=== PATIENT | female | born 1945 | race Hispanic/Latino ===

== ENCOUNTER 2017-12-12 13:04 | Inpatient (IN) | payer MEDICARE ==
--- NOTE | 2017-12-12 11:09 | R.PREADM ---
SCREENING DATE AND TIME 12/12/2017 08:56 (CDT) ANTICIPATED REHAB ADMISSION DATE 12/14/2017 REFERRING FACILITY [facility] REFERRAL DATE AND TIME 12/12/2017 08:57 (CDT) ACUTE ADMIT DATE 12/06/2017 Previous Rehabilitation(s): No. 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 Miki Delgado M.D. MR# [id number] NAME IVETTE HODGES ADDRESS [address] [facility] [facility] PHONE [facility] [id number] DATE OF 1945 AGE 72 N# [id number] GENDER female MARITAL STATUS RACE unknown race ADMIT FROM 02 - [facility] PRE-HOSPITAL LIVING SETTING 01 - Home (private home/apt. board/care, assisted living, alf, transitional living) HOME TYPE AND DETAILS Type of home: single family house # of steps to enter the residence: 0 # of steps within the residence: 0 # of levels in the residence: 1 PRE-HOSPITAL LIVING WITH Family/Relatives FAMILY SUPPORT Yes PRIMARY FAMILY CONTACT NAME Ansley Jackson PRIMARY FAMILY CONTACT PHONE PHONE PRIMARY FAMILY CONTACT ON ADM.? no IS PRIMARY FAMILY CONTACT AUTH. REP.? no 1ST EMERGENCY CONTACT Anlsey Jackson 1ST CONTACT PHONE PHONE 1ST CONTACT ON ADM. no IS 1ST CONTACT AUTH. REP.? no PHONE 2ND CONTACT ON ADM.? no PATIENT EMPLOYMENT STATUS Retired (for age) PATIENT EMPLOYER No Employer PAYOR INFORMATION: 1ST PAYOR NAME [employer] 1ST PAYOR PHONE 1ST PAYOR INJURY/ILLNESS DUE TO ACCIDENT? No ANOTHER [employer] RESPONSIBLE? No PRIMARY REHAB/ACUTE DIAGNOSIS: Cerebral infarction due to unspecified occlusion or stenosis of right middle cerebral artery (I63.511 ) ONSET DATE 12/06/2017 REHAB IMPAIRMENT CATEGORY (CRIS): 01 Stroke (STR) MEETS 60% rule AFFECTED EXTREMITIES: LLE, and LUE PRIMARY DIAGNOSIS-RELATED SURGERIES: No surgeries related to the primary diagnosis were performed. COMORBID REHAB/ACUTE DIAGNOSES: - N/A hypertension hyperlipemia hyperthyroidism pacemaker diabetes INTERVENTIONS: - Hypertension Fluid management Medications VS - Diabetes BS's Education Glycohemoglobin Medications Podiatry RISK FOR COMPLICATIONS: - Hypertension CVA Hypotension RI TIA - Diabetes DM ulcers Infection Ketoacidosis PVD neuropathy SUMMARY OF ACUTE HOSPITALIZATION: Pt. is a 72 yo Right-handed female of unknown race. On 12/06/2017 Pt. presented to [facility] with sudden onset of left-side weakness. On 12/06/2017 she was admitted to [facility] with diagnosis Cerebral infarction due to unspecif ied occlusion or stenosis of right middle cerebral artery (I63.511). Her impairment category is Stroke 01 - Left Body (Right Brain) (01.1). Pre-morbidly, Pt. was independent/mod-I in Sphincter Control, Transfers Control, Communication, Socia l Cognition, Self-Care, and Locomotion; and she had good Sphincter Control. Currently, she has deficits of Endurance, Safety Awareness, Transfers Control, Communication, Social Cognition, Balance, Self-Care, and Locomotion. Pt. is now referred to [facility] for acute in-patient rehabilitation in order to maximize patient's functional independence in activities of daily living, strength, ROM, and mobi lity. Patient has realistic goal of being discharged at assistance level 6-Jonah to reside at Home with Fam remington/Relatives. PAST MEDICAL HISTORY diabetes hyperlipemia hypertension hyperthyroidism pacemaker MEDICATION ALLERGIES: No Known Drug Allergies (NKDA) ENVIRONMENTAL ALLERGIES: - Substance Allergies None Known - Other Allergies None Known CODE STATUS: Full code WEIGHT/HEIGHT/BMI: WEIGHT 150 lbs HEIGHT 5' 6" BMI 24.2 DIET: - Diet Type Regular - Diet - Solid Texture Regular - Diet - Liquid Texture Regular - Tube Feed N/A REVIEW OF SYSTEMS: - Gen Alert and awake Lying in bed No apparent distress Oriented to: person, time, and place - Vital Signs Vital signs stable, afebrile - CVS RRR VITAL SIGNS Temperature: 98.4 F SBP/DBP: 123/63 Pulse: 83 Resp: 22 Vital signs stable, afebrile CURRENT SPHINCTER CONTROL: Pre-hospital bladder status: continent # of bladder accidents in the last 7 days prior to screenin Pre-hospital bowel status: continent # of bowel accidents in the last 7 days prior to screenin Last Bowel Movement Date: 12/12/2017 DETAILED CURRENT FUNCTIONAL STATUS: - Bladder accident frequency: Ind - No accidents in the past 7 days - Bowel accident frequency: Ind - No accidents in the past 7 days - Walking score based on distance walked: 1(<=50ft) FUNCTIONAL STATUS: - Self-Care A. Eating Ind Tom B. Grooming Ind modA C. Bathing Ind modA D. Dressing - Upper Ind modA E. Dressing - Lower Ind modA F. Toileting Ind modA - Sphincter Control G: Bladder control Ind Ind H: Bowel control Ind Ind - Transfers Control I. Bed/Chair/Wheelchair Ind modA J. Toilet Ind modA K. Tub/Shower Ind modA - Locomotion L. Walk/Wheelchair (B) Ind Dep M. Stairs Ind ADNO - Communication N. Comprehension (B) Ind Tom O. Expression (B) Ind Tom - Social Cognition P. Social Interaction Ind Tom Q. Problem Solving Ind Tom R. Memory Ind Tom - Endurance Poor - Balance Poor - Safety Awareness Poor CURRENT FUNC. DEFICITS: Endurance, Safety Awareness, Transfers Control, Communication, Social Cognition, Balance, Self-Care, and Locomotion THERAPY NOTES FROM ACUTE CARE: Attached. SPECIAL NEEDS: - Safety Concerns Skin breakdown precautions needed due to skin breakdown risk PRECAUTIONS: - Weight Bearing Precaution WBAT left LE PATIENT NEEDS ACTIVE AND ONGOING THERAPEUTIC INTERVENTION OF MULTIPLE THERAPY DISCIPLINES, INCLUDING: - Occupational Therapy Evaluate and Treat. Cognitive Retraining. Visual Perceptual Training. - Speech Therapy Memory Strategies. Expressive Language Skills. Speech Intelligibility Training. Cognitive Training. R eceptive Language Skills. - Physical Therapy Evaluate and Treat. PATIENT NEEDS CLOSE MEDICAL SUPERVISION BY A REHABILITATION PHYSICIAN FOR: Bowel and Bladder Management Coordination of Treatment Team Diabetes Management Medical and Co-Morbidity Management PATIENT REQUIRES 24X7 REHAB NURSING FOR MEDICAL AND FUNCTIONAL MGT. OF THE FOLLOWING DEFICITS: ADL's Ambulation Bowel and Bladder Management Cognition Communication Disease Management Medication Management Patient/Family Education Providing Safe Environment Transfers PATIENT REQUIRES INTENSIVE, COORDINATED INTERDISCIPLINARY APPROACH TO REHAB: Arranging Home Equipment/Services Discharge Planning Family Intervention/Training Filter Pulp Washer/Case Management PATIENT REHAB POTENTIAL: Expected level of measurable improvement will be of a practical value to patient's functional capacit y or adaptations to impairments Has a viable Discharge Plan Medically appropriate; condition is sufficiently stable to participate in intensive rehab program Patient is able and expected to receive 3 hours of individualized therapy daily on at least 5 of ever y 7 days Patient's prognosis for significant practical improvement within a reasonable period of time appears Good DISCHARGE PLAN: - Estimated Length of Stay (days) 17. - Consensus on plan Discharge plan has been discussed with primary caregiver. Patient/Family is in agreement with the kailee n. Primary caregiver is in agreement with the plan. - Patient/Family Goals Return home with assistance. - Planned Living Setting Upon Discharge Home, to live with Family/Relatives. RECOMMENDED CARE LEVEL: IRF RECOMMENDATION DETAILS: Recommended Admission to Comprehensive Rehabilitation Program to Increase Functional [place] SCREENER'S COMPLETENESS CONFIRMATION: - Screening Confirmation The patient data collection on this preadmission screening form is finished PHYSICIANS REVIEW AND ADMISSION DETERMINATION Admit - Based on my review of the Pre-Admission Screening results, in my medical judgment and experie nce, I concur with the findings and recommend admission to [facility], as this patient requires an IRF level of care. SIGNATURE PANEL: Clinical Liaison - [electronically] signed by Astrid Eid on 12/12/2017 at 09:44 (CDT) Clinical Liaison - [electronically] signed by Diamond Hurd on 12/12/2017 at 09:58 (CDT) Physician Reviewer - [electronically] signed by Dr. Miki Delgado M.D. on 12/12/2017 at 10:08 (CDT )
--- OUTSIDE RECORDS SUMMARY | 2017-12-12 13:06 | XMS REPORT | Clinical Summary ---
:1945 Author Organization [facility] Address [address] [place] [address] Phone Care Team Providers Name Role Phone Unavailable Primary Care Provider Unavailable Allergies Active Allergy Reactions Severity Noted Date Comments Vancomycin Analogues Itching 07/16/2016 Current Medications Prescription Sig. Disp. Refills Start Date End Date Status glipiZIDE (GLUCOTROL) Take 10 mg by Active 5 MG tablet mouth daily . metFORMIN (GLUCOPHAGE) Take 500 mg by Active 500 MG tablet mouth daily with breakfast . omeprazole (PRILOSEC) Take 40 mg by Active 10 MG capsule mouth daily . aspirin 81 MG EC Take 81 mg by Active tablet mouth daily. carvedilol (COREG) Take 12.5 mg by Active 12.5 MG tablet mouth daily. sertraline (ZOLOFT) 50 Take 50 mg by Active MG tablet mouth daily. pravastatin Take 20 mg by Active (PRAVACHOL) 20 MG mouth daily. tablet ramipril (ALTACE) 5 MG Take 5 mg by mouth Active capsule daily. potassium chloride SA Take 20 mEq by Active (K-DUR,KLOR-CON) 20 mouth 2 (two) MEQ tablet times daily. furosemide (LASIX) 40 Take 40 mg by Active MG tablet mouth daily. zolpidem (AMBIEN) 10 Take 10 mg by Active mg tablet mouth every night as needed for Insomnia. traMADol (ULTRAM) 50 Take 1 tablet (50 10 tablet 0 07/17/2016 Active mg tablet mg total) by mouth every 8 (eight) hours as needed for up to 10 doses. Max Daily Amount: 150 mg Active Problems Problem Noted Date Chronic systolic CHF (congestive heart failure) (HCC) 07/16/2016 Social History Tobacco Use Types Packs/Day Years Used Date Never Smoker Smokeless Tobacco: Never Used Alcohol Use Drinks/Week oz/Week Comments No Sex Assigned at Date Recorded Not on file Last Filed Vital Signs Not on file Plan of Treatment Not on file Implants Implanted Type Area Hi Lo Driver Device Expiration Model / Identifier Date Serial / Lot Lead Icd Sprnt [employer]ur [id number] - [id number] Defibrillators N/A: [employer]:CARD 04/24/2017 [id number] / Implanted: Qty: 1 on 07/16/2016 by Yara Benson MD Heart RHY:DISEASE MGT [id number] / N/A Results Not on fileafter 12/11/2016
--- OUTSIDE RECORDS SUMMARY | 2017-12-12 13:06 | XMS REPORT | Continuity of Care Document ---
:1945 Author Organization Interface Problems Problem Status Onset Date Classification Date Comments Source Reported Medications Medication Details Route Status Patient Ordering Order Source Instructions Provider Date Allergies, Adverse Reactions, Alerts Substance Category Reaction Severity Reaction Status Date Comments Source type Reported Immunizations Immunization Date Given Site Status Last Updated Comments Source Results Order Results Value Reference Date Interpretation Comments Source Name Range Vital Signs Vital Sign Value Date Comments Source Encounters Location Location Encounter Encounter Reason Attending ADM DC Status Source Details Type Number For Provider Date Date Visit Outpatient [id number] DASHA 08/24 Active [facility] Outpatient [id number] DASHA 11/02 Active [facility] Outpatient [id number] DASHA 11/04 Active [facility] Outpatient [id number] DASHA 12/16 [facility] Procedures Procedure Code Date Perfomer Comments Source
[2017-12-12] MEDS ORDERED: GLUCAGON 1 MG/VIAL IM PRN (15:42)
[2017-12-12] MEDS ORDERED: D50W 25 GM/50 ML SYRINGE IV PRN (15:42)
[2017-12-12] MEDS: INSULIN -REGULAR HUMAN 50 UNIT/0.5 ML ML SQ SCH ×2 (16:30→21:00)
[2017-12-12] MEDS ORDERED: glipiZIDE 5 MG TAB PO SCH (16:30)
[2017-12-12] MEDS ORDERED: METFORMIN HCL 500 MG TAB PO SCH (17:00)
[2017-12-12] MEDS ORDERED: ENOXAPARIN 40 MG/0.4 ML SQ SCH (17:00)
[2017-12-12] MEDS ORDERED: PNEUMOCOCCAL VACCINE 0.5 ML IMVAC ONE (18:00)
--- NOTE | 2017-12-12 18:26 | R.HP ---
FACILITY: [facility] ENCOUNTER DATE AND TIME: 12/12/2017 17:20 (CDT) MR#: [id number] NAME IVETTE HODGES ADDRESS: [address] [place] [address]: [place]IP [id number] PHONE: DATE OF : 1945 AGE: 72 SSN# [id number] GENDER: Female DEXTERITY Right-handed MARITAL STATUS RACE Unknown race PRE-HOSPITAL LIVING SETTING 01 - Home (private home/apt. board/care, assisted living, correction, transitional living) PRE-HOSPITAL LIVING WITH Family/Relatives ENCOUNTER PHYSICIAN: Dr. Miki Delgado M.D. REFERRING DOCTOR: Jennifer Palencia DATE OF ADMISSION: 12/12/2017 13:04 (CDT) REFERRING FACILITY [facility] HOME TYPE AND DETAILS: Type of home: single family house # of steps to enter the residence: 0 # of steps within the residence: 0 # of levels in the residence: 1 ADMISSION DIAGNOSIS: Cerebral infarction due to unspecified occlusion or stenosis of right middle cerebral artery (I63.511 ) ONSET DATE: 12/06/2017 PRIMARY DIAGNOSIS-RELATED SURGERIES: No surgeries related to the primary diagnosis were performed. SECONDARY/COMORBID DIAGNOSES (TIERED): - N/A hypertension hyperlipemia hyperthyroidism pacemaker diabetes HISTORY OF PRESENT ILLNESS (HPI): Pt. is a 72 yo Right-handed female of unknown race. On 12/06/2017 Pt. presented to [facility] with sudden onset of left-side weakness. On 12/06/2017 she was admitted to [facility] with diagnosis Cerebral infarction due to unspecif ied occlusion or stenosis of right middle cerebral artery (I63.511). Her impairment category is Stroke 01 - Left Body (Right Brain) (01.1). Pre-morbidly, Pt. was independent/mod-I in Sphincter Control, Transfers Control, Communication, Socia l Cognition, Self-Care, and Locomotion; and she had good Sphincter Control. Currently, she has deficits of Endurance, Safety Awareness, Transfers Control, Communication, Social Cognition, Balance, Self-Care, and Locomotion. Pt. is now referred to [facility] for acute in-patient rehabilitation in order to maximize patient's functional independence in activities of daily living, strength, ROM, and mobi lity. Patient has realistic goal of being discharged at assistance level 6-Jonah to reside at Home with Fam remington/Relatives. MEDICATION ALLERGIES: No Known Drug Allergies (NKDA) ENVIRONMENTAL ALLERGIES: - Substance Allergies None Known - Other Allergies None Known PAST MEDICAL HISTORY: diabetes hyperlipemia hypertension hyperthyroidism pacemaker FAMILY HISTORY: Family history is not contributory. SOCIAL HISTORY: - Home Living Family/Relatives REVIEW OF SYSTEMS: - Gen No Chills No Fatigue No Fever - Eyes No Double Vision No itchiness - ENMT No Difficulty Swallowing - CVS No Chest Discomfort No Chest Pain No Fatigue No Weight Gain - Resp No Cough No Shortness of Breath - GI Continent No Abdominal Pain No Constipation No Diarrhea - Continent No Kidney Pain No Painful Urination No Urinary Urgency - MSK No Joint Pain No Muscle Cramps No Stiffness Loss of Strength - Skin No Itching No Rash No Suspicious Lesions - Neuro Coordination Difficulty Difficulty with Concentration No Memory Loss No Seizures Weakness Poor Coordination Left arm 1/5 distally and proximally and left leg 4/5 proximally and distally. - Psych No Anxiety No Depression No HIV Exposure No Persistent Infections No Seasonal Allergies - Endo No Cold/Heat Intolerance No Excessive Hunger No Excessive Thirst No Excessive Urination PHYSICAL EXAM - Gen Alert and awake Lying in bed No apparent distress Oriented to: person, time, and place - Vital Signs Vital signs stable, afebrile - Skin No skin breakdown. Normacephalic - Eyes No abnormalities - ENMT No abnormalities - Neck No abnormalities - CVS RRR - Chest Clear - Abd Soft - GI Non distended Deferred - No abnormalities - Ext No significant edema - MSK 0-1/5 weakness in left upper extremity. 2/5 left face, 4/5 left leg. Numbness left face and arm. - Neuro 0-1/5 weakness in left upper extremity. 2/5 left face, 4/5 left leg. Numbness left face and arm. - Psych No abnormalities VITAL SIGNS Temperature: 98.4 F SBP/DBP: 123/63 Pulse: 83 Resp: 22 Vital signs stable, afebrile NURSING: - Shower allowing shower - Lab Results blood Sugar Check ACHS - Bladder care per protocol - Skin care per protocol PRECAUTIONS: - Weight Bearing Precaution WBAT left LE ACTIVITIES OOB only with supervision FUNCTIONAL STATUS: - Self-Care A. Eating Ind Tom B. Grooming Ind modA C. Bathing Ind modA D. Dressing - Upper Ind modA E. Dressing - Lower Ind modA F. Toileting Ind modA - Sphincter Control G: Bladder control Ind Ind H: Bowel control Ind Ind - Transfers Control I. Bed/Chair/Wheelchair Ind modA J. Toilet Ind modA K. Tub/Shower Ind modA - Locomotion L. Walk/Wheelchair (B) Ind Dep M. Stairs Ind ADNO - Communication N. Comprehension (B) Ind Tom O. Expression (B) Ind Tom - Social Cognition P. Social Interaction Ind Tom Q. Problem Solving Ind Tom R. Memory Ind Tom - Endurance Poor - Balance Poor - Safety Awareness Poor CURRENT FUNC. DEFICITS: Endurance, Safety Awareness, Transfers Control, Communication, Social Cognition, Balance, Self-Care, and Locomotion ASSESSMENT: Pt. is a 72 yo Right-handed female of unknown race.On 12/06/2017 Pt. presented to [facility] sudden onset of left-side weakness.On 12/06/2017 she was admitted to [facility] with diagnos is Cerebral infarction due to unspecified occlusion or stenosis of right middle cerebral artery (I63. 511).Her impairment category is Stroke 01 - Left Body (Right Brain) (01.1).Pre-morbidly, Pt. was ind ependent/mod-I in Sphincter Control, Transfers Control, Communication, Social Cognition, Self-Care, a nd Locomotion; and she had good Sphincter Control.Currently, she has deficits of Endurance, Safety Aw areness, Transfers Control, Communication, Social Cognition, Balance, Self-Care, and Locomotion.Pt. i s now referred to [facility] for acute in-patient rehabilitation in order to m aximize patient's functional independence in activities of daily living, strength, ROM, and mobility. - Rehab Goal Patient has realistic goal of being discharged at assistance level 6-Jonah to reside at Home with Fam remington/Relatives. REHAB PLAN: for Dementia, TBI, Stroke, or others - Physical Therapy Gait dysfunction - to improve, our physical therapists will perform initial evaluation of pt's status upon admission and devise an individualized program for Gait Training, and Wheel Chair mobility Inability to transfer - to improve, our physical therapists will perform initial evaluation of pt's s tatus upon admission and devise an individualized program for Bed mobility Need for home safety evaluation - to improve, our physical therapists will perform initial evaluation of pt's status upon admission and devise an individualized program for Home Evaluation Need in caregiver upon discharge - to improve, our physical therapists will perform initial evaluatio n of pt's status upon admission and devise an individualized program for Caregiver Training New precaution - to improve, our physical therapists will perform initial evaluation of pt's status u neto admission and devise an individualized program for Patient precaution education Edema - to improve, our physical therapists will perform initial evaluation of pt's status upon admi ssion and devise an individualized program for Elevation Training, and Lymphedema Therapy Poor balance - to improve, our physical therapists will perform initial evaluation of pt's status upo n admission and devise an individualized program for Balance Training Poor endurance - to improve, our physical therapists will perform initial evaluation of pt's status u neto admission and devise an individualized program for Endurance Training Weakness - to improve, our physical therapists will perform initial evaluation of pt's status upon ad mission and devise an individualized program for Aquatic Therapy, Neuromuscular Reeducation, and Stre ngthening Achieving independence - to improve, our physical therapists will perform initial evaluation of pt's status upon admission and devise an individualized program for Community Reintegration Activities - Occupational Therapy ADL deficits - to improve, our occupation therapists will perform initial evaluation of pt's status u neto admission and devise an individualized program for Bathing, Bed mobility, Community Reintegration , Cooking, Dressing, Eating, Fine Motor Skills, Grooming, Homemaking, Kitchen Mobility, Laundry, Chiara ent Education, Safety Awareness, Splinting - Positioning, Transfers(Toilet, Tub, Shower), and Wheel C hair Management Cognitive deficits - to improve, our occupation therapists will perform initial evaluation of pt's st atus upon admission and devise an individualized program for Cognition - orientation Need for landcare facilitator - to improve, our occupation therapists will perform initial evaluation of pt's s tatus upon admission and devise an individualized program for Caregiver Training Weakness - to improve, our occupation therapists will perform initial evaluation of pt's status upon admission and devise an individualized program for Aquatic Therapy, Balance, Endurance, UE ROM, and U E strengthening MEDICAL PLAN: - Diet Type Start Regular - Diet - Liquid Texture Start Regular - Tube Feed Start N/A - Lab Results blood Sugar Check ACHS - Bladder care per protocol - Weight Bearing Precaution WBAT left LE - Skin care per protocol - Diet - Solid Texture Regular - Shower shower DISCHARGE PLAN: - Estimated Length of Stay (days) 17. - Consensus on plan Discharge plan has been discussed with primary caregiver. Patient/Family is in agreement with the kailee n. Primary caregiver is in agreement with the plan. - Patient/Family Goals Return home with assistance. - Planned Living Setting Upon Discharge Home, to live with Family/Relatives. SIGNATURE PANEL: (CDT)
--- NOTE | 2017-12-12 18:27 | PAPE ---
PATIENT: [facility] MR# [id number] REFERRING DOCTOR Jennifer Palencia EVALUATION DATE AND TIME 12/12/2017 17:26 (CDT) NAME IVETTE HODGES DATE OF 1945 AGE 72 PHONE N# [id number] GENDER female EVALUATING PHYSICIAN Dr. Miki Delgado M.D. ADMISSION DIAGNOSIS: Cerebral infarction due to unspecified occlusion or stenosis of right middle cerebral artery (I63.511 ) ONSET DATE 12/06/2017 SECONDARY/COMORBID DIAGNOSES TIERED: - N/A hypertension hyperlipemia hyperthyroidism pacemaker diabetes POST-ADMISSION FUNCTIONAL/MEDICAL STATUS: - Bladder Same accident frequency: Ind - No accidents in the past 7 days - Bowel Same accident frequency: Ind - No accidents in the past 7 days - Walking Same score based on distance walked: 1(<=50ft) STATUS CHANGE EVALUATION: No change in Functional or Medical Status is identified compared with Pre-Admission screening. PATIENT NEEDS CLOSE MEDICAL SUPERVISION BY A REHABILITATION PHYSICIAN FOR: Bowel and Bladder Management Coordination of Treatment Team Diabetes Management Medical and Co-Morbidity Management PATIENT REQUIRES 24X7 REHAB NURSING FOR MEDICAL AND FUNCTIONAL MGT. OF THE FOLLOWING DEFICITS: ADL's Ambulation Bowel and Bladder Management Cognition Communication Disease Management Medication Management Patient/Family Education Providing Safe Environment Transfers PATIENT REQUIRES INTENSIVE, COORDINATED INTERDISCIPLINARY APPROACH TO REHAB: Arranging Home Equipment/Services Discharge Planning Family Intervention/Training Repatcher/Case Management LIST OF IDENTIFIED AND POTENTIAL PROBLEMS: Alteration in leisure activities Bladder, Incontinence Blood Pressure, Hypertension/hypotension Issues Bowel, Incontinence Diabetes, Hyperglycemia/hypoglycemia Issues Infection, Actual or Potential Mobility Impaired Pain, Alteration in Comfort Self Care Deficit Skin Integrity, Actual or Potential Urinary Tract Infection (UTI), Actual or Potential RISK FOR COMPLICATIONS - Hypertension CVA. Hypotension. OH. TIA. - Diabetes DM ulcers. Infection. Ketoacidosis. PVD neuropathy. INTERVENTIONS - Hypertension - Diabetes BS's. Education. Glycohemoglobin. Medications. Podiatry. PATIENT COULD BE AT RISK FOR COMPLICATIONS FROM ADVERSE MEDICAL CONDITIONS DUE TO HIS/HER COMORBIDITI ES AND THE RIGORS OF THE INTENSIVE REHABILLITATION PROGRAM. METHODS OR INTERVENTIONS TO AVOID COMPLIC ATIONS INCLUDE: - Bleeding Stroke patients assessed for lethargy or change in status. - Infection Clinical staff to assess and manage the signs and symptoms of infection including fever, redness, war mth, etc. - Urinary Tract Infection - Aspiration Clinical staff will assess and manage coughing, drooling, congestion. - Falls Patient will be evaluated for Fall Precautions and will be placed on Fall Precautions as indicated pe r protocol. - Skin Breakdown Nursing will assess skin daily using assessment tool and will place on Skin Breakdown Precautions as indicated per protocol. - Pain Clinical staff may employ non-medication methods such as massage, distraction, decrease stimulus, etc . as needed. Clinical staff will assess patient's pain level every shift per protocol to assess and e nsure pain management effectiveness. Medications will be given and the pain level re-assessed. PRELIMINARY PLAN OF CARE: - Physical Therapy Patient needs Physical Therapy for a daily minimum of 1.5 hours at least 5 out of 7 days, to improve: Mobility, Strengthening, Transfers, Stretching, ROM, Endurance, Ability to manage stairs, Gait, and Balance. - Speech Therapy Patient needs Speech Therapy for a daily minimum of 0.5 hours at least 5 out of 7 days, to improve: S wallowing, Cognition, Language Skills, and Compensatory Strategies. - Rehabilitation Nursing Patient requires 24x7 Rehabilitation Nursing for: Pain Issues, Identifying and preventing risk factor s, Monitoring and reporting current medical conditions, Assisting with ambulation and transfer, Hue ting with all ADL-s, Teaching patients about disease process and medications, Family teaching, Provid ing safe environment, Bowel and Bladder Issues, Skin Integrity, and Medication Management. Patient needs Repatcher and/or Case Management for: Discharge Planning, Arranging Home Equipmen t or Services, and Family Interventions. - Dietary and Nutrition Services Patient needs Dietary and Nutrition Services for: Adequate Nutrition, Nutritional Supplements, and Nu tritional Education. - Occupational Therapy Patient needs Occupational Therapy for a daily minimum of 1.5 hours at least 5 out of 7 days, to impr ove Activities of Daily Living, including: Eating, Grooming, Bathing, Dressing, Toileting, Toilet Tra nsfers, Community Reintegration, Higher functional activities, Adaptive Equipment, Splinting, Househo ld Tasks, and Other activities as determined. POTENTIAL FUNCTIONAL GOALS FOR PATIENT TO ACHIEVE BY DISCHARGE: - Safety Precaution Patient will remain free from falls or injury at time of discharge. - Bed Mobility Patient will perform bed mobility at 4-Tom level of assistance. - Transfers Patient will complete transfers from bed to chair at 4-Tom level of assistance. - Mobility Patient will ambulate 150 ft with 4-Tom level of assistance with RW. PATIENT REHAB POTENTIAL Expected level of measurable improvement will be of a practical value to patient's functional capacit y or adaptations to impairments Has a viable Discharge Plan Medically appropriate; condition is sufficiently stable to participate in intensive rehab program Patient is able and expected to receive 3 hours of individualized therapy daily on at least 5 of ever y 7 days Patient's prognosis for significant practical improvement within a reasonable period of time appears Good DISCHARGE PLAN: - Estimated Length of Stay (days) 17. - Consensus on plan Discharge plan has been discussed with primary caregiver. Patient/Family is in agreement with the kailee n. Primary caregiver is in agreement with the plan. - Patient/Family Goals Return home with assistance. - Planned Living Setting Upon Discharge Home, to live with Family/Relatives. CONCLUSION ON REHABILITATION NECESSITY: I have evaluated patient's pre-admission functional status and, comparing it to the patient's post-ad mission functional status now, I conclude that the pre-admission assessment was accurate. Patient's c ondition on admission supports the medical necessity of admission to IRF. It is safe to proceed with patient's therapy program. SIGNATURE PANEL: (CDT)
[2017-12-12] MEDS ORDERED: CARVEDILOL 6.25 MG TAB PO SCH (20:00)
[2017-12-12] MEDS ORDERED: ATORVASTATIN 80 MG TAB PO SCH (21:00)
[2017-12-13] MEDS ORDERED: ACETAMINOPHEN 325 MG TABLET PO PRN ×2 (00:25→02:34)
[2017-12-13] MEDS ORDERED: ACETAMINOPHEN 325 MG TABLET ONE (00:50)
[2017-12-13 02:03] VITALS: BP 116/61; TEMP 96.8
--- NOTE | 2017-12-13 05:44 | FAST ---
SHIFT START DATE/TIME: 12/12/2017 19:00 (CDT) SHIFT END DATE/TIME: 12/13/2017 07:00 (CDT) NAME IVETTE HODGES DATE OF : 1945 DATE OF ADMISSION: 12/12/2017 13:04 (CDT) PHONE: AGE: 72 N# [id number] GENDER: Female ENCOUNTER PHYSICIAN: Dr. Miki Delgado M.D. 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 EATING: Activity did not occur on this shift EATING - SCORE: 0-UNK GROOMING: Activity did not occur on this shift GROOMING - SCORE: 0-UNK BATHING: Activity did not occur on this shift BATHING - SCORE: 0-UNK DRESSING - UPPER BODY: Activity did not occur on this shift ARTICLES SCORE Total number of steps: 0 DRESSING - UPPER BODY - SCORE: 0-UNK DRESSING - LOWER BODY: Activity did not occur on this shift ARTICLES SCORE Total number of steps: 0 DRESSING - LOWER BODY - SCORE: 0-UNK TOILETING: TOILETING - STEP 1: Does the patient require assistance with toileting? Yes. TOILETING - STEP 2: Does the patient require the assistance of a helper? Yes. TOILETING - STEP 3: How much assistance does the patient require from the helper? Hands-on assistance from the helper TOILETING - STEP 4: Of the 3 tasks: 1) Adjusting clothing prior to use, 2) Cleansing of perineal area, 3) Adjusting clot willie after use; How many tasks does the patient perform WITHOUT assistance of the helper? Two tasks TOILETING - SCORE: 3-MOD BLADDER MANAGEMENT: Activity did not occur on this shift BLADDER MANAGEMENT - SCORE: 7-IND BOWEL MANAGEMENT: Activity did not occur on this shift BOWEL MANAGEMENT - SCORE: 7-IND TRANSFERS: BED, CHAIR, WHEELCHAIR: Activity did not occur on this shift TRANSFERS: BED, CHAIR, WHEELCHAIR - SCORE: 0-UNK TRANSFERS: TOILET: TRANSFERS: TOILET - STEP 1: Does the patient require assistance with toilet transfers? Yes. TRANSFERS: TOILET - STEP 2: Does the patient require the assistance of a helper? Yes. TRANSFERS: TOILET - STEP 3: How much assistance does the patient require from the helper? Patient performs half or more of the tr ansferring tasks TRANSFERS: TOILET - STEP 4: Does the patient need only incidental help such as contact guard or steadying during toilet transfer? Yes. TRANSFERS: TOILET - SCORE: 4-MIN TRANSFERS: SHOWER: Activity did not occur on this shift TRANSFERS: SHOWER - SCORE: 0-UNK TRANSFERS: TUB: Activity did not occur on this shift TRANSFERS: TUB - SCORE: 0-UNK LOCOMOTION: WALK: Activity did not occur on this shift LOCOMOTION: WALK - SCORE: 0-UNK LOCOMOTION: WHEELCHAIR: Activity did not occur on this shift LOCOMOTION: WHEELCHAIR - SCORE: 0-UNK COMPREHENSION: COMPREHENSION - SCORE: 0-UNK EXPRESSION EXPRESSION - SCORE: 0-UNK SOCIAL INTERACTION: SOCIAL INTERACTION - SCORE: 0-UNK PROBLEM SOLVING: PROBLEM SOLVING - SCORE: 0-UNK MEMORY: MEMORY - SCORE: 0-UNK SIGNATURE PANEL: The following modified sections: Dressing - Upper Body - Score, Eating - Score, Grooming - Score, Bat willie - Score, Dressing - Lower Body - Score, Toileting - Score, Bladder Management - Score, Bowel Man agement - Score, Transfers: Bed, Chair, Wheelchair - Score, Transfers: Toilet - Score, Transfers: Nette wer - Score, Transfers: Tub - Score, Locomotion: Walk - Score, Locomotion: Wheelchair - Score, Compre hension - Score, Expression - Score, Social Interaction - Score, Problem Solving - Score, Memory - Sc ore were [electronically] signed by Gauri Loredo on TueDec 13 2017 04:44:28 GMT-0500 (Central Day light Time)
[2017-12-13] MEDS ORDERED: PANTOPRAZOLE 40MG TABLET PO SCH (06:30)
[2017-12-13] MEDS ORDERED: ASPIRIN EC 81 MG TAB PO SCH (08:00)
[2017-12-13] MEDS ORDERED: CLOPIDOGREL 75 MG TABLET PO SCH (08:00)
[2017-12-13] MEDS ORDERED: FUROSEMIDE 20 MG TABLET PO SCH (08:00)
[2017-12-13] MEDS ORDERED: RAMIPRIL 2.5 MG CAP PO SCH (08:00)
--- NOTE | 2017-12-13 08:46 | RAD REPORT ---
EXAM DESCRIPTION: CT - Ct Stroke Brain Wo Cont - 12/13/2017 6:42 am CLINICAL HISTORY: increased trouble swallowing CVA COMPARISON: Head Brain Wo Cont dated 07/06/2017 TECHNIQUE: All CT scans are performed using dose optimization technique as appropriate and may inclu de automated exposure control or mA/KV adjustment according to patient size. FINDINGS: A large area of diminished density and loss montoya-white matter differentiation is seen invo lving the right cerebral hemisphere suggesting a right sided acute MCA territory CVA.No hemorrhage is seen. No hydrocephalus or extra-axial fluid collection.No significant measurable midline shift is pr esent. Moderate polypoid mucosal thickening of the maxillary antra, greater on the right is noted. The paran og sinuses and mastoids are otherwise clear. The calvarium is intact. IMPRESSION: Large acute nonhemorrhagic CVA suspected right MCA territory. A preliminary written report was provided at the time of the study, and the report was reviewed prio r to final dictation.
--- NOTE | 2018-01-06 13:27 | R.DS ---
FACILITY [facility] MR# [id number] [place]CT# [id number] NAME IVETTE HODGES ADDRESS [address] [facility] [address] [address] PHONE DATE OF 1945 AGE 72 N# [id number] GENDER Female DEXTERITY Right-handed MARITAL STATUS RACE Unknown race ENCOUNTER PHYSICIAN Dr. Miki Delgado M.D. REFERRING DOCTOR Jennifer Palencia REFERRING FACILITY [facility] DISCHARGE DIAGNOSIS: - Stroke 01 - Left Body (Right Brain) (01.1) Cerebral infarction due to unspecified occlusion or stenosis of right middle cerebral artery (I63.511 ). DISCHARGE COMORBIDITIES: - N/A hypertension hyperlipemia hyperthyroidism pacemaker diabetes DATE OF ADMISSION 12/12/2017 13:04 (CDT) MEDICATION ALLERGIES: No Known Drug Allergies (NKDA) ENVIRONMENTAL ALLERGIES: - Substance Allergies None Known - Other Allergies None Known NURSING: - Shower allowing shower - Lab Results blood Sugar Check ACHS - Bladder care per protocol - Skin care per protocol PRECAUTIONS: - Weight Bearing Precaution WBAT left LE ACTIVITIES OOB only with supervision THERAPIES: - Occupational Therapy Evaluate and Treat Cognitive Retraining Visual Perceptual Training - Speech Therapy Memory Strategies Expressive Language Skills Speech Intelligibility Training Cognitive Training Receptive Language Skills - Physical Therapy Evaluate and Treat HISTORY OF PRESENT ILLNESS: Pt. is a 72 yo Right-handed female of unknown race.On 12/06/2017 Pt. presented to [facility] sudden onset of left-side weakness.On 12/06/2017 she was admitted to [facility] with diagnos is Cerebral infarction due to unspecified occlusion or stenosis of right middle cerebral artery (I63. 511).Her impairment category is Stroke 01 - Left Body (Right Brain) (01.1).Pre-morbidly, Pt. was ind ependent/mod-I in Sphincter Control, Transfers Control, Communication, Social Cognition, Self-Care, a nd Locomotion; and she had good Sphincter Control.Currently, she has deficits of Endurance, Safety Aw areness, Transfers Control, Communication, Social Cognition, Balance, Self-Care, and Locomotion.Pt. i s now referred to [facility] for acute in-patient rehabilitation in order to m aximize patient's functional independence in activities of daily living, strength, ROM, and mobility. - Rehab Goal Patient has realistic goal of being discharged at assistance level 6-Jonah to reside at Home with Fam remington/Relatives. HOSPITAL COURSE: On 12/12/2017 Pt was upgraded to Regular Diet Type. DIET TYPE: DIET - LIQUID TEXTURE: On 12/12/2017 Pt was upgraded to Regular Diet - Liquid Texture. DIET - SOLID TEXTURE: On 12/12/2017 Pt was upgraded to Regular Diet - Solid Texture. TUBE FEED: On 12/12/2017 Pt was changed to N/A Tube Feed. WEIGHT BEARING PRECAUTION: On 12/12/2017 the following precautions were added for the patient: Weight Bearing Precaution - WBAT left LE. On 12/12/2017 the following precautions were added for the patient: Weight Bearing Precaution - WBAT left LE. DISCHARGE PHYSICAL EXAM - Gen Alert and awake Lying in bed No apparent distress Oriented to: person, time, and place - Vital Signs Vital signs stable, afebrile - Skin No skin breakdown. Normacephalic - Eyes No abnormalities - ENMT No abnormalities - Neck No abnormalities - CVS RRR - Chest Clear - Abd Soft - GI Non distended Deferred - No abnormalities - Ext No significant edema - MSK 0-1/5 weakness in left upper extremity. 2/5 left face, 4/5 left leg. Numbness left face and arm. - Neuro 0-1/5 weakness in left upper extremity. 2/5 left face, 4/5 left leg. Numbness left face and arm. - Psych No abnormalities FUNCTIONAL STATUS: - Self-Care A. Eating 4-Tom 4-Tom B. Grooming 3-modA 3-modA C. Bathing 3-modA 3-modA D. Dressing - Upper 3-modA 3-modA E. Dressing - Lower 3-modA 3-modA F. Toileting 3-modA 3-modA - Sphincter Control G: Bladder control 7-Ind 7-Ind H: Bowel control 7-Ind 7-Ind - Transfers Control I. Bed/Chair/Wheelchair 3-modA 3-modA J. Toilet 3-modA 3-modA K. Tub/Shower 3-modA 3-modA - Locomotion L. Walk/Wheelchair (B) 1-Dep 1-Dep M. Stairs 0-ADNO 0-ADNO - Communication N. Comprehension (B) 4-Tom 4-Tom O. Expression (B) 4-Tom 4-Tom - Social Cognition P. Social Interaction 4-Tom 4-Tom Q. Problem Solving 4-Tom 4-Tom R. Memory 4-Tom 4-Tom - Endurance Poor - Balance Poor - Safety Awareness Poor DISCHARGE INSTRUCTIONS: - N/A Aspirin 81 mg daily. Plavix 75 mg daily, Lovenox 40 mg daily. DISCHARGE PLAN, FOLLOW UP CARE PROVISIONS: - Estimated Length of Stay (days) 17. - Consensus on plan Discharge plan has been discussed with primary caregiver. Patient/Family is in agreement with the kailee n. Primary caregiver is in agreement with the plan. - Patient/Family Goals Return home with assistance. - Planned Living Setting Upon Discharge Home, to live with Family/Relatives. SIGNATURE PANEL: (CDT)
== END 2017-12-13 03:50 | disposition short-term general hospital (02) | DRG 57 ==
LOC: 5TH 13:04
PROVIDERS: ADMIT Psychiatry & Neurology Neurology with Special Qualifications in Child Neurology; ATTEND Psychiatry & Neurology Neurology with Special Qualifications in Child Neurology
DX: I69.354 Hemiplegia and hemiparesis following cerebral infarction affecting left non-dominant side (principal); E11.9 Type 2 diabetes mellitus without complications; E78.5 Hyperlipidemia, unspecified; I10 Essential (primary) hypertension; E05.90 Thyrotoxicosis, unspecified without thyrotoxic crisis or storm; Z95.0 Presence of cardiac pacemaker
CPT/HCPCS: 36415; 70450; 74230; 80048; 81001; 82040; 82565; 82962; 83735; 84134; 84520; 85025; 87086; 87088; 93005; 97542; J1644; J1650; J7030

== ENCOUNTER 2017-12-14 09:54 | Inpatient (IN) | payer MEDICARE ==
--- OUTSIDE RECORDS SUMMARY | 2017-12-14 15:23 | XMS REPORT | Clinical Summary ---
:1945 Author Organization [facility] Address [address] [place] [address] Phone Care Team Providers Name Role Phone [...] Not on file Implants Implanted Type Area Civil Clerk Device Expiration Model / Identifier Date Serial / Lot Lead Icd Sprnt [employer] Secur [id number] - [id number] Defibrillators N/A: [employer]:CARD 04/24/2017 [id number] / Implanted: Qty: 1 on 07/16/2016 by Yara Benson MD Heart RHY:DISEASE MGT [id number] / N/A Results Not on fileafter 12/13/2016
--- OUTSIDE RECORDS SUMMARY | 2017-12-14 15:23 | XMS REPORT | Continuity of Care Document ---
[...] Number For Provider Date Date Visit Outpatient [id number] DASHA 08/24 Active [facility] [place] Outpatient [id number] DASHA 11/02 Active [facility] Outpatient [id number] DASHA 11/04 Active [facility] [place] Outpatient [id number] DASHA 12/16 [facility] [place] Procedures Procedure Code Date Perfomer Comments Source
[2017-12-14 15:42] VITALS: BMI 28.0
[2017-12-14] MEDS ORDERED: GLUCAGON 1 MG/VIAL IM PRN (16:44)
[2017-12-14] MEDS ORDERED: D50W 25 GM/50 ML SYRINGE IV PRN (16:44)
[2017-12-14] MEDS: glipiZIDE 5 MG TAB PO SCH (16:48)
[2017-12-14] MEDS: METFORMIN HCL 500 MG TAB PO SCH (16:48)
[2017-12-14] MEDS: HEPARIN 5000 UNIT/ML 1 ML VIAL SQ SCH (18:03)
[2017-12-14 19:44] LABS: Urine Appearance CLEAR; Urine Bilirubin NEGATIVE (NEG); Urine Blood NEGATIVE (NEG); Urine Color YELLOW; Urine Glucose NEGATIVE (NEG); Urine Protein NEGATIVE (NEG); Urine Specific Gravity 1.015 (1.005-1.030); Urine Urobilinogen 0.2 mg/dL (0.2-1.0)
[2017-12-14 19:54] LABS: Urine Culture Reflex Order NOT NEEDED
[2017-12-14 19:55] LABS: Urine Bacteria <20 /HPF (<20); Urine RBC <5 /HPF (NONE SEEN)
[2017-12-14] MEDS: CARVEDILOL 6.25 MG TAB PO SCH (20:00)
[2017-12-14] MEDS: levETIRAcetam 500 MG TAB PO SCH (20:06)
[2017-12-14] MEDS: ATORVASTATIN 80 MG TAB PO SCH (20:06)
[2017-12-14] MEDS: INSULIN -REGULAR HUMAN 50 UNIT/0.5 ML ML SQ SCH (20:33)
[2017-12-15 07:13] LABS: Albumin 3.6 g/dL (3.4-5.0); Magnesium 1.8 mg/dL (1.8-2.4); Prealbumin 16.8 mg/dL (20-40)
[2017-12-15] MEDS: INSULIN -REGULAR HUMAN 50 UNIT/0.5 ML ML SQ SCH ×4 (07:30→21:00)
[2017-12-15] MEDS: glipiZIDE 5 MG TAB PO SCH ×2 (07:30→16:54)
[2017-12-15 07:34] LABS: Absolute Monocytes 1.3 K/uL (0.1-1.3); Absolute Neutrophil 5.8 K/uL (1.8-8.0); Basophils % 0.5 % (0-1.3); Eosinophils % 2.4 % (0-4.4); Hematocrit 36.4 % (36.0-45.0); Lymphocytes % 21.4 % (15.3-44.8); MCH 30.6 pg (27.0-35.0); MPV 9.5 fL (7.6-11.3); RBC Red Blood Cell Count 4.05 M/uL (3.86-4.86)
[2017-12-15] MEDS: METFORMIN HCL 500 MG TAB PO SCH ×2 (08:00→16:54)
[2017-12-15] MEDS: levETIRAcetam 500 MG TAB PO SCH ×2 (08:25→19:59)
[2017-12-15] MEDS: CARVEDILOL 6.25 MG TAB PO SCH ×2 (08:26→19:58)
[2017-12-15] MEDS: CLOPIDOGREL 75 MG TABLET PO SCH (08:26)
[2017-12-15] MEDS: PANTOPRAZOLE 40MG TABLET PO SCH (08:26)
[2017-12-15] MEDS: ASPIRIN EC 81 MG TAB PO SCH (08:26)
[2017-12-15] MEDS: FUROSEMIDE 20 MG TABLET PO SCH (08:26)
[2017-12-15] MEDS: HEPARIN 5000 UNIT/ML 1 ML VIAL SQ SCH ×2 (10:03→18:07)
--- NOTE | 2017-12-15 13:46 | RAD REPORT ---
EXAM DESCRIPTION: RAD - Ankle Left 2 View - 12/15/2017 1:20 pm CLINICAL HISTORY: Swelling Bruising COMPARISON: No comparisons FINDINGS: Large posterior and plantar calcaneal spurs are noted. Soft tissue swelling is seen along the lateral malleolus. Oblique lucency is seen in the region of the lateral malleolus, which could in dicate a nondisplaced fracture if the patient has point tenderness in this region.
--- NOTE | 2017-12-15 14:20 | RAD REPORT ---
EXAM DESCRIPTION: RAD - Barium Swallow Modified - 12/15/2017 1:54 pm CLINICAL HISTORY: dysphagia COMPARISON: ABDOMEN SINGLE VIEW dated 03/16/2010 TECHNIQUE: The patient was given liquid, semi-solid and solid forms of barium. Lateral view fluorosc opic imaging was performed in conjunction with speech pathology service. FINDINGS: LARYNGEAL PENETRATION: CLEARED WITH THIN ASPIRATION: COUGH WITH THIN MILD PHARYNGEAL RESIDUE: VALLECULAR PYRIFORM WITH ALL POOR LINGUAL MOTILITY DELAYED SWALLOW REFLEX REDUCED HYOLARNGEAL EXCURSION Total fluoroscopy time: 4 minutes and 45 seconds.
[2017-12-15] MEDS ORDERED: HYDROCODONE/APAP 5/325 MG TAB PO PRN (18:55)
[2017-12-15] MEDS: ATORVASTATIN 80 MG TAB PO SCH (20:00)
[2017-12-16] MEDS: INSULIN -REGULAR HUMAN 50 UNIT/0.5 ML ML SQ SCH ×4 (06:50→20:46)
[2017-12-16] MEDS: TRAMADOL HCL 50 MG TAB PO PRN (07:14)
[2017-12-16] MEDS: PANTOPRAZOLE 40MG TABLET PO SCH (08:14)
[2017-12-16] MEDS: FUROSEMIDE 20 MG TABLET PO SCH (08:14)
[2017-12-16] MEDS: ASPIRIN EC 81 MG TAB PO SCH (08:14)
[2017-12-16] MEDS: CLOPIDOGREL 75 MG TABLET PO SCH (08:14)
[2017-12-16] MEDS: METFORMIN HCL 500 MG TAB PO SCH ×2 (08:14→16:39)
[2017-12-16] MEDS: levETIRAcetam 500 MG TAB PO SCH ×2 (08:14→20:34)
[2017-12-16] MEDS: glipiZIDE 5 MG TAB PO SCH ×2 (08:14→16:39)
[2017-12-16] MEDS: CARVEDILOL 6.25 MG TAB PO SCH ×2 (08:15→20:00)
[2017-12-16] MEDS: HEPARIN 5000 UNIT/ML 1 ML VIAL SQ SCH ×2 (08:46→18:10)
--- NOTE | 2017-12-16 09:32 | P.RH.PN ---
Estimated Length of Stay: 21 Expected Discharge Date: 01/04/18 Discharge Disposition Plan: Home Family Support: Yes Custodial Goal: Mobility, Transfers, Self Care Vital Signs: Last Vital Signs Temp 97.6 F 12/16/17 07:30 Pulse 71 12/16/17 08:15 Resp 18 12/16/17 07:30 BP 129/58 L 12/16/17 08:15 Pulse Ox 99 12/16/17 07:30 Laboratory: Laboratory Last Values WBC 9.5 K/uL (4.3-10.9) 12/15/17 06:42 RBC 4.05 M/uL (3.86-4.86) 12/15/17 06:42 Hgb 12.4 g/dL (12.0-15.0) 12/15/17 06:42 Hct 36.4 % (36.0-45.0) 12/15/17 06:42 MCV 90.0 fL (80-100) 12/15/17 06:42 MCH 30.6 pg (27.0-35.0) 12/15/17 06:42 MCHC 34.0 g/dL (32.0-36.0) 12/15/17 06:42 RDW 15.2 % (12.1-15.2) 12/15/17 06:42 Plt Count 289 K/uL (152-406) 12/15/17 06:42 MPV 9.5 fL (7.6-11.3) 12/15/17 06:42 Neutrophils % 61.7 % (41.7-73.7) 12/15/17 06:42 Lymphocytes % 21.4 % (15.3-44.8) 12/15/17 06:42 Monocytes % 14.0 % (3.3-12.3) H 12/15/17 06:42 Eosinophils % 2.4 % (0-4.4) 12/15/17 06:42 Basophils % 0.5 % (0-1.3) 12/15/17 06:42 Absolute Neutrophils 5.8 K/uL (1.8-8.0) 12/15/17 06:42 Absolute Lymphocytes 2.0 K/uL (0.7-4.9) 12/15/17 06:42 Absolute Monocytes 1.3 K/uL (0.1-1.3) 12/15/17 06:42 Absolute Eosinophils 0.2 K/uL (0-0.5) 12/15/17 06:42 Absolute Basophils 0.0 K/uL (0-0.5) 12/15/17 06:42 Sodium 137 mmol/L (136-145) 12/15/17 06:42 Potassium 4.0 mmol/L (3.5-5.1) 12/15/17 06:42 Chloride 103 mmol/L (98-107) 12/15/17 06:42 Carbon Dioxide 24 mmol/L (21-32) 12/15/17 06:42 BUN 45 mg/dL (7-18) H 12/16/17 05:31 Creatinine 1.40 mg/dL (0.55-1.3) H 12/16/17 05:31 Estimated GFR 37 mL/min (=/>90) L 12/16/17 05:31 Glucose 78 mg/dL (74-106) 12/15/17 06:42 POC Glucose 116 mg/dl (65-120) 12/16/17 06:30 Calcium 8.9 mg/dL (8.5-10.1) 12/15/17 06:42 Magnesium 1.8 mg/dL (1.8-2.4) 12/15/17 06:42 Albumin 3.6 g/dL (3.4-5.0) 12/15/17 06:42 Prealbumin 16.8 mg/dL (20-40) L 12/15/17 06:42 Urine Color Yellow 12/14/17 19:15 Urine Appearance Clear 12/14/17 19:15 Urine pH 5.0 (5.0-7.0) 12/14/17 19:15 Ur Specific Wilkinson 1.015 (1.005-1.030) 12/14/17 19:15 Urine Ketones Negative (NEG) 12/14/17 19:15 Urine Blood Negative (NEG) 12/14/17 19:15 Urine Nitrite Negative (NEG) 12/14/17 19:15 Urine Bilirubin Negative (NEG) 12/14/17 19:15 Urine Urobilinogen 0.2 mg/dL (0.2-1.0) 12/14/17 19:15 Ur Leukocyte Esterase 3+ (NEG) H 12/14/17 19:15 Urine RBC <5 /HPF (NONE SEEN) 12/14/17 19:15 Urine WBC 10-20 /HPF (<5) H 12/14/17 19:15 Ur Squamous Epith Cells <5 /HPF (NONE SEEN) 12/14/17 19:15 Ur Urothelial Cells <5 /HPF (NONE SEEN) 12/14/17 19:15 Urine Bacteria <20 /HPF (<20) 12/14/17 19:15 Urine Culture Reflexed Not needed 12/14/17 19:15 Urine Glucose Negative (NEG) 12/14/17 19:15 Urine Total Protein Negative (NEG) 12/14/17 19:15 Weight: 129 lb 8 oz Wound Present: No Closed Surgical Incision Present: No Negative Pressure Wound Therapy Present: No Physician Update: She has a possible left ankle fracture at the time of her stroke. Her x-ray suggests a fractured. Dr. Dixon will be consulted. Her BUN and Breast Worker are mildly elevated due to dehydration. Will give a liter of NS at 75 cc/hour. She now has left biceps 2-/5. Her left triceps 1/5. She is on a soft mechanical puree diet. She will most likely do well with 2-3 week of aggressive therapy. She is transfering with moderate assistance. Medical Issues: Dm- with mild sliding scale Pain Issues: No pain noted Nutritional Needs: Modified Barium Swallow ordered Functional Improvement Occupational Therapy: PATIENT HAS SIGNIFICANTLY INVOLVED LEFT SIDE INCLUDING NEGLECT, HOWEVER, MOTIVATED TO PARTICIPATE AND IMPROVE CURRENT LEVEL OF FUNCTION. Speech Therapy Update: MBSS complete. Patient with severe oral and moderate pharyngeal dysphagia. Patient placed on nectar thick liquids and pureed solids along with the following aspiration precautions: NO STRAWS, pills crushed in puree, small bites/sips, upright 90 degrees with all PO intake, remain elevated for 30 mins post PO intake. Patient also with Moderate to Severe Cognitive/ linguistic impairment with significant left sided neglect. Mild to Moderate dysarthria present. Summary: Patient's care plan and termite treater goals have been reviewed and revised as necessary. Please see the Rehabilitation Signature page for all necessary signatures.
[2017-12-16] MEDS: NA CHLORIDE 0.9% 1,000 ML IV SCH (13:30)
[2017-12-16] MEDS: ATORVASTATIN 80 MG TAB PO SCH (20:35)
[2017-12-16] MEDS: GLUCERNA SHAKE 237 ML CAN PO SCH (20:46)
--- NOTE | 2017-12-16 22:52 | CON ---
Date of Consultation: 12/16/2017 History Of Present Illness: This is my first time seeing this patient to my knowledge. This is a 72 -year-old female, who unfortunately had a stroke approximately 10 days ago. She was admitted to the rehab center and there was some bruising along the lateral aspect of her ankle. Therefore, x-rays we re taken, which demonstrated a small crack of the lateral malleolus. While speaking with the patient 's family, they said she had been up walking on it since she was injured, which they say was the same day as the CVA, so she has been basically walking on it for 10 days without any sign of displacement . I think it would probably be detrimental to her rehabilitation to place her in a cast and make her nonweightbearing, and I think that a fracture boot should do well. I think also that she can remove the fracture boot for skin checks as well as in the bed; however, when she is up with therapy especi ally with twisting activities that fracture would be helpful. On physical examination, she does have some bruising along the lateral malleolus. The medial malleolus does not have any bruising. She de nies any other specific injury. She can obviously follow up with me in my clinic whenever she is dis charged from rehab where that can be reconsulted for any change or problem. /TRELL Voice ID: [id number] Report ID: [id number]
[2017-12-17] MEDS: NA CHLORIDE 0.9% 1,000 ML IV SCH ×2 (01:00→17:07)
[2017-12-17] MEDS: INSULIN -REGULAR HUMAN 50 UNIT/0.5 ML ML SQ SCH ×4 (07:07→20:28)
[2017-12-17] MEDS: HEPARIN 5000 UNIT/ML 1 ML VIAL SQ SCH ×2 (08:00→20:53)
[2017-12-17] MEDS: CARVEDILOL 6.25 MG TAB PO SCH ×2 (08:00→20:00)
[2017-12-17] MEDS: FUROSEMIDE 20 MG TABLET PO SCH (08:00)
[2017-12-17] MEDS: glipiZIDE 5 MG TAB PO SCH ×2 (08:25→16:22)
[2017-12-17] MEDS: CLOPIDOGREL 75 MG TABLET PO SCH (08:25)
[2017-12-17] MEDS: METFORMIN HCL 500 MG TAB PO SCH ×2 (08:25→16:22)
[2017-12-17] MEDS: PANTOPRAZOLE 40MG TABLET PO SCH (08:25)
[2017-12-17] MEDS: ASPIRIN EC 81 MG TAB PO SCH (08:26)
[2017-12-17] MEDS: levETIRAcetam 500 MG TAB PO SCH ×2 (08:26→20:53)
[2017-12-17] MEDS: GLUCERNA SHAKE 237 ML CAN PO SCH ×2 (08:27→20:53)
[2017-12-17] MEDS: ATORVASTATIN 80 MG TAB PO SCH (20:53)
[2017-12-18] MEDS: NA CHLORIDE 0.9% 1,000 ML IV SCH ×2 (05:32→19:20)
[2017-12-18] MEDS: PANTOPRAZOLE 40MG TABLET PO SCH (07:26)
[2017-12-18] MEDS: CLOPIDOGREL 75 MG TABLET PO SCH (07:26)
[2017-12-18] MEDS: METFORMIN HCL 500 MG TAB PO SCH ×3 (07:26→16:40)
[2017-12-18] MEDS: glipiZIDE 5 MG TAB PO SCH ×3 (07:26→16:30)
[2017-12-18] MEDS: TRAMADOL HCL 50 MG TAB PO PRN (07:26)
[2017-12-18] MEDS: ASPIRIN EC 81 MG TAB PO SCH (07:27)
[2017-12-18] MEDS: levETIRAcetam 500 MG TAB PO SCH ×2 (07:27→20:50)
[2017-12-18] MEDS: GLUCERNA SHAKE 237 ML CAN PO SCH ×2 (07:28→20:51)
[2017-12-18] MEDS: INSULIN -REGULAR HUMAN 50 UNIT/0.5 ML ML SQ SCH ×4 (07:28→20:24)
[2017-12-18] MEDS: FUROSEMIDE 20 MG TABLET PO SCH (07:28)
[2017-12-18] MEDS: CARVEDILOL 6.25 MG TAB PO SCH ×2 (07:28→20:00)
[2017-12-18] MEDS: HEPARIN 5000 UNIT/ML 1 ML VIAL SQ SCH ×2 (08:00→20:50)
[2017-12-18] MEDS: ATORVASTATIN 80 MG TAB PO SCH (20:50)
[2017-12-19] MEDS: INSULIN -REGULAR HUMAN 50 UNIT/0.5 ML ML SQ SCH ×4 (07:30→20:25)
[2017-12-19] MEDS: glipiZIDE 5 MG TAB PO SCH ×2 (08:26→17:21)
[2017-12-19] MEDS: METFORMIN HCL 500 MG TAB PO SCH ×2 (08:26→17:21)
[2017-12-19] MEDS: levETIRAcetam 500 MG TAB PO SCH ×2 (08:26→20:24)
[2017-12-19] MEDS: PANTOPRAZOLE 40MG TABLET PO SCH (08:26)
[2017-12-19] MEDS: CLOPIDOGREL 75 MG TABLET PO SCH (08:26)
[2017-12-19] MEDS: ASPIRIN EC 81 MG TAB PO SCH (08:26)
[2017-12-19] MEDS: FUROSEMIDE 20 MG TABLET PO SCH (08:27)
[2017-12-19] MEDS: CARVEDILOL 6.25 MG TAB PO SCH ×2 (08:32→20:00)
[2017-12-19] MEDS: GLUCERNA SHAKE 237 ML CAN PO SCH ×2 (08:33→20:24)
[2017-12-19] MEDS: NA CHLORIDE 0.9% 1,000 ML IV SCH ×3 (08:40→22:00)
[2017-12-19] MEDS: HEPARIN 5000 UNIT/ML 1 ML VIAL SQ SCH ×2 (09:15→18:40)
--- NOTE | 2017-12-19 10:59 | RAD REPORT ---
EXAM DESCRIPTION: CT - Head Brain Wo Cont - 12/19/2017 8:06 am CLINICAL HISTORY: Left arm numbness. CVA COMPARISON: December 13, 2017 TECHNIQUE: Computed axial tomography of the head was obtained. IV contrast was not requested. All CT scans are performed using dose optimization technique as appropriate and may include automated exposure control or mA/KV adjustment according to patient size. FINDINGS: The low-density areas within the right cerebrum have mostly resolved. The compression of t he sulci has resolved. An intracranial bleed is not seen . The ventricles are normal in caliber. No extra-axial fluid collection is noted. Fluid within the sinuses/ mastoids is not seen. IMPRESSION: The mass effect from the large right cerebral infarct has mostly resolved. Additionally the low-density areas are markedly improved. The examination was discussed with Dr. Delgado
--- NOTE | 2017-12-19 14:35 | FAST ---
SHIFT START DATE/TIME: 12/19/2017 07:00 (CDT) SHIFT END DATE/TIME: 12/19/2017 19:00 (CDT) NAME IVETTE HODGES DATE OF : 1945 DATE OF ADMISSION: 12/14/2017 15:21 (CDT) PHONE: AGE: 72 N# [id number] GENDER: Female ENCOUNTER PHYSICIAN: Dr. Miki Delgado M.D. 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 EATING: EATING - STEP 1: Does the patient require assistance when eating? Yes. EATING - STEP 2: Does the patient require the assistance of a helper? Yes. EATING - STEP 3: Does the patient perform half or more of the eating tasks? Yes. EATING - STEP 4: Does the patient need only supervision, cuing, coaxing OR help to apply an orthosis OR help to cut fo od, open containers, pour liquids, or butter bread? Yes. EATING - SCORE: 5-SUP GROOMING: Activity did not occur on this shift GROOMING - SCORE: 0-UNK BATHING: Activity did not occur on this shift BATHING - SCORE: 0-UNK DRESSING - UPPER BODY: Activity did not occur on this shift ARTICLES SCORE Total number of steps: 0 DRESSING - UPPER BODY - SCORE: 0-UNK DRESSING - LOWER BODY: Activity did not occur on this shift ARTICLES SCORE Total number of steps: 0 DRESSING - LOWER BODY - SCORE: 0-UNK TOILETING: TOILETING - STEP 1: Does the patient require assistance with toileting? Yes. TOILETING - STEP 2: Does the patient require the assistance of a helper? Yes. TOILETING - STEP 3: How much assistance does the patient require from the helper? Hands-on assistance from the helper TOILETING - STEP 4: Of the 3 tasks: 1) Adjusting clothing prior to use, 2) Cleansing of perineal area, 3) Adjusting clot willie after use; How many tasks does the patient perform WITHOUT assistance of the helper? Three tasks with steadying assistance from the helper TOILETING - SCORE: 4-MIN BLADDER MANAGEMENT: BLADDER MANAGEMENT - STEP 1: Does the patient control the bladder completely and intentionally without equipment or devices or med ications, and is always continent? No. BLADDER MANAGEMENT - STEP 2: Does the patient require the assistance of a helper? Yes. BLADDER MANAGEMENT - STEP 3: How much assistance does the patient require from the helper? Only supervision, stand-by, cuing, or c oaxing BLADDER MANAGEMENT - SCORE: 5-SUP BLADDER MANAGEMENT - FREQUENCY OF ACCIDENTS: BLADDER MANAGEMENT(FA) - STEP 1: How many accidents has the patient had during the current shift? 0 BOWEL MANAGEMENT: Activity did not occur on this shift BOWEL MANAGEMENT - SCORE: 7-IND BOWEL MANAGEMENT - FREQUENCY OF ACCIDENTS: BOWEL MANAGEMENT(FA) - STEP 1: How many accidents has the patient had during the current shift? 0 TRANSFERS: BED, CHAIR, WHEELCHAIR: TRANSFERS: BED, CHAIR, WHEELCHAIR - STEP 1: Does the patient require assistance with bed, chair, or wheelchair transfers? Yes. TRANSFERS: BED, CHAIR, WHEELCHAIR - STEP 2: Does the patient require the assistance of a helper? Yes. TRANSFERS: BED, CHAIR, WHEELCHAIR - STEP 3: How much assistance does the patient require from the helper? Steadying/guiding assistance TRANSFERS: BED, CHAIR, WHEELCHAIR - SCORE: 4-MIN TRANSFERS: TOILET: TRANSFERS: TOILET - STEP 1: Does the patient require assistance with toilet transfers? Yes. TRANSFERS: TOILET - STEP 2: Does the patient require the assistance of a helper? Yes. TRANSFERS: TOILET - STEP 3: How much assistance does the patient require from the helper? Patient performs half or more of the tr ansferring tasks TRANSFERS: TOILET - STEP 4: Does the patient need only incidental help such as contact guard or steadying during toilet transfer? Yes. TRANSFERS: TOILET - SCORE: 4-MIN TRANSFERS: SHOWER: Activity did not occur on this shift TRANSFERS: SHOWER - SCORE: 0-UNK TRANSFERS: TUB: Activity did not occur on this shift TRANSFERS: TUB - SCORE: 0-UNK LOCOMOTION: WALK: Activity did not occur on this shift LOCOMOTION: WALK - SCORE: 0-UNK LOCOMOTION: WHEELCHAIR: LOCOMOTION: WHEELCHAIR - STEP 1: Does the patient need help to go 150 feet in a wheelchair? Yes. LOCOMOTION: WHEELCHAIR - STEP 2: How much assistance does the patient need from the helper? Patient goes less than 150 feet - but more than 50 feet - with the assistance of only one helper LOCOMOTION: WHEELCHAIR - SCORE: 2-MAX COMPREHENSION: COMPREHENSION: TYPE: Both COMPREHENSION - STEP 1: Does the patient require help to understand complex and abstract ideas (such as current events, finan clement, discharge planning, medical issues, relationships, etc)? Yes. COMPREHENSION - STEP 2: Does the patient require help to understand questions or statements about basic needs or ideas (such as hunger, thirst, sleep, safety, daily schedule, room location, or discomfort) half or more of the t tammy? Yes. COMPREHENSION - STEP 3: Is the patient basically able to understand and respond appropriately and consistently? Yes. COMPREHENSION - SCORE: 2-MAX COMPREHENSION - COMMENTS: Swiss speaking - understands and speaks some Czech EXPRESSION EXPRESSION: TYPE: Both EXPRESSION - STEP 1: Does the patient require help expressing complex and abstract ideas (such as current events, finances , discharge planning, medical issues, relationships, etc)? Yes. EXPRESSION - STEP 2: Does the patient require help to express basic necessities or ideas (such as hunger, thirst, sleep, s afety, daily schedule, room location, or discomfort) half or more of the time? Yes. EXPRESSION - STEP 3: Is the patient basically unable to express or does s/he express inappropriately or inconsistently emmanuelle pite prompting? No. EXPRESSION - SCORE: 2-MAX EXPRESSION - COMMENTS: Swiss speaking - interacts with assistance of daughter SOCIAL INTERACTION: SOCIAL INTERACTION - STEP 1: Does the patient require a helper to interact with others in social and therapeutic situations? Yes. SOCIAL INTERACTION - STEP 2: Does the patient interact appropriately half or more of the time? Yes. SOCIAL INTERACTION - STEP 3: How often does the patient need help to interact appropriately? 10-24% of the time SOCIAL INTERACTION - SCORE: 4-MIN COMMENTS: Pt speaks more with daughter and family- speaking her Swiss language PROBLEM SOLVING: PROBLEM SOLVING - STEP 1: Does the patient need help to solve complex problems such as managing a checking account or confronti ng interpersonal problems? Yes. PROBLEM SOLVING - STEP 2: Does the patient solve basic routine problems half or more of the time? Yes. PROBLEM SOLVING - STEP 3: How often does the patient need help to solve basic routine problems? 10%-24% of the time PROBLEM SOLVING - SCORE: 4-MIN PROBLEM SOLVING - COMMENTS: Pt needs information provided in simple Swiss language MEMORY: MEMORY - STEP 1: Does the patient need help to remember frequently encountered people, daily routines, and executing r equests? Yes. MEMORY - STEP 2: How often does the patient need help to remember frequently encountered people, daily routines, and e xecuting requests? 10% - 24% of the time MEMORY - SCORE: 4-MIN MEMORY - COMMENTS: Pt can recognize staff faces - SIGNATURE PANEL: The following modified sections: Eating - Score, Grooming - Score, Bathing - Score, Dressing - Upper Body - Score, Dressing - Lower Body - Score, Toileting - Score, Bladder Management - Score, Bowel Man agement - Score, Transfers: Bed, Chair, Wheelchair - Score, Transfers: Toilet - Score, Transfers: Nette wer - Score, Transfers: Tub - Score, Locomotion: Walk - Score, Locomotion: Wheelchair - Score, Compre hension - Score, Comprehension - Comments:, Expression - Score, Expression - Comments:, Social Intera ction - Score, Problem Solving - Score, Problem Solving - Comments:, Memory - Score, Memory - Comment s: were [electronically] signed by Mireya Desai C.N.A. on TueDec 19 2017 13:35:48 T-0500 (Central Daylight Time)
--- NOTE | 2017-12-19 15:24 | FAST ---
ENCOUNTER DATE AND TIME: 12/19/2017 08:00 (CDT) NAME IVETTE HODGES DATE OF : 1945 DATE OF ADMISSION: 12/14/2017 15:21 (CDT) PHONE: AGE: 72 N# [id number] GENDER: Female ENCOUNTER PHYSICIAN: Dr. Miki Delgado M.D. 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 EATING: Activity did not occur on this shift EATING - SCORE: 0-UNK GROOMING: Comb/brush hair Wash, rinse, and dry face Wash, rinse, and dry hands GROOMING - STEP 1: Does the patient require assistance when grooming? No. GROOMING - SCORE: 7-IND BATHING: Abdomen Buttocks Chest Left arm Left lower leg and foot Left upper leg Perineal area Right arm Right lower leg and foot Right upper leg BATHING - STEP 1: Does the patient require assistance when bathing? Yes. BATHING - STEP 2: Does the patient require the assistance of a helper? Yes. BATHING - STEP 3: How much assistance does the patient require from the helper? Only incidental help such as placement of a wash cloth in his/her hand a few times as s/he bathes OR help to bathe just one or two areas of the body BATHING - SCORE: 4-MIN DRESSING - UPPER BODY: Bra (three steps) T-shirt/pullover shirt (four steps) ARTICLES SCORE Total number of steps: 7 DRESSING - UPPER BODY - STEP 1: Does the patient require help when dressing above the waist? Yes. DRESSING - UPPER BODY - STEP 2: Does the patient require the assistance of a helper? Yes. DRESSING - UPPER BODY - STEP 3: Does the helper touch the patient while dressing? Yes. DRESSING - UPPER BODY - STEP 4: How many of the total steps does the patient complete on his/her own? 5 DRESSING - UPPER BODY - SCORE: 3-MOD DRESSING - LOWER BODY: Elastic waist pants (three steps) Slip-on shoe - Right foot (one step) Sock - Left foot (one step) Underwear (three steps) ARTICLES SCORE Total number of steps: 8 DRESSING - LOWER BODY - STEP 1: Does the patient require help when dressing below the waist? Yes. DRESSING - LOWER BODY - STEP 2: Does the patient require the assistance of a helper? Yes. DRESSING - LOWER BODY - STEP 3: Does the helper touch the patient while dressing? Yes. DRESSING - LOWER BODY - STEP 4: How many of the total steps does the patient complete on his/her own? 8 DRESSING - LOWER BODY - SCORE: 4-MIN TOILETING: Activity did not occur on this shift TOILETING - SCORE: 0-UNK BLADDER MANAGEMENT: Activity did not occur on this shift BLADDER MANAGEMENT - SCORE: 7-IND BOWEL MANAGEMENT: Activity did not occur on this shift BOWEL MANAGEMENT - SCORE: 7-IND TRANSFERS: BED, CHAIR, WHEELCHAIR: Activity did not occur on this shift TRANSFERS: BED, CHAIR, WHEELCHAIR - SCORE: 0-UNK TRANSFERS: TOILET: Activity did not occur on this shift TRANSFERS: TOILET - SCORE: 0-UNK TRANSFERS: SHOWER: TRANSFERS: SHOWER - STEP 1: Does the patient require assistance with shower transfers? Yes. TRANSFERS: SHOWER - STEP 2: Does the patient require the assistance of a helper? Yes. TRANSFERS: SHOWER - STEP 3: How much assistance does the patient require from the helper? Only incidental help such as contact gu arding or steadying during shower transfers, or help to lift one leg into the shower TRANSFERS: SHOWER - SCORE: 4-MIN TRANSFERS: TUB: Activity did not occur on this shift TRANSFERS: TUB - SCORE: 0-UNK LOCOMOTION: WALK: Activity did not occur on this shift LOCOMOTION: WALK - SCORE: 0-UNK LOCOMOTION: WHEELCHAIR: Activity did not occur on this shift LOCOMOTION: WHEELCHAIR - SCORE: 0-UNK LOCOMOTION: STAIRS: Activity did not occur on this shift LOCOMOTION: STAIRS - SCORE: 0-UNK COMPREHENSION: COMPREHENSION: TYPE: Both COMPREHENSION - STEP 1: Does the patient require help to understand complex and abstract ideas (such as current events, finan clement, discharge planning, medical issues, relationships, etc)? No. COMPREHENSION - STEP 2: Does the patient need extra time, require an assistive device (such as glasses, hearing aids, or an a ugmentative communication system), OR does s/he have mild difficulty expressing complex and abstract ideas (including mild dysarthria or mild word-finding problems)? Yes. COMPREHENSION - SCORE: 6-SAYRA EXPRESSION EXPRESSION: TYPE: Both EXPRESSION - STEP 1: Does the patient require help expressing complex and abstract ideas (such as current events, finances , discharge planning, medical issues, relationships, etc)? No. EXPRESSION - STEP 2: Does the patient need extra time, require an assistive device (such as augmentive communication syste m or a communication board), OR does s/he have mild difficulty expressing complex and abstract ideas (including mild dysarthria or mild word-find problems)? Yes. EXPRESSION - SCORE: 6-SAYRA SOCIAL INTERACTION: SOCIAL INTERACTION - STEP 1: Does the patient require a helper to interact with others in social and therapeutic situations? No. SOCIAL INTERACTION - STEP 2: Does the patient need extra time in social situations, OR does s/he interact with staff, other patien ts, and family members ONLY in structured environments, OR does s/he require medication for social in teraction? Yes, patient needs extra time SOCIAL INTERACTION - SCORE: 6-SAYRA PROBLEM SOLVING: PROBLEM SOLVING - STEP 1: Does the patient need help to solve complex problems such as managing a checking account or confronti ng interpersonal problems? Yes. PROBLEM SOLVING - STEP 2: Does the patient solve basic routine problems half or more of the time? Yes. PROBLEM SOLVING - STEP 3: How often does the patient need help to solve basic routine problems? 10%-24% of the time PROBLEM SOLVING - SCORE: 4-MIN MEMORY: MEMORY - STEP 1: Does the patient need help to remember frequently encountered people, daily routines, and executing r equests? Yes. MEMORY - STEP 2: How often does the patient need help to remember frequently encountered people, daily routines, and e xecuting requests? 10% - 24% of the time MEMORY - SCORE: 4-MIN SIGNATURE PANEL: The following modified sections: Eating - Score, Grooming - Score, Bathing - Score, Dressing - Upper Body - Score, Dressing - Lower Body - Score, Toileting - Score, Transfers: Bed, Chair, Wheelchair - S core, Transfers: Toilet - Score, Transfers: Tub - Score, Transfers: Shower - Score, Comprehension - S core, Expression - Score, Social Interaction - Score, Problem Solving - Score, Memory - Score were [e lectronically] signed by Meaghan Salomon OT on TueDec 19 2017 14:24:23 [facility]-0500 (Central Daylight tammy)
[2017-12-19] MEDS: TRAMADOL HCL 50 MG TAB PO PRN (15:32)
--- NOTE | 2017-12-19 16:17 | EKG ---
Test Date: 2017-12-19 Test Time: 15:32:39 [employer] Operator: JOANN MEASUREMENT RESULTS: Intervals: Rate: 67 GA: 160 QRSD: 118 QT: 396 QTc: 418 [place]: P: 12 GA: 160 QRS: -10 T: 244 INTERPRETIVE STATEMENTS: Normal sinus rhythm Incomplete left bundle branch block Nonspecific T wave abnormality Abnormal ECG Compared to ECG 07/06/2017 14:16:10 Left bundle-branch block now present T-wave abnormality still present Electronically Signed On 12-19-17 16:17:12 CDT by Micheal Plascencia
[2017-12-19] MEDS: ATORVASTATIN 80 MG TAB PO SCH (20:24)
--- NOTE | 2017-12-19 21:15 | R.PN ---
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 SUBJECTIVE: Pt denied any Shortness of Breath. Pt denied any depression. Total assistance required for wheelchair mobility. Maximum assistance required for many activities o f daily living. VITAL SIGNS Temperature: 98 F SBP/DBP: 122/67 Pulse: 65 Resp: 18 Ambulated 420' with contact guard assistance using a right quad cane. Worked well with speech therapi st for swallowing and cognitive therapy. MEDICATION ALLERGIES: No Known Drug Allergies (NKDA) ENVIRONMENTAL ALLERGIES: - Substance Allergies None Known - Other Allergies None Known NURSING: - Shower allowing shower - Lab Results blood Sugar Check ACHS - Bladder care per protocol - Skin care per protocol PRECAUTIONS: - Weight Bearing Precaution WBAT left LE ACTIVITIES OOB only with supervision THERAPIES: - Occupational Therapy Evaluate and Treat. Cognitive Retraining. Visual Perceptual Training. - Speech Therapy Memory Strategies. Expressive Language Skills. Speech Intelligibility Training. Cognitive Training. R eceptive Language Skills. - Physical Therapy Evaluate and Treat. PHYSICAL EXAM - Gen Alert and awake Lying in bed No apparent distress Oriented to: person, time, and place - Skin No skin breakdown. Normacephalic - Eyes No abnormalities - ENMT No abnormalities - Neck No abnormalities - CVS RRR - Chest No abnormalities - Abd Soft - GI nondistended Deferred - No abnormalities - Ext No significant edema - MSK 1/5 weakness in left upper and 4/5 weakness in left lower extremity. - Neuro 2/5 weakness in left face, 1/5 left arm and 4/5 left leg. - Psych No abnormalities ASSESSMENT: Pt. is a 72 yo Right-handed female of unknown race.On 12/06/2017 Pt. presented to [facility] sudden onset of left-side weakness.On 12/06/2017 she was admitted to [facility] with diagnos is Cerebral infarction due to unspecified occlusion or stenosis of right middle cerebral artery (I63. 511).Her impairment category is Stroke 01 - Left Body (Right Brain) (01.1).Pre-morbidly, Pt. was ind ependent/mod-I in Sphincter Control, Transfers Control, Communication, Social Cognition, Self-Care, a nd Locomotion; and she had good Sphincter Control.Currently, she has deficits of Endurance, Safety Aw areness, Transfers Control, Communication, Social Cognition, Balance, Self-Care, and Locomotion.Pt. andrea s now referred to [facility] for acute in-patient rehabilitation in order to m aximize patient's functional independence in activities of daily living, strength, ROM, and mobility. - Rehab Goal Patient has realistic goal of being discharged at assistance level 6-Jonah to reside at Home with Fam remington/Relatives. MDM/PLAN: - Diet Type Continue Regular for Dementia, TBI, Stroke, or others - Diet - Liquid Texture Continue Regular - Physical Therapy Gait dysfunction - to improve, our physical therapists will perform initial evaluation of pt's statu s upon admission and devise an individualized program for Gait Training, and Wheel Chair mobility Inability to transfer - to improve, our physical therapists will perform initial evaluation of pt's status upon admission and devise an individualized program for Bed mobility Need for home safety evaluation - to improve, our physical therapists will perform initial evaluatio n of pt's status upon admission and devise an individualized program for Home Evaluation Need in caregiver upon discharge - to improve, our physical therapists will perform initial evaluati on of pt's status upon admission and devise an individualized program for Caregiver Training New precaution - to improve, our physical therapists will perform initial evaluation of pt's status upon admission and devise an individualized program for Patient precaution education Edema - to improve, our physical therapists will perform initial evaluation of pt's status upon admi ssion and devise an individualized program for Elevation Training, and Lymphedema Therapy Poor balance - to improve, our physical therapists will perform initial evaluation of pt's status up on admission and devise an individualized program for Balance Training Poor endurance - to improve, our physical therapists will perform initial evaluation of pt's status upon admission and devise an individualized program for Endurance Training Weakness - to improve, our physical therapists will perform initial evaluation of pt's status upon a dmission and devise an individualized program for Aquatic Therapy, Neuromuscular Reeducation, and Str engthening Achieving independence - to improve, our physical therapists will perform initial evaluation of pt's status upon admission and devise an individualized program for Community Reintegration Activities - Tube Feed Continue N/A - Lab Results blood Sugar Check ACHS - Bladder care per protocol - Weight Bearing Precaution WBAT left LE - Skin care per protocol - Diet - Solid Texture Continue Regular - Shower allowing shower - Occupational Therapy ADL deficits - to improve, our occupation therapists will perform initial evaluation of pt's status upon admission and devise an individualized program for Bathing, Bed mobility, Community Reintegratio n, Cooking, Dressing, Eating, Fine Motor Skills, Grooming, Homemaking, Kitchen Mobility, Laundry, Pat ient Education, Safety Awareness, Splinting - Positioning, Transfers(Toilet, Tub, Shower), and Wheel Chair Management Cognitive deficits - to improve, our occupation therapists will perform initial evaluation of pt's s tatus upon admission and devise an individualized program for Cognition - orientation Need for direct support professional caregiver - to improve, our occupation therapists will perform initial evaluation of pt's status upon admission and devise an individualized program for Caregiver Training Weakness - to improve, our occupation therapists will perform initial evaluation of pt's status upon admission and devise an individualized program for Aquatic Therapy, Balance, Endurance, UE ROM, and UE strengthening FUNCTIONAL STATUS: UPDATED AT WEEKLY TEAM CONFERENCE - Bladder Same accident frequency: 7-Ind - No accidents in the past 7 days - Bowel Same accident frequency: 7-Ind - No accidents in the past 7 days - Walking Same score based on distance walked: 1(<=50ft) FUNCTIONAL STATUS: - Self-Care A. Eating Tom B. Grooming modA C. Bathing modA D. Dressing - Upper modA E. Dressing - Lower modA F. Toileting modA - Sphincter Control G: Bladder control Ind H: Bowel control Ind - Transfers Control I. Bed/Chair/Wheelchair modA J. Toilet modA K. Tub/Shower modA - Locomotion L. Walk/Wheelchair (B) Dep M. Stairs ADNO - Communication N. Comprehension (B) Tom O. Expression (B) Tom - Social Cognition P. Social Interaction Tom Q. Problem Solving Tom R. Memory Tom - Endurance Poor - Balance Poor - Safety Awareness Poor CURRENT FUNC. DEFICITS: Endurance, Safety Awareness, Transfers Control, Communication, Social Cognition, Balance, Self-Care, and Locomotion SIGNATURE PANEL: (CDT)
[2017-12-20] MEDS: NA CHLORIDE 0.9% 1,000 ML IV SCH ×4 (02:03→23:49)
--- NOTE | 2017-12-20 02:18 | FAST ---
SHIFT START DATE/TIME: 12/19/2017 19:00 (CDT) SHIFT END DATE/TIME: 12/20/2017 07:00 (CDT) NAME IVETTE HODGES DATE OF : 1945 DATE OF ADMISSION: 12/14/2017 15:21 (CDT) PHONE: AGE: 72 N# [id number] GENDER: Female ENCOUNTER PHYSICIAN: Dr. Miki Delgado M.D. 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 EATING: Activity did not occur on this shift EATING - SCORE: 0-UNK GROOMING: Wash, rinse, and dry face Wash, rinse, and dry hands GROOMING - STEP 1: Does the patient require assistance when grooming? Yes. GROOMING - STEP 2: Does the patient require the assistance of a helper? Yes. GROOMING - STEP 3: How much assistance does the patient require from the helper? Incidental touching assistance from the helper while grooming GROOMING - SCORE: 4-MIN BATHING: Activity did not occur on this shift BATHING - SCORE: 0-UNK DRESSING - UPPER BODY: Patient is not dressing in public clothing ARTICLES SCORE Total number of steps: 0 DRESSING - UPPER BODY - SCORE: 0-UNK DRESSING - LOWER BODY: Patient is not dressing in public clothing ARTICLES SCORE Total number of steps: 0 DRESSING - LOWER BODY - SCORE: 0-UNK TOILETING: TOILETING - STEP 1: Does the patient require assistance with toileting? Yes. TOILETING - STEP 2: Does the patient require the assistance of a helper? Yes. TOILETING - STEP 3: How much assistance does the patient require from the helper? Hands-on assistance from the helper TOILETING - STEP 4: Of the 3 tasks: 1) Adjusting clothing prior to use, 2) Cleansing of perineal area, 3) Adjusting clot willie after use; How many tasks does the patient perform WITHOUT assistance of the helper? Three tasks with steadying assistance from the helper TOILETING - SCORE: 4-MIN BLADDER MANAGEMENT: BLADDER MANAGEMENT - STEP 1: Does the patient control the bladder completely and intentionally without equipment or devices or med ications, and is always continent? No. BLADDER MANAGEMENT - STEP 2: Does the patient require the assistance of a helper? Yes. BLADDER MANAGEMENT - STEP 3: How much assistance does the patient require from the helper? Only set-up of equipment - such as plac ing it within reach of the patient or emptying a device - to maintain either satisfactory voiding pat tern or managing an external device, such as an absorbent pad, ileal device, or catheter BLADDER MANAGEMENT - SCORE: 5-SUP BOWEL MANAGEMENT: Activity did not occur on this shift BOWEL MANAGEMENT - SCORE: 7-IND TRANSFERS: BED, CHAIR, WHEELCHAIR: TRANSFERS: BED, CHAIR, WHEELCHAIR - STEP 1: Does the patient require assistance with bed, chair, or wheelchair transfers? Yes. TRANSFERS: BED, CHAIR, WHEELCHAIR - STEP 2: Does the patient require the assistance of a helper? Yes. TRANSFERS: BED, CHAIR, WHEELCHAIR - STEP 3: How much assistance does the patient require from the helper? Lifting of the legs TRANSFERS: BED, CHAIR, WHEELCHAIR - STEP 4: How many legs does the patient require the helper to lift? both legs TRANSFERS: BED, CHAIR, WHEELCHAIR - SCORE: 3-MOD TRANSFERS: TOILET: TRANSFERS: TOILET - STEP 1: Does the patient require assistance with toilet transfers? Yes. TRANSFERS: TOILET - STEP 2: Does the patient require the assistance of a helper? Yes. TRANSFERS: TOILET - STEP 3: How much assistance does the patient require from the helper? Patient performs half or more of the tr ansferring tasks TRANSFERS: TOILET - STEP 4: Does the patient need only incidental help such as contact guard or steadying during toilet transfer? No. Patient needs more than incidental help TRANSFERS: TOILET - SCORE: 3-MOD TRANSFERS: SHOWER: Activity did not occur on this shift TRANSFERS: SHOWER - SCORE: 0-UNK TRANSFERS: TUB: Activity did not occur on this shift TRANSFERS: TUB - SCORE: 0-UNK LOCOMOTION: WALK: Activity did not occur on this shift LOCOMOTION: WALK - SCORE: 0-UNK LOCOMOTION: WHEELCHAIR: Activity did not occur on this shift LOCOMOTION: WHEELCHAIR - SCORE: 0-UNK COMPREHENSION: COMPREHENSION - STEP 1: Does the patient require help to understand complex and abstract ideas (such as current events, finan clement, discharge planning, medical issues, relationships, etc)? Yes. COMPREHENSION - STEP 2: Does the patient require help to understand questions or statements about basic needs or ideas (such as hunger, thirst, sleep, safety, daily schedule, room location, or discomfort) half or more of the t tammy? No. COMPREHENSION - STEP 3: How often does the patient need help to understand directions and conversation about basic needs? 25% - 49% of the time COMPREHENSION - SCORE: 3-MOD EXPRESSION EXPRESSION - STEP 1: Does the patient require help expressing complex and abstract ideas (such as current events, finances , discharge planning, medical issues, relationships, etc)? Yes. EXPRESSION - STEP 2: Does the patient require help to express basic necessities or ideas (such as hunger, thirst, sleep, s afety, daily schedule, room location, or discomfort) half or more of the time? No. EXPRESSION - STEP 3: How often does the patient need help to express directions and conversation about basic needs? 25-49% of the time EXPRESSION - SCORE: 3-MOD SOCIAL INTERACTION: SOCIAL INTERACTION - STEP 1: Does the patient require a helper to interact with others in social and therapeutic situations? No. SOCIAL INTERACTION - STEP 2: Does the patient need extra time in social situations, OR does s/he interact with staff, other patien ts, and family members ONLY in structured environments, OR does s/he require medication for social in teraction? Yes, patient needs extra time SOCIAL INTERACTION - SCORE: 6-SAYRA PROBLEM SOLVING: PROBLEM SOLVING - STEP 1: Does the patient need help to solve complex problems such as managing a checking account or confronti ng interpersonal problems? Yes. PROBLEM SOLVING - STEP 2: Does the patient solve basic routine problems half or more of the time? Yes. PROBLEM SOLVING - STEP 3: How often does the patient need help to solve basic routine problems? 25%-49% of the time PROBLEM SOLVING - SCORE: 3-MOD MEMORY: MEMORY - STEP 1: Does the patient need help to remember frequently encountered people, daily routines, and executing r equests? No. MEMORY - STEP 2: Does the patient have slight difficulty recognizing frequently encountered people, daily routines, or executing requests without the need for repetition or using self-initiated or environmental cues to remember? Yes. MEMORY - SCORE: 6-SAYRA SIGNATURE PANEL: The following modified sections: Eating - Score, Grooming - Score, Dressing - Upper Body - Score, Cheikh ssing - Lower Body - Score, Toileting - Score, Bladder Management - Score, Bowel Management - Score, Transfers: Bed, Chair, Wheelchair - Score, Transfers: Toilet - Score, Transfers: Shower - Score, Mercado sfers: Tub - Score, Locomotion: Walk - Score, Locomotion: Wheelchair - Score, Comprehension - Score, Expression - Score, Social Interaction - Score, Problem Solving - Score, Memory - Score were [electro nically] signed by Tonia Cruz CNA on TueDec 20 2017 01:18:50 GMT-0500 (Central Daylight Time)
[2017-12-20] MEDS: HEPARIN 5000 UNIT/ML 1 ML VIAL SQ SCH ×2 (07:00→18:58)
[2017-12-20] MEDS: INSULIN -REGULAR HUMAN 50 UNIT/0.5 ML ML SQ SCH ×4 (07:30→20:26)
[2017-12-20] MEDS: CLOPIDOGREL 75 MG TABLET PO SCH (08:30)
[2017-12-20] MEDS: levETIRAcetam 500 MG TAB PO SCH ×2 (08:30→20:25)
[2017-12-20] MEDS: FUROSEMIDE 20 MG TABLET PO SCH (08:30)
[2017-12-20] MEDS: CARVEDILOL 6.25 MG TAB PO SCH ×2 (08:30→20:00)
[2017-12-20] MEDS: ASPIRIN EC 81 MG TAB PO SCH (08:30)
[2017-12-20] MEDS: PANTOPRAZOLE 40MG TABLET PO SCH (08:30)
[2017-12-20] MEDS: METFORMIN HCL 500 MG TAB PO SCH ×2 (08:30→16:31)
[2017-12-20] MEDS: glipiZIDE 5 MG TAB PO SCH ×2 (08:30→16:30)
[2017-12-20] MEDS: GLUCERNA SHAKE 237 ML CAN PO SCH ×2 (08:32→20:25)
--- NOTE | 2017-12-20 13:49 | FAST ---
SHIFT START DATE/TIME: 12/20/2017 07:00 (CDT) SHIFT END DATE/TIME: 12/20/2017 19:00 (CDT) NAME IVETTE HODGES DATE OF : 1945 DATE OF ADMISSION: 12/14/2017 15:21 (CDT) PHONE: AGE: 72 N# [id number] GENDER: Female ENCOUNTER PHYSICIAN: Dr. Miki Delgado M.D. 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 EATING: EATING - STEP 1: Does the patient require assistance when eating? Yes. EATING - STEP 2: Does the patient require the assistance of a helper? Yes. EATING - STEP 3: Does the patient perform half or more of the eating tasks? Yes. EATING - STEP 4: Does the patient need only supervision, cuing, coaxing OR help to apply an orthosis OR help to cut fo od, open containers, pour liquids, or butter bread? Yes. EATING - SCORE: 5-SUP GROOMING: Activity did not occur on this shift GROOMING - SCORE: 0-UNK BATHING: Activity did not occur on this shift BATHING - SCORE: 0-UNK DRESSING - UPPER BODY: Activity did not occur on this shift ARTICLES SCORE Total number of steps: 0 DRESSING - UPPER BODY - SCORE: 0-UNK DRESSING - LOWER BODY: Activity did not occur on this shift ARTICLES SCORE Total number of steps: 0 DRESSING - LOWER BODY - SCORE: 0-UNK TOILETING: TOILETING - STEP 1: Does the patient require assistance with toileting? Yes. TOILETING - STEP 2: Does the patient require the assistance of a helper? Yes. TOILETING - STEP 3: How much assistance does the patient require from the helper? Hands-on assistance from the helper TOILETING - STEP 4: Of the 3 tasks: 1) Adjusting clothing prior to use, 2) Cleansing of perineal area, 3) Adjusting clot willie after use; How many tasks does the patient perform WITHOUT assistance of the helper? Three tasks with steadying assistance from the helper TOILETING - SCORE: 4-MIN BLADDER MANAGEMENT: BLADDER MANAGEMENT - STEP 1: Does the patient control the bladder completely and intentionally without equipment or devices or med ications, and is always continent? No. BLADDER MANAGEMENT - STEP 2: Does the patient require the assistance of a helper? No, patient requires and independently uses an a ssistive device, such as a urinal, bedpan, bedside commode, catheter, absorbent pad, or collecting de vice BLADDER MANAGEMENT - SCORE: 6-SAYRA BLADDER MANAGEMENT - FREQUENCY OF ACCIDENTS: BLADDER MANAGEMENT(FA) - STEP 1: How many accidents has the patient had during the current shift? 0 BOWEL MANAGEMENT: BOWEL MANAGEMENT - STEP 1: Does the patient control bowels completely and intentionally without equipment devices or medications AND is always continent? No. BOWEL MANAGEMENT - STEP 2: Does the patient require the assistance of a helper? No, patient requires medication for control such as stool softeners, suppositories, laxatives, enemas, or OTC medications BOWEL MANAGEMENT - SCORE: 6-SAYRA BOWEL MANAGEMENT - FREQUENCY OF ACCIDENTS: BOWEL MANAGEMENT(FA) - STEP 1: How many accidents has the patient had during the current shift? 0 TRANSFERS: BED, CHAIR, WHEELCHAIR: TRANSFERS: BED, CHAIR, WHEELCHAIR - STEP 1: Does the patient require assistance with bed, chair, or wheelchair transfers? Yes. TRANSFERS: BED, CHAIR, WHEELCHAIR - STEP 2: Does the patient require the assistance of a helper? Yes. TRANSFERS: BED, CHAIR, WHEELCHAIR - STEP 3: How much assistance does the patient require from the helper? Steadying/guiding assistance TRANSFERS: BED, CHAIR, WHEELCHAIR - SCORE: 4-MIN TRANSFERS: TOILET: TRANSFERS: TOILET - STEP 1: Does the patient require assistance with toilet transfers? Yes. TRANSFERS: TOILET - STEP 2: Does the patient require the assistance of a helper? Yes. TRANSFERS: TOILET - STEP 3: How much assistance does the patient require from the helper? Patient performs half or more of the tr ansferring tasks TRANSFERS: TOILET - STEP 4: Does the patient need only incidental help such as contact guard or steadying during toilet transfer? Yes. TRANSFERS: TOILET - SCORE: 4-MIN TRANSFERS: SHOWER: Activity did not occur on this shift TRANSFERS: SHOWER - SCORE: 0-UNK TRANSFERS: TUB: Activity did not occur on this shift TRANSFERS: TUB - SCORE: 0-UNK LOCOMOTION: WALK: Activity did not occur on this shift LOCOMOTION: WALK - SCORE: 0-UNK LOCOMOTION: WHEELCHAIR: LOCOMOTION: WHEELCHAIR - STEP 1: Does the patient need help to go 150 feet in a wheelchair? Yes. LOCOMOTION: WHEELCHAIR - STEP 2: How much assistance does the patient need from the helper? More than incidental help LOCOMOTION: WHEELCHAIR - SCORE: 3-MOD COMPREHENSION: COMPREHENSION: TYPE: Both COMPREHENSION - STEP 1: Does the patient require help to understand complex and abstract ideas (such as current events, finan clement, discharge planning, medical issues, relationships, etc)? Yes. COMPREHENSION - STEP 2: Does the patient require help to understand questions or statements about basic needs or ideas (such as hunger, thirst, sleep, safety, daily schedule, room location, or discomfort) half or more of the t tammy? No. COMPREHENSION - STEP 3: How often does the patient need help to understand directions and conversation about basic needs? Les s than 10% of the time COMPREHENSION - SCORE: 5-SUP EXPRESSION EXPRESSION: TYPE: Both EXPRESSION - STEP 1: Does the patient require help expressing complex and abstract ideas (such as current events, finances , discharge planning, medical issues, relationships, etc)? Yes. EXPRESSION - STEP 2: Does the patient require help to express basic necessities or ideas (such as hunger, thirst, sleep, s afety, daily schedule, room location, or discomfort) half or more of the time? No. EXPRESSION - STEP 3: How often does the patient need help to express directions and conversation about basic needs? Less t richard 10% of the time EXPRESSION - SCORE: 5-SUP SOCIAL INTERACTION: SOCIAL INTERACTION - STEP 1: Does the patient require a helper to interact with others in social and therapeutic situations? Yes. SOCIAL INTERACTION - STEP 2: Does the patient interact appropriately half or more of the time? Yes. SOCIAL INTERACTION - STEP 3: How often does the patient need help to interact appropriately? Less than 10% of the time SOCIAL INTERACTION - SCORE: 5-SUP PROBLEM SOLVING: PROBLEM SOLVING - STEP 1: Does the patient need help to solve complex problems such as managing a checking account or confronti ng interpersonal problems? Yes. PROBLEM SOLVING - STEP 2: Does the patient solve basic routine problems half or more of the time? Yes. PROBLEM SOLVING - STEP 3: How often does the patient need help to solve basic routine problems? Less than 10% of the time PROBLEM SOLVING - SCORE: 5-SUP MEMORY: MEMORY - STEP 1: Does the patient need help to remember frequently encountered people, daily routines, and executing r equests? Yes. MEMORY - STEP 2: How often does the patient need help to remember frequently encountered people, daily routines, and e xecuting requests? Less than 10% of the time MEMORY - SCORE: 5-SUP SIGNATURE PANEL: The following modified sections: Eating - Score, Grooming - Score, Bathing - Score, Dressing - Upper Body - Score, Dressing - Lower Body - Score, Toileting - Score, Bladder Management - Score, Bowel Man agement - Score, Transfers: Bed, Chair, Wheelchair - Score, Transfers: Toilet - Score, Transfers: Nette wer - Score, Transfers: Tub - Score, Locomotion: Walk - Score, Locomotion: Wheelchair - Score, Compre hension - Score, Expression - Score, Social Interaction - Score, Problem Solving - Score, Memory - Sc ore were [electronically] signed by Alejandra Morales RN on TueDec 20 2017 12:49:58 T-0500 [facility]
--- NOTE | 2017-12-20 18:40 | R.PN ---
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 SUBJECTIVE: Pt denied any Shortness of Breath. Pt denied any depression. Total assistance required for wheelchair mobility. Maximum assistance required for many activities o f daily living. VITAL SIGNS Temperature: 98 F SBP/DBP: 125/58 Pulse: 64 Resp: 16 Ambulated 500' with contact guard assistance using a right quad cane. Worked well with speech therapi st for swallowing and cognitive therapy. MEDICATION ALLERGIES: No Known Drug Allergies (NKDA) ENVIRONMENTAL ALLERGIES: - Substance Allergies None Known - Other Allergies None Known NURSING: - Shower allowing shower - Lab Results blood Sugar Check ACHS - Bladder care per protocol - Skin care per protocol PRECAUTIONS: - Weight Bearing Precaution WBAT left LE ACTIVITIES OOB only with supervision THERAPIES: - Occupational Therapy Evaluate and Treat. Cognitive Retraining. Visual Perceptual Training. - Speech Therapy Memory Strategies. Expressive Language Skills. Speech Intelligibility Training. Cognitive Training. R eceptive Language Skills. - Physical Therapy Evaluate and Treat. PHYSICAL EXAM - Gen Alert and awake Lying in bed No apparent distress Oriented to: person, time, and place - Skin No skin breakdown. Normacephalic - Eyes No abnormalities - ENMT No abnormalities - Neck No abnormalities - CVS RRR - Chest No abnormalities - Abd Soft - GI nondistended Deferred - No abnormalities - Ext No significant edema - MSK 1/5 weakness in left upper and 4/5 weakness in left lower extremity. - Neuro 2/5 weakness in left face, 1/5 left arm and 4/5 left leg. - Psych No abnormalities ASSESSMENT: Pt. is a 72 yo Right-handed female of unknown race.On 12/06/2017 Pt. presented to [facility] sudden onset of left-side weakness.On 12/06/2017 she was admitted to [facility] [place] [place] with diagnos is Cerebral infarction due to unspecified occlusion or stenosis of right middle cerebral artery (I63. 511).Her impairment category is Stroke 01 - Left Body (Right Brain) (01.1).Pre-morbidly, Pt. was ind ependent/mod-I in Sphincter Control, Transfers Control, Communication, Social Cognition, Self-Care, a nd Locomotion; and she had good Sphincter Control.Currently, she has deficits of Endurance, Safety Aw areness, Transfers Control, Communication, Social Cognition, Balance, Self-Care, and Locomotion.Pt. andrea s now referred to [facility] for acute in-patient rehabilitation in order to m aximize patient's functional independence in activities of daily living, strength, ROM, and mobility. - Rehab Goal Patient has realistic goal of being discharged at assistance level 6-Jonah to reside at Home with Fam remington/Relatives. MDM/PLAN: - Diet Type Continue Regular for Dementia, TBI, Stroke, or others - Diet - Liquid Texture Continue Regular - Physical Therapy Gait dysfunction - to improve, our physical therapists will perform initial evaluation of pt's statu s upon admission and devise an individualized program for Gait Training, and Wheel Chair mobility Inability to transfer - to improve, our physical therapists will perform initial evaluation of pt's status upon admission and devise an individualized program for Bed mobility Need for home safety evaluation - to improve, our physical therapists will perform initial evaluatio n of pt's status upon admission and devise an individualized program for Home Evaluation Need in caregiver upon discharge - to improve, our physical therapists will perform initial evaluati on of pt's status upon admission and devise an individualized program for Caregiver Training New precaution - to improve, our physical therapists will perform initial evaluation of pt's status upon admission and devise an individualized program for Patient precaution education Edema - to improve, our physical therapists will perform initial evaluation of pt's status upon admi ssion and devise an individualized program for Elevation Training, and Lymphedema Therapy Poor balance - to improve, our physical therapists will perform initial evaluation of pt's status up on admission and devise an individualized program for Balance Training Poor endurance - to improve, our physical therapists will perform initial evaluation of pt's status upon admission and devise an individualized program for Endurance Training Weakness - to improve, our physical therapists will perform initial evaluation of pt's status upon a dmission and devise an individualized program for Aquatic Therapy, Neuromuscular Reeducation, and Str engthening Achieving independence - to improve, our physical therapists will perform initial evaluation of pt's status upon admission and devise an individualized program for Community Reintegration Activities - Tube Feed Continue N/A - Lab Results blood Sugar Check ACHS - Bladder care per protocol - Weight Bearing Precaution WBAT left LE - Skin care per protocol - Diet - Solid Texture Continue Regular - Shower allowing shower - Occupational Therapy ADL deficits - to improve, our occupation therapists will perform initial evaluation of pt's status upon admission and devise an individualized program for Bathing, Bed mobility, Community Reintegratio n, Cooking, Dressing, Eating, Fine Motor Skills, Grooming, Homemaking, Kitchen Mobility, Laundry, Pat ient Education, Safety Awareness, Splinting - Positioning, Transfers(Toilet, Tub, Shower), and Wheel Chair Management Cognitive deficits - to improve, our occupation therapists will perform initial evaluation of pt's s tatus upon admission and devise an individualized program for Cognition - orientation Need for childcare worker - to improve, our occupation therapists will perform initial evaluation of pt's status upon admission and devise an individualized program for Caregiver Training Weakness - to improve, our occupation therapists will perform initial evaluation of pt's status upon admission and devise an individualized program for Aquatic Therapy, Balance, Endurance, UE ROM, and UE strengthening FUNCTIONAL STATUS: UPDATED AT WEEKLY TEAM CONFERENCE - Bladder Same accident frequency: 7-Ind - No accidents in the past 7 days - Bowel Same accident frequency: 7-Ind - No accidents in the past 7 days - Walking Same score based on distance walked: 1(<=50ft) FUNCTIONAL STATUS: - Self-Care A. Eating Tom B. Grooming modA C. Bathing modA D. Dressing - Upper modA E. Dressing - Lower modA F. Toileting modA - Sphincter Control G: Bladder control Ind H: Bowel control Ind - Transfers Control I. Bed/Chair/Wheelchair modA J. Toilet modA K. Tub/Shower modA - Locomotion L. Walk/Wheelchair (B) Dep M. Stairs ADNO - Communication N. Comprehension (B) Tom O. Expression (B) Tom - Social Cognition P. Social Interaction Tom Q. Problem Solving Tom R. Memory Tom - Endurance Poor - Balance Poor - Safety Awareness Poor CURRENT FUNC. DEFICITS: Endurance, Safety Awareness, Transfers Control, Communication, Social Cognition, Balance, Self-Care, and Locomotion SIGNATURE PANEL: (CDT)
--- NOTE | 2017-12-20 19:19 | FAST ---
ENCOUNTER DATE AND TIME: 12/20/2017 08:00 (CDT) NAME IVETTE HODGES DATE OF : 1945 DATE OF ADMISSION: 12/14/2017 15:21 (CDT) PHONE: AGE: 72 N# [id number] GENDER: Female ENCOUNTER PHYSICIAN: Dr. Miki Delgado M.D. 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 EATING: Activity did not occur on this shift EATING - SCORE: 0-UNK GROOMING: Activity did not occur on this shift GROOMING - SCORE: 0-UNK BATHING: Activity did not occur on this shift BATHING - SCORE: 0-UNK DRESSING - UPPER BODY: Activity did not occur on this shift Patient is not dressing in public clothing ARTICLES SCORE Total number of steps: 0 DRESSING - UPPER BODY - SCORE: 0-UNK DRESSING - LOWER BODY: Activity did not occur on this shift Patient is not dressing in public clothing ARTICLES SCORE Total number of steps: 0 DRESSING - LOWER BODY - SCORE: 0-UNK TOILETING: Activity did not occur on this shift TOILETING - SCORE: 0-UNK BLADDER MANAGEMENT: Activity did not occur on this shift BLADDER MANAGEMENT - SCORE: 7-IND BOWEL MANAGEMENT: Activity did not occur on this shift BOWEL MANAGEMENT - SCORE: 7-IND TRANSFERS: BED, CHAIR, WHEELCHAIR: Activity did not occur on this shift TRANSFERS: BED, CHAIR, WHEELCHAIR - SCORE: 0-UNK TRANSFERS: TOILET: Activity did not occur on this shift TRANSFERS: TOILET - SCORE: 0-UNK TRANSFERS: SHOWER: Activity did not occur on this shift TRANSFERS: SHOWER - SCORE: 0-UNK TRANSFERS: TUB: Activity did not occur on this shift TRANSFERS: TUB - SCORE: 0-UNK LOCOMOTION: WALK: Activity did not occur on this shift LOCOMOTION: WALK - SCORE: 0-UNK LOCOMOTION: WHEELCHAIR: Activity did not occur on this shift LOCOMOTION: WHEELCHAIR - SCORE: 0-UNK LOCOMOTION: STAIRS: Activity did not occur on this shift LOCOMOTION: STAIRS - SCORE: 0-UNK COMPREHENSION: COMPREHENSION - STEP 1: Does the patient require help to understand complex and abstract ideas (such as current events, finan clement, discharge planning, medical issues, relationships, etc)? Yes. COMPREHENSION - STEP 2: Does the patient require help to understand questions or statements about basic needs or ideas (such as hunger, thirst, sleep, safety, daily schedule, room location, or discomfort) half or more of the t tammy? No. COMPREHENSION - STEP 3: How often does the patient need help to understand directions and conversation about basic needs? 10% - 24% of the time COMPREHENSION - SCORE: 4-MIN EXPRESSION EXPRESSION - STEP 1: Does the patient require help expressing complex and abstract ideas (such as current events, finances , discharge planning, medical issues, relationships, etc)? Yes. EXPRESSION - STEP 2: Does the patient require help to express basic necessities or ideas (such as hunger, thirst, sleep, s afety, daily schedule, room location, or discomfort) half or more of the time? No. EXPRESSION - STEP 3: How often does the patient need help to express directions and conversation about basic needs? 10-24% of the time EXPRESSION - SCORE: 4-MIN SOCIAL INTERACTION: SOCIAL INTERACTION - STEP 1: Does the patient require a helper to interact with others in social and therapeutic situations? Yes. SOCIAL INTERACTION - STEP 2: Does the patient interact appropriately half or more of the time? Yes. SOCIAL INTERACTION - STEP 3: How often does the patient need help to interact appropriately? 10-24% of the time SOCIAL INTERACTION - SCORE: 4-MIN PROBLEM SOLVING: PROBLEM SOLVING - STEP 1: Does the patient need help to solve complex problems such as managing a checking account or confronti ng interpersonal problems? Yes. PROBLEM SOLVING - STEP 2: Does the patient solve basic routine problems half or more of the time? No. PROBLEM SOLVING - STEP 3: Does the patient need help to solve problems all the time or is s/he unable to solve problems? No. Young joshi can sometimes solve problems PROBLEM SOLVING - SCORE: 2-MAX MEMORY: MEMORY - STEP 1: Does the patient need help to remember frequently encountered people, daily routines, and executing r equests? Yes. MEMORY - STEP 2: How often does the patient need help to remember frequently encountered people, daily routines, and e xecuting requests? 10% - 24% of the time MEMORY - SCORE: 4-MIN SIGNATURE PANEL: The following modified sections: Comprehension - Score, Expression - Score, Social Interaction - Scor e, Problem Solving - Score, Memory - Score were [electronically] signed by ST Hector on Queenie correa 2017 18:19:29 GMT-0500 (Central Daylight Time)
[2017-12-20] MEDS: ATORVASTATIN 80 MG TAB PO SCH (20:25)
--- NOTE | 2017-12-21 02:40 | FAST ---
SHIFT START DATE/TIME: 12/20/2017 19:00 (CDT) SHIFT END DATE/TIME: 12/21/2017 07:00 (CDT) NAME IVETTE HODGES DATE OF : 1945 DATE OF ADMISSION: 12/14/2017 15:21 (CDT) PHONE: AGE: 72 N# [id number] GENDER: Female ENCOUNTER PHYSICIAN: Dr. Miki Delgado M.D. 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 EATING: Activity did not occur on this shift EATING - SCORE: 0-UNK GROOMING: Wash, rinse, and dry hands GROOMING - STEP 1: Does the patient require assistance when grooming? Yes. GROOMING - STEP 2: Does the patient require the assistance of a helper? Yes. GROOMING - STEP 3: How much assistance does the patient require from the helper? Incidental touching assistance from the helper while grooming GROOMING - SCORE: 4-MIN BATHING: Activity did not occur on this shift BATHING - SCORE: 0-UNK DRESSING - UPPER BODY: Patient is not dressing in public clothing ARTICLES SCORE Total number of steps: 0 DRESSING - UPPER BODY - SCORE: 0-UNK DRESSING - LOWER BODY: Patient is not dressing in public clothing ARTICLES SCORE Total number of steps: 0 DRESSING - LOWER BODY - SCORE: 0-UNK TOILETING: TOILETING - STEP 1: Does the patient require assistance with toileting? Yes. TOILETING - STEP 2: Does the patient require the assistance of a helper? Yes. TOILETING - STEP 3: How much assistance does the patient require from the helper? Hands-on assistance from the helper TOILETING - STEP 4: Of the 3 tasks: 1) Adjusting clothing prior to use, 2) Cleansing of perineal area, 3) Adjusting clot willie after use; How many tasks does the patient perform WITHOUT assistance of the helper? Two tasks TOILETING - SCORE: 3-MOD BLADDER MANAGEMENT: BLADDER MANAGEMENT - STEP 1: Does the patient control the bladder completely and intentionally without equipment or devices or med ications, and is always continent? No. BLADDER MANAGEMENT - STEP 2: Does the patient require the assistance of a helper? Yes. BLADDER MANAGEMENT - STEP 3: How much assistance does the patient require from the helper? Only set-up of equipment - such as plac ing it within reach of the patient or emptying a device - to maintain either satisfactory voiding pat tern or managing an external device, such as an absorbent pad, ileal device, or catheter BLADDER MANAGEMENT - SCORE: 5-SUP BOWEL MANAGEMENT: Activity did not occur on this shift BOWEL MANAGEMENT - SCORE: 7-IND TRANSFERS: BED, CHAIR, WHEELCHAIR: TRANSFERS: BED, CHAIR, WHEELCHAIR - STEP 1: Does the patient require assistance with bed, chair, or wheelchair transfers? Yes. TRANSFERS: BED, CHAIR, WHEELCHAIR - STEP 2: Does the patient require the assistance of a helper? Yes. TRANSFERS: BED, CHAIR, WHEELCHAIR - STEP 3: How much assistance does the patient require from the helper? Lifting of the legs TRANSFERS: BED, CHAIR, WHEELCHAIR - STEP 4: How many legs does the patient require the helper to lift? both legs TRANSFERS: BED, CHAIR, WHEELCHAIR - SCORE: 3-MOD TRANSFERS: TOILET: TRANSFERS: TOILET - STEP 1: Does the patient require assistance with toilet transfers? Yes. TRANSFERS: TOILET - STEP 2: Does the patient require the assistance of a helper? Yes. TRANSFERS: TOILET - STEP 3: How much assistance does the patient require from the helper? Patient performs half or more of the tr ansferring tasks TRANSFERS: TOILET - STEP 4: Does the patient need only incidental help such as contact guard or steadying during toilet transfer? Yes. TRANSFERS: TOILET - SCORE: 4-MIN TRANSFERS: SHOWER: Activity did not occur on this shift TRANSFERS: SHOWER - SCORE: 0-UNK TRANSFERS: TUB: Activity did not occur on this shift TRANSFERS: TUB - SCORE: 0-UNK LOCOMOTION: WALK: Activity did not occur on this shift LOCOMOTION: WALK - SCORE: 0-UNK LOCOMOTION: WHEELCHAIR: Activity did not occur on this shift LOCOMOTION: WHEELCHAIR - SCORE: 0-UNK COMPREHENSION: COMPREHENSION - STEP 1: Does the patient require help to understand complex and abstract ideas (such as current events, finan clement, discharge planning, medical issues, relationships, etc)? Yes. COMPREHENSION - STEP 2: Does the patient require help to understand questions or statements about basic needs or ideas (such as hunger, thirst, sleep, safety, daily schedule, room location, or discomfort) half or more of the t tammy? No. COMPREHENSION - STEP 3: How often does the patient need help to understand directions and conversation about basic needs? 10% - 24% of the time COMPREHENSION - SCORE: 4-MIN EXPRESSION EXPRESSION - STEP 1: Does the patient require help expressing complex and abstract ideas (such as current events, finances , discharge planning, medical issues, relationships, etc)? Yes. EXPRESSION - STEP 2: Does the patient require help to express basic necessities or ideas (such as hunger, thirst, sleep, s afety, daily schedule, room location, or discomfort) half or more of the time? No. EXPRESSION - STEP 3: How often does the patient need help to express directions and conversation about basic needs? 10-24% of the time EXPRESSION - SCORE: 4-MIN SOCIAL INTERACTION: SOCIAL INTERACTION - STEP 1: Does the patient require a helper to interact with others in social and therapeutic situations? No. SOCIAL INTERACTION - STEP 2: Does the patient need extra time in social situations, OR does s/he interact with staff, other patien ts, and family members ONLY in structured environments, OR does s/he require medication for social in teraction? Yes, patient needs extra time SOCIAL INTERACTION - SCORE: 6-SAYRA PROBLEM SOLVING: PROBLEM SOLVING - STEP 1: Does the patient need help to solve complex problems such as managing a checking account or confronti ng interpersonal problems? Yes. PROBLEM SOLVING - STEP 2: Does the patient solve basic routine problems half or more of the time? Yes. PROBLEM SOLVING - STEP 3: How often does the patient need help to solve basic routine problems? 10%-24% of the time PROBLEM SOLVING - SCORE: 4-MIN MEMORY: MEMORY - STEP 1: Does the patient need help to remember frequently encountered people, daily routines, and executing r equests? No. MEMORY - STEP 2: Does the patient have slight difficulty recognizing frequently encountered people, daily routines, or executing requests without the need for repetition or using self-initiated or environmental cues to remember? Yes. MEMORY - SCORE: 6-SAYRA SIGNATURE PANEL: The following modified sections: Eating - Score, Grooming - Score, Dressing - Upper Body - Score, Cheikh ssing - Lower Body - Score, Toileting - Score, Bladder Management - Score, Bowel Management - Score, Transfers: Bed, Chair, Wheelchair - Score, Transfers: Toilet - Score, Transfers: Shower - Score, Mercado sfers: Tub - Score, Locomotion: Walk - Score, Locomotion: Wheelchair - Score, Comprehension - Score, Expression - Score, Social Interaction - Score, Problem Solving - Score, Memory - Score were [electro nically] signed by Tonia Cruz CNA on TueDec 21 2017 01:40:27 GMT-0500 (Central Daylight Time)
[2017-12-21 06:39] LABS: Absolute Lymphocytes (CBC) 1.9 K/uL (0.7-4.9); Absolute Monocytes 0.9 K/uL (0.1-1.3); Absolute Neutrophil 5.5 K/uL (1.8-8.0); Eosinophils % 2.9 % (0-4.4); Hematocrit 31.2 % (36.0-45.0); MCH 30.8 pg (27.0-35.0); MCV 90.5 fL (80-100); MPV 10.1 fL (7.6-11.3); Monocytes % 10.7 % (3.3-12.3); RBC Red Blood Cell Count 3.45 M/uL (3.86-4.86)
[2017-12-21 07:06] LABS: Albumin 2.9 g/dL (3.4-5.0); Potassium 3.4 mmol/L (3.5-5.1); Prealbumin 10.7 mg/dL (20-40)
[2017-12-21] MEDS: INSULIN -REGULAR HUMAN 50 UNIT/0.5 ML ML SQ SCH ×4 (07:30→20:23)
[2017-12-21] MEDS: GLUCERNA SHAKE 237 ML CAN PO SCH ×2 (08:00→20:34)
[2017-12-21] MEDS: NA CHLORIDE 0.9% 1,000 ML IV SCH (08:03)
[2017-12-21] MEDS: FUROSEMIDE 20 MG TABLET PO SCH (08:04)
[2017-12-21] MEDS: levETIRAcetam 500 MG TAB PO SCH ×2 (08:04→20:34)
[2017-12-21] MEDS: HEPARIN 5000 UNIT/ML 1 ML VIAL SQ SCH ×2 (08:04→20:23)
[2017-12-21] MEDS: CARVEDILOL 6.25 MG TAB PO SCH ×2 (08:06→20:00)
[2017-12-21] MEDS: glipiZIDE 5 MG TAB PO SCH ×2 (08:06→17:27)
[2017-12-21] MEDS: TRAMADOL HCL 50 MG TAB PO PRN (08:07)
[2017-12-21] MEDS: ASPIRIN EC 81 MG TAB PO SCH (08:07)
[2017-12-21] MEDS: CLOPIDOGREL 75 MG TABLET PO SCH (08:08)
[2017-12-21] MEDS: METFORMIN HCL 500 MG TAB PO SCH ×2 (08:08→17:27)
[2017-12-21] MEDS: PANTOPRAZOLE 40MG TABLET PO SCH (08:08)
--- NOTE | 2017-12-21 09:28 | P.RH.PN ---
Estimated Length of Stay: 20 Expected Discharge Date: 01/02/18 Discharge Disposition Plan: Home Family Support: Yes Half-Way Goal: Mobility, Transfers, Self Care Vital Signs: Last Vital Signs Temp 98 F 12/20/17 20:49 Pulse 75 12/21/17 08:06 Resp 16 12/20/17 20:49 BP 130/59 L 12/21/17 08:06 Pulse Ox 97 12/20/17 20:49 Laboratory: Laboratory Last Values WBC 8.7 K/uL (4.3-10.9) 12/21/17 05:40 RBC 3.45 M/uL (3.86-4.86) L 12/21/17 05:40 Hgb 10.6 g/dL (12.0-15.0) L 12/21/17 05:40 Hct 31.2 % (36.0-45.0) L 12/21/17 05:40 MCV 90.5 fL (80-100) 12/21/17 05:40 MCH 30.8 pg (27.0-35.0) 12/21/17 05:40 MCHC 34.0 g/dL (32.0-36.0) 12/21/17 05:40 RDW 14.6 % (12.1-15.2) 12/21/17 05:40 Plt Count 314 K/uL (152-406) 12/21/17 05:40 MPV 10.1 fL (7.6-11.3) 12/21/17 05:40 Neutrophils % 63.4 % (41.7-73.7) 12/21/17 05:40 Lymphocytes % 22.0 % (15.3-44.8) 12/21/17 05:40 Monocytes % 10.7 % (3.3-12.3) 12/21/17 05:40 Eosinophils % 2.9 % (0-4.4) 12/21/17 05:40 Basophils % 1.0 % (0-1.3) 12/21/17 05:40 Absolute Neutrophils 5.5 K/uL (1.8-8.0) 12/21/17 05:40 Absolute Lymphocytes 1.9 K/uL (0.7-4.9) 12/21/17 05:40 Absolute Monocytes 0.9 K/uL (0.1-1.3) 12/21/17 05:40 Absolute Eosinophils 0.3 K/uL (0-0.5) 12/21/17 05:40 Absolute Basophils 0.1 K/uL (0-0.5) 12/21/17 05:40 Sodium 142 mmol/L (136-145) 12/21/17 05:40 Potassium 3.4 mmol/L (3.5-5.1) L 12/21/17 05:40 Chloride 109 mmol/L (98-107) H 12/21/17 05:40 Carbon Dioxide 24 mmol/L (21-32) 12/21/17 05:40 BUN 9 mg/dL (7-18) D 12/21/17 05:40 Creatinine 0.90 mg/dL (0.55-1.3) 12/21/17 05:40 Estimated GFR 61 mL/min (=/>90) L 12/21/17 05:40 Glucose 111 mg/dL (74-106) H 12/21/17 05:40 POC Glucose 117 mg/dl (65-120) 12/21/17 07:52 Calcium 8.8 mg/dL (8.5-10.1) 12/21/17 05:40 Magnesium 1.8 mg/dL (1.8-2.4) 12/15/17 06:42 Albumin 2.9 g/dL (3.4-5.0) L 12/21/17 05:40 Prealbumin 10.7 mg/dL (20-40) L 12/21/17 05:40 Urine Color Yellow 12/14/17 19:15 Urine Appearance Clear 12/14/17 19:15 Urine pH 5.0 (5.0-7.0) 12/14/17 19:15 Ur Specific [place] 1.015 (1.005-1.030) 12/14/17 19:15 Urine Ketones Negative (NEG) 12/14/17 19:15 Urine Blood Negative (NEG) 12/14/17 19:15 Urine Nitrite Negative (NEG) 12/14/17 19:15 Urine Bilirubin Negative (NEG) 12/14/17 19:15 Urine Urobilinogen 0.2 mg/dL (0.2-1.0) 12/14/17 19:15 Ur Leukocyte Esterase 3+ (NEG) H 12/14/17 19:15 Urine RBC <5 /HPF (NONE SEEN) 12/14/17 19:15 Urine WBC 10-20 /HPF (<5) H 12/14/17 19:15 Ur Squamous Epith Cells <5 /HPF (NONE SEEN) 12/14/17 19:15 Ur Urothelial Cells <5 /HPF (NONE SEEN) 12/14/17 19:15 Urine Bacteria <20 /HPF (<20) 12/14/17 19:15 Urine Culture Reflexed Not needed 12/14/17 19:15 Urine Glucose Negative (NEG) 12/14/17 19:15 Urine Total Protein Negative (NEG) 12/14/17 19:15 Weight: 130 lb 8 oz Wound Present: No Closed Surgical Incision Present: No Negative Pressure Wound Therapy Present: No Physician Update: Mildlly low Hgb at 10.6. Hemocyte plus daily. Low prealbumin 10.7. Will add promod. Normal WBC and platelets. Medical Issues: Dm- with mild sliding scale Pain Issues: Ultram 50mg Q4H PRN Nutritional Needs: Modified Barium Swallow ordered Functional Improvement Occupational Therapy: PATIENT DEMONSTRATING GREAT MOTIVATION AND PARTICIPATION WITH THERAPY. HAS DEMONSTRATED SLOW STEADY PROGRESS AND CONTINUES TO BENEFIT FROM FURTHER OT AT THIS TIME, BEFORE A SAFE D/ C HOME WITH FAMILY. Speech Therapy Update: Patient making good gains. Oral motor function improved including improved labial seal and improved oral transit; intake increased slightly. Tolerating pureed foods and nectar thick liquids without s/s of asipration. Will begin trials of ground meats with [employer] this week. Memory improved to LIZABETH. Volume and articulatory precision also improved; speech is judged to be 70% intelligble in conversation Summary: Patient's care plan and group home goals have been reviewed and revised as necessary. Please see the Rehabilitation Signature page for all necessary signatures.
--- NOTE | 2017-12-21 18:48 | FAST ---
SHIFT START DATE/TIME: 12/21/2017 07:00 (CDT) SHIFT END DATE/TIME: 12/21/2017 19:00 (CDT) NAME IVETTE HODGES DATE OF : 1945 DATE OF ADMISSION: 12/14/2017 15:21 (CDT) PHONE: AGE: 72 N# [id number] GENDER: Female ENCOUNTER PHYSICIAN: Dr. Miki Delgado M.D. 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 EATING: EATING - STEP 1: Does the patient require assistance when eating? Yes. EATING - STEP 2: Does the patient require the assistance of a helper? No, patient only requires an assistive device, O R s/he takes more than reasonable time to eat, OR there is a safety concern, OR s/he requires modifie d food consistency EATING - SCORE: 6-SAYRA GROOMING: GROOMING - STEP 1: Does the patient require assistance when grooming? No. GROOMING - SCORE: 7-IND BATHING: Activity did not occur on this shift BATHING - SCORE: 0-UNK DRESSING - UPPER BODY: Activity did not occur on this shift ARTICLES SCORE Total number of steps: 0 DRESSING - UPPER BODY - SCORE: 0-UNK DRESSING - LOWER BODY: Activity did not occur on this shift ARTICLES SCORE Total number of steps: 0 DRESSING - LOWER BODY - SCORE: 0-UNK TOILETING: TOILETING - STEP 1: Does the patient require assistance with toileting? Yes. TOILETING - STEP 2: Does the patient require the assistance of a helper? Yes. TOILETING - STEP 3: How much assistance does the patient require from the helper? Only supervision TOILETING - SCORE: 5-SUP BLADDER MANAGEMENT: Activity did not occur on this shift BLADDER MANAGEMENT - SCORE: 7-IND BLADDER MANAGEMENT - FREQUENCY OF ACCIDENTS: BLADDER MANAGEMENT(FA) - STEP 1: How many accidents has the patient had during the current shift? 0 BOWEL MANAGEMENT: BOWEL MANAGEMENT - STEP 1: Does the patient control bowels completely and intentionally without equipment devices or medications AND is always continent? Yes. BOWEL MANAGEMENT - SCORE: 7-IND BOWEL MANAGEMENT - FREQUENCY OF ACCIDENTS: BOWEL MANAGEMENT(FA) - STEP 1: How many accidents has the patient had during the current shift? 0 TRANSFERS: BED, CHAIR, WHEELCHAIR: TRANSFERS: BED, CHAIR, WHEELCHAIR - STEP 1: Does the patient require assistance with bed, chair, or wheelchair transfers? Yes. TRANSFERS: BED, CHAIR, WHEELCHAIR - STEP 2: Does the patient require the assistance of a helper? Yes. TRANSFERS: BED, CHAIR, WHEELCHAIR - STEP 3: How much assistance does the patient require from the helper? Steadying/guiding assistance TRANSFERS: BED, CHAIR, WHEELCHAIR - SCORE: 4-MIN TRANSFERS: TOILET: TRANSFERS: TOILET - STEP 1: Does the patient require assistance with toilet transfers? Yes. TRANSFERS: TOILET - STEP 2: Does the patient require the assistance of a helper? Yes. TRANSFERS: TOILET - STEP 3: How much assistance does the patient require from the helper? Patient performs half or more of the tr ansferring tasks TRANSFERS: TOILET - STEP 4: Does the patient need only incidental help such as contact guard or steadying during toilet transfer? Yes. TRANSFERS: TOILET - SCORE: 4-MIN TRANSFERS: SHOWER: Activity did not occur on this shift TRANSFERS: SHOWER - SCORE: 0-UNK TRANSFERS: TUB: Activity did not occur on this shift TRANSFERS: TUB - SCORE: 0-UNK LOCOMOTION: WALK: Activity did not occur on this shift LOCOMOTION: WALK - SCORE: 0-UNK LOCOMOTION: WHEELCHAIR: Activity did not occur on this shift LOCOMOTION: WHEELCHAIR - SCORE: 0-UNK COMPREHENSION: COMPREHENSION - SCORE: 0-UNK EXPRESSION EXPRESSION - SCORE: 0-UNK SOCIAL INTERACTION: SOCIAL INTERACTION - SCORE: 0-UNK PROBLEM SOLVING: PROBLEM SOLVING - SCORE: 0-UNK MEMORY: MEMORY - SCORE: 0-UNK SIGNATURE PANEL: The following modified sections: Eating - Score, Grooming - Score, Bathing - Score, Dressing - Upper Body - Score, Dressing - Lower Body - Score, Toileting - Score, Bladder Management - Score, Bowel Man agement - Score, Transfers: Bed, Chair, Wheelchair - Score, Transfers: Toilet - Score, Transfers: Nette wer - Score, Transfers: Tub - Score, Locomotion: Walk - Score, Locomotion: Wheelchair - Score, Compre hension - Score, Expression - Score, Social Interaction - Score, Problem Solving - Score, Memory - Sc ore were [electronically] signed by Na Kirk CNA on TueDec 21 2017 17:48:47 T-0500 (Centra l Daylight Time)
--- NOTE | 2017-12-21 19:49 | FAST ---
ENCOUNTER DATE AND TIME: 12/21/2017 08:00 (CDT) NAME IVETTE HODGES DATE OF : 1945 DATE OF ADMISSION: 12/14/2017 15:21 (CDT) PHONE: AGE: 72 N# [id number] GENDER: Female ENCOUNTER PHYSICIAN: Dr. Miki Delgado M.D. 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 EATING: Activity did not occur on this shift EATING - SCORE: 0-UNK GROOMING: Activity did not occur on this shift GROOMING - SCORE: 0-UNK BATHING: Activity did not occur on this shift BATHING - SCORE: 0-UNK DRESSING - UPPER BODY: Activity did not occur on this shift Patient is not dressing in public clothing ARTICLES SCORE Total number of steps: 0 DRESSING - UPPER BODY - SCORE: 0-UNK DRESSING - LOWER BODY: Activity did not occur on this shift Patient is not dressing in public clothing ARTICLES SCORE Total number of steps: 0 DRESSING - LOWER BODY - SCORE: 0-UNK TOILETING: Activity did not occur on this shift TOILETING - SCORE: 0-UNK BLADDER MANAGEMENT: Activity did not occur on this shift BLADDER MANAGEMENT - SCORE: 7-IND BOWEL MANAGEMENT: Activity did not occur on this shift BOWEL MANAGEMENT - SCORE: 7-IND TRANSFERS: BED, CHAIR, WHEELCHAIR: Activity did not occur on this shift TRANSFERS: BED, CHAIR, WHEELCHAIR - SCORE: 0-UNK TRANSFERS: TOILET: Activity did not occur on this shift TRANSFERS: TOILET - SCORE: 0-UNK TRANSFERS: SHOWER: Activity did not occur on this shift TRANSFERS: SHOWER - SCORE: 0-UNK TRANSFERS: TUB: Activity did not occur on this shift TRANSFERS: TUB - SCORE: 0-UNK LOCOMOTION: WALK: Activity did not occur on this shift LOCOMOTION: WALK - SCORE: 0-UNK LOCOMOTION: WHEELCHAIR: Activity did not occur on this shift LOCOMOTION: WHEELCHAIR - SCORE: 0-UNK LOCOMOTION: STAIRS: Activity did not occur on this shift LOCOMOTION: STAIRS - SCORE: 0-UNK COMPREHENSION: COMPREHENSION - STEP 1: Does the patient require help to understand complex and abstract ideas (such as current events, finan clement, discharge planning, medical issues, relationships, etc)? Yes. COMPREHENSION - STEP 2: Does the patient require help to understand questions or statements about basic needs or ideas (such as hunger, thirst, sleep, safety, daily schedule, room location, or discomfort) half or more of the t tammy? No. COMPREHENSION - STEP 3: How often does the patient need help to understand directions and conversation about basic needs? 10% - 24% of the time COMPREHENSION - SCORE: 4-MIN EXPRESSION EXPRESSION - STEP 1: Does the patient require help expressing complex and abstract ideas (such as current events, finances , discharge planning, medical issues, relationships, etc)? Yes. EXPRESSION - STEP 2: Does the patient require help to express basic necessities or ideas (such as hunger, thirst, sleep, s afety, daily schedule, room location, or discomfort) half or more of the time? No. EXPRESSION - STEP 3: How often does the patient need help to express directions and conversation about basic needs? 10-24% of the time EXPRESSION - SCORE: 4-MIN SOCIAL INTERACTION: SOCIAL INTERACTION - STEP 1: Does the patient require a helper to interact with others in social and therapeutic situations? Yes. SOCIAL INTERACTION - STEP 2: Does the patient interact appropriately half or more of the time? Yes. SOCIAL INTERACTION - STEP 3: How often does the patient need help to interact appropriately? 10-24% of the time SOCIAL INTERACTION - SCORE: 4-MIN PROBLEM SOLVING: PROBLEM SOLVING - STEP 1: Does the patient need help to solve complex problems such as managing a checking account or confronti ng interpersonal problems? Yes. PROBLEM SOLVING - STEP 2: Does the patient solve basic routine problems half or more of the time? Yes. PROBLEM SOLVING - STEP 3: How often does the patient need help to solve basic routine problems? 25%-49% of the time PROBLEM SOLVING - SCORE: 3-MOD MEMORY: MEMORY - STEP 1: Does the patient need help to remember frequently encountered people, daily routines, and executing r equests? Yes. MEMORY - STEP 2: How often does the patient need help to remember frequently encountered people, daily routines, and e xecuting requests? Less than 10% of the time MEMORY - SCORE: 5-SUP SIGNATURE PANEL: The following modified sections: Comprehension - Score, Expression - Score, Social Interaction - Scor e, Problem Solving - Score, Memory - Score were [electronically] signed by ST Hector on Tue 18:49:48 GMT-0500 (Central Daylight Time)
[2017-12-21] MEDS: ATORVASTATIN 80 MG TAB PO SCH (20:33)
[2017-12-21] MEDS: PROMOD 30 ML DOSE PO SCH (20:34)
--- NOTE | 2017-12-22 03:31 | FAST ---
SHIFT START DATE/TIME: 12/21/2017 19:00 (CDT) SHIFT END DATE/TIME: 12/22/2017 07:00 (CDT) NAME IVETTE HODGES DATE OF : 1945 DATE OF ADMISSION: 12/14/2017 15:21 (CDT) PHONE: AGE: 72 N# [id number] GENDER: Female ENCOUNTER PHYSICIAN: Dr. Miki Delgado M.D. 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 EATING: Activity did not occur on this shift EATING - SCORE: 0-UNK GROOMING: Oral care Wash, rinse, and dry face Wash, rinse, and dry hands GROOMING - STEP 1: Does the patient require assistance when grooming? Yes. GROOMING - STEP 2: Does the patient require the assistance of a helper? Yes. GROOMING - STEP 3: How much assistance does the patient require from the helper? Incidental touching assistance from the helper while grooming GROOMING - SCORE: 4-MIN BATHING: Activity did not occur on this shift BATHING - SCORE: 0-UNK DRESSING - UPPER BODY: Patient is not dressing in public clothing ARTICLES SCORE Total number of steps: 0 DRESSING - UPPER BODY - SCORE: 0-UNK DRESSING - LOWER BODY: Patient is not dressing in public clothing ARTICLES SCORE Total number of steps: 0 DRESSING - LOWER BODY - SCORE: 0-UNK TOILETING: TOILETING - STEP 1: Does the patient require assistance with toileting? Yes. TOILETING - STEP 2: Does the patient require the assistance of a helper? Yes. TOILETING - STEP 3: How much assistance does the patient require from the helper? Hands-on assistance from the helper TOILETING - STEP 4: Of the 3 tasks: 1) Adjusting clothing prior to use, 2) Cleansing of perineal area, 3) Adjusting clot willie after use; How many tasks does the patient perform WITHOUT assistance of the helper? One task TOILETING - SCORE: 2-MAX BLADDER MANAGEMENT: BLADDER MANAGEMENT - STEP 1: Does the patient control the bladder completely and intentionally without equipment or devices or med ications, and is always continent? No. BLADDER MANAGEMENT - STEP 2: Does the patient require the assistance of a helper? Yes. BLADDER MANAGEMENT - STEP 3: How much assistance does the patient require from the helper? Only set-up of equipment - such as plac ing it within reach of the patient or emptying a device - to maintain either satisfactory voiding pat tern or managing an external device, such as an absorbent pad, ileal device, or catheter BLADDER MANAGEMENT - SCORE: 5-SUP BOWEL MANAGEMENT: Activity did not occur on this shift BOWEL MANAGEMENT - SCORE: 7-IND TRANSFERS: BED, CHAIR, WHEELCHAIR: TRANSFERS: BED, CHAIR, WHEELCHAIR - STEP 1: Does the patient require assistance with bed, chair, or wheelchair transfers? Yes. TRANSFERS: BED, CHAIR, WHEELCHAIR - STEP 2: Does the patient require the assistance of a helper? Yes. TRANSFERS: BED, CHAIR, WHEELCHAIR - STEP 3: How much assistance does the patient require from the helper? Lifting of the legs TRANSFERS: BED, CHAIR, WHEELCHAIR - STEP 4: How many legs does the patient require the helper to lift? one leg TRANSFERS: BED, CHAIR, WHEELCHAIR - SCORE: 4-MIN TRANSFERS: TOILET: TRANSFERS: TOILET - STEP 1: Does the patient require assistance with toilet transfers? Yes. TRANSFERS: TOILET - STEP 2: Does the patient require the assistance of a helper? Yes. TRANSFERS: TOILET - STEP 3: How much assistance does the patient require from the helper? Patient performs half or more of the tr ansferring tasks TRANSFERS: TOILET - STEP 4: Does the patient need only incidental help such as contact guard or steadying during toilet transfer? Yes. TRANSFERS: TOILET - SCORE: 4-MIN TRANSFERS: SHOWER: Activity did not occur on this shift TRANSFERS: SHOWER - SCORE: 0-UNK TRANSFERS: TUB: Activity did not occur on this shift TRANSFERS: TUB - SCORE: 0-UNK LOCOMOTION: WALK: Activity did not occur on this shift LOCOMOTION: WALK - SCORE: 0-UNK LOCOMOTION: WHEELCHAIR: Activity did not occur on this shift LOCOMOTION: WHEELCHAIR - SCORE: 0-UNK COMPREHENSION: COMPREHENSION - STEP 1: Does the patient require help to understand complex and abstract ideas (such as current events, finan clement, discharge planning, medical issues, relationships, etc)? Yes. COMPREHENSION - STEP 2: Does the patient require help to understand questions or statements about basic needs or ideas (such as hunger, thirst, sleep, safety, daily schedule, room location, or discomfort) half or more of the t tammy? No. COMPREHENSION - STEP 3: How often does the patient need help to understand directions and conversation about basic needs? 10% - 24% of the time COMPREHENSION - SCORE: 4-MIN EXPRESSION EXPRESSION - STEP 1: Does the patient require help expressing complex and abstract ideas (such as current events, finances , discharge planning, medical issues, relationships, etc)? Yes. EXPRESSION - STEP 2: Does the patient require help to express basic necessities or ideas (such as hunger, thirst, sleep, s afety, daily schedule, room location, or discomfort) half or more of the time? No. EXPRESSION - STEP 3: How often does the patient need help to express directions and conversation about basic needs? 10-24% of the time EXPRESSION - SCORE: 4-MIN SOCIAL INTERACTION: SOCIAL INTERACTION - STEP 1: Does the patient require a helper to interact with others in social and therapeutic situations? No. SOCIAL INTERACTION - STEP 2: Does the patient need extra time in social situations, OR does s/he interact with staff, other patien ts, and family members ONLY in structured environments, OR does s/he require medication for social in teraction? Yes, patient needs extra time SOCIAL INTERACTION - SCORE: 6-SAYRA PROBLEM SOLVING: PROBLEM SOLVING - STEP 1: Does the patient need help to solve complex problems such as managing a checking account or confronti ng interpersonal problems? Yes. PROBLEM SOLVING - STEP 2: Does the patient solve basic routine problems half or more of the time? Yes. PROBLEM SOLVING - STEP 3: How often does the patient need help to solve basic routine problems? 10%-24% of the time PROBLEM SOLVING - SCORE: 4-MIN MEMORY: MEMORY - STEP 1: Does the patient need help to remember frequently encountered people, daily routines, and executing r equests? No. MEMORY - STEP 2: Does the patient have slight difficulty recognizing frequently encountered people, daily routines, or executing requests without the need for repetition or using self-initiated or environmental cues to remember? Yes. MEMORY - SCORE: 6-SAYRA SIGNATURE PANEL: The following modified sections: Eating - Score, Grooming - Score, Dressing - Upper Body - Score, Cheikh ssing - Lower Body - Score, Toileting - Score, Bladder Management - Score, Bowel Management - Score, Transfers: Bed, Chair, Wheelchair - Score, Transfers: Toilet - Score, Transfers: Shower - Score, Mercado sfers: Tub - Score, Locomotion: Walk - Score, Locomotion: Wheelchair - Score, Comprehension - Score, Expression - Score, Social Interaction - Score, Problem Solving - Score, Memory - Score were [electro nically] signed by Tonia Cruz CNA on TueDec 22 2017 02:31:47 GMT-0500 (Central Daylight Time)
[2017-12-22] MEDS: NA CHLORIDE 0.9% 1,000 ML IV SCH (06:00)
[2017-12-22] MEDS: INSULIN -REGULAR HUMAN 50 UNIT/0.5 ML ML SQ SCH ×4 (07:01→20:13)
[2017-12-22] MEDS: glipiZIDE 5 MG TAB PO SCH ×2 (07:25→16:56)
[2017-12-22] MEDS: FERROUS SULFATE 325 MG TAB PO SCH (07:25)
[2017-12-22] MEDS: FE SULF/FA/VIT B COMP & C TAB PO SCH (07:25)
[2017-12-22] MEDS: CLOPIDOGREL 75 MG TABLET PO SCH (07:25)
[2017-12-22] MEDS: ASPIRIN EC 81 MG TAB PO SCH (07:25)
[2017-12-22] MEDS: METFORMIN HCL 500 MG TAB PO SCH ×2 (07:25→16:56)
[2017-12-22] MEDS: levETIRAcetam 500 MG TAB PO SCH ×2 (07:25→20:21)
[2017-12-22] MEDS: PANTOPRAZOLE 40MG TABLET PO SCH (07:25)
[2017-12-22] MEDS: CARVEDILOL 6.25 MG TAB PO SCH ×2 (07:26→20:21)
[2017-12-22] MEDS: GLUCERNA SHAKE 237 ML CAN PO SCH ×2 (07:26→20:21)
[2017-12-22] MEDS: FUROSEMIDE 20 MG TABLET PO SCH (07:27)
[2017-12-22] MEDS: PROMOD 30 ML DOSE PO SCH ×2 (07:27→20:21)
[2017-12-22] MEDS: HEPARIN 5000 UNIT/ML 1 ML VIAL SQ SCH ×2 (07:55→18:59)
--- NOTE | 2017-12-22 12:47 | FAST ---
SHIFT START DATE/TIME: 12/22/2017 07:00 (CDT) SHIFT END DATE/TIME: 12/22/2017 19:00 (CDT) NAME IVETTE HODGES DATE OF : 1945 DATE OF ADMISSION: 12/14/2017 15:21 (CDT) PHONE: AGE: 72 N# [id number] GENDER: Female ENCOUNTER PHYSICIAN: Dr. Miki Delgado M.D. 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 EATING: EATING - STEP 1: Does the patient require assistance when eating? Yes. EATING - STEP 2: Does the patient require the assistance of a helper? Yes. EATING - STEP 3: Does the patient perform half or more of the eating tasks? Yes. EATING - STEP 4: Does the patient need only supervision, cuing, coaxing OR help to apply an orthosis OR help to cut fo od, open containers, pour liquids, or butter bread? Yes. EATING - SCORE: 5-SUP GROOMING: Activity did not occur on this shift GROOMING - SCORE: 0-UNK BATHING: Activity did not occur on this shift BATHING - SCORE: 0-UNK DRESSING - UPPER BODY: Activity did not occur on this shift ARTICLES SCORE Total number of steps: 0 DRESSING - UPPER BODY - SCORE: 0-UNK DRESSING - LOWER BODY: Activity did not occur on this shift ARTICLES SCORE Total number of steps: 0 DRESSING - LOWER BODY - SCORE: 0-UNK TOILETING: TOILETING - STEP 1: Does the patient require assistance with toileting? Yes. TOILETING - STEP 2: Does the patient require the assistance of a helper? No. TOILETING - SCORE: 6-SAYRA BLADDER MANAGEMENT: BLADDER MANAGEMENT - STEP 1: Does the patient control the bladder completely and intentionally without equipment or devices or med ications, and is always continent? Yes. BLADDER MANAGEMENT - SCORE: 7-IND BLADDER MANAGEMENT - FREQUENCY OF ACCIDENTS: BLADDER MANAGEMENT(FA) - STEP 1: How many accidents has the patient had during the current shift? 0 BOWEL MANAGEMENT: BOWEL MANAGEMENT - STEP 1: Does the patient control bowels completely and intentionally without equipment devices or medications AND is always continent? Yes. BOWEL MANAGEMENT - SCORE: 7-IND BOWEL MANAGEMENT - FREQUENCY OF ACCIDENTS: BOWEL MANAGEMENT(FA) - STEP 1: How many accidents has the patient had during the current shift? 0 TRANSFERS: BED, CHAIR, WHEELCHAIR: TRANSFERS: BED, CHAIR, WHEELCHAIR - STEP 1: Does the patient require assistance with bed, chair, or wheelchair transfers? Yes. TRANSFERS: BED, CHAIR, WHEELCHAIR - STEP 2: Does the patient require the assistance of a helper? Yes. TRANSFERS: BED, CHAIR, WHEELCHAIR - STEP 3: How much assistance does the patient require from the helper? Steadying/guiding assistance TRANSFERS: BED, CHAIR, WHEELCHAIR - SCORE: 4-MIN TRANSFERS: TOILET: TRANSFERS: TOILET - STEP 1: Does the patient require assistance with toilet transfers? Yes. TRANSFERS: TOILET - STEP 2: Does the patient require the assistance of a helper? Yes. TRANSFERS: TOILET - STEP 3: How much assistance does the patient require from the helper? Patient performs half or more of the tr ansferring tasks TRANSFERS: TOILET - STEP 4: Does the patient need only incidental help such as contact guard or steadying during toilet transfer? Yes. TRANSFERS: TOILET - SCORE: 4-MIN TRANSFERS: SHOWER: Activity did not occur on this shift TRANSFERS: SHOWER - SCORE: 0-UNK TRANSFERS: TUB: Activity did not occur on this shift TRANSFERS: TUB - SCORE: 0-UNK LOCOMOTION: WALK: Activity did not occur on this shift LOCOMOTION: WALK - SCORE: 0-UNK LOCOMOTION: WHEELCHAIR: Activity did not occur on this shift LOCOMOTION: WHEELCHAIR - SCORE: 0-UNK COMPREHENSION: COMPREHENSION - SCORE: 0-UNK EXPRESSION EXPRESSION - SCORE: 0-UNK SOCIAL INTERACTION: SOCIAL INTERACTION - SCORE: 0-UNK PROBLEM SOLVING: PROBLEM SOLVING - SCORE: 0-UNK MEMORY: MEMORY - SCORE: 0-UNK SIGNATURE PANEL: The following modified sections: Eating - Score, Grooming - Score, Bathing - Score, Dressing - Upper Body - Score, Dressing - Lower Body - Score, Toileting - Score, Bladder Management - Score, Bowel Man agement - Score, Transfers: Bed, Chair, Wheelchair - Score, Transfers: Toilet - Score, Transfers: Nette wer - Score, Transfers: Tub - Score, Locomotion: Walk - Score, Locomotion: Wheelchair - Score, Compre hension - Score, Expression - Score, Social Interaction - Score, Problem Solving - Score, Memory - Sc ore were [electronically] signed by Na Kirk CNA on TueDec 22 2017 11:47:27 T-0500 (Centra l Daylight Time)
--- NOTE | 2017-12-22 15:50 | FAST ---
ENCOUNTER DATE AND TIME: 12/22/2017 08:00 (CDT) NAME IVETTE HODGES DATE OF : 1945 DATE OF ADMISSION: 12/14/2017 15:21 (CDT) PHONE: AGE: 72 N# [id number] GENDER: Female ENCOUNTER PHYSICIAN: Dr. Miki Delgado M.D. 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 EATING: Activity did not occur on this shift EATING - SCORE: 0-UNK GROOMING: Activity did not occur on this shift GROOMING - SCORE: 0-UNK BATHING: Activity did not occur on this shift BATHING - SCORE: 0-UNK DRESSING - UPPER BODY: Activity did not occur on this shift Patient is not dressing in public clothing ARTICLES SCORE Total number of steps: 0 DRESSING - UPPER BODY - SCORE: 0-UNK DRESSING - LOWER BODY: Activity did not occur on this shift Patient is not dressing in public clothing ARTICLES SCORE Total number of steps: 0 DRESSING - LOWER BODY - SCORE: 0-UNK TOILETING: Activity did not occur on this shift TOILETING - SCORE: 0-UNK BLADDER MANAGEMENT: Activity did not occur on this shift BLADDER MANAGEMENT - SCORE: 7-IND BOWEL MANAGEMENT: Activity did not occur on this shift BOWEL MANAGEMENT - SCORE: 7-IND TRANSFERS: BED, CHAIR, WHEELCHAIR: TRANSFERS: BED, CHAIR, WHEELCHAIR - STEP 1: Does the patient require assistance with bed, chair, or wheelchair transfers? Yes. TRANSFERS: BED, CHAIR, WHEELCHAIR - STEP 2: Does the patient require the assistance of a helper? Yes. TRANSFERS: BED, CHAIR, WHEELCHAIR - STEP 3: How much assistance does the patient require from the helper? Only supervision TRANSFERS: BED, CHAIR, WHEELCHAIR - SCORE: 5-SUP TRANSFERS: TOILET: Activity did not occur on this shift TRANSFERS: TOILET - SCORE: 0-UNK TRANSFERS: SHOWER: Activity did not occur on this shift TRANSFERS: SHOWER - SCORE: 0-UNK TRANSFERS: TUB: Activity did not occur on this shift TRANSFERS: TUB - SCORE: 0-UNK LOCOMOTION: WALK: LOCOMOTION: WALK - STEP 1: Does the patient need help to walk 150 feet? Yes. LOCOMOTION: WALK - STEP 2: How much assistance does the patient require to walk a minimum of 150 feet? Only incidental help such as contact guarding or steadying LOCOMOTION: WALK - SCORE: 4-MIN LOCOMOTION: WHEELCHAIR: Activity did not occur on this shift LOCOMOTION: WHEELCHAIR - SCORE: 0-UNK LOCOMOTION: STAIRS: LOCOMOTION: STAIRS - STEP 1: Does the patient need help to go up and down 12 to 14 stairs? Yes. LOCOMOTION: STAIRS - STEP 2: How much assistance does the patient need from the helper to go a minimum of 12 to 14 stairs? Only in cidental help such as contact guarding or steadying LOCOMOTION: STAIRS - SCORE: 4-MIN COMPREHENSION: COMPREHENSION - SCORE: 0-UNK EXPRESSION EXPRESSION - SCORE: 0-UNK SOCIAL INTERACTION: SOCIAL INTERACTION - SCORE: 0-UNK PROBLEM SOLVING: PROBLEM SOLVING - SCORE: 0-UNK MEMORY: MEMORY - SCORE: 0-UNK SIGNATURE PANEL: The following modified sections: Transfers: Bed, Chair, Wheelchair - Score, Transfers: Toilet - Score , Locomotion: Walk - Score, Locomotion: Wheelchair - Score, Locomotion: Stairs - Score were [electron debbie] signed by Art Odom PTA on TueDec 22 2017 15:50:02 GMT-0500 (Central Daylight Time)
--- NOTE | 2017-12-22 16:38 | FAST ---
ENCOUNTER DATE AND TIME: 12/19/2017 08:00 (CDT) NAME IVETTE HODGES DATE OF : 1945 DATE OF ADMISSION: 12/14/2017 15:21 (CDT) PHONE: AGE: 72 N# [id number] GENDER: Female ENCOUNTER PHYSICIAN: Dr. Miki Delgado M.D. 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 EATING: Activity did not occur on this shift EATING - SCORE: 0-UNK GROOMING: Activity did not occur on this shift GROOMING - SCORE: 0-UNK BATHING: Activity did not occur on this shift BATHING - SCORE: 0-UNK DRESSING - UPPER BODY: Activity did not occur on this shift Patient is not dressing in public clothing ARTICLES SCORE Total number of steps: 0 DRESSING - UPPER BODY - SCORE: 0-UNK DRESSING - LOWER BODY: Activity did not occur on this shift Patient is not dressing in public clothing ARTICLES SCORE Total number of steps: 0 DRESSING - LOWER BODY - SCORE: 0-UNK TOILETING: Activity did not occur on this shift TOILETING - SCORE: 0-UNK BLADDER MANAGEMENT: Activity did not occur on this shift BLADDER MANAGEMENT - SCORE: 7-IND BOWEL MANAGEMENT: Activity did not occur on this shift BOWEL MANAGEMENT - SCORE: 7-IND TRANSFERS: BED, CHAIR, WHEELCHAIR: TRANSFERS: BED, CHAIR, WHEELCHAIR - STEP 1: Does the patient require assistance with bed, chair, or wheelchair transfers? Yes. TRANSFERS: BED, CHAIR, WHEELCHAIR - STEP 2: Does the patient require the assistance of a helper? Yes. TRANSFERS: BED, CHAIR, WHEELCHAIR - STEP 3: How much assistance does the patient require from the helper? Steadying/guiding assistance TRANSFERS: BED, CHAIR, WHEELCHAIR - SCORE: 4-MIN TRANSFERS: TOILET: Activity did not occur on this shift TRANSFERS: TOILET - SCORE: 0-UNK TRANSFERS: SHOWER: Activity did not occur on this shift TRANSFERS: SHOWER - SCORE: 0-UNK TRANSFERS: TUB: Activity did not occur on this shift TRANSFERS: TUB - SCORE: 0-UNK LOCOMOTION: WALK: LOCOMOTION: WALK - STEP 1: Does the patient need help to walk 150 feet? Yes. LOCOMOTION: WALK - STEP 2: How much assistance does the patient require to walk a minimum of 150 feet? Only incidental help such as contact guarding or steadying LOCOMOTION: WALK - SCORE: 4-MIN LOCOMOTION: WHEELCHAIR: Activity did not occur on this shift LOCOMOTION: WHEELCHAIR - SCORE: 0-UNK LOCOMOTION: STAIRS: Activity did not occur on this shift LOCOMOTION: STAIRS - SCORE: 0-UNK COMPREHENSION: COMPREHENSION - SCORE: 0-UNK EXPRESSION EXPRESSION - SCORE: 0-UNK SOCIAL INTERACTION: SOCIAL INTERACTION - SCORE: 0-UNK PROBLEM SOLVING: PROBLEM SOLVING - SCORE: 0-UNK MEMORY: MEMORY - SCORE: 0-UNK SIGNATURE PANEL: The following modified sections: Transfers: Bed, Chair, Wheelchair - Score, Transfers: Toilet - Score , Locomotion: Walk - Score, Locomotion: Wheelchair - Score, Locomotion: Stairs - Score were [electron debbie] signed by Art Odom PTA on TueDec 22 2017 16:38:22 T-0500 (Central Daylight Time)
--- NOTE | 2017-12-22 16:41 | FAST ---
ENCOUNTER DATE AND TIME: 12/21/2017 08:00 (CDT) NAME IVETTE HODGES DATE OF : 1945 DATE OF ADMISSION: 12/14/2017 15:21 (CDT) PHONE: AGE: 72 N# [id number] GENDER: Female ENCOUNTER PHYSICIAN: Dr. Miki Delgado M.D. 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 EATING: Activity did not occur on this shift EATING - SCORE: 0-UNK GROOMING: Activity did not occur on this shift GROOMING - SCORE: 0-UNK BATHING: Activity did not occur on this shift BATHING - SCORE: 0-UNK DRESSING - UPPER BODY: Activity did not occur on this shift Patient is not dressing in public clothing ARTICLES SCORE Total number of steps: 0 DRESSING - UPPER BODY - SCORE: 0-UNK DRESSING - LOWER BODY: Activity did not occur on this shift Patient is not dressing in public clothing ARTICLES SCORE Total number of steps: 0 DRESSING - LOWER BODY - SCORE: 0-UNK TOILETING: Activity did not occur on this shift TOILETING - SCORE: 0-UNK BLADDER MANAGEMENT: Activity did not occur on this shift BLADDER MANAGEMENT - SCORE: 7-IND BOWEL MANAGEMENT: Activity did not occur on this shift BOWEL MANAGEMENT - SCORE: 7-IND TRANSFERS: BED, CHAIR, WHEELCHAIR: TRANSFERS: BED, CHAIR, WHEELCHAIR - STEP 1: Does the patient require assistance with bed, chair, or wheelchair transfers? Yes. TRANSFERS: BED, CHAIR, WHEELCHAIR - STEP 2: Does the patient require the assistance of a helper? Yes. TRANSFERS: BED, CHAIR, WHEELCHAIR - STEP 3: How much assistance does the patient require from the helper? Only supervision TRANSFERS: BED, CHAIR, WHEELCHAIR - SCORE: 5-SUP TRANSFERS: TOILET: Activity did not occur on this shift TRANSFERS: TOILET - SCORE: 0-UNK TRANSFERS: SHOWER: Activity did not occur on this shift TRANSFERS: SHOWER - SCORE: 0-UNK TRANSFERS: TUB: Activity did not occur on this shift TRANSFERS: TUB - SCORE: 0-UNK LOCOMOTION: WALK: LOCOMOTION: WALK - STEP 1: Does the patient need help to walk 150 feet? Yes. LOCOMOTION: WALK - STEP 2: How much assistance does the patient require to walk a minimum of 150 feet? Only incidental help such as contact guarding or steadying LOCOMOTION: WALK - SCORE: 4-MIN LOCOMOTION: WHEELCHAIR: Activity did not occur on this shift LOCOMOTION: WHEELCHAIR - SCORE: 0-UNK LOCOMOTION: STAIRS: LOCOMOTION: STAIRS - STEP 1: Does the patient need help to go up and down 12 to 14 stairs? Yes. LOCOMOTION: STAIRS - STEP 2: How much assistance does the patient need from the helper to go a minimum of 12 to 14 stairs? The pat ient goes less than 12 to 14 stairs - but more than 4 to 6 stairs LOCOMOTION: STAIRS - SCORE: 2-MAX COMPREHENSION: COMPREHENSION - SCORE: 0-UNK EXPRESSION EXPRESSION - SCORE: 0-UNK SOCIAL INTERACTION: SOCIAL INTERACTION - SCORE: 0-UNK PROBLEM SOLVING: PROBLEM SOLVING - SCORE: 0-UNK MEMORY: MEMORY - SCORE: 0-UNK SIGNATURE PANEL: The following modified sections: Transfers: Bed, Chair, Wheelchair - Score, Transfers: Toilet - Score , Locomotion: Walk - Score, Locomotion: Wheelchair - Score, Locomotion: Stairs - Score were [electron ically] signed by Art Odom PTA on TueDec 22 2017 16:41:31 GMT-0500 (Central Daylight Time)
--- NOTE | 2017-12-22 16:42 | FAST ---
ENCOUNTER DATE AND TIME: 12/20/2017 08:00 (CDT) NAME IVETTE HODGES DATE OF : 1945 DATE OF ADMISSION: 12/14/2017 15:21 (CDT) PHONE: AGE: 72 N# [id number] GENDER: Female ENCOUNTER PHYSICIAN: Dr. Miki Delgado M.D. 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 EATING: Activity did not occur on this shift EATING - SCORE: 0-UNK GROOMING: Activity did not occur on this shift GROOMING - SCORE: 0-UNK BATHING: Activity did not occur on this shift BATHING - SCORE: 0-UNK DRESSING - UPPER BODY: Activity did not occur on this shift Patient is not dressing in public clothing ARTICLES SCORE Total number of steps: 0 DRESSING - UPPER BODY - SCORE: 0-UNK DRESSING - LOWER BODY: Activity did not occur on this shift Patient is not dressing in public clothing ARTICLES SCORE Total number of steps: 0 DRESSING - LOWER BODY - SCORE: 0-UNK TOILETING: Activity did not occur on this shift TOILETING - SCORE: 0-UNK BLADDER MANAGEMENT: Activity did not occur on this shift BLADDER MANAGEMENT - SCORE: 7-IND BOWEL MANAGEMENT: Activity did not occur on this shift BOWEL MANAGEMENT - SCORE: 7-IND TRANSFERS: BED, CHAIR, WHEELCHAIR: TRANSFERS: BED, CHAIR, WHEELCHAIR - STEP 1: Does the patient require assistance with bed, chair, or wheelchair transfers? Yes. TRANSFERS: BED, CHAIR, WHEELCHAIR - STEP 2: Does the patient require the assistance of a helper? Yes. TRANSFERS: BED, CHAIR, WHEELCHAIR - STEP 3: How much assistance does the patient require from the helper? Only supervision TRANSFERS: BED, CHAIR, WHEELCHAIR - SCORE: 5-SUP TRANSFERS: TOILET: Activity did not occur on this shift TRANSFERS: TOILET - SCORE: 0-UNK TRANSFERS: SHOWER: Activity did not occur on this shift TRANSFERS: SHOWER - SCORE: 0-UNK TRANSFERS: TUB: Activity did not occur on this shift TRANSFERS: TUB - SCORE: 0-UNK LOCOMOTION: WALK: LOCOMOTION: WALK - STEP 1: Does the patient need help to walk 150 feet? Yes. LOCOMOTION: WALK - STEP 2: How much assistance does the patient require to walk a minimum of 150 feet? Only incidental help such as contact guarding or steadying LOCOMOTION: WALK - SCORE: 4-MIN LOCOMOTION: WHEELCHAIR: Activity did not occur on this shift LOCOMOTION: WHEELCHAIR - SCORE: 0-UNK LOCOMOTION: STAIRS: Activity did not occur on this shift LOCOMOTION: STAIRS - SCORE: 0-UNK COMPREHENSION: COMPREHENSION - SCORE: 0-UNK EXPRESSION EXPRESSION - SCORE: 0-UNK SOCIAL INTERACTION: SOCIAL INTERACTION - SCORE: 0-UNK PROBLEM SOLVING: PROBLEM SOLVING - SCORE: 0-UNK MEMORY: MEMORY - SCORE: 0-UNK SIGNATURE PANEL: The following modified sections: Transfers: Bed, Chair, Wheelchair - Score, Transfers: Toilet - Score , Locomotion: Walk - Score, Locomotion: Wheelchair - Score, Locomotion: Stairs - Score were [electron icashari] signed by Art Odom PTA on TueDec 22 2017 16:42:36 T-0500 (Central Daylight Time)
[2017-12-22] MEDS: ATORVASTATIN 80 MG TAB PO SCH (20:21)
--- NOTE | 2017-12-23 03:10 | FAST ---
SHIFT START DATE/TIME: 12/22/2017 19:00 (CDT) SHIFT END DATE/TIME: 12/23/2017 07:00 (CDT) NAME IVETTE HODGES DATE OF : 1945 DATE OF ADMISSION: 12/14/2017 15:21 (CDT) PHONE: AGE: 72 N# [id number] GENDER: Female ENCOUNTER PHYSICIAN: Dr. Miki Delgado M.D. 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 EATING: Activity did not occur on this shift EATING - SCORE: 0-UNK GROOMING: Activity did not occur on this shift GROOMING - SCORE: 0-UNK BATHING: Activity did not occur on this shift BATHING - SCORE: 0-UNK DRESSING - UPPER BODY: Activity did not occur on this shift ARTICLES SCORE Total number of steps: 0 DRESSING - UPPER BODY - SCORE: 0-UNK DRESSING - LOWER BODY: Activity did not occur on this shift ARTICLES SCORE Total number of steps: 0 DRESSING - LOWER BODY - SCORE: 0-UNK TOILETING: TOILETING - STEP 1: Does the patient require assistance with toileting? Yes. TOILETING - STEP 2: Does the patient require the assistance of a helper? Yes. TOILETING - STEP 3: How much assistance does the patient require from the helper? Hands-on assistance from the helper TOILETING - STEP 4: Of the 3 tasks: 1) Adjusting clothing prior to use, 2) Cleansing of perineal area, 3) Adjusting clot willie after use; How many tasks does the patient perform WITHOUT assistance of the helper? Three tasks with steadying assistance from the helper TOILETING - SCORE: 4-MIN BLADDER MANAGEMENT: BLADDER MANAGEMENT - STEP 1: Does the patient control the bladder completely and intentionally without equipment or devices or med ications, and is always continent? Yes. BLADDER MANAGEMENT - SCORE: 7-IND BLADDER MANAGEMENT - FREQUENCY OF ACCIDENTS: BLADDER MANAGEMENT(FA) - STEP 1: How many accidents has the patient had during the current shift? 0 BOWEL MANAGEMENT: BOWEL MANAGEMENT - STEP 1: Does the patient control bowels completely and intentionally without equipment devices or medications AND is always continent? Yes. BOWEL MANAGEMENT - SCORE: 7-IND BOWEL MANAGEMENT - FREQUENCY OF ACCIDENTS: BOWEL MANAGEMENT(FA) - STEP 1: How many accidents has the patient had during the current shift? 0 TRANSFERS: BED, CHAIR, WHEELCHAIR: TRANSFERS: BED, CHAIR, WHEELCHAIR - STEP 1: Does the patient require assistance with bed, chair, or wheelchair transfers? Yes. TRANSFERS: BED, CHAIR, WHEELCHAIR - STEP 2: Does the patient require the assistance of a helper? Yes. TRANSFERS: BED, CHAIR, WHEELCHAIR - STEP 3: How much assistance does the patient require from the helper? Lifting of the legs TRANSFERS: BED, CHAIR, WHEELCHAIR - STEP 4: How many legs does the patient require the helper to lift? both legs TRANSFERS: BED, CHAIR, WHEELCHAIR - SCORE: 3-MOD TRANSFERS: TOILET: TRANSFERS: TOILET - STEP 1: Does the patient require assistance with toilet transfers? Yes. TRANSFERS: TOILET - STEP 2: Does the patient require the assistance of a helper? Yes. TRANSFERS: TOILET - STEP 3: How much assistance does the patient require from the helper? Patient performs half or more of the tr ansferring tasks TRANSFERS: TOILET - STEP 4: Does the patient need only incidental help such as contact guard or steadying during toilet transfer? Yes. TRANSFERS: TOILET - SCORE: 4-MIN TRANSFERS: SHOWER: Activity did not occur on this shift TRANSFERS: SHOWER - SCORE: 0-UNK TRANSFERS: TUB: Activity did not occur on this shift TRANSFERS: TUB - SCORE: 0-UNK LOCOMOTION: WALK: Activity did not occur on this shift LOCOMOTION: WALK - SCORE: 0-UNK LOCOMOTION: WHEELCHAIR: Activity did not occur on this shift LOCOMOTION: WHEELCHAIR - SCORE: 0-UNK COMPREHENSION: COMPREHENSION: TYPE: Both COMPREHENSION - STEP 1: Does the patient require help to understand complex and abstract ideas (such as current events, finan clement, discharge planning, medical issues, relationships, etc)? Yes. COMPREHENSION - STEP 2: Does the patient require help to understand questions or statements about basic needs or ideas (such as hunger, thirst, sleep, safety, daily schedule, room location, or discomfort) half or more of the t tammy? Yes. COMPREHENSION - STEP 3: Is the patient basically able to understand and respond appropriately and consistently? Yes. COMPREHENSION - SCORE: 2-MAX EXPRESSION EXPRESSION: TYPE: Both EXPRESSION - STEP 1: Does the patient require help expressing complex and abstract ideas (such as current events, finances , discharge planning, medical issues, relationships, etc)? Yes. EXPRESSION - STEP 2: Does the patient require help to express basic necessities or ideas (such as hunger, thirst, sleep, s afety, daily schedule, room location, or discomfort) half or more of the time? Yes. EXPRESSION - STEP 3: Is the patient basically unable to express or does s/he express inappropriately or inconsistently emmanuelle pite prompting? No. EXPRESSION - SCORE: 2-MAX SOCIAL INTERACTION: SOCIAL INTERACTION - STEP 1: Does the patient require a helper to interact with others in social and therapeutic situations? Yes. SOCIAL INTERACTION - STEP 2: Does the patient interact appropriately half or more of the time? Yes. SOCIAL INTERACTION - STEP 3: How often does the patient need help to interact appropriately? Less than 10% of the time SOCIAL INTERACTION - SCORE: 5-SUP PROBLEM SOLVING: PROBLEM SOLVING - STEP 1: Does the patient need help to solve complex problems such as managing a checking account or confronti ng interpersonal problems? Yes. PROBLEM SOLVING - STEP 2: Does the patient solve basic routine problems half or more of the time? Yes. PROBLEM SOLVING - STEP 3: How often does the patient need help to solve basic routine problems? Less than 10% of the time PROBLEM SOLVING - SCORE: 5-SUP MEMORY: MEMORY - STEP 1: Does the patient need help to remember frequently encountered people, daily routines, and executing r equests? Yes. MEMORY - STEP 2: How often does the patient need help to remember frequently encountered people, daily routines, and e xecuting requests? Less than 10% of the time MEMORY - SCORE: 5-SUP SIGNATURE PANEL: The following modified sections: Eating - Score, Bathing - Score, Dressing - Upper Body - Score, Dres sing - Lower Body - Score, Toileting - Score, Bladder Management - Score, Bowel Management - Score, T ransfers: Bed, Chair, Wheelchair - Score, Transfers: Toilet - Score, Transfers: Shower - Score, Trans fers: Tub - Score, Locomotion: Walk - Score, Comprehension - Score, Expression - Score, Social Intera ction - Score, Problem Solving - Score, Memory - Score, Grooming - Score, Locomotion: Wheelchair - Sc ore were [electronically] signed by Gauri Loredo on TueDec 23 2017 03:09:59 T-0500 (Central Day light Time)
[2017-12-23] MEDS: HEPARIN 5000 UNIT/ML 1 ML VIAL SQ SCH ×2 (07:30→20:00)
[2017-12-23] MEDS: INSULIN -REGULAR HUMAN 50 UNIT/0.5 ML ML SQ SCH ×4 (07:30→20:39)
[2017-12-23] MEDS: PROMOD 30 ML DOSE PO SCH ×2 (08:00→20:00)
[2017-12-23] MEDS: GLUCERNA SHAKE 237 ML CAN PO SCH ×2 (08:00→20:38)
[2017-12-23] MEDS: FERROUS SULFATE 325 MG TAB PO SCH (08:41)
[2017-12-23] MEDS: FE SULF/FA/VIT B COMP & C TAB PO SCH (08:41)
[2017-12-23] MEDS: FUROSEMIDE 20 MG TABLET PO SCH (08:42)
[2017-12-23] MEDS: levETIRAcetam 500 MG TAB PO SCH ×2 (08:42→20:38)
[2017-12-23] MEDS: CLOPIDOGREL 75 MG TABLET PO SCH (08:43)
[2017-12-23] MEDS: CARVEDILOL 6.25 MG TAB PO SCH ×2 (08:43→20:00)
[2017-12-23] MEDS: glipiZIDE 5 MG TAB PO SCH ×2 (08:43→17:25)
[2017-12-23] MEDS: METFORMIN HCL 500 MG TAB PO SCH ×2 (08:43→17:25)
[2017-12-23] MEDS: ASPIRIN EC 81 MG TAB PO SCH (08:44)
[2017-12-23] MEDS: PANTOPRAZOLE 40MG TABLET PO SCH (08:44)
--- NOTE | 2017-12-23 10:40 | FAST ---
ENCOUNTER DATE AND TIME: 12/23/2017 08:00 (CDT) NAME IVETTE HODGES DATE OF : 1945 DATE OF ADMISSION: 12/14/2017 15:21 (CDT) PHONE: AGE: 72 N# [id number] GENDER: Female ENCOUNTER PHYSICIAN: Dr. Miki Delgado M.D. 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 EATING: Activity did not occur on this shift EATING - SCORE: 0-UNK GROOMING: Activity did not occur on this shift GROOMING - SCORE: 0-UNK BATHING: Activity did not occur on this shift BATHING - SCORE: 0-UNK DRESSING - UPPER BODY: Activity did not occur on this shift Patient is not dressing in public clothing ARTICLES SCORE Total number of steps: 0 DRESSING - UPPER BODY - SCORE: 0-UNK DRESSING - LOWER BODY: Activity did not occur on this shift Patient is not dressing in public clothing ARTICLES SCORE Total number of steps: 0 DRESSING - LOWER BODY - SCORE: 0-UNK TOILETING: Activity did not occur on this shift TOILETING - SCORE: 0-UNK BLADDER MANAGEMENT: Activity did not occur on this shift BLADDER MANAGEMENT - SCORE: 7-IND BOWEL MANAGEMENT: Activity did not occur on this shift BOWEL MANAGEMENT - SCORE: 7-IND TRANSFERS: BED, CHAIR, WHEELCHAIR: Activity did not occur on this shift TRANSFERS: BED, CHAIR, WHEELCHAIR - SCORE: 0-UNK TRANSFERS: TOILET: Activity did not occur on this shift TRANSFERS: TOILET - SCORE: 0-UNK TRANSFERS: SHOWER: Activity did not occur on this shift TRANSFERS: SHOWER - SCORE: 0-UNK TRANSFERS: TUB: Activity did not occur on this shift TRANSFERS: TUB - SCORE: 0-UNK LOCOMOTION: WALK: Activity did not occur on this shift LOCOMOTION: WALK - SCORE: 0-UNK LOCOMOTION: WHEELCHAIR: Activity did not occur on this shift LOCOMOTION: WHEELCHAIR - SCORE: 0-UNK LOCOMOTION: STAIRS: Activity did not occur on this shift LOCOMOTION: STAIRS - SCORE: 0-UNK COMPREHENSION: COMPREHENSION - STEP 1: Does the patient require help to understand complex and abstract ideas (such as current events, finan clement, discharge planning, medical issues, relationships, etc)? Yes. COMPREHENSION - STEP 2: Does the patient require help to understand questions or statements about basic needs or ideas (such as hunger, thirst, sleep, safety, daily schedule, room location, or discomfort) half or more of the t tammy? No. COMPREHENSION - STEP 3: How often does the patient need help to understand directions and conversation about basic needs? 10% - 24% of the time COMPREHENSION - SCORE: 4-MIN EXPRESSION EXPRESSION - STEP 1: Does the patient require help expressing complex and abstract ideas (such as current events, finances , discharge planning, medical issues, relationships, etc)? Yes. EXPRESSION - STEP 2: Does the patient require help to express basic necessities or ideas (such as hunger, thirst, sleep, s afety, daily schedule, room location, or discomfort) half or more of the time? No. EXPRESSION - STEP 3: How often does the patient need help to express directions and conversation about basic needs? 10-24% of the time EXPRESSION - SCORE: 4-MIN SOCIAL INTERACTION: SOCIAL INTERACTION - STEP 1: Does the patient require a helper to interact with others in social and therapeutic situations? Yes. SOCIAL INTERACTION - STEP 2: Does the patient interact appropriately half or more of the time? Yes. SOCIAL INTERACTION - STEP 3: How often does the patient need help to interact appropriately? Less than 10% of the time SOCIAL INTERACTION - SCORE: 5-SUP PROBLEM SOLVING: PROBLEM SOLVING - STEP 1: Does the patient need help to solve complex problems such as managing a checking account or confronti ng interpersonal problems? Yes. PROBLEM SOLVING - STEP 2: Does the patient solve basic routine problems half or more of the time? Yes. PROBLEM SOLVING - STEP 3: How often does the patient need help to solve basic routine problems? 25%-49% of the time PROBLEM SOLVING - SCORE: 3-MOD MEMORY: MEMORY - STEP 1: Does the patient need help to remember frequently encountered people, daily routines, and executing r equests? Yes. MEMORY - STEP 2: How often does the patient need help to remember frequently encountered people, daily routines, and e xecuting requests? Less than 10% of the time MEMORY - SCORE: 5-SUP SIGNATURE PANEL: The following modified sections: Comprehension - Score, Expression - Score, Social Interaction - Scor e, Problem Solving - Score, Memory - Score were [electronically] signed by ST Hector on Tue 10:39:26 GMT-0500 (Central Daylight Time)
--- NOTE | 2017-12-23 14:29 | FAST ---
ENCOUNTER DATE AND TIME: 12/23/2017 08:00 (CDT) NAME IVETTE HODGES DATE OF : 1945 DATE OF ADMISSION: 12/14/2017 15:21 (CDT) PHONE: AGE: 72 N# [id number] GENDER: Female ENCOUNTER PHYSICIAN: Dr. Miki Delgado M.D. 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 EATING: Activity did not occur on this shift EATING - SCORE: 0-UNK GROOMING: Activity did not occur on this shift GROOMING - SCORE: 0-UNK BATHING: Activity did not occur on this shift BATHING - SCORE: 0-UNK DRESSING - UPPER BODY: Activity did not occur on this shift Patient is not dressing in public clothing ARTICLES SCORE Total number of steps: 0 DRESSING - UPPER BODY - SCORE: 0-UNK DRESSING - LOWER BODY: Activity did not occur on this shift Patient is not dressing in public clothing ARTICLES SCORE Total number of steps: 0 DRESSING - LOWER BODY - SCORE: 0-UNK TOILETING: Activity did not occur on this shift TOILETING - SCORE: 0-UNK BLADDER MANAGEMENT: Activity did not occur on this shift BLADDER MANAGEMENT - SCORE: 7-IND BOWEL MANAGEMENT: Activity did not occur on this shift BOWEL MANAGEMENT - SCORE: 7-IND TRANSFERS: BED, CHAIR, WHEELCHAIR: TRANSFERS: BED, CHAIR, WHEELCHAIR - STEP 1: Does the patient require assistance with bed, chair, or wheelchair transfers? Yes. TRANSFERS: BED, CHAIR, WHEELCHAIR - STEP 2: Does the patient require the assistance of a helper? Yes. TRANSFERS: BED, CHAIR, WHEELCHAIR - STEP 3: How much assistance does the patient require from the helper? Only supervision TRANSFERS: BED, CHAIR, WHEELCHAIR - SCORE: 5-SUP TRANSFERS: TOILET: Activity did not occur on this shift TRANSFERS: TOILET - SCORE: 0-UNK TRANSFERS: SHOWER: Activity did not occur on this shift TRANSFERS: SHOWER - SCORE: 0-UNK TRANSFERS: TUB: Activity did not occur on this shift TRANSFERS: TUB - SCORE: 0-UNK LOCOMOTION: WALK: LOCOMOTION: WALK - STEP 1: Does the patient need help to walk 150 feet? Yes. LOCOMOTION: WALK - STEP 2: How much assistance does the patient require to walk a minimum of 150 feet? Only supervision, cuing, or coaxing LOCOMOTION: WALK - SCORE: 5-SUP LOCOMOTION: WHEELCHAIR: Activity did not occur on this shift LOCOMOTION: WHEELCHAIR - SCORE: 0-UNK LOCOMOTION: STAIRS: Activity did not occur on this shift LOCOMOTION: STAIRS - SCORE: 0-UNK COMPREHENSION: COMPREHENSION - SCORE: 0-UNK EXPRESSION EXPRESSION - SCORE: 0-UNK SOCIAL INTERACTION: SOCIAL INTERACTION - SCORE: 0-UNK PROBLEM SOLVING: PROBLEM SOLVING - SCORE: 0-UNK MEMORY: MEMORY - SCORE: 0-UNK SIGNATURE PANEL: The following modified sections: Transfers: Bed, Chair, Wheelchair - Score, Transfers: Toilet - Score , Locomotion: Walk - Score, Locomotion: Wheelchair - Score, Locomotion: Stairs - Score were [electron debbie] signed by Art Odom PTA on TueDec 23 2017 14:29:22 GMT-0500 (Central Daylight Time)
--- NOTE | 2017-12-23 16:21 | FAST ---
SHIFT START DATE/TIME: 12/23/2017 07:00 (CDT) SHIFT END DATE/TIME: 12/23/2017 19:00 (CDT) NAME IVETTE HODGES DATE OF : 1945 DATE OF ADMISSION: 12/14/2017 15:21 (CDT) PHONE: AGE: 72 N# [id number] GENDER: Female ENCOUNTER PHYSICIAN: Dr. Miki Delgado M.D. 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 EATING: EATING - STEP 1: Does the patient require assistance when eating? Yes. EATING - STEP 2: Does the patient require the assistance of a helper? No, patient only requires an assistive device, O R s/he takes more than reasonable time to eat, OR there is a safety concern, OR s/he requires modifie d food consistency EATING - SCORE: 6-SAYRA GROOMING: Wash, rinse, and dry face Wash, rinse, and dry hands GROOMING - STEP 1: Does the patient require assistance when grooming? Yes. GROOMING - STEP 2: Does the patient require the assistance of a helper? Yes. GROOMING - STEP 3: How much assistance does the patient require from the helper? Only prior equipment preparation/set up from the helper GROOMING - SCORE: 5-SUP BATHING: Activity did not occur on this shift BATHING - SCORE: 0-UNK DRESSING - UPPER BODY: T-shirt/pullover shirt (four steps) ARTICLES SCORE Total number of steps: 4 DRESSING - UPPER BODY - STEP 1: Does the patient require help when dressing above the waist? Yes. DRESSING - UPPER BODY - STEP 2: Does the patient require the assistance of a helper? Yes. DRESSING - UPPER BODY - STEP 3: Does the helper touch the patient while dressing? Yes. DRESSING - UPPER BODY - STEP 4: How many of the total steps does the patient complete on his/her own? 2 DRESSING - UPPER BODY - SCORE: 3-MOD DRESSING - LOWER BODY: Elastic waist pants (three steps) ARTICLES SCORE Total number of steps: 3 DRESSING - LOWER BODY - STEP 1: Does the patient require help when dressing below the waist? Yes. DRESSING - LOWER BODY - STEP 2: Does the patient require the assistance of a helper? Yes. DRESSING - LOWER BODY - STEP 3: Does the helper touch the patient while dressing? Yes. DRESSING - LOWER BODY - STEP 4: How many of the total steps does the patient complete on his/her own? 1 DRESSING - LOWER BODY - STEP 5: Does patient require total assistance for dressing below the waist such as the helper holding clothin g and performing basically all the activities? No. DRESSING - LOWER BODY - SCORE: 2-MAX TOILETING: TOILETING - STEP 1: Does the patient require assistance with toileting? Yes. TOILETING - STEP 2: Does the patient require the assistance of a helper? Yes. TOILETING - STEP 3: How much assistance does the patient require from the helper? Only supervision TOILETING - SCORE: 5-SUP BLADDER MANAGEMENT: BLADDER MANAGEMENT - STEP 1: Does the patient control the bladder completely and intentionally without equipment or devices or med ications, and is always continent? Yes. BLADDER MANAGEMENT - SCORE: 7-IND BLADDER MANAGEMENT - FREQUENCY OF ACCIDENTS: BLADDER MANAGEMENT(FA) - STEP 1: How many accidents has the patient had during the current shift? 0 BOWEL MANAGEMENT: BOWEL MANAGEMENT - STEP 1: Does the patient control bowels completely and intentionally without equipment devices or medications AND is always continent? Yes. BOWEL MANAGEMENT - SCORE: 7-IND BOWEL MANAGEMENT - FREQUENCY OF ACCIDENTS: BOWEL MANAGEMENT(FA) - STEP 1: How many accidents has the patient had during the current shift? 0 TRANSFERS: BED, CHAIR, WHEELCHAIR: TRANSFERS: BED, CHAIR, WHEELCHAIR - STEP 1: Does the patient require assistance with bed, chair, or wheelchair transfers? Yes. TRANSFERS: BED, CHAIR, WHEELCHAIR - STEP 2: Does the patient require the assistance of a helper? Yes. TRANSFERS: BED, CHAIR, WHEELCHAIR - STEP 3: How much assistance does the patient require from the helper? Steadying/guiding assistance TRANSFERS: BED, CHAIR, WHEELCHAIR - SCORE: 4-MIN TRANSFERS: TOILET: TRANSFERS: TOILET - STEP 1: Does the patient require assistance with toilet transfers? Yes. TRANSFERS: TOILET - STEP 2: Does the patient require the assistance of a helper? Yes. TRANSFERS: TOILET - STEP 3: How much assistance does the patient require from the helper? Patient performs half or more of the tr ansferring tasks TRANSFERS: TOILET - STEP 4: Does the patient need only incidental help such as contact guard or steadying during toilet transfer? Yes. TRANSFERS: TOILET - SCORE: 4-MIN TRANSFERS: SHOWER: Activity did not occur on this shift TRANSFERS: SHOWER - SCORE: 0-UNK TRANSFERS: TUB: Activity did not occur on this shift TRANSFERS: TUB - SCORE: 0-UNK LOCOMOTION: WALK: Activity did not occur on this shift LOCOMOTION: WALK - SCORE: 0-UNK LOCOMOTION: WHEELCHAIR: Activity did not occur on this shift LOCOMOTION: WHEELCHAIR - SCORE: 0-UNK COMPREHENSION: COMPREHENSION - SCORE: 0-UNK EXPRESSION EXPRESSION - SCORE: 0-UNK SOCIAL INTERACTION: SOCIAL INTERACTION - SCORE: 0-UNK PROBLEM SOLVING: PROBLEM SOLVING - SCORE: 0-UNK MEMORY: MEMORY - SCORE: 0-UNK SIGNATURE PANEL: The following modified sections: Eating - Score, Grooming - Score, Bathing - Score, Dressing - Upper Body - Score, Dressing - Lower Body - Score, Toileting - Score, Bladder Management - Score, Bowel Man agement - Score, Transfers: Bed, Chair, Wheelchair - Score, Transfers: Toilet - Score, Transfers: Nette wer - Score, Transfers: Tub - Score, Locomotion: Walk - Score, Locomotion: Wheelchair - Score, Compre hension - Score, Expression - Score, Social Interaction - Score, Problem Solving - Score, Memory - Sc ore were [electronically] signed by Na Kirk CNA on TueDec 23 2017 16:21:14 GMT-0500 ([facility] Day[facility])
--- NOTE | 2017-12-23 16:49 | FAST ---
ENCOUNTER DATE AND TIME: 12/23/2017 08:00 (CDT) NAME IVETTE HODGES DATE OF : 1945 DATE OF ADMISSION: 12/14/2017 15:21 (CDT) PHONE: AGE: 72 N# [id number] GENDER: Female ENCOUNTER PHYSICIAN: Dr. Miki Delgado M.D. 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 EATING: Activity did not occur on this shift EATING - SCORE: 0-UNK GROOMING: Comb/brush hair Wash, rinse, and dry face Wash, rinse, and dry hands GROOMING - STEP 1: Does the patient require assistance when grooming? Yes. GROOMING - STEP 2: Does the patient require the assistance of a helper? Yes. GROOMING - STEP 3: How much assistance does the patient require from the helper? Incidental touching assistance from the helper while grooming GROOMING - SCORE: 4-MIN BATHING: Abdomen Buttocks Chest Left arm Left lower leg and foot Left upper leg Perineal area Right arm Right lower leg and foot Right upper leg BATHING - STEP 1: Does the patient require assistance when bathing? Yes. BATHING - STEP 2: Does the patient require the assistance of a helper? Yes. BATHING - STEP 3: How much assistance does the patient require from the helper? Only supervision, cuing, coaxing, instr uctions, encouragement BATHING - SCORE: 5-SUP DRESSING - UPPER BODY: T-shirt/pullover shirt (four steps) ARTICLES SCORE Total number of steps: 4 DRESSING - UPPER BODY - STEP 1: Does the patient require help when dressing above the waist? Yes. DRESSING - UPPER BODY - STEP 2: Does the patient require the assistance of a helper? Yes. DRESSING - UPPER BODY - STEP 3: Does the helper touch the patient while dressing? Yes. DRESSING - UPPER BODY - STEP 4: How many of the total steps does the patient complete on his/her own? 3 DRESSING - UPPER BODY - SCORE: 4-MIN DRESSING - LOWER BODY: Elastic waist pants (three steps) Slip-on shoe - Right foot (one step) Underwear (three steps) ARTICLES SCORE Total number of steps: 7 DRESSING - LOWER BODY - STEP 1: Does the patient require help when dressing below the waist? Yes. DRESSING - LOWER BODY - STEP 2: Does the patient require the assistance of a helper? Yes. DRESSING - LOWER BODY - STEP 3: Does the helper touch the patient while dressing? Yes. DRESSING - LOWER BODY - STEP 4: How many of the total steps does the patient complete on his/her own? 6 DRESSING - LOWER BODY - SCORE: 4-MIN TOILETING: Activity did not occur on this shift TOILETING - SCORE: 0-UNK BLADDER MANAGEMENT: Activity did not occur on this shift BLADDER MANAGEMENT - SCORE: 7-IND BOWEL MANAGEMENT: Activity did not occur on this shift BOWEL MANAGEMENT - SCORE: 7-IND TRANSFERS: BED, CHAIR, WHEELCHAIR: Activity did not occur on this shift TRANSFERS: BED, CHAIR, WHEELCHAIR - SCORE: 0-UNK TRANSFERS: TOILET: Activity did not occur on this shift TRANSFERS: TOILET - SCORE: 0-UNK TRANSFERS: SHOWER: Activity did not occur on this shift TRANSFERS: SHOWER - SCORE: 0-UNK TRANSFERS: TUB: TRANSFERS: TUB - STEP 1: Does the patient require assistance with tub transfers? Yes. TRANSFERS: TUB - STEP 2: Does the patient require the assistance of a helper? Yes. TRANSFERS: TUB - STEP 3: How much assistance does the patient require from the helper? Only supervision, cuing, coaxing, or he lp to set out transfer equipment or to lock brakes and/or lift foot rests TRANSFERS: TUB - SCORE: 5-SUP LOCOMOTION: WALK: Activity did not occur on this shift LOCOMOTION: WALK - SCORE: 0-UNK LOCOMOTION: WHEELCHAIR: Activity did not occur on this shift LOCOMOTION: WHEELCHAIR - SCORE: 0-UNK LOCOMOTION: STAIRS: Activity did not occur on this shift LOCOMOTION: STAIRS - SCORE: 0-UNK COMPREHENSION: COMPREHENSION: TYPE: Both COMPREHENSION - STEP 1: Does the patient require help to understand complex and abstract ideas (such as current events, finan clement, discharge planning, medical issues, relationships, etc)? No. COMPREHENSION - STEP 2: Does the patient need extra time, require an assistive device (such as glasses, hearing aids, or an a ugmentative communication system), OR does s/he have mild difficulty expressing complex and abstract ideas (including mild dysarthria or mild word-finding problems)? Yes. COMPREHENSION - SCORE: 6-SAYRA EXPRESSION EXPRESSION: TYPE: Both EXPRESSION - STEP 1: Does the patient require help expressing complex and abstract ideas (such as current events, finances , discharge planning, medical issues, relationships, etc)? No. EXPRESSION - STEP 2: Does the patient need extra time, require an assistive device (such as augmentive communication syste m or a communication board), OR does s/he have mild difficulty expressing complex and abstract ideas (including mild dysarthria or mild word-find problems)? Yes. EXPRESSION - SCORE: 6-SAYRA SOCIAL INTERACTION: SOCIAL INTERACTION - STEP 1: Does the patient require a helper to interact with others in social and therapeutic situations? No. SOCIAL INTERACTION - STEP 2: Does the patient need extra time in social situations, OR does s/he interact with staff, other patien ts, and family members ONLY in structured environments, OR does s/he require medication for social in teraction? Yes, patient needs extra time SOCIAL INTERACTION - SCORE: 6-SAYRA PROBLEM SOLVING: PROBLEM SOLVING - STEP 1: Does the patient need help to solve complex problems such as managing a checking account or confronti ng interpersonal problems? Yes. PROBLEM SOLVING - STEP 2: Does the patient solve basic routine problems half or more of the time? Yes. PROBLEM SOLVING - STEP 3: How often does the patient need help to solve basic routine problems? 10%-24% of the time PROBLEM SOLVING - SCORE: 4-MIN MEMORY: MEMORY - STEP 1: Does the patient need help to remember frequently encountered people, daily routines, and executing r equests? Yes. MEMORY - STEP 2: How often does the patient need help to remember frequently encountered people, daily routines, and e xecuting requests? 10% - 24% of the time MEMORY - SCORE: 4-MIN SIGNATURE PANEL: The following modified sections: Eating - Score, Grooming - Score, Bathing - Score, Dressing - Upper Body - Score, Dressing - Lower Body - Score, Toileting - Score, Transfers: Bed, Chair, Wheelchair - S core, Transfers: Toilet - Score, Transfers: Shower - Score, Transfers: Tub - Score, Comprehension - S core, Expression - Score, Social Interaction - Score, Problem Solving - Score, Memory - Score were [e lectronically] signed by Meaghan Salomon OT on TueDec 23 2017 16:48:41 GMT-0500 ([facility] Daylight T tammy)
--- NOTE | 2017-12-23 17:09 | FAST ---
ENCOUNTER DATE AND TIME: 12/21/2017 08:00 (CDT) NAME IVETTE HODGES DATE OF : 1945 DATE OF ADMISSION: 12/14/2017 15:21 (CDT) PHONE: AGE: 72 N# [id number] GENDER: Female ENCOUNTER PHYSICIAN: Dr. Miki Delgado M.D. 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 EATING: Activity did not occur on this shift EATING - SCORE: 0-UNK GROOMING: Comb/brush hair Wash, rinse, and dry face Wash, rinse, and dry hands GROOMING - STEP 1: Does the patient require assistance when grooming? No. GROOMING - SCORE: 7-IND BATHING: Abdomen Buttocks Chest Left arm Left lower leg and foot Left upper leg Perineal area Right arm Right lower leg and foot Right upper leg BATHING - STEP 1: Does the patient require assistance when bathing? Yes. BATHING - STEP 2: Does the patient require the assistance of a helper? Yes. BATHING - STEP 3: How much assistance does the patient require from the helper? Only supervision, cuing, coaxing, instr uctions, encouragement BATHING - SCORE: 5-SUP DRESSING - UPPER BODY: T-shirt/pullover shirt (four steps) ARTICLES SCORE Total number of steps: 4 DRESSING - UPPER BODY - STEP 1: Does the patient require help when dressing above the waist? Yes. DRESSING - UPPER BODY - STEP 2: Does the patient require the assistance of a helper? Yes. DRESSING - UPPER BODY - STEP 3: Does the helper touch the patient while dressing? Yes. DRESSING - UPPER BODY - STEP 4: How many of the total steps does the patient complete on his/her own? 3 DRESSING - UPPER BODY - SCORE: 4-MIN DRESSING - LOWER BODY: Elastic waist pants (three steps) Slip-on shoe - Right foot (one step) Sock - Right foot (one step) Underwear (three steps) ARTICLES SCORE Total number of steps: 8 DRESSING - LOWER BODY - STEP 1: Does the patient require help when dressing below the waist? Yes. DRESSING - LOWER BODY - STEP 2: Does the patient require the assistance of a helper? Yes. DRESSING - LOWER BODY - STEP 3: Does the helper touch the patient while dressing? Yes. DRESSING - LOWER BODY - STEP 4: How many of the total steps does the patient complete on his/her own? 6 DRESSING - LOWER BODY - SCORE: 4-MIN TOILETING: Activity did not occur on this shift TOILETING - SCORE: 0-UNK BLADDER MANAGEMENT: Activity did not occur on this shift BLADDER MANAGEMENT - SCORE: 7-IND BOWEL MANAGEMENT: Activity did not occur on this shift BOWEL MANAGEMENT - SCORE: 7-IND TRANSFERS: BED, CHAIR, WHEELCHAIR: Activity did not occur on this shift TRANSFERS: BED, CHAIR, WHEELCHAIR - SCORE: 0-UNK TRANSFERS: TOILET: Activity did not occur on this shift TRANSFERS: TOILET - SCORE: 0-UNK TRANSFERS: SHOWER: Activity did not occur on this shift TRANSFERS: SHOWER - SCORE: 0-UNK TRANSFERS: TUB: TRANSFERS: TUB - STEP 1: Does the patient require assistance with tub transfers? Yes. TRANSFERS: TUB - STEP 2: Does the patient require the assistance of a helper? Yes. TRANSFERS: TUB - STEP 3: How much assistance does the patient require from the helper? Only supervision, cuing, coaxing, or he lp to set out transfer equipment or to lock brakes and/or lift foot rests TRANSFERS: TUB - SCORE: 5-SUP LOCOMOTION: WALK: Activity did not occur on this shift LOCOMOTION: WALK - SCORE: 0-UNK LOCOMOTION: WHEELCHAIR: Activity did not occur on this shift LOCOMOTION: WHEELCHAIR - SCORE: 0-UNK LOCOMOTION: STAIRS: Activity did not occur on this shift LOCOMOTION: STAIRS - SCORE: 0-UNK COMPREHENSION: COMPREHENSION: TYPE: Both COMPREHENSION - STEP 1: Does the patient require help to understand complex and abstract ideas (such as current events, finan clement, discharge planning, medical issues, relationships, etc)? Yes. COMPREHENSION - STEP 2: Does the patient require help to understand questions or statements about basic needs or ideas (such as hunger, thirst, sleep, safety, daily schedule, room location, or discomfort) half or more of the t tammy? No. COMPREHENSION - STEP 3: How often does the patient need help to understand directions and conversation about basic needs? Les s than 10% of the time COMPREHENSION - SCORE: 5-SUP EXPRESSION EXPRESSION: TYPE: Both EXPRESSION - STEP 1: Does the patient require help expressing complex and abstract ideas (such as current events, finances , discharge planning, medical issues, relationships, etc)? Yes. EXPRESSION - STEP 2: Does the patient require help to express basic necessities or ideas (such as hunger, thirst, sleep, s afety, daily schedule, room location, or discomfort) half or more of the time? No. EXPRESSION - STEP 3: How often does the patient need help to express directions and conversation about basic needs? 10-24% of the time EXPRESSION - SCORE: 4-MIN SOCIAL INTERACTION: SOCIAL INTERACTION - STEP 1: Does the patient require a helper to interact with others in social and therapeutic situations? No. SOCIAL INTERACTION - STEP 2: Does the patient need extra time in social situations, OR does s/he interact with staff, other patien ts, and family members ONLY in structured environments, OR does s/he require medication for social in teraction? Yes, patient needs extra time SOCIAL INTERACTION - SCORE: 6-SAYRA PROBLEM SOLVING: PROBLEM SOLVING - STEP 1: Does the patient need help to solve complex problems such as managing a checking account or confronti ng interpersonal problems? Yes. PROBLEM SOLVING - STEP 2: Does the patient solve basic routine problems half or more of the time? Yes. PROBLEM SOLVING - STEP 3: How often does the patient need help to solve basic routine problems? 10%-24% of the time PROBLEM SOLVING - SCORE: 4-MIN MEMORY: MEMORY - STEP 1: Does the patient need help to remember frequently encountered people, daily routines, and executing r equests? Yes. MEMORY - STEP 2: How often does the patient need help to remember frequently encountered people, daily routines, and e xecuting requests? 10% - 24% of the time MEMORY - SCORE: 4-MIN SIGNATURE PANEL: The following modified sections: Eating - Score, Grooming - Score, Bathing - Score, Dressing - Upper Body - Score, Dressing - Lower Body - Score, Toileting - Score, Transfers: Bed, Chair, Wheelchair - S core, Transfers: Toilet - Score, Transfers: Shower - Score, Transfers: Tub - Score, Comprehension - S core, Expression - Score, Social Interaction - Score, Problem Solving - Score, Memory - Score were [e lectronically] signed by Meaghan Salomon OT on TueDec 23 2017 17:08:03 T-0500 ([facility] Daylight T tammy)
[2017-12-23] MEDS: ATORVASTATIN 80 MG TAB PO SCH (20:37)
--- NOTE | 2017-12-24 02:29 | FAST ---
SHIFT START DATE/TIME: 12/23/2017 19:00 (CDT) SHIFT END DATE/TIME: 12/24/2017 07:00 (CDT) NAME IVETTE HODGES DATE OF : 1945 DATE OF ADMISSION: 12/14/2017 15:21 (CDT) PHONE: AGE: 72 N# [id number] GENDER: Female ENCOUNTER PHYSICIAN: Dr. Miki Delgado M.D. 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 EATING: Activity did not occur on this shift EATING - SCORE: 0-UNK GROOMING: Oral care Wash, rinse, and dry face Wash, rinse, and dry hands GROOMING - STEP 1: Does the patient require assistance when grooming? Yes. GROOMING - STEP 2: Does the patient require the assistance of a helper? Yes. GROOMING - STEP 3: How much assistance does the patient require from the helper? Steadying assistance from the helper GROOMING - SCORE: 4-MIN BATHING: Activity did not occur on this shift BATHING - SCORE: 0-UNK DRESSING - UPPER BODY: Patient is not dressing in public clothing ARTICLES SCORE Total number of steps: 0 DRESSING - UPPER BODY - SCORE: 0-UNK DRESSING - LOWER BODY: Patient is not dressing in public clothing ARTICLES SCORE Total number of steps: 0 DRESSING - LOWER BODY - SCORE: 0-UNK TOILETING: TOILETING - STEP 1: Does the patient require assistance with toileting? Yes. TOILETING - STEP 2: Does the patient require the assistance of a helper? Yes. TOILETING - STEP 3: How much assistance does the patient require from the helper? Hands-on assistance from the helper TOILETING - STEP 4: Of the 3 tasks: 1) Adjusting clothing prior to use, 2) Cleansing of perineal area, 3) Adjusting clot willie after use; How many tasks does the patient perform WITHOUT assistance of the helper? Two tasks TOILETING - SCORE: 3-MOD BLADDER MANAGEMENT: BLADDER MANAGEMENT - STEP 1: Does the patient control the bladder completely and intentionally without equipment or devices or med ications, and is always continent? No. BLADDER MANAGEMENT - STEP 2: Does the patient require the assistance of a helper? Yes. BLADDER MANAGEMENT - STEP 3: How much assistance does the patient require from the helper? Patient requires contact assistance fro m the helper BLADDER MANAGEMENT - STEP 4: How much contact assistance does the patient require from the helper? Patient requires minimal assist ance to maintain an external device - by positioning, and the patient performs 75% or more of bladder management tasks, while the helper provides less than 25% of the assistance to position patient on / off bedpan BLADDER MANAGEMENT - SCORE: 4-MIN BOWEL MANAGEMENT: Activity did not occur on this shift BOWEL MANAGEMENT - SCORE: 7-IND TRANSFERS: BED, CHAIR, WHEELCHAIR: TRANSFERS: BED, CHAIR, WHEELCHAIR - STEP 1: Does the patient require assistance with bed, chair, or wheelchair transfers? Yes. TRANSFERS: BED, CHAIR, WHEELCHAIR - STEP 2: Does the patient require the assistance of a helper? Yes. TRANSFERS: BED, CHAIR, WHEELCHAIR - STEP 3: How much assistance does the patient require from the helper? Lifting of the legs TRANSFERS: BED, CHAIR, WHEELCHAIR - STEP 4: How many legs does the patient require the helper to lift? one leg TRANSFERS: BED, CHAIR, WHEELCHAIR - SCORE: 4-MIN TRANSFERS: TOILET: TRANSFERS: TOILET - STEP 1: Does the patient require assistance with toilet transfers? Yes. TRANSFERS: TOILET - STEP 2: Does the patient require the assistance of a helper? Yes. TRANSFERS: TOILET - STEP 3: How much assistance does the patient require from the helper? Patient performs half or more of the tr ansferring tasks TRANSFERS: TOILET - STEP 4: Does the patient need only incidental help such as contact guard or steadying during toilet transfer? Yes. TRANSFERS: TOILET - SCORE: 4-MIN TRANSFERS: SHOWER: Activity did not occur on this shift TRANSFERS: SHOWER - SCORE: 0-UNK TRANSFERS: TUB: Activity did not occur on this shift TRANSFERS: TUB - SCORE: 0-UNK LOCOMOTION: WALK: Activity did not occur on this shift LOCOMOTION: WALK - SCORE: 0-UNK LOCOMOTION: WHEELCHAIR: Activity did not occur on this shift LOCOMOTION: WHEELCHAIR - SCORE: 0-UNK COMPREHENSION: COMPREHENSION: TYPE: Both COMPREHENSION - STEP 1: Does the patient require help to understand complex and abstract ideas (such as current events, finan clement, discharge planning, medical issues, relationships, etc)? Yes. COMPREHENSION - STEP 2: Does the patient require help to understand questions or statements about basic needs or ideas (such as hunger, thirst, sleep, safety, daily schedule, room location, or discomfort) half or more of the t tammy? No. COMPREHENSION - STEP 3: How often does the patient need help to understand directions and conversation about basic needs? Les s than 10% of the time COMPREHENSION - SCORE: 5-SUP EXPRESSION EXPRESSION: TYPE: Both EXPRESSION - STEP 1: Does the patient require help expressing complex and abstract ideas (such as current events, finances , discharge planning, medical issues, relationships, etc)? No. EXPRESSION - STEP 2: Does the patient need extra time, require an assistive device (such as augmentive communication syste m or a communication board), OR does s/he have mild difficulty expressing complex and abstract ideas (including mild dysarthria or mild word-find problems)? Yes. EXPRESSION - SCORE: 6-SAYRA SOCIAL INTERACTION: SOCIAL INTERACTION - STEP 1: Does the patient require a helper to interact with others in social and therapeutic situations? No. SOCIAL INTERACTION - STEP 2: Does the patient need extra time in social situations, OR does s/he interact with staff, other patien ts, and family members ONLY in structured environments, OR does s/he require medication for social in teraction? Yes, patient needs extra time SOCIAL INTERACTION - SCORE: 6-SAYRA PROBLEM SOLVING: PROBLEM SOLVING - STEP 1: Does the patient need help to solve complex problems such as managing a checking account or confronti ng interpersonal problems? Yes. PROBLEM SOLVING - STEP 2: Does the patient solve basic routine problems half or more of the time? Yes. PROBLEM SOLVING - STEP 3: How often does the patient need help to solve basic routine problems? Less than 10% of the time PROBLEM SOLVING - SCORE: 5-SUP MEMORY: MEMORY - STEP 1: Does the patient need help to remember frequently encountered people, daily routines, and executing r equests? No. MEMORY - STEP 2: Does the patient have slight difficulty recognizing frequently encountered people, daily routines, or executing requests without the need for repetition or using self-initiated or environmental cues to remember? Yes. MEMORY - SCORE: 6-SAYRA
[2017-12-24] MEDS: HEPARIN 5000 UNIT/ML 1 ML VIAL SQ SCH ×2 (06:03→18:14)
[2017-12-24] MEDS: INSULIN -REGULAR HUMAN 50 UNIT/0.5 ML ML SQ SCH ×4 (07:18→20:14)
[2017-12-24] MEDS: GLUCERNA SHAKE 237 ML CAN PO SCH ×2 (08:00→20:09)
[2017-12-24] MEDS: PROMOD 30 ML DOSE PO SCH ×2 (08:00→20:14)
[2017-12-24] MEDS: CLOPIDOGREL 75 MG TABLET PO SCH (08:34)
[2017-12-24] MEDS: METFORMIN HCL 500 MG TAB PO SCH ×2 (08:34→17:29)
[2017-12-24] MEDS: levETIRAcetam 500 MG TAB PO SCH ×2 (08:34→20:07)
[2017-12-24] MEDS: FERROUS SULFATE 325 MG TAB PO SCH (08:34)
[2017-12-24] MEDS: FE SULF/FA/VIT B COMP & C TAB PO SCH (08:34)
[2017-12-24] MEDS: ASPIRIN EC 81 MG TAB PO SCH (08:35)
[2017-12-24] MEDS: FUROSEMIDE 20 MG TABLET PO SCH (08:35)
[2017-12-24] MEDS: glipiZIDE 5 MG TAB PO SCH ×2 (08:36→17:29)
[2017-12-24] MEDS: PANTOPRAZOLE 40MG TABLET PO SCH (08:36)
[2017-12-24] MEDS: CARVEDILOL 6.25 MG TAB PO SCH ×2 (08:36→20:00)
--- NOTE | 2017-12-24 13:11 | FAST ---
SHIFT START DATE/TIME: 12/24/2017 07:00 (CDT) SHIFT END DATE/TIME: 12/24/2017 19:00 (CDT) NAME IVETTE HODGES DATE OF : 1945 DATE OF ADMISSION: 12/14/2017 15:21 (CDT) PHONE: AGE: 72 N# [id number] GENDER: Female ENCOUNTER PHYSICIAN: Dr. Miki Delgado M.D. 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 EATING: EATING - STEP 1: Does the patient require assistance when eating? Yes. EATING - STEP 2: Does the patient require the assistance of a helper? Yes. EATING - STEP 3: Does the patient perform half or more of the eating tasks? Yes. EATING - STEP 4: Does the patient need only supervision, cuing, coaxing OR help to apply an orthosis OR help to cut fo od, open containers, pour liquids, or butter bread? Yes. EATING - SCORE: 5-SUP GROOMING: Activity did not occur on this shift GROOMING - SCORE: 0-UNK BATHING: Activity did not occur on this shift BATHING - SCORE: 0-UNK DRESSING - UPPER BODY: Activity did not occur on this shift ARTICLES SCORE Total number of steps: 0 DRESSING - UPPER BODY - SCORE: 0-UNK DRESSING - LOWER BODY: Activity did not occur on this shift ARTICLES SCORE Total number of steps: 0 DRESSING - LOWER BODY - SCORE: 0-UNK TOILETING: TOILETING - STEP 1: Does the patient require assistance with toileting? Yes. TOILETING - STEP 2: Does the patient require the assistance of a helper? Yes. TOILETING - STEP 3: How much assistance does the patient require from the helper? Hands-on assistance from the helper TOILETING - STEP 4: Of the 3 tasks: 1) Adjusting clothing prior to use, 2) Cleansing of perineal area, 3) Adjusting clot willie after use; How many tasks does the patient perform WITHOUT assistance of the helper? Three tasks with steadying assistance from the helper TOILETING - SCORE: 4-MIN BLADDER MANAGEMENT: BLADDER MANAGEMENT - STEP 1: Does the patient control the bladder completely and intentionally without equipment or devices or med ications, and is always continent? Yes. BLADDER MANAGEMENT - SCORE: 7-IND BLADDER MANAGEMENT - FREQUENCY OF ACCIDENTS: BLADDER MANAGEMENT(FA) - STEP 1: How many accidents has the patient had during the current shift? 0 BOWEL MANAGEMENT: BOWEL MANAGEMENT - STEP 1: Does the patient control bowels completely and intentionally without equipment devices or medications AND is always continent? Yes. BOWEL MANAGEMENT - SCORE: 7-IND BOWEL MANAGEMENT - FREQUENCY OF ACCIDENTS: BOWEL MANAGEMENT(FA) - STEP 1: How many accidents has the patient had during the current shift? 0 TRANSFERS: BED, CHAIR, WHEELCHAIR: TRANSFERS: BED, CHAIR, WHEELCHAIR - STEP 1: Does the patient require assistance with bed, chair, or wheelchair transfers? Yes. TRANSFERS: BED, CHAIR, WHEELCHAIR - STEP 2: Does the patient require the assistance of a helper? Yes. TRANSFERS: BED, CHAIR, WHEELCHAIR - STEP 3: How much assistance does the patient require from the helper? Steadying/guiding assistance TRANSFERS: BED, CHAIR, WHEELCHAIR - SCORE: 4-MIN TRANSFERS: TOILET: TRANSFERS: TOILET - STEP 1: Does the patient require assistance with toilet transfers? Yes. TRANSFERS: TOILET - STEP 2: Does the patient require the assistance of a helper? Yes. TRANSFERS: TOILET - STEP 3: How much assistance does the patient require from the helper? Patient performs half or more of the tr ansferring tasks TRANSFERS: TOILET - STEP 4: Does the patient need only incidental help such as contact guard or steadying during toilet transfer? Yes. TRANSFERS: TOILET - SCORE: 4-MIN TRANSFERS: SHOWER: Activity did not occur on this shift TRANSFERS: SHOWER - SCORE: 0-UNK TRANSFERS: TUB: Activity did not occur on this shift TRANSFERS: TUB - SCORE: 0-UNK LOCOMOTION: WALK: Activity did not occur on this shift LOCOMOTION: WALK - SCORE: 0-UNK LOCOMOTION: WHEELCHAIR: Activity did not occur on this shift LOCOMOTION: WHEELCHAIR - SCORE: 0-UNK COMPREHENSION: COMPREHENSION: TYPE: Both COMPREHENSION - STEP 1: Does the patient require help to understand complex and abstract ideas (such as current events, finan clement, discharge planning, medical issues, relationships, etc)? No. COMPREHENSION - STEP 2: Does the patient need extra time, require an assistive device (such as glasses, hearing aids, or an a ugmentative communication system), OR does s/he have mild difficulty expressing complex and abstract ideas (including mild dysarthria or mild word-finding problems)? Yes. COMPREHENSION - SCORE: 6-SAYRA EXPRESSION EXPRESSION: TYPE: Both EXPRESSION - STEP 1: Does the patient require help expressing complex and abstract ideas (such as current events, finances , discharge planning, medical issues, relationships, etc)? No. EXPRESSION - STEP 2: Does the patient need extra time, require an assistive device (such as augmentive communication syste m or a communication board), OR does s/he have mild difficulty expressing complex and abstract ideas (including mild dysarthria or mild word-find problems)? Yes. EXPRESSION - SCORE: 6-SAYRA SOCIAL INTERACTION: SOCIAL INTERACTION - STEP 1: Does the patient require a helper to interact with others in social and therapeutic situations? No. SOCIAL INTERACTION - STEP 2: Does the patient need extra time in social situations, OR does s/he interact with staff, other patien ts, and family members ONLY in structured environments, OR does s/he require medication for social in teraction? Yes, patient needs extra time SOCIAL INTERACTION - SCORE: 6-SAYRA PROBLEM SOLVING: PROBLEM SOLVING - STEP 1: Does the patient need help to solve complex problems such as managing a checking account or confronti ng interpersonal problems? Yes. PROBLEM SOLVING - STEP 2: Does the patient solve basic routine problems half or more of the time? Yes. PROBLEM SOLVING - STEP 3: How often does the patient need help to solve basic routine problems? Less than 10% of the time PROBLEM SOLVING - SCORE: 5-SUP MEMORY: MEMORY - STEP 1: Does the patient need help to remember frequently encountered people, daily routines, and executing r equests? No. MEMORY - STEP 2: Does the patient have slight difficulty recognizing frequently encountered people, daily routines, or executing requests without the need for repetition or using self-initiated or environmental cues to remember? Yes. MEMORY - SCORE: 6-SAYRA SIGNATURE PANEL: The following modified sections: Eating - Score, Grooming - Score, Bathing - Score, Dressing - Upper Body - Score, Dressing - Lower Body - Score, Toileting - Score, Bladder Management - Score, Bowel Man agement - Score, Transfers: Bed, Chair, Wheelchair - Score, Transfers: Toilet - Score, Transfers: Nette wer - Score, Transfers: Tub - Score, Locomotion: Walk - Score, Locomotion: Wheelchair - Score, Compre hension - Score, Expression - Score, Social Interaction - Score, Problem Solving - Score, Memory - Sc ore were [electronically] signed by Alejandra Morales RN on Sat Dec 24 2017 13:10:52 T-0500 (Central Dayl ight Time)
--- NOTE | 2017-12-24 14:38 | FAST ---
ENCOUNTER DATE AND TIME: 12/24/2017 08:00 (CDT) NAME IVETTE HODGES DATE OF : 1945 DATE OF ADMISSION: 12/14/2017 15:21 (CDT) PHONE: AGE: 72 N# [id number] GENDER: Female ENCOUNTER PHYSICIAN: Dr. Miki Delgado M.D. 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 EATING: Activity did not occur on this shift EATING - SCORE: 0-UNK GROOMING: Activity did not occur on this shift GROOMING - SCORE: 0-UNK BATHING: Activity did not occur on this shift BATHING - SCORE: 0-UNK DRESSING - UPPER BODY: Activity did not occur on this shift Patient is not dressing in public clothing ARTICLES SCORE Total number of steps: 0 DRESSING - UPPER BODY - SCORE: 0-UNK DRESSING - LOWER BODY: Activity did not occur on this shift Patient is not dressing in public clothing ARTICLES SCORE Total number of steps: 0 DRESSING - LOWER BODY - SCORE: 0-UNK TOILETING: Activity did not occur on this shift TOILETING - SCORE: 0-UNK BLADDER MANAGEMENT: Activity did not occur on this shift BLADDER MANAGEMENT - SCORE: 7-IND BOWEL MANAGEMENT: Activity did not occur on this shift BOWEL MANAGEMENT - SCORE: 7-IND TRANSFERS: BED, CHAIR, WHEELCHAIR: TRANSFERS: BED, CHAIR, WHEELCHAIR - STEP 1: Does the patient require assistance with bed, chair, or wheelchair transfers? Yes. TRANSFERS: BED, CHAIR, WHEELCHAIR - STEP 2: Does the patient require the assistance of a helper? Yes. TRANSFERS: BED, CHAIR, WHEELCHAIR - STEP 3: How much assistance does the patient require from the helper? Steadying/guiding assistance TRANSFERS: BED, CHAIR, WHEELCHAIR - SCORE: 4-MIN TRANSFERS: TOILET: Activity did not occur on this shift TRANSFERS: TOILET - SCORE: 0-UNK TRANSFERS: SHOWER: Activity did not occur on this shift TRANSFERS: SHOWER - SCORE: 0-UNK TRANSFERS: TUB: Activity did not occur on this shift TRANSFERS: TUB - SCORE: 0-UNK LOCOMOTION: WALK: LOCOMOTION: WALK - STEP 1: Does the patient need help to walk 150 feet? Yes. LOCOMOTION: WALK - STEP 2: How much assistance does the patient require to walk a minimum of 150 feet? Only incidental help such as contact guarding or steadying LOCOMOTION: WALK - SCORE: 4-MIN LOCOMOTION: WHEELCHAIR: Activity did not occur on this shift LOCOMOTION: WHEELCHAIR - SCORE: 0-UNK LOCOMOTION: STAIRS: Activity did not occur on this shift LOCOMOTION: STAIRS - SCORE: 0-UNK COMPREHENSION: COMPREHENSION - SCORE: 0-UNK EXPRESSION EXPRESSION - SCORE: 0-UNK SOCIAL INTERACTION: SOCIAL INTERACTION - SCORE: 0-UNK PROBLEM SOLVING: PROBLEM SOLVING - SCORE: 0-UNK MEMORY: MEMORY - SCORE: 0-UNK SIGNATURE PANEL: The following modified sections: Transfers: Bed, Chair, Wheelchair - Score, Transfers: Toilet - Score , Locomotion: Walk - Score, Locomotion: Wheelchair - Score, Locomotion: Stairs - Score were [electron debbie] signed by Ara Rogers PTA on Sat Dec 24 2017 14:36:40 GMT-0500 (Central Daylight Time)
[2017-12-24] MEDS: ATORVASTATIN 80 MG TAB PO SCH (20:07)
--- NOTE | 2017-12-25 02:25 | FAST ---
SHIFT START DATE/TIME: 12/24/2017 19:00 (CDT) SHIFT END DATE/TIME: 12/25/2017 07:00 (CDT) NAME IVETTE HODGES DATE OF : 1945 DATE OF ADMISSION: 12/14/2017 15:21 (CDT) PHONE: AGE: 72 N# [id number] GENDER: Female ENCOUNTER PHYSICIAN: Dr. Miki Delgado M.D. 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 EATING: Activity did not occur on this shift EATING - SCORE: 0-UNK GROOMING: Oral care Wash, rinse, and dry face Wash, rinse, and dry hands GROOMING - STEP 1: Does the patient require assistance when grooming? Yes. GROOMING - STEP 2: Does the patient require the assistance of a helper? Yes. GROOMING - STEP 3: How much assistance does the patient require from the helper? Incidental touching assistance from the helper while grooming GROOMING - SCORE: 4-MIN BATHING: Activity did not occur on this shift BATHING - SCORE: 0-UNK DRESSING - UPPER BODY: Patient is not dressing in public clothing ARTICLES SCORE Total number of steps: 0 DRESSING - UPPER BODY - SCORE: 0-UNK DRESSING - LOWER BODY: Patient is not dressing in public clothing ARTICLES SCORE Total number of steps: 0 DRESSING - LOWER BODY - SCORE: 0-UNK TOILETING: TOILETING - STEP 1: Does the patient require assistance with toileting? Yes. TOILETING - STEP 2: Does the patient require the assistance of a helper? Yes. TOILETING - STEP 3: How much assistance does the patient require from the helper? Hands-on assistance from the helper TOILETING - STEP 4: Of the 3 tasks: 1) Adjusting clothing prior to use, 2) Cleansing of perineal area, 3) Adjusting clot willie after use; How many tasks does the patient perform WITHOUT assistance of the helper? Two tasks TOILETING - SCORE: 3-MOD BLADDER MANAGEMENT: BLADDER MANAGEMENT - STEP 1: Does the patient control the bladder completely and intentionally without equipment or devices or med ications, and is always continent? No. BLADDER MANAGEMENT - STEP 2: Does the patient require the assistance of a helper? Yes. BLADDER MANAGEMENT - STEP 3: How much assistance does the patient require from the helper? Only set-up of equipment - such as plac ing it within reach of the patient or emptying a device - to maintain either satisfactory voiding pat tern or managing an external device, such as an absorbent pad, ileal device, or catheter BLADDER MANAGEMENT - SCORE: 5-SUP BOWEL MANAGEMENT: Activity did not occur on this shift BOWEL MANAGEMENT - SCORE: 7-IND TRANSFERS: BED, CHAIR, WHEELCHAIR: TRANSFERS: BED, CHAIR, WHEELCHAIR - STEP 1: Does the patient require assistance with bed, chair, or wheelchair transfers? Yes. TRANSFERS: BED, CHAIR, WHEELCHAIR - STEP 2: Does the patient require the assistance of a helper? Yes. TRANSFERS: BED, CHAIR, WHEELCHAIR - STEP 3: How much assistance does the patient require from the helper? Steadying/guiding assistance TRANSFERS: BED, CHAIR, WHEELCHAIR - SCORE: 4-MIN TRANSFERS: TOILET: TRANSFERS: TOILET - STEP 1: Does the patient require assistance with toilet transfers? Yes. TRANSFERS: TOILET - STEP 2: Does the patient require the assistance of a helper? Yes. TRANSFERS: TOILET - STEP 3: How much assistance does the patient require from the helper? Patient performs half or more of the tr ansferring tasks TRANSFERS: TOILET - STEP 4: Does the patient need only incidental help such as contact guard or steadying during toilet transfer? Yes. TRANSFERS: TOILET - SCORE: 4-MIN TRANSFERS: SHOWER: Activity did not occur on this shift TRANSFERS: SHOWER - SCORE: 0-UNK TRANSFERS: TUB: Activity did not occur on this shift TRANSFERS: TUB - SCORE: 0-UNK LOCOMOTION: WALK: Activity did not occur on this shift LOCOMOTION: WALK - SCORE: 0-UNK LOCOMOTION: WHEELCHAIR: Activity did not occur on this shift LOCOMOTION: WHEELCHAIR - SCORE: 0-UNK COMPREHENSION: COMPREHENSION - STEP 1: Does the patient require help to understand complex and abstract ideas (such as current events, finan clement, discharge planning, medical issues, relationships, etc)? Yes. COMPREHENSION - STEP 2: Does the patient require help to understand questions or statements about basic needs or ideas (such as hunger, thirst, sleep, safety, daily schedule, room location, or discomfort) half or more of the t tammy? No. COMPREHENSION - STEP 3: How often does the patient need help to understand directions and conversation about basic needs? 10% - 24% of the time COMPREHENSION - SCORE: 4-MIN EXPRESSION EXPRESSION - STEP 1: Does the patient require help expressing complex and abstract ideas (such as current events, finances , discharge planning, medical issues, relationships, etc)? Yes. EXPRESSION - STEP 2: Does the patient require help to express basic necessities or ideas (such as hunger, thirst, sleep, s afety, daily schedule, room location, or discomfort) half or more of the time? No. EXPRESSION - STEP 3: How often does the patient need help to express directions and conversation about basic needs? 10-24% of the time EXPRESSION - SCORE: 4-MIN SOCIAL INTERACTION: SOCIAL INTERACTION - STEP 1: Does the patient require a helper to interact with others in social and therapeutic situations? No. SOCIAL INTERACTION - STEP 2: Does the patient need extra time in social situations, OR does s/he interact with staff, other patien ts, and family members ONLY in structured environments, OR does s/he require medication for social in teraction? Yes, patient needs extra time SOCIAL INTERACTION - SCORE: 6-SAYRA PROBLEM SOLVING: PROBLEM SOLVING - STEP 1: Does the patient need help to solve complex problems such as managing a checking account or confronti ng interpersonal problems? Yes. PROBLEM SOLVING - STEP 2: Does the patient solve basic routine problems half or more of the time? Yes. PROBLEM SOLVING - STEP 3: How often does the patient need help to solve basic routine problems? 10%-24% of the time PROBLEM SOLVING - SCORE: 4-MIN MEMORY: MEMORY - STEP 1: Does the patient need help to remember frequently encountered people, daily routines, and executing r equests? No. MEMORY - STEP 2: Does the patient have slight difficulty recognizing frequently encountered people, daily routines, or executing requests without the need for repetition or using self-initiated or environmental cues to remember? Yes. MEMORY - SCORE: 6-SAYRA SIGNATURE PANEL: The following modified sections: Eating - Score, Grooming - Score, Dressing - Upper Body - Score, Cheikh ssing - Lower Body - Score, Toileting - Score, Bladder Management - Score, Bowel Management - Score, Transfers: Bed, Chair, Wheelchair - Score, Transfers: Toilet - Score, Transfers: Shower - Score, Mercado sfers: Tub - Score, Locomotion: Walk - Score, Locomotion: Wheelchair - Score, Comprehension - Score, Expression - Score, Social Interaction - Score, Problem Solving - Score, Memory - Score were [electro nically] signed by oTnia Cruz CNA on TueDec 25 2017 02:24:24 GMT-0500 (Central Daylight Time)
[2017-12-25] MEDS: INSULIN -REGULAR HUMAN 50 UNIT/0.5 ML ML SQ SCH ×4 (07:30→20:14)
[2017-12-25] MEDS: HEPARIN 5000 UNIT/ML 1 ML VIAL SQ SCH (08:00)
[2017-12-25] MEDS: CARVEDILOL 6.25 MG TAB PO SCH ×2 (08:00→20:00)
[2017-12-25] MEDS: FUROSEMIDE 20 MG TABLET PO SCH (08:00)
[2017-12-25] MEDS: METFORMIN HCL 500 MG TAB PO SCH ×2 (08:25→17:02)
[2017-12-25] MEDS: FE SULF/FA/VIT B COMP & C TAB PO SCH (08:25)
[2017-12-25] MEDS: PANTOPRAZOLE 40MG TABLET PO SCH (08:26)
[2017-12-25] MEDS: CLOPIDOGREL 75 MG TABLET PO SCH (08:26)
[2017-12-25] MEDS: ASPIRIN EC 81 MG TAB PO SCH (08:26)
[2017-12-25] MEDS: levETIRAcetam 500 MG TAB PO SCH ×2 (08:26→20:13)
[2017-12-25] MEDS: glipiZIDE 5 MG TAB PO SCH ×2 (08:27→17:02)
[2017-12-25] MEDS: FERROUS SULFATE 325 MG TAB PO SCH (08:27)
[2017-12-25] MEDS: PROMOD 30 ML DOSE PO SCH ×2 (09:31→20:13)
[2017-12-25] MEDS: GLUCERNA SHAKE 237 ML CAN PO SCH ×2 (09:31→20:13)
[2017-12-25] MEDS: APIXABAN 2.5 MG TABLET PO SCH ×2 (10:28→20:13)
--- NOTE | 2017-12-25 14:51 | FAST ---
SHIFT START DATE/TIME: 12/25/2017 07:00 (CDT) SHIFT END DATE/TIME: 12/25/2017 19:00 (CDT) NAME IVETTE HODGES DATE OF : 1945 DATE OF ADMISSION: 12/14/2017 15:21 (CDT) PHONE: AGE: 72 N# [id number] GENDER: Female ENCOUNTER PHYSICIAN: Dr. Miki Delgado M.D. 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 EATING: EATING - STEP 1: Does the patient require assistance when eating? Yes. EATING - STEP 2: Does the patient require the assistance of a helper? Yes. EATING - STEP 3: Does the patient perform half or more of the eating tasks? Yes. EATING - STEP 4: Does the patient need only supervision, cuing, coaxing OR help to apply an orthosis OR help to cut fo od, open containers, pour liquids, or butter bread? Yes. EATING - SCORE: 5-SUP GROOMING: Activity did not occur on this shift Comb/brush hair Wash, rinse, and dry face GROOMING - SCORE: 0-UNK BATHING: Activity did not occur on this shift BATHING - SCORE: 0-UNK DRESSING - UPPER BODY: Activity did not occur on this shift ARTICLES SCORE Total number of steps: 0 DRESSING - UPPER BODY - SCORE: 0-UNK DRESSING - LOWER BODY: Activity did not occur on this shift ARTICLES SCORE Total number of steps: 0 DRESSING - LOWER BODY - SCORE: 0-UNK TOILETING: TOILETING - STEP 1: Does the patient require assistance with toileting? Yes. TOILETING - STEP 2: Does the patient require the assistance of a helper? Yes. TOILETING - STEP 3: How much assistance does the patient require from the helper? Only supervision TOILETING - SCORE: 5-SUP BLADDER MANAGEMENT: BLADDER MANAGEMENT - STEP 1: Does the patient control the bladder completely and intentionally without equipment or devices or med ications, and is always continent? Yes. BLADDER MANAGEMENT - SCORE: 7-IND BLADDER MANAGEMENT - FREQUENCY OF ACCIDENTS: BLADDER MANAGEMENT(FA) - STEP 1: How many accidents has the patient had during the current shift? 0 BOWEL MANAGEMENT: BOWEL MANAGEMENT - STEP 1: Does the patient control bowels completely and intentionally without equipment devices or medications AND is always continent? Yes. BOWEL MANAGEMENT - SCORE: 7-IND BOWEL MANAGEMENT - FREQUENCY OF ACCIDENTS: BOWEL MANAGEMENT(FA) - STEP 1: How many accidents has the patient had during the current shift? 0 TRANSFERS: BED, CHAIR, WHEELCHAIR: TRANSFERS: BED, CHAIR, WHEELCHAIR - STEP 1: Does the patient require assistance with bed, chair, or wheelchair transfers? Yes. TRANSFERS: BED, CHAIR, WHEELCHAIR - STEP 2: Does the patient require the assistance of a helper? Yes. TRANSFERS: BED, CHAIR, WHEELCHAIR - STEP 3: How much assistance does the patient require from the helper? Steadying/guiding assistance TRANSFERS: BED, CHAIR, WHEELCHAIR - SCORE: 4-MIN TRANSFERS: TOILET: TRANSFERS: TOILET - STEP 1: Does the patient require assistance with toilet transfers? Yes. TRANSFERS: TOILET - STEP 2: Does the patient require the assistance of a helper? Yes. TRANSFERS: TOILET - STEP 3: How much assistance does the patient require from the helper? Patient performs half or more of the tr ansferring tasks TRANSFERS: TOILET - STEP 4: Does the patient need only incidental help such as contact guard or steadying during toilet transfer? Yes. TRANSFERS: TOILET - SCORE: 4-MIN TRANSFERS: SHOWER: Activity did not occur on this shift TRANSFERS: SHOWER - SCORE: 0-UNK TRANSFERS: TUB: Activity did not occur on this shift TRANSFERS: TUB - SCORE: 0-UNK LOCOMOTION: WALK: Activity did not occur on this shift LOCOMOTION: WALK - SCORE: 0-UNK LOCOMOTION: WHEELCHAIR: Activity did not occur on this shift LOCOMOTION: WHEELCHAIR - SCORE: 0-UNK COMPREHENSION: COMPREHENSION: TYPE: Both COMPREHENSION - STEP 1: Does the patient require help to understand complex and abstract ideas (such as current events, finan clement, discharge planning, medical issues, relationships, etc)? No. COMPREHENSION - STEP 2: Does the patient need extra time, require an assistive device (such as glasses, hearing aids, or an a ugmentative communication system), OR does s/he have mild difficulty expressing complex and abstract ideas (including mild dysarthria or mild word-finding problems)? Yes. COMPREHENSION - SCORE: 6-SAYRA EXPRESSION EXPRESSION: TYPE: Both EXPRESSION - STEP 1: Does the patient require help expressing complex and abstract ideas (such as current events, finances , discharge planning, medical issues, relationships, etc)? No. EXPRESSION - STEP 2: Does the patient need extra time, require an assistive device (such as augmentive communication syste m or a communication board), OR does s/he have mild difficulty expressing complex and abstract ideas (including mild dysarthria or mild word-find problems)? Yes. EXPRESSION - SCORE: 6-SAYRA SOCIAL INTERACTION: SOCIAL INTERACTION - STEP 1: Does the patient require a helper to interact with others in social and therapeutic situations? No. SOCIAL INTERACTION - STEP 2: Does the patient need extra time in social situations, OR does s/he interact with staff, other patien ts, and family members ONLY in structured environments, OR does s/he require medication for social in teraction? Yes, patient needs extra time SOCIAL INTERACTION - SCORE: 6-SARYA PROBLEM SOLVING: PROBLEM SOLVING - STEP 1: Does the patient need help to solve complex problems such as managing a checking account or confronti ng interpersonal problems? No. PROBLEM SOLVING - STEP 2: Does the patient require extra time to make decisions or solve problems, OR does s/he have slight dif ficulty reading, initiating, or self-correcting in unfamiliar situations? Yes, patient needs extra ti me. PROBLEM SOLVING - SCORE: 6-SAYRA MEMORY: MEMORY - STEP 1: Does the patient need help to remember frequently encountered people, daily routines, and executing r equests? No. MEMORY - STEP 2: Does the patient have slight difficulty recognizing frequently encountered people, daily routines, or executing requests without the need for repetition or using self-initiated or environmental cues to remember? Yes. MEMORY - SCORE: 6-SAYRA SIGNATURE PANEL: The following modified sections: Eating - Score, Grooming - Score, Bathing - Score, Dressing - Upper Body - Score, Dressing - Lower Body - Score, Toileting - Score, Bladder Management - Score, Bowel Man agement - Score, Transfers: Bed, Chair, Wheelchair - Score, Transfers: Toilet - Score, Transfers: Nette wer - Score, Transfers: Tub - Score, Locomotion: Walk - Score, Locomotion: Wheelchair - Score, Compre hension - Score, Expression - Score, Social Interaction - Score, Problem Solving - Score, Memory - Sc ore were [electronically] signed by Alejandra Morales RN on TueDec 25 2017 14:50:17 GMT-0500 (Central Dayl ight Time)
[2017-12-25] MEDS: ATORVASTATIN 80 MG TAB PO SCH (20:13)
--- NOTE | 2017-12-26 02:39 | FAST ---
SHIFT START DATE/TIME: 12/25/2017 19:00 (CDT) SHIFT END DATE/TIME: 12/26/2017 07:00 (CDT) NAME IVETTE HODGES DATE OF : 1945 DATE OF ADMISSION: 12/14/2017 15:21 (CDT) PHONE: AGE: 72 N# [id number] GENDER: Female ENCOUNTER PHYSICIAN: Dr. Miki Delgado M.D. 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 EATING: Activity did not occur on this shift EATING - SCORE: 0-UNK GROOMING: Oral care Wash, rinse, and dry face Wash, rinse, and dry hands GROOMING - STEP 1: Does the patient require assistance when grooming? Yes. GROOMING - STEP 2: Does the patient require the assistance of a helper? Yes. GROOMING - STEP 3: How much assistance does the patient require from the helper? Incidental touching assistance from the helper while grooming GROOMING - SCORE: 4-MIN BATHING: Activity did not occur on this shift BATHING - SCORE: 0-UNK DRESSING - UPPER BODY: Patient is not dressing in public clothing ARTICLES SCORE Total number of steps: 0 DRESSING - UPPER BODY - SCORE: 0-UNK DRESSING - LOWER BODY: Patient is not dressing in public clothing ARTICLES SCORE Total number of steps: 0 DRESSING - LOWER BODY - SCORE: 0-UNK TOILETING: TOILETING - STEP 1: Does the patient require assistance with toileting? Yes. TOILETING - STEP 2: Does the patient require the assistance of a helper? Yes. TOILETING - STEP 3: How much assistance does the patient require from the helper? Hands-on assistance from the helper TOILETING - STEP 4: Of the 3 tasks: 1) Adjusting clothing prior to use, 2) Cleansing of perineal area, 3) Adjusting clot willie after use; How many tasks does the patient perform WITHOUT assistance of the helper? Three tasks with steadying assistance from the helper TOILETING - SCORE: 4-MIN BLADDER MANAGEMENT: BLADDER MANAGEMENT - STEP 1: Does the patient control the bladder completely and intentionally without equipment or devices or med ications, and is always continent? No. BLADDER MANAGEMENT - STEP 2: Does the patient require the assistance of a helper? Yes. BLADDER MANAGEMENT - STEP 3: How much assistance does the patient require from the helper? Only set-up of equipment - such as plac ing it within reach of the patient or emptying a device - to maintain either satisfactory voiding pat tern or managing an external device, such as an absorbent pad, ileal device, or catheter BLADDER MANAGEMENT - SCORE: 5-SUP BOWEL MANAGEMENT: Activity did not occur on this shift BOWEL MANAGEMENT - SCORE: 7-IND TRANSFERS: BED, CHAIR, WHEELCHAIR: TRANSFERS: BED, CHAIR, WHEELCHAIR - STEP 1: Does the patient require assistance with bed, chair, or wheelchair transfers? Yes. TRANSFERS: BED, CHAIR, WHEELCHAIR - STEP 2: Does the patient require the assistance of a helper? Yes. TRANSFERS: BED, CHAIR, WHEELCHAIR - STEP 3: How much assistance does the patient require from the helper? Steadying/guiding assistance TRANSFERS: BED, CHAIR, WHEELCHAIR - SCORE: 4-MIN TRANSFERS: TOILET: TRANSFERS: TOILET - STEP 1: Does the patient require assistance with toilet transfers? Yes. TRANSFERS: TOILET - STEP 2: Does the patient require the assistance of a helper? Yes. TRANSFERS: TOILET - STEP 3: How much assistance does the patient require from the helper? Patient performs half or more of the tr ansferring tasks TRANSFERS: TOILET - STEP 4: Does the patient need only incidental help such as contact guard or steadying during toilet transfer? Yes. TRANSFERS: TOILET - SCORE: 4-MIN TRANSFERS: SHOWER: Activity did not occur on this shift TRANSFERS: SHOWER - SCORE: 0-UNK TRANSFERS: TUB: Activity did not occur on this shift TRANSFERS: TUB - SCORE: 0-UNK LOCOMOTION: WALK: Activity did not occur on this shift LOCOMOTION: WALK - SCORE: 0-UNK LOCOMOTION: WHEELCHAIR: Activity did not occur on this shift LOCOMOTION: WHEELCHAIR - SCORE: 0-UNK COMPREHENSION: COMPREHENSION - STEP 1: Does the patient require help to understand complex and abstract ideas (such as current events, finan clement, discharge planning, medical issues, relationships, etc)? Yes. COMPREHENSION - STEP 2: Does the patient require help to understand questions or statements about basic needs or ideas (such as hunger, thirst, sleep, safety, daily schedule, room location, or discomfort) half or more of the t tammy? No. COMPREHENSION - STEP 3: How often does the patient need help to understand directions and conversation about basic needs? 10% - 24% of the time COMPREHENSION - SCORE: 4-MIN EXPRESSION EXPRESSION - STEP 1: Does the patient require help expressing complex and abstract ideas (such as current events, finances , discharge planning, medical issues, relationships, etc)? Yes. EXPRESSION - STEP 2: Does the patient require help to express basic necessities or ideas (such as hunger, thirst, sleep, s afety, daily schedule, room location, or discomfort) half or more of the time? No. EXPRESSION - STEP 3: How often does the patient need help to express directions and conversation about basic needs? 10-24% of the time EXPRESSION - SCORE: 4-MIN SOCIAL INTERACTION: SOCIAL INTERACTION - STEP 1: Does the patient require a helper to interact with others in social and therapeutic situations? No. SOCIAL INTERACTION - STEP 2: Does the patient need extra time in social situations, OR does s/he interact with staff, other patien ts, and family members ONLY in structured environments, OR does s/he require medication for social in teraction? Yes, patient needs extra time SOCIAL INTERACTION - SCORE: 6-SAYRA PROBLEM SOLVING: PROBLEM SOLVING - STEP 1: Does the patient need help to solve complex problems such as managing a checking account or confronti ng interpersonal problems? Yes. PROBLEM SOLVING - STEP 2: Does the patient solve basic routine problems half or more of the time? Yes. PROBLEM SOLVING - STEP 3: How often does the patient need help to solve basic routine problems? 10%-24% of the time PROBLEM SOLVING - SCORE: 4-MIN MEMORY: MEMORY - STEP 1: Does the patient need help to remember frequently encountered people, daily routines, and executing r equests? No. MEMORY - STEP 2: Does the patient have slight difficulty recognizing frequently encountered people, daily routines, or executing requests without the need for repetition or using self-initiated or environmental cues to remember? Yes. MEMORY - SCORE: 6-SAYRA SIGNATURE PANEL: The following modified sections: Eating - Score, Grooming - Score, Dressing - Upper Body - Score, Cheikh ssing - Lower Body - Score, Toileting - Score, Bladder Management - Score, Bowel Management - Score, Transfers: Bed, Chair, Wheelchair - Score, Transfers: Toilet - Score, Transfers: Shower - Score, Mercado sfers: Tub - Score, Locomotion: Walk - Score, Locomotion: Wheelchair - Score, Comprehension - Score, Expression - Score, Social Interaction - Score, Problem Solving - Score, Memory - Score were [electro nically] signed by Tonia Cruz CNA on TueDec 26 2017 02:38:36 GMT-0500 (Central Daylight Time)
[2017-12-26] MEDS: INSULIN -REGULAR HUMAN 50 UNIT/0.5 ML ML SQ SCH ×4 (07:30→20:15)
[2017-12-26] MEDS: FE SULF/FA/VIT B COMP & C TAB PO SCH (07:56)
[2017-12-26] MEDS: METFORMIN HCL 500 MG TAB PO SCH ×2 (07:56→16:54)
[2017-12-26] MEDS: APIXABAN 2.5 MG TABLET PO SCH ×2 (07:56→19:58)
[2017-12-26] MEDS: FUROSEMIDE 20 MG TABLET PO SCH (07:56)
[2017-12-26] MEDS: ASPIRIN EC 81 MG TAB PO SCH (07:56)
[2017-12-26] MEDS: levETIRAcetam 500 MG TAB PO SCH ×2 (07:56→19:58)
[2017-12-26] MEDS: CLOPIDOGREL 75 MG TABLET PO SCH (07:56)
[2017-12-26] MEDS: FERROUS SULFATE 325 MG TAB PO SCH (07:56)
[2017-12-26] MEDS: PANTOPRAZOLE 40MG TABLET PO SCH (07:57)
[2017-12-26] MEDS: CARVEDILOL 6.25 MG TAB PO SCH ×2 (07:57→19:50)
[2017-12-26] MEDS: glipiZIDE 5 MG TAB PO SCH ×2 (07:57→16:54)
[2017-12-26] MEDS: GLUCERNA SHAKE 237 ML CAN PO SCH ×2 (07:58→19:58)
[2017-12-26] MEDS: PROMOD 30 ML DOSE PO SCH ×2 (07:58→19:58)
--- NOTE | 2017-12-26 09:58 | FAST ---
ENCOUNTER DATE AND TIME: 12/26/2017 08:00 (CDT) NAME IVETTE HODGES DATE OF : 1945 DATE OF ADMISSION: 12/14/2017 15:21 (CDT) PHONE: AGE: 72 N# [id number] GENDER: Female ENCOUNTER PHYSICIAN: Dr. Miki Delgado M.D. 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 EATING: Activity did not occur on this shift EATING - SCORE: 0-UNK GROOMING: Activity did not occur on this shift GROOMING - SCORE: 0-UNK BATHING: Activity did not occur on this shift BATHING - SCORE: 0-UNK DRESSING - UPPER BODY: Activity did not occur on this shift Patient is not dressing in public clothing ARTICLES SCORE Total number of steps: 0 DRESSING - UPPER BODY - SCORE: 0-UNK DRESSING - LOWER BODY: Activity did not occur on this shift Patient is not dressing in public clothing ARTICLES SCORE Total number of steps: 0 DRESSING - LOWER BODY - SCORE: 0-UNK TOILETING: Activity did not occur on this shift TOILETING - SCORE: 0-UNK BLADDER MANAGEMENT: Activity did not occur on this shift BLADDER MANAGEMENT - SCORE: 7-IND BOWEL MANAGEMENT: Activity did not occur on this shift BOWEL MANAGEMENT - SCORE: 7-IND TRANSFERS: BED, CHAIR, WHEELCHAIR: Activity did not occur on this shift TRANSFERS: BED, CHAIR, WHEELCHAIR - SCORE: 0-UNK TRANSFERS: TOILET: Activity did not occur on this shift TRANSFERS: TOILET - SCORE: 0-UNK TRANSFERS: SHOWER: Activity did not occur on this shift TRANSFERS: SHOWER - SCORE: 0-UNK TRANSFERS: TUB: Activity did not occur on this shift TRANSFERS: TUB - SCORE: 0-UNK LOCOMOTION: WALK: Activity did not occur on this shift LOCOMOTION: WALK - SCORE: 0-UNK LOCOMOTION: WHEELCHAIR: Activity did not occur on this shift LOCOMOTION: WHEELCHAIR - SCORE: 0-UNK LOCOMOTION: STAIRS: Activity did not occur on this shift LOCOMOTION: STAIRS - SCORE: 0-UNK COMPREHENSION: COMPREHENSION - STEP 1: Does the patient require help to understand complex and abstract ideas (such as current events, finan clement, discharge planning, medical issues, relationships, etc)? Yes. COMPREHENSION - STEP 2: Does the patient require help to understand questions or statements about basic needs or ideas (such as hunger, thirst, sleep, safety, daily schedule, room location, or discomfort) half or more of the t tammy? No. COMPREHENSION - STEP 3: How often does the patient need help to understand directions and conversation about basic needs? 10% - 24% of the time COMPREHENSION - SCORE: 4-MIN EXPRESSION EXPRESSION - STEP 1: Does the patient require help expressing complex and abstract ideas (such as current events, finances , discharge planning, medical issues, relationships, etc)? Yes. EXPRESSION - STEP 2: Does the patient require help to express basic necessities or ideas (such as hunger, thirst, sleep, s afety, daily schedule, room location, or discomfort) half or more of the time? No. EXPRESSION - STEP 3: How often does the patient need help to express directions and conversation about basic needs? Less t richard 10% of the time EXPRESSION - SCORE: 5-SUP SOCIAL INTERACTION: SOCIAL INTERACTION - STEP 1: Does the patient require a helper to interact with others in social and therapeutic situations? Yes. SOCIAL INTERACTION - STEP 2: Does the patient interact appropriately half or more of the time? Yes. SOCIAL INTERACTION - STEP 3: How often does the patient need help to interact appropriately? Less than 10% of the time SOCIAL INTERACTION - SCORE: 5-SUP PROBLEM SOLVING: PROBLEM SOLVING - STEP 1: Does the patient need help to solve complex problems such as managing a checking account or confronti ng interpersonal problems? Yes. PROBLEM SOLVING - STEP 2: Does the patient solve basic routine problems half or more of the time? Yes. PROBLEM SOLVING - STEP 3: How often does the patient need help to solve basic routine problems? 25%-49% of the time PROBLEM SOLVING - SCORE: 3-MOD MEMORY: MEMORY - STEP 1: Does the patient need help to remember frequently encountered people, daily routines, and executing r equests? Yes. MEMORY - STEP 2: How often does the patient need help to remember frequently encountered people, daily routines, and e xecuting requests? Less than 10% of the time MEMORY - SCORE: 5-SUP SIGNATURE PANEL: The following modified sections: Comprehension - Score, Expression - Score, Social Interaction - Scor e, Problem Solving - Score, Memory - Score were [electronically] signed by ST Hector on Tue 09:56:42 GMT-0500 (Central Daylight Time)
--- NOTE | 2017-12-26 12:02 | FAST ---
ENCOUNTER DATE AND TIME: 12/26/2017 08:00 (CDT) NAME IVETTE HODGES DATE OF : 1945 DATE OF ADMISSION: 12/14/2017 15:21 (CDT) PHONE: AGE: 72 N# [id number] GENDER: Female ENCOUNTER PHYSICIAN: Dr. Miki Delgado M.D. 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 EATING: Activity did not occur on this shift EATING - SCORE: 0-UNK GROOMING: Comb/brush hair Wash, rinse, and dry face Wash, rinse, and dry hands GROOMING - STEP 1: Does the patient require assistance when grooming? No. GROOMING - SCORE: 7-IND BATHING: Abdomen Buttocks Chest Left arm Left lower leg and foot Left upper leg Perineal area Right arm Right lower leg and foot Right upper leg BATHING - STEP 1: Does the patient require assistance when bathing? Yes. BATHING - STEP 2: Does the patient require the assistance of a helper? Yes. BATHING - STEP 3: How much assistance does the patient require from the helper? Only supervision, cuing, coaxing, instr uctions, encouragement BATHING - SCORE: 5-SUP DRESSING - UPPER BODY: T-shirt/pullover shirt (four steps) ARTICLES SCORE Total number of steps: 4 DRESSING - UPPER BODY - STEP 1: Does the patient require help when dressing above the waist? Yes. DRESSING - UPPER BODY - STEP 2: Does the patient require the assistance of a helper? Yes. DRESSING - UPPER BODY - STEP 3: Does the helper touch the patient while dressing? Yes. DRESSING - UPPER BODY - STEP 4: How many of the total steps does the patient complete on his/her own? 3 DRESSING - UPPER BODY - SCORE: 4-MIN DRESSING - LOWER BODY: Elastic waist pants (three steps) Slip-on shoe - Right foot (one step) Sock - Left foot (one step) Underwear (three steps) ARTICLES SCORE Total number of steps: 8 DRESSING - LOWER BODY - STEP 1: Does the patient require help when dressing below the waist? Yes. DRESSING - LOWER BODY - STEP 2: Does the patient require the assistance of a helper? Yes. DRESSING - LOWER BODY - STEP 3: Does the helper touch the patient while dressing? Yes. DRESSING - LOWER BODY - STEP 4: How many of the total steps does the patient complete on his/her own? 6 DRESSING - LOWER BODY - SCORE: 4-MIN TOILETING: Activity did not occur on this shift TOILETING - SCORE: 0-UNK BLADDER MANAGEMENT: Activity did not occur on this shift BLADDER MANAGEMENT - SCORE: 7-IND BOWEL MANAGEMENT: Activity did not occur on this shift BOWEL MANAGEMENT - SCORE: 7-IND TRANSFERS: BED, CHAIR, WHEELCHAIR: Activity did not occur on this shift TRANSFERS: BED, CHAIR, WHEELCHAIR - SCORE: 0-UNK TRANSFERS: TOILET: Activity did not occur on this shift TRANSFERS: TOILET - SCORE: 0-UNK TRANSFERS: SHOWER: TRANSFERS: SHOWER - STEP 1: Does the patient require assistance with shower transfers? Yes. TRANSFERS: SHOWER - STEP 2: Does the patient require the assistance of a helper? Yes. TRANSFERS: SHOWER - STEP 3: How much assistance does the patient require from the helper? Only supervision, cuing, coaxing, or he lp to set out transfer equipment or to lock brakes and/or lift foot rests TRANSFERS: SHOWER - SCORE: 5-SUP TRANSFERS: TUB: Activity did not occur on this shift TRANSFERS: TUB - SCORE: 0-UNK LOCOMOTION: WALK: Activity did not occur on this shift LOCOMOTION: WALK - SCORE: 0-UNK LOCOMOTION: WHEELCHAIR: Activity did not occur on this shift LOCOMOTION: WHEELCHAIR - SCORE: 0-UNK LOCOMOTION: STAIRS: Activity did not occur on this shift LOCOMOTION: STAIRS - SCORE: 0-UNK COMPREHENSION: COMPREHENSION: TYPE: Both COMPREHENSION - STEP 1: Does the patient require help to understand complex and abstract ideas (such as current events, finan clement, discharge planning, medical issues, relationships, etc)? No. COMPREHENSION - STEP 2: Does the patient need extra time, require an assistive device (such as glasses, hearing aids, or an a ugmentative communication system), OR does s/he have mild difficulty expressing complex and abstract ideas (including mild dysarthria or mild word-finding problems)? Yes. COMPREHENSION - SCORE: 6-SAYRA EXPRESSION EXPRESSION: TYPE: Both EXPRESSION - STEP 1: Does the patient require help expressing complex and abstract ideas (such as current events, finances , discharge planning, medical issues, relationships, etc)? No. EXPRESSION - STEP 2: Does the patient need extra time, require an assistive device (such as augmentive communication syste m or a communication board), OR does s/he have mild difficulty expressing complex and abstract ideas (including mild dysarthria or mild word-find problems)? Yes. EXPRESSION - SCORE: 6-SAYRA SOCIAL INTERACTION: SOCIAL INTERACTION - STEP 1: Does the patient require a helper to interact with others in social and therapeutic situations? No. SOCIAL INTERACTION - STEP 2: Does the patient need extra time in social situations, OR does s/he interact with staff, other patien ts, and family members ONLY in structured environments, OR does s/he require medication for social in teraction? Yes, patient needs extra time SOCIAL INTERACTION - SCORE: 6-SAYRA PROBLEM SOLVING: PROBLEM SOLVING - STEP 1: Does the patient need help to solve complex problems such as managing a checking account or confronti ng interpersonal problems? Yes. PROBLEM SOLVING - STEP 2: Does the patient solve basic routine problems half or more of the time? Yes. PROBLEM SOLVING - STEP 3: How often does the patient need help to solve basic routine problems? Less than 10% of the time PROBLEM SOLVING - SCORE: 5-SUP MEMORY: MEMORY - STEP 1: Does the patient need help to remember frequently encountered people, daily routines, and executing r equests? Yes. MEMORY - STEP 2: How often does the patient need help to remember frequently encountered people, daily routines, and e xecuting requests? Less than 10% of the time MEMORY - SCORE: 5-SUP SIGNATURE PANEL: The following modified sections: Eating - Score, Grooming - Score, Bathing - Score, Dressing - Upper Body - Score, Dressing - Lower Body - Score, Toileting - Score, Transfers: Bed, Chair, Wheelchair - S core, Transfers: Toilet - Score, Transfers: Tub - Score, Transfers: Shower - Score, Comprehension - S core, Expression - Score, Social Interaction - Score, Problem Solving - Score, Memory - Score were [e lectronically] signed by Meaghan Salomon OT on TueDec 26 2017 12:01:20 T-0500 (Central Daylight T tammy)
--- NOTE | 2017-12-26 14:18 | FAST ---
SHIFT START DATE/TIME: 12/26/2017 07:00 (CDT) SHIFT END DATE/TIME: 12/26/2017 19:00 (CDT) NAME IVETTE HODGES DATE OF : 1945 DATE OF ADMISSION: 12/14/2017 15:21 (CDT) PHONE: AGE: 72 N# [id number] GENDER: Female ENCOUNTER PHYSICIAN: Dr. Miki Delgado M.D. 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 EATING: EATING - STEP 1: Does the patient require assistance when eating? Yes. EATING - STEP 2: Does the patient require the assistance of a helper? Yes. EATING - STEP 3: Does the patient perform half or more of the eating tasks? Yes. EATING - STEP 4: Does the patient need only supervision, cuing, coaxing OR help to apply an orthosis OR help to cut fo od, open containers, pour liquids, or butter bread? Yes. EATING - SCORE: 5-SUP GROOMING: Comb/brush hair Oral care Wash, rinse, and dry face Wash, rinse, and dry hands GROOMING - STEP 1: Does the patient require assistance when grooming? Yes. GROOMING - STEP 2: Does the patient require the assistance of a helper? Yes. GROOMING - STEP 3: How much assistance does the patient require from the helper? Only prior equipment preparation/set up from the helper GROOMING - SCORE: 5-SUP BATHING: Activity did not occur on this shift BATHING - SCORE: 0-UNK DRESSING - UPPER BODY: Activity did not occur on this shift ARTICLES SCORE Total number of steps: 0 DRESSING - UPPER BODY - SCORE: 0-UNK DRESSING - LOWER BODY: Activity did not occur on this shift ARTICLES SCORE Total number of steps: 0 DRESSING - LOWER BODY - SCORE: 0-UNK TOILETING: TOILETING - STEP 1: Does the patient require assistance with toileting? Yes. TOILETING - STEP 2: Does the patient require the assistance of a helper? Yes. TOILETING - STEP 3: How much assistance does the patient require from the helper? Hands-on assistance from the helper TOILETING - STEP 4: Of the 3 tasks: 1) Adjusting clothing prior to use, 2) Cleansing of perineal area, 3) Adjusting clot willie after use; How many tasks does the patient perform WITHOUT assistance of the helper? Two tasks TOILETING - SCORE: 3-MOD BLADDER MANAGEMENT: BLADDER MANAGEMENT - STEP 1: Does the patient control the bladder completely and intentionally without equipment or devices or med ications, and is always continent? No. BLADDER MANAGEMENT - STEP 2: Does the patient require the assistance of a helper? No, patient requires and independently uses an a ssistive device, such as a urinal, bedpan, bedside commode, catheter, absorbent pad, or collecting de vice BLADDER MANAGEMENT - SCORE: 6-SAYRA BOWEL MANAGEMENT: BOWEL MANAGEMENT - STEP 1: Does the patient control bowels completely and intentionally without equipment devices or medications AND is always continent? No. BOWEL MANAGEMENT - STEP 2: Does the patient require the assistance of a helper? No, patient requires and manages independently a n assistive device such as a bedpan, bedside commode, absorbent pad, incontinent device, or collectin g device BOWEL MANAGEMENT - SCORE: 6-SAYRA TRANSFERS: BED, CHAIR, WHEELCHAIR: TRANSFERS: BED, CHAIR, WHEELCHAIR - STEP 1: Does the patient require assistance with bed, chair, or wheelchair transfers? Yes. TRANSFERS: BED, CHAIR, WHEELCHAIR - STEP 2: Does the patient require the assistance of a helper? Yes. TRANSFERS: BED, CHAIR, WHEELCHAIR - STEP 3: How much assistance does the patient require from the helper? Lifting of the legs TRANSFERS: BED, CHAIR, WHEELCHAIR - STEP 4: How many legs does the patient require the helper to lift? one leg TRANSFERS: BED, CHAIR, WHEELCHAIR - SCORE: 4-MIN TRANSFERS: TOILET: TRANSFERS: TOILET - STEP 1: Does the patient require assistance with toilet transfers? Yes. TRANSFERS: TOILET - STEP 2: Does the patient require the assistance of a helper? Yes. TRANSFERS: TOILET - STEP 3: How much assistance does the patient require from the helper? Patient performs half or more of the tr ansferring tasks TRANSFERS: TOILET - STEP 4: Does the patient need only incidental help such as contact guard or steadying during toilet transfer? No. Patient needs more than incidental help TRANSFERS: TOILET - SCORE: 3-MOD TRANSFERS: SHOWER: Activity did not occur on this shift TRANSFERS: SHOWER - SCORE: 0-UNK TRANSFERS: TUB: Activity did not occur on this shift TRANSFERS: TUB - SCORE: 0-UNK LOCOMOTION: WALK: Activity did not occur on this shift LOCOMOTION: WALK - SCORE: 0-UNK LOCOMOTION: WHEELCHAIR: Activity did not occur on this shift LOCOMOTION: WHEELCHAIR - SCORE: 0-UNK COMPREHENSION: COMPREHENSION - SCORE: 0-UNK EXPRESSION EXPRESSION - SCORE: 0-UNK SOCIAL INTERACTION: SOCIAL INTERACTION - SCORE: 0-UNK PROBLEM SOLVING: PROBLEM SOLVING - SCORE: 0-UNK MEMORY: MEMORY - SCORE: 0-UNK SIGNATURE PANEL: The following modified sections: Eating - Score, Grooming - Score, Bathing - Score, Dressing - Upper Body - Score, Dressing - Lower Body - Score, Toileting - Score, Bladder Management - Score, Bowel Man agement - Score, Transfers: Bed, Chair, Wheelchair - Score, Transfers: Toilet - Score, Transfers: Nette wer - Score, Transfers: Tub - Score, Locomotion: Walk - Score, Locomotion: Wheelchair - Score, Compre hension - Score, Expression - Score, Social Interaction - Score, Problem Solving - Score, Memory - Sc ore were [electronically] signed by Jseus Krueger on TueDec 26 2017 14:18:16 GMT-0500 (Central Daylight Time)
--- NOTE | 2017-12-26 15:13 | FAST ---
ENCOUNTER DATE AND TIME: 12/26/2017 08:00 (CDT) NAME IVETTE HODGES DATE OF : 1945 DATE OF ADMISSION: 12/14/2017 15:21 (CDT) PHONE: AGE: 72 N# [id number] GENDER: Female ENCOUNTER PHYSICIAN: Dr. Miki Delgado M.D. 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 EATING: Activity did not occur on this shift EATING - SCORE: 0-UNK GROOMING: Activity did not occur on this shift GROOMING - SCORE: 0-UNK BATHING: Activity did not occur on this shift BATHING - SCORE: 0-UNK DRESSING - UPPER BODY: Activity did not occur on this shift Patient is not dressing in public clothing ARTICLES SCORE Total number of steps: 0 DRESSING - UPPER BODY - SCORE: 0-UNK DRESSING - LOWER BODY: Activity did not occur on this shift Patient is not dressing in public clothing ARTICLES SCORE Total number of steps: 0 DRESSING - LOWER BODY - SCORE: 0-UNK TOILETING: Activity did not occur on this shift TOILETING - SCORE: 0-UNK BLADDER MANAGEMENT: Activity did not occur on this shift BLADDER MANAGEMENT - SCORE: 7-IND BOWEL MANAGEMENT: Activity did not occur on this shift BOWEL MANAGEMENT - SCORE: 7-IND TRANSFERS: BED, CHAIR, WHEELCHAIR: TRANSFERS: BED, CHAIR, WHEELCHAIR - STEP 1: Does the patient require assistance with bed, chair, or wheelchair transfers? Yes. TRANSFERS: BED, CHAIR, WHEELCHAIR - STEP 2: Does the patient require the assistance of a helper? Yes. TRANSFERS: BED, CHAIR, WHEELCHAIR - STEP 3: How much assistance does the patient require from the helper? Only supervision TRANSFERS: BED, CHAIR, WHEELCHAIR - SCORE: 5-SUP TRANSFERS: TOILET: Activity did not occur on this shift TRANSFERS: TOILET - SCORE: 0-UNK TRANSFERS: SHOWER: Activity did not occur on this shift TRANSFERS: SHOWER - SCORE: 0-UNK TRANSFERS: TUB: Activity did not occur on this shift TRANSFERS: TUB - SCORE: 0-UNK LOCOMOTION: WALK: LOCOMOTION: WALK - STEP 1: Does the patient need help to walk 150 feet? Yes. LOCOMOTION: WALK - STEP 2: How much assistance does the patient require to walk a minimum of 150 feet? Only incidental help such as contact guarding or steadying LOCOMOTION: WALK - SCORE: 4-MIN LOCOMOTION: WHEELCHAIR: Activity did not occur on this shift LOCOMOTION: WHEELCHAIR - SCORE: 0-UNK LOCOMOTION: STAIRS: LOCOMOTION: STAIRS - STEP 1: Does the patient need help to go up and down 12 to 14 stairs? Yes. LOCOMOTION: STAIRS - STEP 2: How much assistance does the patient need from the helper to go a minimum of 12 to 14 stairs? Only in cidental help such as contact guarding or steadying LOCOMOTION: STAIRS - SCORE: 4-MIN COMPREHENSION: COMPREHENSION - SCORE: 0-UNK EXPRESSION EXPRESSION - SCORE: 0-UNK SOCIAL INTERACTION: SOCIAL INTERACTION - SCORE: 0-UNK PROBLEM SOLVING: PROBLEM SOLVING - SCORE: 0-UNK MEMORY: MEMORY - SCORE: 0-UNK SIGNATURE PANEL: The following modified sections: Transfers: Bed, Chair, Wheelchair - Score, Transfers: Toilet - Score , Locomotion: Walk - Score, Locomotion: Wheelchair - Score, Locomotion: Stairs - Score were [electron debbie] signed by Art Odom PTA on TueDec 26 2017 15:12:26 GMT-0500 (Central Daylight Time)
--- NOTE | 2017-12-26 18:00 | R.PN ---
ENCOUNTER DATE AND TIME: 12/26/2017 17:46 (CDT) NAME IVETTE HODGES DATE OF : 1945 DATE OF ADMISSION: 12/14/2017 15:21 (CDT) Cerebral infarction due to unspecified occlusion or stenosis of right middle cerebral artery (I63.511 )CHIEF COMPLAINT: Right MCA stroke with left face and arm weakness. SUBJECTIVE: Pt denied any Shortness of Breath. Pt denied any depression. Total assistance required for wheelchair mobility. Maximum assistance required for many activities o f daily living. VITAL SIGNS Temperature: 98 F SBP/DBP: 129/60 Pulse: 83 Resp: 14 Ambulated 375' with contact guard assistance using a right quad cane. Worked well with speech therapi st for swallowing and cognitive therapy. Up and down 15 steps with contact guard assistance using ri t hand rails. MEDICATION ALLERGIES: No Known Drug Allergies (NKDA) ENVIRONMENTAL ALLERGIES: - Substance Allergies None Known - Other Allergies None Known NURSING: - Shower allowing shower - Lab Results blood Sugar Check ACHS - Bladder care per protocol - Skin care per protocol PRECAUTIONS: - Weight Bearing Precaution WBAT left LE ACTIVITIES OOB only with supervision THERAPIES: - Occupational Therapy Evaluate and Treat. Cognitive Retraining. Visual Perceptual Training. - Speech Therapy Memory Strategies. Expressive Language Skills. Speech Intelligibility Training. Cognitive Training. R eceptive Language Skills. - Physical Therapy Evaluate and Treat. PHYSICAL EXAM - Gen Alert and awake Lying in bed No apparent distress Oriented to: person, time, and place - Skin No skin breakdown. Normacephalic - Eyes No abnormalities - ENMT No abnormalities - Neck No abnormalities - CVS RRR - Chest No abnormalities - Abd Soft - GI nondistended Deferred - No abnormalities - Ext No significant edema - MSK 1/5 weakness in left upper and 4/5 weakness in left lower extremity. - Neuro 2/5 weakness in left face, 1/5 left arm and 4/5 left leg. - Psych No abnormalities ASSESSMENT: Pt. is a 72 yo Right-handed female of unknown race.On 12/06/2017 Pt. presented to [facility] sudden onset of left-side weakness.On 12/06/2017 she was admitted to [facility] with diagnos is Cerebral infarction due to unspecified occlusion or stenosis of right middle cerebral artery (I63. 511).Her impairment category is Stroke 01 - Left Body (Right Brain) (01.1).Pre-morbidly, Pt. was ind ependent/mod-I in Sphincter Control, Transfers Control, Communication, Social Cognition, Self-Care, a nd Locomotion; and she had good Sphincter Control.Currently, she has deficits of Endurance, Safety Aw areness, Transfers Control, Communication, Social Cognition, Balance, Self-Care, and Locomotion.Pt. i s now referred to [facility] for acute in-patient rehabilitation in order to m aximize patient's functional independence in activities of daily living, strength, ROM, and mobility. - Rehab Goal Patient has realistic goal of being discharged at assistance level 6-Jonah to reside at Home with Fam remington/Relatives. MDM/PLAN: - Diet Type Continue Regular for Dementia, TBI, Stroke, or others - Diet - Liquid Texture Continue Regular - Physical Therapy Gait dysfunction - to improve, our physical therapists will perform initial evaluation of pt's statu s upon admission and devise an individualized program for Gait Training, and Wheel Chair mobility Inability to transfer - to improve, our physical therapists will perform initial evaluation of pt's status upon admission and devise an individualized program for Bed mobility Need for home safety evaluation - to improve, our physical therapists will perform initial evaluatio n of pt's status upon admission and devise an individualized program for Home Evaluation Need in caregiver upon discharge - to improve, our physical therapists will perform initial evaluati on of pt's status upon admission and devise an individualized program for Caregiver Training New precaution - to improve, our physical therapists will perform initial evaluation of pt's status upon admission and devise an individualized program for Patient precaution education Edema - to improve, our physical therapists will perform initial evaluation of pt's status upon admi ssion and devise an individualized program for Elevation Training, and Lymphedema Therapy Poor balance - to improve, our physical therapists will perform initial evaluation of pt's status up on admission and devise an individualized program for Balance Training Poor endurance - to improve, our physical therapists will perform initial evaluation of pt's status upon admission and devise an individualized program for Endurance Training Weakness - to improve, our physical therapists will perform initial evaluation of pt's status upon a dmission and devise an individualized program for Aquatic Therapy, Neuromuscular Reeducation, and Str engthening Achieving independence - to improve, our physical therapists will perform initial evaluation of pt's status upon admission and devise an individualized program for Community Reintegration Activities - Tube Feed Continue N/A - Lab Results blood Sugar Check ACHS - Bladder care per protocol - Weight Bearing Precaution WBAT left LE - Skin care per protocol - Diet - Solid Texture Continue Regular - Shower allowing shower - Occupational Therapy ADL deficits - to improve, our occupation therapists will perform initial evaluation of pt's status upon admission and devise an individualized program for Bathing, Bed mobility, Community Reintegratio n, Cooking, Dressing, Eating, Fine Motor Skills, Grooming, Homemaking, Kitchen Mobility, Laundry, Pat ient Education, Safety Awareness, Splinting - Positioning, Transfers(Toilet, Tub, Shower), and Wheel Chair Management Cognitive deficits - to improve, our occupation therapists will perform initial evaluation of pt's s tatus upon admission and devise an individualized program for Cognition - orientation Need for career representative - to improve, our occupation therapists will perform initial evaluation of pt's status upon admission and devise an individualized program for Caregiver Training Weakness - to improve, our occupation therapists will perform initial evaluation of pt's status upon admission and devise an individualized program for Aquatic Therapy, Balance, Endurance, UE ROM, and UE strengthening FUNCTIONAL STATUS: UPDATED AT WEEKLY TEAM CONFERENCE - Bladder Same accident frequency: 7-Ind - No accidents in the past 7 days - Bowel Same accident frequency: 7-Ind - No accidents in the past 7 days - Walking Same score based on distance walked: 1(<=50ft) FUNCTIONAL STATUS: - Self-Care A. Eating Tom B. Grooming modA C. Bathing modA D. Dressing - Upper modA E. Dressing - Lower modA F. Toileting modA - Sphincter Control G: Bladder control Ind H: Bowel control Ind - Transfers Control I. Bed/Chair/Wheelchair modA J. Toilet modA K. Tub/Shower modA - Locomotion L. Walk/Wheelchair (B) Dep M. Stairs ADNO - Communication N. Comprehension (B) Tom O. Expression (B) Tom - Social Cognition P. Social Interaction Tom Q. Problem Solving Tom R. Memory Tom - Endurance Poor - Balance Poor - Safety Awareness Poor CURRENT FUNC. DEFICITS: Endurance, Safety Awareness, Transfers Control, Communication, Social Cognition, Balance, Self-Care, and Locomotion SIGNATURE PANEL: (CDT)
[2017-12-26] MEDS: ATORVASTATIN 80 MG TAB PO SCH (20:00)
--- NOTE | 2017-12-27 03:00 | FAST ---
SHIFT START DATE/TIME: 12/26/2017 19:00 (CDT) SHIFT END DATE/TIME: 12/27/2017 07:00 (CDT) NAME IVETTE HODGES DATE OF : 1945 DATE OF ADMISSION: 12/14/2017 15:21 (CDT) PHONE: AGE: 72 N# [id number] GENDER: Female ENCOUNTER PHYSICIAN: Dr. Miki Delgado M.D. 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 EATING: Activity did not occur on this shift EATING - SCORE: 0-UNK GROOMING: Activity did not occur on this shift GROOMING - SCORE: 0-UNK BATHING: Activity did not occur on this shift BATHING - SCORE: 0-UNK DRESSING - UPPER BODY: Activity did not occur on this shift ARTICLES SCORE Total number of steps: 0 DRESSING - UPPER BODY - SCORE: 0-UNK DRESSING - LOWER BODY: Activity did not occur on this shift ARTICLES SCORE Total number of steps: 0 DRESSING - LOWER BODY - SCORE: 0-UNK TOILETING: TOILETING - STEP 1: Does the patient require assistance with toileting? Yes. TOILETING - STEP 2: Does the patient require the assistance of a helper? Yes. TOILETING - STEP 3: How much assistance does the patient require from the helper? Only supervision TOILETING - SCORE: 5-SUP BLADDER MANAGEMENT: BLADDER MANAGEMENT - STEP 1: Does the patient control the bladder completely and intentionally without equipment or devices or med ications, and is always continent? Yes. BLADDER MANAGEMENT - SCORE: 7-IND BLADDER MANAGEMENT - FREQUENCY OF ACCIDENTS: BLADDER MANAGEMENT(FA) - STEP 1: How many accidents has the patient had during the current shift? 0 BOWEL MANAGEMENT: BOWEL MANAGEMENT - STEP 1: Does the patient control bowels completely and intentionally without equipment devices or medications AND is always continent? Yes. BOWEL MANAGEMENT - SCORE: 7-IND BOWEL MANAGEMENT - FREQUENCY OF ACCIDENTS: BOWEL MANAGEMENT(FA) - STEP 1: How many accidents has the patient had during the current shift? 0 TRANSFERS: BED, CHAIR, WHEELCHAIR: TRANSFERS: BED, CHAIR, WHEELCHAIR - STEP 1: Does the patient require assistance with bed, chair, or wheelchair transfers? Yes. TRANSFERS: BED, CHAIR, WHEELCHAIR - STEP 2: Does the patient require the assistance of a helper? Yes. TRANSFERS: BED, CHAIR, WHEELCHAIR - STEP 3: How much assistance does the patient require from the helper? Lifting of the legs TRANSFERS: BED, CHAIR, WHEELCHAIR - STEP 4: How many legs does the patient require the helper to lift? both legs TRANSFERS: BED, CHAIR, WHEELCHAIR - SCORE: 3-MOD TRANSFERS: TOILET: TRANSFERS: TOILET - STEP 1: Does the patient require assistance with toilet transfers? Yes. TRANSFERS: TOILET - STEP 2: Does the patient require the assistance of a helper? Yes. TRANSFERS: TOILET - STEP 3: How much assistance does the patient require from the helper? Patient performs half or more of the tr ansferring tasks TRANSFERS: TOILET - STEP 4: Does the patient need only incidental help such as contact guard or steadying during toilet transfer? Yes. TRANSFERS: TOILET - SCORE: 4-MIN TRANSFERS: SHOWER: Activity did not occur on this shift TRANSFERS: SHOWER - SCORE: 0-UNK TRANSFERS: TUB: Activity did not occur on this shift TRANSFERS: TUB - SCORE: 0-UNK LOCOMOTION: WALK: Activity did not occur on this shift LOCOMOTION: WALK - SCORE: 0-UNK LOCOMOTION: WHEELCHAIR: Activity did not occur on this shift LOCOMOTION: WHEELCHAIR - SCORE: 0-UNK COMPREHENSION: COMPREHENSION: TYPE: Both COMPREHENSION - STEP 1: Does the patient require help to understand complex and abstract ideas (such as current events, finan clement, discharge planning, medical issues, relationships, etc)? Yes. COMPREHENSION - STEP 2: Does the patient require help to understand questions or statements about basic needs or ideas (such as hunger, thirst, sleep, safety, daily schedule, room location, or discomfort) half or more of the t tammy? Yes. COMPREHENSION - STEP 3: Is the patient basically able to understand and respond appropriately and consistently? Yes. COMPREHENSION - SCORE: 2-MAX EXPRESSION EXPRESSION - STEP 1: Does the patient require help expressing complex and abstract ideas (such as current events, finances , discharge planning, medical issues, relationships, etc)? Yes. EXPRESSION - STEP 2: Does the patient require help to express basic necessities or ideas (such as hunger, thirst, sleep, s afety, daily schedule, room location, or discomfort) half or more of the time? Yes. EXPRESSION - STEP 3: Is the patient basically unable to express or does s/he express inappropriately or inconsistently emmanuelle pite prompting? No. EXPRESSION - SCORE: 2-MAX SOCIAL INTERACTION: SOCIAL INTERACTION - STEP 1: Does the patient require a helper to interact with others in social and therapeutic situations? Yes. SOCIAL INTERACTION - STEP 2: Does the patient interact appropriately half or more of the time? Yes. SOCIAL INTERACTION - STEP 3: How often does the patient need help to interact appropriately? Less than 10% of the time SOCIAL INTERACTION - SCORE: 5-SUP PROBLEM SOLVING: PROBLEM SOLVING - STEP 1: Does the patient need help to solve complex problems such as managing a checking account or confronti ng interpersonal problems? Yes. PROBLEM SOLVING - STEP 2: Does the patient solve basic routine problems half or more of the time? Yes. PROBLEM SOLVING - STEP 3: How often does the patient need help to solve basic routine problems? Less than 10% of the time PROBLEM SOLVING - SCORE: 5-SUP MEMORY: MEMORY - STEP 1: Does the patient need help to remember frequently encountered people, daily routines, and executing r equests? Yes. MEMORY - STEP 2: How often does the patient need help to remember frequently encountered people, daily routines, and e xecuting requests? Less than 10% of the time MEMORY - SCORE: 5-SUP SIGNATURE PANEL: The following modified sections: Eating - Score, Grooming - Score, Bathing - Score, Dressing - Upper Body - Score, Dressing - Lower Body - Score, Toileting - Score, Bladder Management - Score, Bowel Man agement - Score, Transfers: Bed, Chair, Wheelchair - Score, Transfers: Shower - Score, Transfers: Tub - Score, Locomotion: Walk - Score, Locomotion: Wheelchair - Score, Comprehension - Score, Expression - Score, Social Interaction - Score, Problem Solving - Score, Memory - Score, Transfers: Toilet - Sc ore were [electronically] signed by Gauri Loredo on TueDec 27 2017 03:00:25 GMT-0500 (Central Day light Time)
[2017-12-27] MEDS: INSULIN -REGULAR HUMAN 50 UNIT/0.5 ML ML SQ SCH ×4 (07:30→20:09)
[2017-12-27] MEDS: GLUCERNA SHAKE 237 ML CAN PO SCH ×2 (07:48→20:26)
[2017-12-27] MEDS: PROMOD 30 ML DOSE PO SCH ×2 (07:49→20:25)
[2017-12-27] MEDS: glipiZIDE 5 MG TAB PO SCH ×2 (07:49→17:43)
[2017-12-27] MEDS: FE SULF/FA/VIT B COMP & C TAB PO SCH (07:49)
[2017-12-27] MEDS: FERROUS SULFATE 325 MG TAB PO SCH (07:49)
[2017-12-27] MEDS: APIXABAN 2.5 MG TABLET PO SCH ×2 (07:49→20:26)
[2017-12-27] MEDS: levETIRAcetam 500 MG TAB PO SCH ×2 (07:49→20:27)
[2017-12-27] MEDS: PANTOPRAZOLE 40MG TABLET PO SCH (07:49)
[2017-12-27] MEDS: CLOPIDOGREL 75 MG TABLET PO SCH (07:49)
[2017-12-27] MEDS: ASPIRIN EC 81 MG TAB PO SCH (07:49)
[2017-12-27] MEDS: METFORMIN HCL 500 MG TAB PO SCH ×2 (07:49→17:43)
[2017-12-27] MEDS: CARVEDILOL 6.25 MG TAB PO SCH ×2 (07:50→20:00)
[2017-12-27] MEDS: FUROSEMIDE 20 MG TABLET PO SCH (07:50)
--- NOTE | 2017-12-27 14:20 | FAST ---
SHIFT START DATE/TIME: 12/27/2017 07:00 (CDT) SHIFT END DATE/TIME: 12/27/2017 19:00 (CDT) NAME IVETTE HODGES DATE OF : 1945 DATE OF ADMISSION: 12/14/2017 15:21 (CDT) PHONE: AGE: 72 N# [id number] GENDER: Female ENCOUNTER PHYSICIAN: Dr. Miki Delgado M.D. 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 EATING: EATING - STEP 1: Does the patient require assistance when eating? Yes. EATING - STEP 2: Does the patient require the assistance of a helper? Yes. EATING - STEP 3: Does the patient perform half or more of the eating tasks? Yes. EATING - STEP 4: Does the patient need only supervision, cuing, coaxing OR help to apply an orthosis OR help to cut fo od, open containers, pour liquids, or butter bread? Yes. EATING - SCORE: 5-SUP GROOMING: Activity did not occur on this shift GROOMING - SCORE: 0-UNK BATHING: Activity did not occur on this shift BATHING - SCORE: 0-UNK DRESSING - UPPER BODY: Patient is not dressing in public clothing ARTICLES SCORE Total number of steps: 0 DRESSING - UPPER BODY - SCORE: 0-UNK DRESSING - LOWER BODY: Patient is not dressing in public clothing ARTICLES SCORE Total number of steps: 0 DRESSING - LOWER BODY - SCORE: 0-UNK TOILETING: TOILETING - STEP 1: Does the patient require assistance with toileting? Yes. TOILETING - STEP 2: Does the patient require the assistance of a helper? Yes. TOILETING - STEP 3: How much assistance does the patient require from the helper? Hands-on assistance from the helper TOILETING - STEP 4: Of the 3 tasks: 1) Adjusting clothing prior to use, 2) Cleansing of perineal area, 3) Adjusting clot willie after use; How many tasks does the patient perform WITHOUT assistance of the helper? Three tasks with steadying assistance from the helper TOILETING - SCORE: 4-MIN BLADDER MANAGEMENT: BLADDER MANAGEMENT - STEP 1: Does the patient control the bladder completely and intentionally without equipment or devices or med ications, and is always continent? No. BLADDER MANAGEMENT - STEP 2: Does the patient require the assistance of a helper? No, patient requires and independently uses an a ssistive device, such as a urinal, bedpan, bedside commode, catheter, absorbent pad, or collecting de vice BLADDER MANAGEMENT - SCORE: 6-SAYRA BOWEL MANAGEMENT: BOWEL MANAGEMENT - STEP 1: Does the patient control bowels completely and intentionally without equipment devices or medications AND is always continent? No. BOWEL MANAGEMENT - STEP 2: Does the patient require the assistance of a helper? No, patient requires and manages independently a n assistive device such as a bedpan, bedside commode, absorbent pad, incontinent device, or collectin g device BOWEL MANAGEMENT - SCORE: 6-SAYRA TRANSFERS: BED, CHAIR, WHEELCHAIR: TRANSFERS: BED, CHAIR, WHEELCHAIR - STEP 1: Does the patient require assistance with bed, chair, or wheelchair transfers? Yes. TRANSFERS: BED, CHAIR, WHEELCHAIR - STEP 2: Does the patient require the assistance of a helper? Yes. TRANSFERS: BED, CHAIR, WHEELCHAIR - STEP 3: How much assistance does the patient require from the helper? Steadying/guiding assistance TRANSFERS: BED, CHAIR, WHEELCHAIR - SCORE: 4-MIN TRANSFERS: TOILET: TRANSFERS: TOILET - STEP 1: Does the patient require assistance with toilet transfers? Yes. TRANSFERS: TOILET - STEP 2: Does the patient require the assistance of a helper? Yes. TRANSFERS: TOILET - STEP 3: How much assistance does the patient require from the helper? Patient performs half or more of the tr ansferring tasks TRANSFERS: TOILET - STEP 4: Does the patient need only incidental help such as contact guard or steadying during toilet transfer? Yes. TRANSFERS: TOILET - SCORE: 4-MIN TRANSFERS: SHOWER: Activity did not occur on this shift TRANSFERS: SHOWER - SCORE: 0-UNK TRANSFERS: TUB: Activity did not occur on this shift TRANSFERS: TUB - SCORE: 0-UNK LOCOMOTION: WALK: Activity did not occur on this shift LOCOMOTION: WALK - SCORE: 0-UNK LOCOMOTION: WHEELCHAIR: Activity did not occur on this shift LOCOMOTION: WHEELCHAIR - SCORE: 0-UNK COMPREHENSION: COMPREHENSION - SCORE: 0-UNK EXPRESSION EXPRESSION - SCORE: 0-UNK SOCIAL INTERACTION: SOCIAL INTERACTION - SCORE: 0-UNK PROBLEM SOLVING: PROBLEM SOLVING - SCORE: 0-UNK MEMORY: MEMORY - SCORE: 0-UNK SIGNATURE PANEL: The following modified sections: Eating - Score, Grooming - Score, Bathing - Score, Dressing - Upper Body - Score, Dressing - Lower Body - Score, Toileting - Score, Bladder Management - Score, Bowel Man agement - Score, Transfers: Bed, Chair, Wheelchair - Score, Transfers: Toilet - Score, Transfers: Nette wer - Score, Transfers: Tub - Score, Locomotion: Walk - Score, Locomotion: Wheelchair - Score, Compre hension - Score, Expression - Score, Social Interaction - Score, Problem Solving - Score, Memory - Sc ore were [electronically] signed by Jesus Krueger on TueDec 27 2017 14:19:31 GMT-0500 (Central Daylight Time)
--- NOTE | 2017-12-27 14:47 | FAST ---
ENCOUNTER DATE AND TIME: 12/27/2017 08:00 (CDT) NAME IVETTE HODGES DATE OF : 1945 DATE OF ADMISSION: 12/14/2017 15:21 (CDT) PHONE: AGE: 72 N# [id number] GENDER: Female ENCOUNTER PHYSICIAN: Dr. Miki Delgado M.D. 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 EATING: Activity did not occur on this shift EATING - SCORE: 0-UNK GROOMING: Activity did not occur on this shift GROOMING - SCORE: 0-UNK BATHING: Activity did not occur on this shift BATHING - SCORE: 0-UNK DRESSING - UPPER BODY: Activity did not occur on this shift Patient is not dressing in public clothing ARTICLES SCORE Total number of steps: 0 DRESSING - UPPER BODY - SCORE: 0-UNK DRESSING - LOWER BODY: Activity did not occur on this shift Patient is not dressing in public clothing ARTICLES SCORE Total number of steps: 0 DRESSING - LOWER BODY - SCORE: 0-UNK TOILETING: Activity did not occur on this shift TOILETING - SCORE: 0-UNK BLADDER MANAGEMENT: Activity did not occur on this shift BLADDER MANAGEMENT - SCORE: 7-IND BOWEL MANAGEMENT: Activity did not occur on this shift BOWEL MANAGEMENT - SCORE: 7-IND TRANSFERS: BED, CHAIR, WHEELCHAIR: TRANSFERS: BED, CHAIR, WHEELCHAIR - STEP 1: Does the patient require assistance with bed, chair, or wheelchair transfers? Yes. TRANSFERS: BED, CHAIR, WHEELCHAIR - STEP 2: Does the patient require the assistance of a helper? Yes. TRANSFERS: BED, CHAIR, WHEELCHAIR - STEP 3: How much assistance does the patient require from the helper? Only supervision TRANSFERS: BED, CHAIR, WHEELCHAIR - SCORE: 5-SUP TRANSFERS: TOILET: Activity did not occur on this shift TRANSFERS: TOILET - SCORE: 0-UNK TRANSFERS: SHOWER: Activity did not occur on this shift TRANSFERS: SHOWER - SCORE: 0-UNK TRANSFERS: TUB: Activity did not occur on this shift TRANSFERS: TUB - SCORE: 0-UNK LOCOMOTION: WALK: LOCOMOTION: WALK - STEP 1: Does the patient need help to walk 150 feet? Yes. LOCOMOTION: WALK - STEP 2: How much assistance does the patient require to walk a minimum of 150 feet? Only supervision, cuing, or coaxing LOCOMOTION: WALK - SCORE: 5-SUP LOCOMOTION: WHEELCHAIR: Activity did not occur on this shift LOCOMOTION: WHEELCHAIR - SCORE: 0-UNK LOCOMOTION: STAIRS: LOCOMOTION: STAIRS - STEP 1: Does the patient need help to go up and down 12 to 14 stairs? Yes. LOCOMOTION: STAIRS - STEP 2: How much assistance does the patient need from the helper to go a minimum of 12 to 14 stairs? Only george pervision, cuing, or coaxing LOCOMOTION: STAIRS - SCORE: 5-SUP COMPREHENSION: COMPREHENSION - SCORE: 0-UNK EXPRESSION EXPRESSION - SCORE: 0-UNK SOCIAL INTERACTION: SOCIAL INTERACTION - SCORE: 0-UNK PROBLEM SOLVING: PROBLEM SOLVING - SCORE: 0-UNK MEMORY: MEMORY - SCORE: 0-UNK SIGNATURE PANEL: The following modified sections: Transfers: Bed, Chair, Wheelchair - Score, Transfers: Toilet - Score , Locomotion: Walk - Score, Locomotion: Wheelchair - Score, Locomotion: Stairs - Score were [electron debbie] signed by Art Odom PTA on TueDec 27 2017 14:46:38 GMT-0500 (Central Daylight Time)
--- NOTE | 2017-12-27 20:24 | R.PN ---
ENCOUNTER DATE AND TIME: 12/27/2017 20:20 (CDT) NAME IVETTE HODGES DATE OF : 1945 DATE OF ADMISSION: 12/14/2017 15:21 (CDT) Cerebral infarction due to unspecified occlusion or stenosis of right middle cerebral artery (I63.511 )CHIEF COMPLAINT: Right MCA stroke with left face and arm weakness. SUBJECTIVE: Pt denied any Shortness of Breath. Pt denied any depression. Total assistance required for wheelchair mobility. Maximum assistance required for many activities o f daily living. No new complaint. Left arm proximal strength is improving slowly but distal hand movement is showing little improvement. VITAL SIGNS Temperature: 98 F SBP/DBP: 129/60 Pulse: 83 Resp: 14 Ambulated 375' with contact guard assistance using a right quad cane. Worked well with speech therapi st for swallowing and cognitive therapy. Up and down 15 steps with contact guard assistance using ri ght hand rails. MEDICATION ALLERGIES: No Known Drug Allergies (NKDA) ENVIRONMENTAL ALLERGIES: - Substance Allergies None Known - Other Allergies None Known NURSING: - Shower allowing shower - Lab Results blood Sugar Check ACHS - Bladder care per protocol - Skin care per protocol PRECAUTIONS: - Weight Bearing Precaution WBAT left LE ACTIVITIES OOB only with supervision THERAPIES: - Occupational Therapy Evaluate and Treat. Cognitive Retraining. Visual Perceptual Training. - Speech Therapy Memory Strategies. Expressive Language Skills. Speech Intelligibility Training. Cognitive Training. R eceptive Language Skills. - Physical Therapy Evaluate and Treat. PHYSICAL EXAM - Gen Alert and awake Lying in bed No apparent distress Oriented to: person, time, and place - Skin No skin breakdown. Normacephalic - Eyes No abnormalities - ENMT No abnormalities - Neck No abnormalities - CVS RRR - Chest No abnormalities - Abd Soft - GI nondistended Deferred - No abnormalities - Ext No significant edema - MSK 1/5 weakness in left upper and 4/5 weakness in left lower extremity. - Neuro 2/5 weakness in left face, 1/5 left arm and 4/5 left leg. - Psych No abnormalities ASSESSMENT: Pt. is a 72 yo Right-handed female of unknown race.On 12/06/2017 Pt. presented to [facility] sudden onset of left-side weakness.On 12/06/2017 she was admitted to [facility] with diagnos is Cerebral infarction due to unspecified occlusion or stenosis of right middle cerebral artery (I63. 511).Her impairment category is Stroke 01 - Left Body (Right Brain) (01.1).Pre-morbidly, Pt. was ind ependent/mod-I in Sphincter Control, Transfers Control, Communication, Social Cognition, Self-Care, a nd Locomotion; and she had good Sphincter Control.Currently, she has deficits of Endurance, Safety Aw areness, Transfers Control, Communication, Social Cognition, Balance, Self-Care, and Locomotion.PtErnie i s now referred to [facility] for acute in-patient rehabilitation in order to m aximize patient's functional independence in activities of daily living, strength, ROM, and mobility. - Rehab Goal Patient has realistic goal of being discharged at assistance level 6-Jonah to reside at Home with Fam remington/Relatives. MDM/PLAN: - Diet Type Continue Regular for Dementia, TBI, Stroke, or others - Diet - Liquid Texture Continue Regular - Physical Therapy Gait dysfunction - to improve, our physical therapists will perform initial evaluation of pt's statu s upon admission and devise an individualized program for Gait Training, and Wheel Chair mobility Inability to transfer - to improve, our physical therapists will perform initial evaluation of pt's status upon admission and devise an individualized program for Bed mobility Need for home safety evaluation - to improve, our physical therapists will perform initial evaluatio n of pt's status upon admission and devise an individualized program for Home Evaluation Need in caregiver upon discharge - to improve, our physical therapists will perform initial evaluati on of pt's status upon admission and devise an individualized program for Caregiver Training New precaution - to improve, our physical therapists will perform initial evaluation of pt's status upon admission and devise an individualized program for Patient precaution education Edema - to improve, our physical therapists will perform initial evaluation of pt's status upon admi ssion and devise an individualized program for Elevation Training, and Lymphedema Therapy Poor balance - to improve, our physical therapists will perform initial evaluation of pt's status up on admission and devise an individualized program for Balance Training Poor endurance - to improve, our physical therapists will perform initial evaluation of pt's status upon admission and devise an individualized program for Endurance Training Weakness - to improve, our physical therapists will perform initial evaluation of pt's status upon a dmission and devise an individualized program for Aquatic Therapy, Neuromuscular Reeducation, and Str engthening Achieving independence - to improve, our physical therapists will perform initial evaluation of pt's status upon admission and devise an individualized program for Community Reintegration Activities - Tube Feed Continue N/A - Lab Results blood Sugar Check ACHS - Bladder care per protocol - Weight Bearing Precaution WBAT left LE - Skin care per protocol - Diet - Solid Texture Continue Regular - Shower allowing shower - Occupational Therapy ADL deficits - to improve, our occupation therapists will perform initial evaluation of pt's status upon admission and devise an individualized program for Bathing, Bed mobility, Community Reintegratio n, Cooking, Dressing, Eating, Fine Motor Skills, Grooming, Homemaking, Kitchen Mobility, Laundry, Pat ient Education, Safety Awareness, Splinting - Positioning, Transfers(Toilet, Tub, Shower), and Wheel Chair Management Cognitive deficits - to improve, our occupation therapists will perform initial evaluation of pt's s tatus upon admission and devise an individualized program for Cognition - orientation Need for care connector - to improve, our occupation therapists will perform initial evaluation of pt's status upon admission and devise an individualized program for Caregiver Training Weakness - to improve, our occupation therapists will perform initial evaluation of pt's status upon admission and devise an individualized program for Aquatic Therapy, Balance, Endurance, UE ROM, and UE strengthening FUNCTIONAL STATUS: UPDATED AT WEEKLY TEAM CONFERENCE - Bladder Same accident frequency: 7-Ind - No accidents in the past 7 days - Bowel Same accident frequency: 7-Ind - No accidents in the past 7 days - Walking Same score based on distance walked: 1(<=50ft) FUNCTIONAL STATUS: - Self-Care A. Eating Tom B. Grooming modA C. Bathing modA D. Dressing - Upper modA E. Dressing - Lower modA F. Toileting modA - Sphincter Control G: Bladder control Ind H: Bowel control Ind - Transfers Control I. Bed/Chair/Wheelchair modA J. Toilet modA K. Tub/Shower modA - Locomotion L. Walk/Wheelchair (B) Dep M. Stairs ADNO - Communication N. Comprehension (B) Tom O. Expression (B) Tom - Social Cognition P. Social Interaction Tom Q. Problem Solving Tom R. Memory Tom - Endurance Poor - Balance Poor - Safety Awareness Poor CURRENT FUNC. DEFICITS: Endurance, Safety Awareness, Transfers Control, Communication, Social Cognition, Balance, Self-Care, and Locomotion SIGNATURE PANEL: (CDT)
[2017-12-27] MEDS: ATORVASTATIN 80 MG TAB PO SCH (20:26)
--- NOTE | 2017-12-28 02:31 | FAST ---
SHIFT START DATE/TIME: 12/27/2017 19:00 (CDT) SHIFT END DATE/TIME: 12/28/2017 07:00 (CDT) NAME IVETTE HODGES DATE OF : 1945 DATE OF ADMISSION: 12/14/2017 15:21 (CDT) PHONE: AGE: 72 N# [id number] GENDER: Female ENCOUNTER PHYSICIAN: Dr. Miki Delgado M.D. 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 EATING: Activity did not occur on this shift EATING - SCORE: 0-UNK GROOMING: Oral care Wash, rinse, and dry hands GROOMING - STEP 1: Does the patient require assistance when grooming? Yes. GROOMING - STEP 2: Does the patient require the assistance of a helper? Yes. GROOMING - STEP 3: How much assistance does the patient require from the helper? Steadying assistance from the helper GROOMING - SCORE: 4-MIN BATHING: Activity did not occur on this shift BATHING - SCORE: 0-UNK DRESSING - UPPER BODY: Activity did not occur on this shift ARTICLES SCORE Total number of steps: 0 DRESSING - UPPER BODY - SCORE: 0-UNK DRESSING - LOWER BODY: Activity did not occur on this shift ARTICLES SCORE Total number of steps: 0 DRESSING - LOWER BODY - SCORE: 0-UNK TOILETING: TOILETING - STEP 1: Does the patient require assistance with toileting? Yes. TOILETING - STEP 2: Does the patient require the assistance of a helper? Yes. TOILETING - STEP 3: How much assistance does the patient require from the helper? Hands-on assistance from the helper TOILETING - STEP 4: Of the 3 tasks: 1) Adjusting clothing prior to use, 2) Cleansing of perineal area, 3) Adjusting clot willie after use; How many tasks does the patient perform WITHOUT assistance of the helper? Three tasks with steadying assistance from the helper TOILETING - SCORE: 4-MIN BLADDER MANAGEMENT: BLADDER MANAGEMENT - STEP 1: Does the patient control the bladder completely and intentionally without equipment or devices or med ications, and is always continent? No. BLADDER MANAGEMENT - STEP 2: Does the patient require the assistance of a helper? Yes. BLADDER MANAGEMENT - STEP 3: How much assistance does the patient require from the helper? Only set-up of equipment - such as plac ing it within reach of the patient or emptying a device - to maintain either satisfactory voiding pat tern or managing an external device, such as an absorbent pad, ileal device, or catheter BLADDER MANAGEMENT - SCORE: 5-SUP BOWEL MANAGEMENT: BOWEL MANAGEMENT - STEP 1: Does the patient control bowels completely and intentionally without equipment devices or medications AND is always continent? No. BOWEL MANAGEMENT - STEP 2: Does the patient require the assistance of a helper? Yes. BOWEL MANAGEMENT - STEP 3: How much assistance does the patient require from the helper? Patient requires supervision, stand by, cueing, coaxing, or setup of equipment - placing within reach of patient and emptying device / bedpa nd or BSC bucket - to maintain either satisfactory bowel pattern or managing an external device such as an absorbent pad, colostomy bag / ileostomy bag BOWEL MANAGEMENT - SCORE: 5-SUP TRANSFERS: BED, CHAIR, WHEELCHAIR: TRANSFERS: BED, CHAIR, WHEELCHAIR - STEP 1: Does the patient require assistance with bed, chair, or wheelchair transfers? Yes. TRANSFERS: BED, CHAIR, WHEELCHAIR - STEP 2: Does the patient require the assistance of a helper? Yes. TRANSFERS: BED, CHAIR, WHEELCHAIR - STEP 3: How much assistance does the patient require from the helper? Steadying/guiding assistance TRANSFERS: BED, CHAIR, WHEELCHAIR - SCORE: 4-MIN TRANSFERS: TOILET: TRANSFERS: TOILET - STEP 1: Does the patient require assistance with toilet transfers? Yes. TRANSFERS: TOILET - STEP 2: Does the patient require the assistance of a helper? Yes. TRANSFERS: TOILET - STEP 3: How much assistance does the patient require from the helper? Only supervision, cuing, coaxing, OR he lp to set out transfer equipment or to lock brakes and/or lift foot rests TRANSFERS: TOILET - SCORE: 5-SUP TRANSFERS: SHOWER: Activity did not occur on this shift TRANSFERS: SHOWER - SCORE: 0-UNK TRANSFERS: TUB: Activity did not occur on this shift TRANSFERS: TUB - SCORE: 0-UNK LOCOMOTION: WALK: Activity did not occur on this shift LOCOMOTION: WALK - SCORE: 0-UNK LOCOMOTION: WHEELCHAIR: Activity did not occur on this shift LOCOMOTION: WHEELCHAIR - SCORE: 0-UNK COMPREHENSION: COMPREHENSION - STEP 1: Does the patient require help to understand complex and abstract ideas (such as current events, finan clement, discharge planning, medical issues, relationships, etc)? No. COMPREHENSION - STEP 2: Does the patient need extra time, require an assistive device (such as glasses, hearing aids, or an a ugmentative communication system), OR does s/he have mild difficulty expressing complex and abstract ideas (including mild dysarthria or mild word-finding problems)? Yes. COMPREHENSION - SCORE: 6-SAYRA EXPRESSION EXPRESSION - STEP 1: Does the patient require help expressing complex and abstract ideas (such as current events, finances , discharge planning, medical issues, relationships, etc)? No. EXPRESSION - STEP 2: Does the patient need extra time, require an assistive device (such as augmentive communication syste m or a communication board), OR does s/he have mild difficulty expressing complex and abstract ideas (including mild dysarthria or mild word-find problems)? Yes. EXPRESSION - SCORE: 6-SAYRA SOCIAL INTERACTION: SOCIAL INTERACTION - STEP 1: Does the patient require a helper to interact with others in social and therapeutic situations? No. SOCIAL INTERACTION - STEP 2: Does the patient need extra time in social situations, OR does s/he interact with staff, other patien ts, and family members ONLY in structured environments, OR does s/he require medication for social in teraction? No. SOCIAL INTERACTION - SCORE: 7-IND PROBLEM SOLVING: PROBLEM SOLVING - STEP 1: Does the patient need help to solve complex problems such as managing a checking account or confronti ng interpersonal problems? No. PROBLEM SOLVING - STEP 2: Does the patient require extra time to make decisions or solve problems, OR does s/he have slight dif ficulty reading, initiating, or self-correcting in unfamiliar situations? Yes, patient needs extra ti me. PROBLEM SOLVING - SCORE: 6-SAYRA MEMORY: MEMORY - STEP 1: Does the patient need help to remember frequently encountered people, daily routines, and executing r equests? No. MEMORY - STEP 2: Does the patient have slight difficulty recognizing frequently encountered people, daily routines, or executing requests without the need for repetition or using self-initiated or environmental cues to remember? Yes. MEMORY - SCORE: 6-SAYRA SIGNATURE PANEL: The following modified sections: Eating - Score, Grooming - Score, Bathing - Score, Dressing - Upper Body - Score, Dressing - Lower Body - Score, Toileting - Score, Bladder Management - Score, Bowel Man agement - Score, Transfers: Bed, Chair, Wheelchair - Score, Transfers: Toilet - Score, Transfers: Nette wer - Score, Transfers: Tub - Score, Locomotion: Walk - Score, Locomotion: Wheelchair - Score, Compre hension - Score, Expression - Score, Social Interaction - Score, Problem Solving - Score, Memory - Sc ore were [electronically] signed by Oma Long RN on TueDec 28 2017 02:30:48 T-0500 (formerly [facility] Time)
[2017-12-28] MEDS: INSULIN -REGULAR HUMAN 50 UNIT/0.5 ML ML SQ SCH ×4 (07:30→20:17)
[2017-12-28] MEDS: PROMOD 30 ML DOSE PO SCH ×2 (08:00→20:17)
[2017-12-28] MEDS: levETIRAcetam 500 MG TAB PO SCH ×2 (08:32→20:16)
[2017-12-28] MEDS: METFORMIN HCL 500 MG TAB PO SCH ×2 (08:32→17:16)
[2017-12-28] MEDS: CLOPIDOGREL 75 MG TABLET PO SCH (08:32)
[2017-12-28] MEDS: PANTOPRAZOLE 40MG TABLET PO SCH (08:32)
[2017-12-28] MEDS: FERROUS SULFATE 325 MG TAB PO SCH (08:32)
[2017-12-28] MEDS: FUROSEMIDE 20 MG TABLET PO SCH (08:33)
[2017-12-28] MEDS: CARVEDILOL 6.25 MG TAB PO SCH ×2 (08:34→20:00)
[2017-12-28] MEDS: ASPIRIN EC 81 MG TAB PO SCH (08:34)
[2017-12-28] MEDS: FE SULF/FA/VIT B COMP & C TAB PO SCH (08:34)
[2017-12-28] MEDS: glipiZIDE 5 MG TAB PO SCH ×2 (08:34→17:16)
[2017-12-28] MEDS: APIXABAN 2.5 MG TABLET PO SCH ×2 (08:34→20:17)
[2017-12-28] MEDS: GLUCERNA SHAKE 237 ML CAN PO SCH ×2 (08:34→20:17)
--- NOTE | 2017-12-28 09:27 | FAST ---
SHIFT START DATE/TIME: 12/28/2017 07:00 (CDT) SHIFT END DATE/TIME: 12/28/2017 19:00 (CDT) NAME IVETTE HODGES DATE OF : 1945 DATE OF ADMISSION: 12/14/2017 15:21 (CDT) PHONE: AGE: 72 N# [id number] GENDER: Female ENCOUNTER PHYSICIAN: Dr. Miki Delgado M.D. 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 EATING: EATING - STEP 1: Does the patient require assistance when eating? Yes. EATING - STEP 2: Does the patient require the assistance of a helper? No, patient only requires an assistive device, O R s/he takes more than reasonable time to eat, OR there is a safety concern, OR s/he requires modifie d food consistency EATING - SCORE: 6-SAYRA GROOMING: Oral care Wash, rinse, and dry face Wash, rinse, and dry hands GROOMING - STEP 1: Does the patient require assistance when grooming? No. GROOMING - SCORE: 7-IND BATHING: Activity did not occur on this shift BATHING - SCORE: 0-UNK DRESSING - UPPER BODY: Activity did not occur on this shift ARTICLES SCORE Total number of steps: 0 DRESSING - UPPER BODY - SCORE: 0-UNK DRESSING - LOWER BODY: Activity did not occur on this shift ARTICLES SCORE Total number of steps: 0 DRESSING - LOWER BODY - SCORE: 0-UNK TOILETING: TOILETING - STEP 1: Does the patient require assistance with toileting? No. TOILETING - SCORE: 7-IND BLADDER MANAGEMENT: BLADDER MANAGEMENT - STEP 1: Does the patient control the bladder completely and intentionally without equipment or devices or med ications, and is always continent? Yes. BLADDER MANAGEMENT - SCORE: 7-IND BLADDER MANAGEMENT - FREQUENCY OF ACCIDENTS: BLADDER MANAGEMENT(FA) - STEP 1: How many accidents has the patient had during the current shift? 0 BOWEL MANAGEMENT: BOWEL MANAGEMENT - STEP 1: Does the patient control bowels completely and intentionally without equipment devices or medications AND is always continent? Yes. BOWEL MANAGEMENT - SCORE: 7-IND BOWEL MANAGEMENT - FREQUENCY OF ACCIDENTS: BOWEL MANAGEMENT(FA) - STEP 1: How many accidents has the patient had during the current shift? 0 TRANSFERS: BED, CHAIR, WHEELCHAIR: TRANSFERS: BED, CHAIR, WHEELCHAIR - STEP 1: Does the patient require assistance with bed, chair, or wheelchair transfers? Yes. TRANSFERS: BED, CHAIR, WHEELCHAIR - STEP 2: Does the patient require the assistance of a helper? Yes. TRANSFERS: BED, CHAIR, WHEELCHAIR - STEP 3: How much assistance does the patient require from the helper? Steadying/guiding assistance TRANSFERS: BED, CHAIR, WHEELCHAIR - SCORE: 4-MIN TRANSFERS: TOILET: TRANSFERS: TOILET - STEP 1: Does the patient require assistance with toilet transfers? Yes. TRANSFERS: TOILET - STEP 2: Does the patient require the assistance of a helper? Yes. TRANSFERS: TOILET - STEP 3: How much assistance does the patient require from the helper? Only supervision, cuing, coaxing, OR he lp to set out transfer equipment or to lock brakes and/or lift foot rests TRANSFERS: TOILET - SCORE: 5-SUP TRANSFERS: SHOWER: Activity did not occur on this shift TRANSFERS: SHOWER - SCORE: 0-UNK TRANSFERS: TUB: Activity did not occur on this shift TRANSFERS: TUB - SCORE: 0-UNK LOCOMOTION: WALK: Activity did not occur on this shift LOCOMOTION: WALK - SCORE: 0-UNK LOCOMOTION: WHEELCHAIR: Activity did not occur on this shift LOCOMOTION: WHEELCHAIR - SCORE: 0-UNK COMPREHENSION: COMPREHENSION - SCORE: 0-UNK EXPRESSION EXPRESSION - SCORE: 0-UNK SOCIAL INTERACTION: SOCIAL INTERACTION - SCORE: 0-UNK PROBLEM SOLVING: PROBLEM SOLVING - SCORE: 0-UNK MEMORY: MEMORY - SCORE: 0-UNK SIGNATURE PANEL: The following modified sections: Eating - Score, Grooming - Score, Bathing - Score, Dressing - Upper Body - Score, Dressing - Lower Body - Score, Toileting - Score, Bladder Management - Score, Bowel Man agement - Score, Transfers: Bed, Chair, Wheelchair - Score, Transfers: Toilet - Score, Transfers: Nette wer - Score, Transfers: Tub - Score, Locomotion: Walk - Score, Locomotion: Wheelchair - Score, Compre hension - Score, Expression - Score, Social Interaction - Score, Problem Solving - Score, Memory - Sc ore were [electronically] signed by Na Kirk CNA on TueDec 28 2017 09:26:17 [facility]-0500 ([facility] Time)
--- NOTE | 2017-12-28 15:01 | FAST ---
ENCOUNTER DATE AND TIME: 12/28/2017 08:00 (CDT) NAME IVETTE HODGES DATE OF : 1945 DATE OF ADMISSION: 12/14/2017 15:21 (CDT) PHONE: AGE: 72 N# [id number] GENDER: Female ENCOUNTER PHYSICIAN: Dr. Miki Delgado M.D. 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 EATING: Activity did not occur on this shift EATING - SCORE: 0-UNK GROOMING: Activity did not occur on this shift GROOMING - SCORE: 0-UNK BATHING: Activity did not occur on this shift BATHING - SCORE: 0-UNK DRESSING - UPPER BODY: Activity did not occur on this shift Patient is not dressing in public clothing ARTICLES SCORE Total number of steps: 0 DRESSING - UPPER BODY - SCORE: 0-UNK DRESSING - LOWER BODY: Activity did not occur on this shift Patient is not dressing in public clothing ARTICLES SCORE Total number of steps: 0 DRESSING - LOWER BODY - SCORE: 0-UNK TOILETING: Activity did not occur on this shift TOILETING - SCORE: 0-UNK BLADDER MANAGEMENT: Activity did not occur on this shift BLADDER MANAGEMENT - SCORE: 7-IND BOWEL MANAGEMENT: Activity did not occur on this shift BOWEL MANAGEMENT - SCORE: 7-IND TRANSFERS: BED, CHAIR, WHEELCHAIR: TRANSFERS: BED, CHAIR, WHEELCHAIR - STEP 1: Does the patient require assistance with bed, chair, or wheelchair transfers? Yes. TRANSFERS: BED, CHAIR, WHEELCHAIR - STEP 2: Does the patient require the assistance of a helper? Yes. TRANSFERS: BED, CHAIR, WHEELCHAIR - STEP 3: How much assistance does the patient require from the helper? Only supervision TRANSFERS: BED, CHAIR, WHEELCHAIR - SCORE: 5-SUP TRANSFERS: TOILET: Activity did not occur on this shift TRANSFERS: TOILET - SCORE: 0-UNK TRANSFERS: SHOWER: Activity did not occur on this shift TRANSFERS: SHOWER - SCORE: 0-UNK TRANSFERS: TUB: Activity did not occur on this shift TRANSFERS: TUB - SCORE: 0-UNK LOCOMOTION: WALK: LOCOMOTION: WALK - STEP 1: Does the patient need help to walk 150 feet? Yes. LOCOMOTION: WALK - STEP 2: How much assistance does the patient require to walk a minimum of 150 feet? Only supervision, cuing, or coaxing LOCOMOTION: WALK - SCORE: 5-SUP LOCOMOTION: WHEELCHAIR: Activity did not occur on this shift LOCOMOTION: WHEELCHAIR - SCORE: 0-UNK LOCOMOTION: STAIRS: LOCOMOTION: STAIRS - STEP 1: Does the patient need help to go up and down 12 to 14 stairs? Yes. LOCOMOTION: STAIRS - STEP 2: How much assistance does the patient need from the helper to go a minimum of 12 to 14 stairs? Only george pervision, cuing, or coaxing LOCOMOTION: STAIRS - SCORE: 5-SUP COMPREHENSION: COMPREHENSION - SCORE: 0-UNK EXPRESSION EXPRESSION - SCORE: 0-UNK SOCIAL INTERACTION: SOCIAL INTERACTION - SCORE: 0-UNK PROBLEM SOLVING: PROBLEM SOLVING - SCORE: 0-UNK MEMORY: MEMORY - SCORE: 0-UNK SIGNATURE PANEL: The following modified sections: Transfers: Bed, Chair, Wheelchair - Score, Transfers: Toilet - Score , Locomotion: Walk - Score, Locomotion: Wheelchair - Score, Locomotion: Stairs - Score were [electron debbie] signed by Art Odom PTA on TueDec 28 2017 15:00:14 GMT-0500 (Central Daylight Time)
--- NOTE | 2017-12-28 15:45 | FAST ---
ENCOUNTER DATE AND TIME: 12/28/2017 08:00 (CDT) NAME IVETTE HODGES DATE OF : 1945 DATE OF ADMISSION: 12/14/2017 15:21 (CDT) PHONE: AGE: 72 N# [id number] GENDER: Female ENCOUNTER PHYSICIAN: Dr. Miki Delgado M.D. 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 EATING: Activity did not occur on this shift EATING - SCORE: 0-UNK GROOMING: Comb/brush hair Wash, rinse, and dry face Wash, rinse, and dry hands GROOMING - STEP 1: Does the patient require assistance when grooming? No. GROOMING - SCORE: 7-IND BATHING: Abdomen Buttocks Chest Left arm Left lower leg and foot Left upper leg Perineal area Right arm Right lower leg and foot Right upper leg BATHING - STEP 1: Does the patient require assistance when bathing? Yes. BATHING - STEP 2: Does the patient require the assistance of a helper? Yes. BATHING - STEP 3: How much assistance does the patient require from the helper? Only supervision, cuing, coaxing, instr uctions, encouragement BATHING - SCORE: 5-SUP DRESSING - UPPER BODY: T-shirt/pullover shirt (four steps) ARTICLES SCORE Total number of steps: 4 DRESSING - UPPER BODY - STEP 1: Does the patient require help when dressing above the waist? Yes. DRESSING - UPPER BODY - STEP 2: Does the patient require the assistance of a helper? Yes. DRESSING - UPPER BODY - STEP 3: Does the helper touch the patient while dressing? No. DRESSING - UPPER BODY - SCORE: 5-SUP DRESSING - LOWER BODY: Elastic waist pants (three steps) Slip-on shoe - Right foot (one step) Sock - Left foot (one step) Sock - Right foot (one step) Underwear (three steps) ARTICLES SCORE Total number of steps: 9 DRESSING - LOWER BODY - STEP 1: Does the patient require help when dressing below the waist? Yes. DRESSING - LOWER BODY - STEP 2: Does the patient require the assistance of a helper? Yes. DRESSING - LOWER BODY - STEP 3: Does the helper touch the patient while dressing? No. DRESSING - LOWER BODY - SCORE: 5-SUP TOILETING: Activity did not occur on this shift TOILETING - SCORE: 0-UNK BLADDER MANAGEMENT: Activity did not occur on this shift BLADDER MANAGEMENT - SCORE: 7-IND BOWEL MANAGEMENT: Activity did not occur on this shift BOWEL MANAGEMENT - SCORE: 7-IND TRANSFERS: BED, CHAIR, WHEELCHAIR: Activity did not occur on this shift TRANSFERS: BED, CHAIR, WHEELCHAIR - SCORE: 0-UNK TRANSFERS: TOILET: Activity did not occur on this shift TRANSFERS: TOILET - SCORE: 0-UNK TRANSFERS: SHOWER: Activity did not occur on this shift TRANSFERS: SHOWER - SCORE: 0-UNK TRANSFERS: TUB: TRANSFERS: TUB - STEP 1: Does the patient require assistance with tub transfers? Yes. TRANSFERS: TUB - STEP 2: Does the patient require the assistance of a helper? Yes. TRANSFERS: TUB - STEP 3: How much assistance does the patient require from the helper? Only supervision, cuing, coaxing, or he lp to set out transfer equipment or to lock brakes and/or lift foot rests TRANSFERS: TUB - SCORE: 5-SUP LOCOMOTION: WALK: Activity did not occur on this shift LOCOMOTION: WALK - SCORE: 0-UNK LOCOMOTION: WHEELCHAIR: Activity did not occur on this shift LOCOMOTION: WHEELCHAIR - SCORE: 0-UNK LOCOMOTION: STAIRS: Activity did not occur on this shift LOCOMOTION: STAIRS - SCORE: 0-UNK COMPREHENSION: COMPREHENSION: TYPE: Both COMPREHENSION - STEP 1: Does the patient require help to understand complex and abstract ideas (such as current events, finan clement, discharge planning, medical issues, relationships, etc)? Yes. COMPREHENSION - STEP 2: Does the patient require help to understand questions or statements about basic needs or ideas (such as hunger, thirst, sleep, safety, daily schedule, room location, or discomfort) half or more of the t tammy? No. COMPREHENSION - STEP 3: How often does the patient need help to understand directions and conversation about basic needs? Les s than 10% of the time COMPREHENSION - SCORE: 5-SUP EXPRESSION EXPRESSION: TYPE: Both EXPRESSION - STEP 1: Does the patient require help expressing complex and abstract ideas (such as current events, finances , discharge planning, medical issues, relationships, etc)? Yes. EXPRESSION - STEP 2: Does the patient require help to express basic necessities or ideas (such as hunger, thirst, sleep, s afety, daily schedule, room location, or discomfort) half or more of the time? No. EXPRESSION - STEP 3: How often does the patient need help to express directions and conversation about basic needs? Less t richard 10% of the time EXPRESSION - SCORE: 5-SUP SOCIAL INTERACTION: SOCIAL INTERACTION - STEP 1: Does the patient require a helper to interact with others in social and therapeutic situations? No. SOCIAL INTERACTION - STEP 2: Does the patient need extra time in social situations, OR does s/he interact with staff, other patien ts, and family members ONLY in structured environments, OR does s/he require medication for social in teraction? Yes, patient needs extra time SOCIAL INTERACTION - SCORE: 6-SAYRA PROBLEM SOLVING: PROBLEM SOLVING - STEP 1: Does the patient need help to solve complex problems such as managing a checking account or confronti ng interpersonal problems? Yes. PROBLEM SOLVING - STEP 2: Does the patient solve basic routine problems half or more of the time? Yes. PROBLEM SOLVING - STEP 3: How often does the patient need help to solve basic routine problems? 25%-49% of the time PROBLEM SOLVING - SCORE: 3-MOD MEMORY: MEMORY - STEP 1: Does the patient need help to remember frequently encountered people, daily routines, and executing r equests? Yes. MEMORY - STEP 2: How often does the patient need help to remember frequently encountered people, daily routines, and e xecuting requests? 10% - 24% of the time MEMORY - SCORE: 4-MIN SIGNATURE PANEL: The following modified sections: Eating - Score, Grooming - Score, Bathing - Score, Dressing - Upper Body - Score, Dressing - Lower Body - Score, Toileting - Score, Transfers: Bed, Chair, Wheelchair - S core, Transfers: Toilet - Score, Transfers: Shower - Score, Transfers: Tub - Score, Comprehension - S core, Expression - Score, Social Interaction - Score, Problem Solving - Score, Memory - Score were [e lectronically] signed by Meaghan Salomon OT on TueDec 28 2017 15:45:27 GMT-0500 (Central Daylight T tammy)
[2017-12-28] MEDS: ATORVASTATIN 80 MG TAB PO SCH (20:16)
--- NOTE | 2017-12-28 21:24 | R.PN ---
ENCOUNTER DATE AND TIME: 12/28/2017 21:20 (CDT) NAME IVETTE HODGES DATE OF : 1945 DATE OF ADMISSION: 12/14/2017 15:21 (CDT) Cerebral infarction due to unspecified occlusion or stenosis of right middle cerebral artery (I63.511 )CHIEF COMPLAINT: Right MCA stroke with left face and arm weakness. SUBJECTIVE: Pt denied any Shortness of Breath. Pt denied any depression. Total assistance required for wheelchair mobility. Maximum assistance required for many activities o f daily living. No new complaint. Left arm proximal strength is improving slowly but distal hand movement is showing little improvement. VITAL SIGNS Temperature: 98 F SBP/DBP: 112/58 Pulse: 72 Resp: 14 Ambulated 250' with standby assistance using a right quad cane. Worked well with speech therapist for swallowing and cognitive therapy. Up and down 15 steps with standby assistance using right hand israel ls. MEDICATION ALLERGIES: No Known Drug Allergies (NKDA) ENVIRONMENTAL ALLERGIES: - Substance Allergies None Known - Other Allergies None Known NURSING: - Shower allowing shower - Lab Results blood Sugar Check ACHS - Bladder care per protocol - Skin care per protocol PRECAUTIONS: - Weight Bearing Precaution WBAT left LE ACTIVITIES OOB only with supervision THERAPIES: - Occupational Therapy Evaluate and Treat. Cognitive Retraining. Visual Perceptual Training. - Speech Therapy Memory Strategies. Expressive Language Skills. Speech Intelligibility Training. Cognitive Training. R eceptive Language Skills. - Physical Therapy Evaluate and Treat. PHYSICAL EXAM - Gen Alert and awake Lying in bed No apparent distress Oriented to: person, time, and place - Skin No skin breakdown. Normacephalic - Eyes No abnormalities - ENMT No abnormalities - Neck No abnormalities - CVS RRR - Chest No abnormalities - Abd Soft - GI nondistended Deferred - No abnormalities - Ext No significant edema - MSK 1/5 weakness in left upper and 4/5 weakness in left lower extremity. - Neuro 2/5 weakness in left face, 1/5 left arm and 4/5 left leg. - Psych No abnormalities ASSESSMENT: Pt. is a 72 yo Right-handed female of unknown race.On 12/06/2017 Pt. presented to [facility] sudden onset of left-side weakness.On 12/06/2017 she was admitted to [facility] with diagnos is Cerebral infarction due to unspecified occlusion or stenosis of right middle cerebral artery (I63. 511).Her impairment category is Stroke 01 - Left Body (Right Brain) (01.1).Pre-morbidly, Pt. was ind ependent/mod-I in Sphincter Control, Transfers Control, Communication, Social Cognition, Self-Care, a nd Locomotion; and she had good Sphincter Control.Currently, she has deficits of Endurance, Safety Aw areness, Transfers Control, Communication, Social Cognition, Balance, Self-Care, and Locomotion.Pt. i s now referred to [facility] for acute in-patient rehabilitation in order to m aximize patient's functional independence in activities of daily living, strength, ROM, and mobility. - Rehab Goal Patient has realistic goal of being discharged at assistance level 6-Jonah to reside at Home with Fam remington/Relatives. MDM/PLAN: - Diet Type Continue Regular for Dementia, TBI, Stroke, or others - Diet - Liquid Texture Continue Regular - Physical Therapy Gait dysfunction - to improve, our physical therapists will perform initial evaluation of pt's statu s upon admission and devise an individualized program for Gait Training, and Wheel Chair mobility Inability to transfer - to improve, our physical therapists will perform initial evaluation of pt's status upon admission and devise an individualized program for Bed mobility Need for home safety evaluation - to improve, our physical therapists will perform initial evaluatio n of pt's status upon admission and devise an individualized program for Home Evaluation Need in caregiver upon discharge - to improve, our physical therapists will perform initial evaluati on of pt's status upon admission and devise an individualized program for Caregiver Training New precaution - to improve, our physical therapists will perform initial evaluation of pt's status upon admission and devise an individualized program for Patient precaution education Edema - to improve, our physical therapists will perform initial evaluation of pt's status upon admi ssion and devise an individualized program for Elevation Training, and Lymphedema Therapy Poor balance - to improve, our physical therapists will perform initial evaluation of pt's status up on admission and devise an individualized program for Balance Training Poor endurance - to improve, our physical therapists will perform initial evaluation of pt's status upon admission and devise an individualized program for Endurance Training Weakness - to improve, our physical therapists will perform initial evaluation of pt's status upon a dmission and devise an individualized program for Aquatic Therapy, Neuromuscular Reeducation, and Str engthening Achieving independence - to improve, our physical therapists will perform initial evaluation of pt's status upon admission and devise an individualized program for Community Reintegration Activities - Tube Feed Continue N/A - Lab Results blood Sugar Check ACHS - Bladder care per protocol - Weight Bearing Precaution WBAT left LE - Skin care per protocol - Diet - Solid Texture Continue Regular - Shower allowing shower - Occupational Therapy ADL deficits - to improve, our occupation therapists will perform initial evaluation of pt's status upon admission and devise an individualized program for Bathing, Bed mobility, Community Reintegratio n, Cooking, Dressing, Eating, Fine Motor Skills, Grooming, Homemaking, Kitchen Mobility, Laundry, Pat ient Education, Safety Awareness, Splinting - Positioning, Transfers(Toilet, Tub, Shower), and Wheel Chair Management Cognitive deficits - to improve, our occupation therapists will perform initial evaluation of pt's s tatus upon admission and devise an individualized program for Cognition - orientation Need for physician assistant primary care - to improve, our occupation therapists will perform initial evaluation of pt's status upon admission and devise an individualized program for Caregiver Training Weakness - to improve, our occupation therapists will perform initial evaluation of pt's status upon admission and devise an individualized program for Aquatic Therapy, Balance, Endurance, UE ROM, and UE strengthening FUNCTIONAL STATUS: UPDATED AT WEEKLY TEAM CONFERENCE - Bladder Same accident frequency: 7-Ind - No accidents in the past 7 days - Bowel Same accident frequency: 7-Ind - No accidents in the past 7 days - Walking Same score based on distance walked: 1(<=50ft) FUNCTIONAL STATUS: - Self-Care A. Eating Tom B. Grooming modA C. Bathing modA D. Dressing - Upper modA E. Dressing - Lower modA F. Toileting modA - Sphincter Control G: Bladder control Ind H: Bowel control Ind - Transfers Control I. Bed/Chair/Wheelchair modA J. Toilet modA K. Tub/Shower modA - Locomotion L. Walk/Wheelchair (B) Dep M. Stairs ADNO - Communication N. Comprehension (B) Tom O. Expression (B) Tom - Social Cognition P. Social Interaction Tom Q. Problem Solving Tom R. Memory Tom - Endurance Poor - Balance Poor - Safety Awareness Poor CURRENT FUNC. DEFICITS: Endurance, Safety Awareness, Transfers Control, Communication, Social Cognition, Balance, Self-Care, and Locomotion SIGNATURE PANEL: (CDT)
--- NOTE | 2017-12-29 02:24 | FAST ---
SHIFT START DATE/TIME: 12/28/2017 19:00 (CDT) SHIFT END DATE/TIME: 12/29/2017 07:00 (CDT) NAME IVETTE HODGES DATE OF : 1945 DATE OF ADMISSION: 12/14/2017 15:21 (CDT) PHONE: AGE: 72 N# [id number] GENDER: Female ENCOUNTER PHYSICIAN: Dr. Miki Delgado M.D. 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 EATING: Activity did not occur on this shift EATING - SCORE: 0-UNK GROOMING: Oral care Wash, rinse, and dry face Wash, rinse, and dry hands GROOMING - STEP 1: Does the patient require assistance when grooming? Yes. GROOMING - STEP 2: Does the patient require the assistance of a helper? Yes. GROOMING - STEP 3: How much assistance does the patient require from the helper? Incidental touching assistance from the helper while grooming GROOMING - SCORE: 4-MIN BATHING: Activity did not occur on this shift BATHING - SCORE: 0-UNK DRESSING - UPPER BODY: Patient is not dressing in public clothing ARTICLES SCORE Total number of steps: 0 DRESSING - UPPER BODY - SCORE: 0-UNK DRESSING - LOWER BODY: Patient is not dressing in public clothing ARTICLES SCORE Total number of steps: 0 DRESSING - LOWER BODY - SCORE: 0-UNK TOILETING: TOILETING - STEP 1: Does the patient require assistance with toileting? Yes. TOILETING - STEP 2: Does the patient require the assistance of a helper? Yes. TOILETING - STEP 3: How much assistance does the patient require from the helper? Hands-on assistance from the helper TOILETING - STEP 4: Of the 3 tasks: 1) Adjusting clothing prior to use, 2) Cleansing of perineal area, 3) Adjusting clot willie after use; How many tasks does the patient perform WITHOUT assistance of the helper? Three tasks with steadying assistance from the helper TOILETING - SCORE: 4-MIN BLADDER MANAGEMENT: BLADDER MANAGEMENT - STEP 1: Does the patient control the bladder completely and intentionally without equipment or devices or med ications, and is always continent? No. BLADDER MANAGEMENT - STEP 2: Does the patient require the assistance of a helper? Yes. BLADDER MANAGEMENT - STEP 3: How much assistance does the patient require from the helper? Only set-up of equipment - such as plac ing it within reach of the patient or emptying a device - to maintain either satisfactory voiding pat tern or managing an external device, such as an absorbent pad, ileal device, or catheter BLADDER MANAGEMENT - SCORE: 5-SUP BOWEL MANAGEMENT: BOWEL MANAGEMENT - STEP 1: Does the patient control bowels completely and intentionally without equipment devices or medications AND is always continent? No. BOWEL MANAGEMENT - STEP 2: Does the patient require the assistance of a helper? No, patient requires medication for control such as stool softeners, suppositories, laxatives, enemas, or OTC medications BOWEL MANAGEMENT - SCORE: 6-SAYRA TRANSFERS: BED, CHAIR, WHEELCHAIR: TRANSFERS: BED, CHAIR, WHEELCHAIR - STEP 1: Does the patient require assistance with bed, chair, or wheelchair transfers? Yes. TRANSFERS: BED, CHAIR, WHEELCHAIR - STEP 2: Does the patient require the assistance of a helper? Yes. TRANSFERS: BED, CHAIR, WHEELCHAIR - STEP 3: How much assistance does the patient require from the helper? Lifting of the legs TRANSFERS: BED, CHAIR, WHEELCHAIR - STEP 4: How many legs does the patient require the helper to lift? both legs TRANSFERS: BED, CHAIR, WHEELCHAIR - SCORE: 3-MOD TRANSFERS: TOILET: TRANSFERS: TOILET - STEP 1: Does the patient require assistance with toilet transfers? Yes. TRANSFERS: TOILET - STEP 2: Does the patient require the assistance of a helper? Yes. TRANSFERS: TOILET - STEP 3: How much assistance does the patient require from the helper? Patient performs half or more of the tr ansferring tasks TRANSFERS: TOILET - STEP 4: Does the patient need only incidental help such as contact guard or steadying during toilet transfer? Yes. TRANSFERS: TOILET - SCORE: 4-MIN TRANSFERS: SHOWER: Activity did not occur on this shift TRANSFERS: SHOWER - SCORE: 0-UNK TRANSFERS: TUB: Activity did not occur on this shift TRANSFERS: TUB - SCORE: 0-UNK LOCOMOTION: WALK: Activity did not occur on this shift LOCOMOTION: WALK - SCORE: 0-UNK LOCOMOTION: WHEELCHAIR: Activity did not occur on this shift LOCOMOTION: WHEELCHAIR - SCORE: 0-UNK COMPREHENSION: COMPREHENSION - STEP 1: Does the patient require help to understand complex and abstract ideas (such as current events, finan clement, discharge planning, medical issues, relationships, etc)? Yes. COMPREHENSION - STEP 2: Does the patient require help to understand questions or statements about basic needs or ideas (such as hunger, thirst, sleep, safety, daily schedule, room location, or discomfort) half or more of the t tammy? No. COMPREHENSION - STEP 3: How often does the patient need help to understand directions and conversation about basic needs? 10% - 24% of the time COMPREHENSION - SCORE: 4-MIN EXPRESSION EXPRESSION - STEP 1: Does the patient require help expressing complex and abstract ideas (such as current events, finances , discharge planning, medical issues, relationships, etc)? Yes. EXPRESSION - STEP 2: Does the patient require help to express basic necessities or ideas (such as hunger, thirst, sleep, s afety, daily schedule, room location, or discomfort) half or more of the time? No. EXPRESSION - STEP 3: How often does the patient need help to express directions and conversation about basic needs? 10-24% of the time EXPRESSION - SCORE: 4-MIN SOCIAL INTERACTION: SOCIAL INTERACTION - STEP 1: Does the patient require a helper to interact with others in social and therapeutic situations? No. SOCIAL INTERACTION - STEP 2: Does the patient need extra time in social situations, OR does s/he interact with staff, other patien ts, and family members ONLY in structured environments, OR does s/he require medication for social in teraction? Yes, patient needs extra time SOCIAL INTERACTION - SCORE: 6-SAYRA PROBLEM SOLVING: PROBLEM SOLVING - STEP 1: Does the patient need help to solve complex problems such as managing a checking account or confronti ng interpersonal problems? Yes. PROBLEM SOLVING - STEP 2: Does the patient solve basic routine problems half or more of the time? Yes. PROBLEM SOLVING - STEP 3: How often does the patient need help to solve basic routine problems? 10%-24% of the time PROBLEM SOLVING - SCORE: 4-MIN MEMORY: MEMORY - STEP 1: Does the patient need help to remember frequently encountered people, daily routines, and executing r equests? No. MEMORY - STEP 2: Does the patient have slight difficulty recognizing frequently encountered people, daily routines, or executing requests without the need for repetition or using self-initiated or environmental cues to remember? Yes. MEMORY - SCORE: 6-SAYRA SIGNATURE PANEL: The following modified sections: Eating - Score, Grooming - Score, Dressing - Upper Body - Score, Cheikh ssing - Lower Body - Score, Toileting - Score, Bladder Management - Score, Bowel Management - Score, Transfers: Bed, Chair, Wheelchair - Score, Transfers: Toilet - Score, Transfers: Shower - Score, Mercado sfers: Tub - Score, Locomotion: Walk - Score, Locomotion: Wheelchair - Score, Comprehension - Score, Expression - Score, Social Interaction - Score, Problem Solving - Score, Memory - Score were [electro nically] signed by Tonia Cruz CNA on TueDec 29 2017 02:24:05 T-0500 (Central Daylight Time)
[2017-12-29 06:30] LABS: Absolute Monocytes 0.8 K/uL (0.1-1.3); Absolute Neutrophil 3.6 K/uL (1.8-8.0); Basophils % 1.2 % (0-1.3); Hematocrit 34.7 % (36.0-45.0); Lymphocytes % 29.8 % (15.3-44.8); MCH 30.9 pg (27.0-35.0); MCV 90.3 fL (80-100); MPV 9.3 fL (7.6-11.3); Monocytes % 12.3 % (3.3-12.3); RBC Red Blood Cell Count 3.84 M/uL (3.86-4.86)
[2017-12-29 06:50] LABS: Albumin 3.5 g/dL (3.4-5.0); Potassium 4.1 mmol/L (3.5-5.1); Prealbumin 22.5 mg/dL (20-40)
[2017-12-29] MEDS: INSULIN -REGULAR HUMAN 50 UNIT/0.5 ML ML SQ SCH ×4 (07:30→20:11)
[2017-12-29] MEDS: PROMOD 30 ML DOSE PO SCH ×2 (08:00→20:04)
[2017-12-29] MEDS: FERROUS SULFATE 325 MG TAB PO SCH (08:18)
[2017-12-29] MEDS: FE SULF/FA/VIT B COMP & C TAB PO SCH (08:18)
[2017-12-29] MEDS: PANTOPRAZOLE 40MG TABLET PO SCH (08:18)
[2017-12-29] MEDS: APIXABAN 2.5 MG TABLET PO SCH ×2 (08:18→20:04)
[2017-12-29] MEDS: ASPIRIN EC 81 MG TAB PO SCH (08:18)
[2017-12-29] MEDS: CARVEDILOL 6.25 MG TAB PO SCH ×2 (08:18→20:03)
[2017-12-29] MEDS: levETIRAcetam 500 MG TAB PO SCH ×2 (08:19→20:04)
[2017-12-29] MEDS: FUROSEMIDE 20 MG TABLET PO SCH (08:19)
[2017-12-29] MEDS: glipiZIDE 5 MG TAB PO SCH ×2 (08:19→17:23)
[2017-12-29] MEDS: CLOPIDOGREL 75 MG TABLET PO SCH (08:20)
[2017-12-29] MEDS: GLUCERNA SHAKE 237 ML CAN PO SCH ×2 (08:20→20:04)
[2017-12-29] MEDS: METFORMIN HCL 500 MG TAB PO SCH ×2 (08:20→17:23)
--- NOTE | 2017-12-29 10:26 | RAD REPORT ---
EXAM DESCRIPTION: RAD - Barium Swallow Modified - 12/29/2017 10:06 am CLINICAL HISTORY: Difficulty swallowing COMPARISON: None. TECHNIQUE: The patient was given liquid, semi-solid and solid forms of barium. Lateral view fluorosc opic imaging was performed in conjunction with speech pathology service. FINDINGS: No aspiration or laryngeal penetration observed. There was residual contrast at the base t he tongue extending into the valleculae and piriform sinuses. Solid barium tablet remained in the manjeet lecula and required additional water for clearance. Decreased primary esophageal peristalsis noted. A total of 24 cine loop acquisitions obtained. Fluoro time was 3 minutes 21 seconds. IMPRESSION: No aspiration or laryngeal penetration. Contrast pooling was seen as well as decreased primary peristalsis and limited ability for swallowing solid barium tablet.
--- NOTE | 2017-12-29 14:36 | FAST ---
ENCOUNTER DATE AND TIME: 12/29/2017 08:00 (CDT) NAME IVETTE HODGES DATE OF : 1945 DATE OF ADMISSION: 12/14/2017 15:21 (CDT) PHONE: AGE: 72 N# [id number] GENDER: Female ENCOUNTER PHYSICIAN: Dr. Miki Delgado M.D. 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 EATING: Activity did not occur on this shift EATING - SCORE: 0-UNK GROOMING: Activity did not occur on this shift GROOMING - SCORE: 0-UNK BATHING: Activity did not occur on this shift BATHING - SCORE: 0-UNK DRESSING - UPPER BODY: Activity did not occur on this shift Patient is not dressing in public clothing ARTICLES SCORE Total number of steps: 0 DRESSING - UPPER BODY - SCORE: 0-UNK DRESSING - LOWER BODY: Activity did not occur on this shift Patient is not dressing in public clothing ARTICLES SCORE Total number of steps: 0 DRESSING - LOWER BODY - SCORE: 0-UNK TOILETING: Activity did not occur on this shift TOILETING - SCORE: 0-UNK BLADDER MANAGEMENT: Activity did not occur on this shift BLADDER MANAGEMENT - SCORE: 7-IND BOWEL MANAGEMENT: Activity did not occur on this shift BOWEL MANAGEMENT - SCORE: 7-IND TRANSFERS: BED, CHAIR, WHEELCHAIR: TRANSFERS: BED, CHAIR, WHEELCHAIR - STEP 1: Does the patient require assistance with bed, chair, or wheelchair transfers? Yes. TRANSFERS: BED, CHAIR, WHEELCHAIR - STEP 2: Does the patient require the assistance of a helper? Yes. TRANSFERS: BED, CHAIR, WHEELCHAIR - STEP 3: How much assistance does the patient require from the helper? Only supervision TRANSFERS: BED, CHAIR, WHEELCHAIR - SCORE: 5-SUP TRANSFERS: TOILET: Activity did not occur on this shift TRANSFERS: TOILET - SCORE: 0-UNK TRANSFERS: SHOWER: Activity did not occur on this shift TRANSFERS: SHOWER - SCORE: 0-UNK TRANSFERS: TUB: Activity did not occur on this shift TRANSFERS: TUB - SCORE: 0-UNK LOCOMOTION: WALK: LOCOMOTION: WALK - STEP 1: Does the patient need help to walk 150 feet? Yes. LOCOMOTION: WALK - STEP 2: How much assistance does the patient require to walk a minimum of 150 feet? Only supervision, cuing, or coaxing LOCOMOTION: WALK - SCORE: 5-SUP LOCOMOTION: WHEELCHAIR: Activity did not occur on this shift LOCOMOTION: WHEELCHAIR - SCORE: 0-UNK LOCOMOTION: STAIRS: LOCOMOTION: STAIRS - STEP 1: Does the patient need help to go up and down 12 to 14 stairs? Yes. LOCOMOTION: STAIRS - STEP 2: How much assistance does the patient need from the helper to go a minimum of 12 to 14 stairs? Only george pervision, cuing, or coaxing LOCOMOTION: STAIRS - SCORE: 5-SUP COMPREHENSION: COMPREHENSION - SCORE: 0-UNK EXPRESSION EXPRESSION - SCORE: 0-UNK SOCIAL INTERACTION: SOCIAL INTERACTION - SCORE: 0-UNK PROBLEM SOLVING: PROBLEM SOLVING - SCORE: 0-UNK MEMORY: MEMORY - SCORE: 0-UNK SIGNATURE PANEL: The following modified sections: Transfers: Bed, Chair, Wheelchair - Score, Transfers: Toilet - Score , Locomotion: Walk - Score, Locomotion: Wheelchair - Score, Locomotion: Stairs - Score were [electron debbie] signed by Art Odom PTA on TueDec 29 2017 14:35:35 GMT-0500 (Central Daylight Time)
--- NOTE | 2017-12-29 14:52 | FAST ---
SHIFT START DATE/TIME: 12/29/2017 07:00 (CDT) SHIFT END DATE/TIME: 12/29/2017 19:00 (CDT) NAME IVETTE HODGES DATE OF : 1945 DATE OF ADMISSION: 12/14/2017 15:21 (CDT) PHONE: AGE: 72 N# [id number] GENDER: Female ENCOUNTER PHYSICIAN: Dr. Miki Delgado M.D. 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 EATING: EATING - STEP 1: Does the patient require assistance when eating? Yes. EATING - STEP 2: Does the patient require the assistance of a helper? No, patient only requires an assistive device, O R s/he takes more than reasonable time to eat, OR there is a safety concern, OR s/he requires modifie d food consistency EATING - SCORE: 6-SAYRA GROOMING: Oral care Wash, rinse, and dry face Wash, rinse, and dry hands GROOMING - STEP 1: Does the patient require assistance when grooming? No. GROOMING - SCORE: 7-IND BATHING: Activity did not occur on this shift BATHING - SCORE: 0-UNK DRESSING - UPPER BODY: Activity did not occur on this shift ARTICLES SCORE Total number of steps: 0 DRESSING - UPPER BODY - SCORE: 0-UNK DRESSING - LOWER BODY: Activity did not occur on this shift ARTICLES SCORE Total number of steps: 0 DRESSING - LOWER BODY - SCORE: 0-UNK TOILETING: TOILETING - STEP 1: Does the patient require assistance with toileting? Yes. TOILETING - STEP 2: Does the patient require the assistance of a helper? No. TOILETING - SCORE: 6-SAYRA BLADDER MANAGEMENT: BLADDER MANAGEMENT - STEP 1: Does the patient control the bladder completely and intentionally without equipment or devices or med ications, and is always continent? Yes. BLADDER MANAGEMENT - SCORE: 7-IND BLADDER MANAGEMENT - FREQUENCY OF ACCIDENTS: BLADDER MANAGEMENT(FA) - STEP 1: How many accidents has the patient had during the current shift? 0 BOWEL MANAGEMENT: BOWEL MANAGEMENT - STEP 1: Does the patient control bowels completely and intentionally without equipment devices or medications AND is always continent? Yes. BOWEL MANAGEMENT - SCORE: 7-IND BOWEL MANAGEMENT - FREQUENCY OF ACCIDENTS: BOWEL MANAGEMENT(FA) - STEP 1: How many accidents has the patient had during the current shift? 0 TRANSFERS: BED, CHAIR, WHEELCHAIR: TRANSFERS: BED, CHAIR, WHEELCHAIR - STEP 1: Does the patient require assistance with bed, chair, or wheelchair transfers? Yes. TRANSFERS: BED, CHAIR, WHEELCHAIR - STEP 2: Does the patient require the assistance of a helper? Yes. TRANSFERS: BED, CHAIR, WHEELCHAIR - STEP 3: How much assistance does the patient require from the helper? Steadying/guiding assistance TRANSFERS: BED, CHAIR, WHEELCHAIR - SCORE: 4-MIN TRANSFERS: TOILET: TRANSFERS: TOILET - STEP 1: Does the patient require assistance with toilet transfers? Yes. TRANSFERS: TOILET - STEP 2: Does the patient require the assistance of a helper? No. Patient only requires an assistive device george ch as a grab bar or special seat, OR s/he takes more than reasonable time to perform toilet transfers , OR there is a safety concern when s/he performs toilet transfers. TRANSFERS: TOILET - SCORE: 6-SAYRA TRANSFERS: SHOWER: Activity did not occur on this shift TRANSFERS: SHOWER - SCORE: 0-UNK TRANSFERS: TUB: Activity did not occur on this shift TRANSFERS: TUB - SCORE: 0-UNK LOCOMOTION: WALK: Activity did not occur on this shift LOCOMOTION: WALK - SCORE: 0-UNK LOCOMOTION: WHEELCHAIR: Activity did not occur on this shift LOCOMOTION: WHEELCHAIR - SCORE: 0-UNK COMPREHENSION: COMPREHENSION - SCORE: 0-UNK EXPRESSION EXPRESSION - SCORE: 0-UNK SOCIAL INTERACTION: SOCIAL INTERACTION - SCORE: 0-UNK PROBLEM SOLVING: PROBLEM SOLVING - SCORE: 0-UNK MEMORY: MEMORY - SCORE: 0-UNK SIGNATURE PANEL: The following modified sections: Eating - Score, Grooming - Score, Bathing - Score, Dressing - Upper Body - Score, Dressing - Lower Body - Score, Toileting - Score, Bladder Management - Score, Bowel Man agement - Score, Transfers: Bed, Chair, Wheelchair - Score, Transfers: Toilet - Score, Transfers: Nette wer - Score, Transfers: Tub - Score, Locomotion: Walk - Score, Locomotion: Wheelchair - Score, Compre hension - Score, Expression - Score, Social Interaction - Score, Problem Solving - Score, Memory - Sc ore were [electronically] signed by Na Kirk CNA on TueDec 29 2017 14:51:51 T-0500 (Centra l Daylight Time)
--- NOTE | 2017-12-29 16:49 | R.PN ---
ENCOUNTER DATE AND TIME: 12/29/2017 16:44 (CDT) NAME IVETTE HODGES DATE OF : 1945 DATE OF ADMISSION: 12/14/2017 15:21 (CDT) Cerebral infarction due to unspecified occlusion or stenosis of right middle cerebral artery (I63.511 )CHIEF COMPLAINT: Right MCA stroke with left face and arm weakness. SUBJECTIVE: Pt denied any Shortness of Breath. Pt denied any depression. Improved left facial movement. She passed her modified barium swallow study for all consistencies. No new complaint. Left arm proximal strength is improving slowly but distal hand movement is showing li ttle improvement. VITAL SIGNS Temperature: 98 F SBP/DBP: 120/58 Pulse: 72 Resp: 14 Ambulated 500' with standby assistance using a right quad cane. Worked well with speech therapist for swallowing and cognitive therapy. Up and down 15 steps with standby assistance using right hand israel ls. MEDICATION ALLERGIES: No Known Drug Allergies (NKDA) ENVIRONMENTAL ALLERGIES: - Substance Allergies None Known - Other Allergies None Known NURSING: - Shower allowing shower - Lab Results blood Sugar Check ACHS - Bladder care per protocol - Skin care per protocol PRECAUTIONS: - Weight Bearing Precaution WBAT left LE ACTIVITIES OOB only with supervision THERAPIES: - Occupational Therapy Evaluate and Treat. Cognitive Retraining. Visual Perceptual Training. - Speech Therapy Memory Strategies. Expressive Language Skills. Speech Intelligibility Training. Cognitive Training. R eceptive Language Skills. - Physical Therapy Evaluate and Treat. PHYSICAL EXAM - Gen Alert and awake Lying in bed No apparent distress Oriented to: person, time, and place - Skin No skin breakdown. Normacephalic - Eyes No abnormalities - ENMT No abnormalities - Neck No abnormalities - CVS RRR - Chest No abnormalities - Abd Soft - GI nondistended Deferred - No abnormalities - Ext No significant edema - MSK 1/5 weakness in left upper and 4/5 weakness in left lower extremity. - Neuro 2/5 weakness in left face, 1/5 left arm and 4/5 left leg. - Psych No abnormalities ASSESSMENT: Pt. is a 72 yo Right-handed female of unknown race.On 12/06/2017 Pt. presented to [facility] sudden onset of left-side weakness.On 12/06/2017 she was admitted to [facility] with diagnos is Cerebral infarction due to unspecified occlusion or stenosis of right middle cerebral artery (I63. 511).Her impairment category is Stroke 01 - Left Body (Right Brain) (01.1).Pre-morbidly, Pt. was ind ependent/mod-I in Sphincter Control, Transfers Control, Communication, Social Cognition, Self-Care, a nd Locomotion; and she had good Sphincter Control.Currently, she has deficits of Endurance, Safety Aw areness, Transfers Control, Communication, Social Cognition, Balance, Self-Care, and Locomotion.Pt. i s now referred to [facility] for acute in-patient rehabilitation in order to m aximize patient's functional independence in activities of daily living, strength, ROM, and mobility. - Rehab Goal Patient has realistic goal of being discharged at assistance level 6-Jonah to reside at Home with Fam remington/Relatives. MDM/PLAN: - Diet Type Continue Regular for Dementia, TBI, Stroke, or others - Diet - Liquid Texture Continue Regular - Physical Therapy Gait dysfunction - to improve, our physical therapists will perform initial evaluation of pt's statu s upon admission and devise an individualized program for Gait Training, and Wheel Chair mobility Inability to transfer - to improve, our physical therapists will perform initial evaluation of pt's status upon admission and devise an individualized program for Bed mobility Need for home safety evaluation - to improve, our physical therapists will perform initial evaluatio n of pt's status upon admission and devise an individualized program for Home Evaluation Need in caregiver upon discharge - to improve, our physical therapists will perform initial evaluati on of pt's status upon admission and devise an individualized program for Caregiver Training New precaution - to improve, our physical therapists will perform initial evaluation of pt's status upon admission and devise an individualized program for Patient precaution education Edema - to improve, our physical therapists will perform initial evaluation of pt's status upon admi ssion and devise an individualized program for Elevation Training, and Lymphedema Therapy Poor balance - to improve, our physical therapists will perform initial evaluation of pt's status up on admission and devise an individualized program for Balance Training Poor endurance - to improve, our physical therapists will perform initial evaluation of pt's status upon admission and devise an individualized program for Endurance Training Weakness - to improve, our physical therapists will perform initial evaluation of pt's status upon a dmission and devise an individualized program for Aquatic Therapy, Neuromuscular Reeducation, and Str engthening Achieving independence - to improve, our physical therapists will perform initial evaluation of pt's status upon admission and devise an individualized program for Community Reintegration Activities - Tube Feed Continue N/A - Lab Results blood Sugar Check ACHS - Bladder care per protocol - Weight Bearing Precaution WBAT left LE - Skin care per protocol - Diet - Solid Texture Continue Regular - Shower allowing shower - Occupational Therapy ADL deficits - to improve, our occupation therapists will perform initial evaluation of pt's status upon admission and devise an individualized program for Bathing, Bed mobility, Community Reintegratio n, Cooking, Dressing, Eating, Fine Motor Skills, Grooming, Homemaking, Kitchen Mobility, Laundry, Pat ient Education, Safety Awareness, Splinting - Positioning, Transfers(Toilet, Tub, Shower), and Wheel Chair Management Cognitive deficits - to improve, our occupation therapists will perform initial evaluation of pt's s tatus upon admission and devise an individualized program for Cognition - orientation Need for laboratory animal caretaker - to improve, our occupation therapists will perform initial evaluation of pt's status upon admission and devise an individualized program for Caregiver Training Weakness - to improve, our occupation therapists will perform initial evaluation of pt's status upon admission and devise an individualized program for Aquatic Therapy, Balance, Endurance, UE ROM, and UE strengthening FUNCTIONAL STATUS: UPDATED AT WEEKLY TEAM CONFERENCE - Bladder Same accident frequency: 7-Ind - No accidents in the past 7 days - Bowel Same accident frequency: 7-Ind - No accidents in the past 7 days - Walking Same score based on distance walked: 1(<=50ft) FUNCTIONAL STATUS: - Self-Care A. Eating Tom B. Grooming modA C. Bathing modA D. Dressing - Upper modA E. Dressing - Lower modA F. Toileting modA - Sphincter Control G: Bladder control Ind H: Bowel control Ind - Transfers Control I. Bed/Chair/Wheelchair modA J. Toilet modA K. Tub/Shower modA - Locomotion L. Walk/Wheelchair (B) Dep M. Stairs ADNO - Communication N. Comprehension (B) Tom O. Expression (B) Tom - Social Cognition P. Social Interaction Tom Q. Problem Solving Tom R. Memory Tom - Endurance Poor - Balance Poor - Safety Awareness Poor CURRENT FUNC. DEFICITS: Endurance, Safety Awareness, Transfers Control, Communication, Social Cognition, Balance, Self-Care, and Locomotion SIGNATURE PANEL: (CDT)
[2017-12-29] MEDS: ATORVASTATIN 80 MG TAB PO SCH (20:04)
--- NOTE | 2017-12-30 02:38 | FAST ---
SHIFT START DATE/TIME: 12/29/2017 19:00 (CDT) SHIFT END DATE/TIME: 12/30/2017 07:00 (CDT) NAME IVETTE HODGES DATE OF : 1945 DATE OF ADMISSION: 12/14/2017 15:21 (CDT) PHONE: AGE: 72 N# [id number] GENDER: Female ENCOUNTER PHYSICIAN: Dr. Miki Delgado M.D. 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 EATING: Activity did not occur on this shift EATING - SCORE: 0-UNK GROOMING: Oral care Wash, rinse, and dry face Wash, rinse, and dry hands GROOMING - STEP 1: Does the patient require assistance when grooming? Yes. GROOMING - STEP 2: Does the patient require the assistance of a helper? Yes. GROOMING - STEP 3: How much assistance does the patient require from the helper? Only prior equipment preparation/set up from the helper GROOMING - SCORE: 5-SUP BATHING: Activity did not occur on this shift BATHING - SCORE: 0-UNK DRESSING - UPPER BODY: Patient is not dressing in public clothing ARTICLES SCORE Total number of steps: 0 DRESSING - UPPER BODY - SCORE: 0-UNK DRESSING - LOWER BODY: Patient is not dressing in public clothing ARTICLES SCORE Total number of steps: 0 DRESSING - LOWER BODY - SCORE: 0-UNK TOILETING: TOILETING - STEP 1: Does the patient require assistance with toileting? Yes. TOILETING - STEP 2: Does the patient require the assistance of a helper? Yes. TOILETING - STEP 3: How much assistance does the patient require from the helper? Hands-on assistance from the helper TOILETING - STEP 4: Of the 3 tasks: 1) Adjusting clothing prior to use, 2) Cleansing of perineal area, 3) Adjusting clot willie after use; How many tasks does the patient perform WITHOUT assistance of the helper? Three tasks with steadying assistance from the helper TOILETING - SCORE: 4-MIN BLADDER MANAGEMENT: BLADDER MANAGEMENT - STEP 1: Does the patient control the bladder completely and intentionally without equipment or devices or med ications, and is always continent? No. BLADDER MANAGEMENT - STEP 2: Does the patient require the assistance of a helper? Yes. BLADDER MANAGEMENT - STEP 3: How much assistance does the patient require from the helper? Only supervision, stand-by, cuing, or c oaxing BLADDER MANAGEMENT - SCORE: 5-SUP BOWEL MANAGEMENT: Activity did not occur on this shift BOWEL MANAGEMENT - SCORE: 7-IND TRANSFERS: BED, CHAIR, WHEELCHAIR: TRANSFERS: BED, CHAIR, WHEELCHAIR - STEP 1: Does the patient require assistance with bed, chair, or wheelchair transfers? Yes. TRANSFERS: BED, CHAIR, WHEELCHAIR - STEP 2: Does the patient require the assistance of a helper? Yes. TRANSFERS: BED, CHAIR, WHEELCHAIR - STEP 3: How much assistance does the patient require from the helper? Steadying/guiding assistance TRANSFERS: BED, CHAIR, WHEELCHAIR - SCORE: 4-MIN TRANSFERS: TOILET: TRANSFERS: TOILET - STEP 1: Does the patient require assistance with toilet transfers? Yes. TRANSFERS: TOILET - STEP 2: Does the patient require the assistance of a helper? Yes. TRANSFERS: TOILET - STEP 3: How much assistance does the patient require from the helper? Only supervision, cuing, coaxing, OR he lp to set out transfer equipment or to lock brakes and/or lift foot rests TRANSFERS: TOILET - SCORE: 5-SUP TRANSFERS: SHOWER: Activity did not occur on this shift TRANSFERS: SHOWER - SCORE: 0-UNK TRANSFERS: TUB: Activity did not occur on this shift TRANSFERS: TUB - SCORE: 0-UNK LOCOMOTION: WALK: Activity did not occur on this shift LOCOMOTION: WALK - SCORE: 0-UNK LOCOMOTION: WHEELCHAIR: Activity did not occur on this shift LOCOMOTION: WHEELCHAIR - SCORE: 0-UNK COMPREHENSION: COMPREHENSION - STEP 1: Does the patient require help to understand complex and abstract ideas (such as current events, finan clement, discharge planning, medical issues, relationships, etc)? Yes. COMPREHENSION - STEP 2: Does the patient require help to understand questions or statements about basic needs or ideas (such as hunger, thirst, sleep, safety, daily schedule, room location, or discomfort) half or more of the t tammy? No. COMPREHENSION - STEP 3: How often does the patient need help to understand directions and conversation about basic needs? 10% - 24% of the time COMPREHENSION - SCORE: 4-MIN EXPRESSION EXPRESSION - STEP 1: Does the patient require help expressing complex and abstract ideas (such as current events, finances , discharge planning, medical issues, relationships, etc)? Yes. EXPRESSION - STEP 2: Does the patient require help to express basic necessities or ideas (such as hunger, thirst, sleep, s afety, daily schedule, room location, or discomfort) half or more of the time? No. EXPRESSION - STEP 3: How often does the patient need help to express directions and conversation about basic needs? 10-24% of the time EXPRESSION - SCORE: 4-MIN SOCIAL INTERACTION: SOCIAL INTERACTION - STEP 1: Does the patient require a helper to interact with others in social and therapeutic situations? No. SOCIAL INTERACTION - STEP 2: Does the patient need extra time in social situations, OR does s/he interact with staff, other patien ts, and family members ONLY in structured environments, OR does s/he require medication for social in teraction? Yes, patient needs extra time SOCIAL INTERACTION - SCORE: 6-SAYRA PROBLEM SOLVING: PROBLEM SOLVING - STEP 1: Does the patient need help to solve complex problems such as managing a checking account or confronti ng interpersonal problems? Yes. PROBLEM SOLVING - STEP 2: Does the patient solve basic routine problems half or more of the time? Yes. PROBLEM SOLVING - STEP 3: How often does the patient need help to solve basic routine problems? 10%-24% of the time PROBLEM SOLVING - SCORE: 4-MIN MEMORY: MEMORY - STEP 1: Does the patient need help to remember frequently encountered people, daily routines, and executing r equests? No. MEMORY - STEP 2: Does the patient have slight difficulty recognizing frequently encountered people, daily routines, or executing requests without the need for repetition or using self-initiated or environmental cues to remember? Yes. MEMORY - SCORE: 6-SAYRA SIGNATURE PANEL: The following modified sections: Eating - Score, Grooming - Score, Dressing - Upper Body - Score, Cheikh ssing - Lower Body - Score, Toileting - Score, Bladder Management - Score, Bowel Management - Score, Transfers: Bed, Chair, Wheelchair - Score, Transfers: Toilet - Score, Transfers: Shower - Score, Mercado sfers: Tub - Score, Locomotion: Walk - Score, Locomotion: Wheelchair - Score, Comprehension - Score, Expression - Score, Social Interaction - Score, Problem Solving - Score, Memory - Score were [electro nically] signed by Tonia Cruz CNA on TueDec 30 2017 02:37:48 GMT-0500 (Central Daylight Time)
[2017-12-30] MEDS: INSULIN -REGULAR HUMAN 50 UNIT/0.5 ML ML SQ SCH ×4 (07:30→21:00)
--- NOTE | 2017-12-30 09:35 | P.RH.PN ---
Estimated Length of Stay: 24 Expected Discharge Date: 01/06/18 Discharge Disposition Plan: Home Family Support: Yes Prison Goal: Mobility, Transfers, Self Care Vital Signs: Last Vital Signs Temp 96.8 F 12/30/17 06:56 Pulse 74 12/30/17 06:56 Resp 16 12/30/17 06:56 BP 115/57 L 12/30/17 06:56 Pulse Ox 99 12/30/17 06:56 Laboratory: Laboratory Last Values WBC 6.8 K/uL (4.3-10.9) D 12/29/17 06:10 RBC 3.84 M/uL (3.86-4.86) L 12/29/17 06:10 Hgb 11.9 g/dL (12.0-15.0) L 12/29/17 06:10 Hct 34.7 % (36.0-45.0) L 12/29/17 06:10 MCV 90.3 fL (80-100) 12/29/17 06:10 MCH 30.9 pg (27.0-35.0) 12/29/17 06:10 MCHC 34.2 g/dL (32.0-36.0) 12/29/17 06:10 RDW 15.0 % (12.1-15.2) 12/29/17 06:10 Plt Count 335 K/uL (152-406) 12/29/17 06:10 MPV 9.3 fL (7.6-11.3) 12/29/17 06:10 Neutrophils % 52.7 % (41.7-73.7) 12/29/17 06:10 Lymphocytes % 29.8 % (15.3-44.8) 12/29/17 06:10 Monocytes % 12.3 % (3.3-12.3) 12/29/17 06:10 Eosinophils % 4.0 % (0-4.4) 12/29/17 06:10 Basophils % 1.2 % (0-1.3) 12/29/17 06:10 Absolute Neutrophils 3.6 K/uL (1.8-8.0) 12/29/17 06:10 Absolute Lymphocytes 2.0 K/uL (0.7-4.9) 12/29/17 06:10 Absolute Monocytes 0.8 K/uL (0.1-1.3) 12/29/17 06:10 Absolute Eosinophils 0.3 K/uL (0-0.5) 12/29/17 06:10 Absolute Basophils 0.1 K/uL (0-0.5) 12/29/17 06:10 Sodium 141 mmol/L (136-145) 12/29/17 06:10 Potassium 4.1 mmol/L (3.5-5.1) 12/29/17 06:10 Chloride 105 mmol/L (98-107) 12/29/17 06:10 Carbon Dioxide 29 mmol/L (21-32) 12/29/17 06:10 BUN 20 mg/dL (7-18) H 12/29/17 06:10 Creatinine 1.30 mg/dL (0.55-1.3) 12/29/17 06:10 Estimated GFR 40 mL/min (=/>90) L 12/29/17 06:10 Glucose 123 mg/dL (74-106) H 12/29/17 06:10 POC Glucose 110 mg/dl (65-120) 12/30/17 07:16 Calcium 9.3 mg/dL (8.5-10.1) 12/29/17 06:10 Magnesium 1.8 mg/dL (1.8-2.4) 12/15/17 06:42 Albumin 3.5 g/dL (3.4-5.0) 12/29/17 06:10 Prealbumin 22.5 mg/dL (20-40) 12/29/17 06:10 Urine Color Yellow 12/14/17 19:15 Urine Appearance Clear 12/14/17 19:15 Urine pH 5.0 (5.0-7.0) 12/14/17 19:15 Ur Specific [place] 1.015 (1.005-1.030) 12/14/17 19:15 Urine Ketones Negative (NEG) 12/14/17 19:15 Urine Blood Negative (NEG) 12/14/17 19:15 Urine Nitrite Negative (NEG) 12/14/17 19:15 Urine Bilirubin Negative (NEG) 12/14/17 19:15 Urine Urobilinogen 0.2 mg/dL (0.2-1.0) 12/14/17 19:15 Ur Leukocyte Esterase 3+ (NEG) H 12/14/17 19:15 Urine RBC <5 /HPF (NONE SEEN) 12/14/17 19:15 Urine WBC 10-20 /HPF (<5) H 12/14/17 19:15 Ur Squamous Epith Cells <5 /HPF (NONE SEEN) 12/14/17 19:15 Ur Urothelial Cells <5 /HPF (NONE SEEN) 12/14/17 19:15 Urine Bacteria <20 /HPF (<20) 12/14/17 19:15 Urine Culture Reflexed Not needed 12/14/17 19:15 Urine Glucose Negative (NEG) 12/14/17 19:15 Urine Total Protein Negative (NEG) 12/14/17 19:15 Weight: 130 lb Wound Present: No Closed Surgical Incision Present: No Negative Pressure Wound Therapy Present: No Physician Update: Doing better with speech, physical and occupational therapy. She has improved to thin liquids and around meats. She slight improvement in her proximal left upper extremity with 0-1/5 distally. She still has difficulty with apraxia and neglect of the left upper extremity. She is ambulating well with physical therapy. Medical Issues: DM- with mild sliding scale Pain Issues: Ultram 50mg Q4H PRN. Steele 5/325mg Q4H PRN Nutritional Needs: MBS - diet progressed to [facility] soft ground meat w/ gravy- thin liquids, crushed meds Functional Improvement: Patient has met all short-term goals and all long-term goals, w/ the exception of stand pivot transfers w/ Mod I. Patient is currently SBA. Patient has progressed well during her stay in rehab. Functional Improvement Occupational Therapy: PATIENT DEMONSTRATING GREAT MOTIVATION AND PARTICIPATION WITH THERAPY. HAS DEMONSTRATED SLOW STEADY PROGRESS AND CONTINUES TO BENEFIT FROM FURTHER OT AT THIS TIME, BEFORE A SAFE D/ C HOME WITH FAMILY. Speech Therapy Update: Repeat MBSS on 12/29/17 revealed Moderate oral and mild pharyngeal dysphgia. No penetration or aspiration was noted. Diet changes to mechanical soft with regular lliquids. Swallow precautions as follows: seating @ 90 degrees, small bites/sips, slow rate for intake, use lingual sweep and re- swallow, alternate liquids and solids, check mouth at end of meal and have supervision with meals. Patient has improved attention to left in structured tasks; now improved to MIN A in session but may require increased cues in functional tasks and with distraction. Memory is improved to Supervision level but Problem Solving requiring MIN A. Summary: Patient's care plan and shelter goals have been reviewed and revised as necessary. Please see the Rehabilitation Signature page for all necessary signatures.
--- NOTE | 2017-12-30 10:08 | FAST ---
SHIFT START DATE/TIME: 12/30/2017 07:00 (CDT) SHIFT END DATE/TIME: 12/30/2017 19:00 (CDT) NAME IVETTE HODGES DATE OF : 1945 DATE OF ADMISSION: 12/14/2017 15:21 (CDT) PHONE: AGE: 72 N# [id number] GENDER: Female ENCOUNTER PHYSICIAN: Dr. Miki Delgado M.D. 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 EATING: EATING - STEP 1: Does the patient require assistance when eating? Yes. EATING - STEP 2: Does the patient require the assistance of a helper? Yes. EATING - STEP 3: Does the patient perform half or more of the eating tasks? Yes. EATING - STEP 4: Does the patient need only supervision, cuing, coaxing OR help to apply an orthosis OR help to cut fo od, open containers, pour liquids, or butter bread? Yes. EATING - SCORE: 5-SUP GROOMING: Comb/brush hair Wash, rinse, and dry face Wash, rinse, and dry hands GROOMING - STEP 1: Does the patient require assistance when grooming? No. GROOMING - SCORE: 7-IND BATHING: Activity did not occur on this shift BATHING - SCORE: 0-UNK DRESSING - UPPER BODY: Activity did not occur on this shift ARTICLES SCORE Total number of steps: 0 DRESSING - UPPER BODY - SCORE: 0-UNK DRESSING - LOWER BODY: Activity did not occur on this shift ARTICLES SCORE Total number of steps: 0 DRESSING - LOWER BODY - SCORE: 0-UNK TOILETING: TOILETING - STEP 1: Does the patient require assistance with toileting? Yes. TOILETING - STEP 2: Does the patient require the assistance of a helper? Yes. TOILETING - STEP 3: How much assistance does the patient require from the helper? Hands-on assistance from the helper TOILETING - STEP 4: Of the 3 tasks: 1) Adjusting clothing prior to use, 2) Cleansing of perineal area, 3) Adjusting clot willie after use; How many tasks does the patient perform WITHOUT assistance of the helper? Three tasks with steadying assistance from the helper TOILETING - SCORE: 4-MIN BLADDER MANAGEMENT: BLADDER MANAGEMENT - STEP 1: Does the patient control the bladder completely and intentionally without equipment or devices or med ications, and is always continent? No. BLADDER MANAGEMENT - STEP 2: Does the patient require the assistance of a helper? No, patient only requires extra time BLADDER MANAGEMENT - SCORE: 6-SAYRA BLADDER MANAGEMENT - FREQUENCY OF ACCIDENTS: BLADDER MANAGEMENT(FA) - STEP 1: How many accidents has the patient had during the current shift? 0 BOWEL MANAGEMENT: Activity did not occur on this shift BOWEL MANAGEMENT - SCORE: 7-IND TRANSFERS: BED, CHAIR, WHEELCHAIR: TRANSFERS: BED, CHAIR, WHEELCHAIR - STEP 1: Does the patient require assistance with bed, chair, or wheelchair transfers? Yes. TRANSFERS: BED, CHAIR, WHEELCHAIR - STEP 2: Does the patient require the assistance of a helper? Yes. TRANSFERS: BED, CHAIR, WHEELCHAIR - STEP 3: How much assistance does the patient require from the helper? Steadying/guiding assistance TRANSFERS: BED, CHAIR, WHEELCHAIR - SCORE: 4-MIN TRANSFERS: TOILET: TRANSFERS: TOILET - STEP 1: Does the patient require assistance with toilet transfers? Yes. TRANSFERS: TOILET - STEP 2: Does the patient require the assistance of a helper? Yes. TRANSFERS: TOILET - STEP 3: How much assistance does the patient require from the helper? Patient performs half or more of the tr ansferring tasks TRANSFERS: TOILET - STEP 4: Does the patient need only incidental help such as contact guard or steadying during toilet transfer? Yes. TRANSFERS: TOILET - SCORE: 4-MIN TRANSFERS: SHOWER: Activity did not occur on this shift TRANSFERS: SHOWER - SCORE: 0-UNK TRANSFERS: TUB: Activity did not occur on this shift TRANSFERS: TUB - SCORE: 0-UNK LOCOMOTION: WALK: Activity did not occur on this shift LOCOMOTION: WALK - SCORE: 0-UNK LOCOMOTION: WHEELCHAIR: LOCOMOTION: WHEELCHAIR - STEP 1: Does the patient need help to go 150 feet in a wheelchair? Yes. LOCOMOTION: WHEELCHAIR - STEP 2: How much assistance does the patient need from the helper? More than incidental help LOCOMOTION: WHEELCHAIR - SCORE: 3-MOD COMPREHENSION: COMPREHENSION: TYPE: Both COMPREHENSION - STEP 1: Does the patient require help to understand complex and abstract ideas (such as current events, finan clement, discharge planning, medical issues, relationships, etc)? Yes. COMPREHENSION - STEP 2: Does the patient require help to understand questions or statements about basic needs or ideas (such as hunger, thirst, sleep, safety, daily schedule, room location, or discomfort) half or more of the t tammy? No. COMPREHENSION - STEP 3: How often does the patient need help to understand directions and conversation about basic needs? Les s than 10% of the time COMPREHENSION - SCORE: 5-SUP EXPRESSION EXPRESSION: TYPE: Both EXPRESSION - STEP 1: Does the patient require help expressing complex and abstract ideas (such as current events, finances , discharge planning, medical issues, relationships, etc)? Yes. EXPRESSION - STEP 2: Does the patient require help to express basic necessities or ideas (such as hunger, thirst, sleep, s afety, daily schedule, room location, or discomfort) half or more of the time? No. EXPRESSION - STEP 3: How often does the patient need help to express directions and conversation about basic needs? Less t richard 10% of the time EXPRESSION - SCORE: 5-SUP SOCIAL INTERACTION: SOCIAL INTERACTION - STEP 1: Does the patient require a helper to interact with others in social and therapeutic situations? Yes. SOCIAL INTERACTION - STEP 2: Does the patient interact appropriately half or more of the time? Yes. SOCIAL INTERACTION - STEP 3: How often does the patient need help to interact appropriately? Less than 10% of the time SOCIAL INTERACTION - SCORE: 5-SUP PROBLEM SOLVING: PROBLEM SOLVING - STEP 1: Does the patient need help to solve complex problems such as managing a checking account or confronti ng interpersonal problems? Yes. PROBLEM SOLVING - STEP 2: Does the patient solve basic routine problems half or more of the time? Yes. PROBLEM SOLVING - STEP 3: How often does the patient need help to solve basic routine problems? Less than 10% of the time PROBLEM SOLVING - SCORE: 5-SUP MEMORY: MEMORY - STEP 1: Does the patient need help to remember frequently encountered people, daily routines, and executing r equests? Yes. MEMORY - STEP 2: How often does the patient need help to remember frequently encountered people, daily routines, and e xecuting requests? Less than 10% of the time MEMORY - SCORE: 5-SUP SIGNATURE PANEL: The following modified sections: Eating - Score, Grooming - Score, Bathing - Score, Dressing - Upper Body - Score, Dressing - Lower Body - Score, Toileting - Score, Bladder Management - Score, Bowel Man agement - Score, Transfers: Bed, Chair, Wheelchair - Score, Transfers: Toilet - Score, Transfers: Nette wer - Score, Transfers: Tub - Score, Locomotion: Walk - Score, Locomotion: Wheelchair - Score, Compre hension - Score, Expression - Score, Social Interaction - Score, Problem Solving - Score, Memory - Sc ore were [electronically] signed by [email or web address] on TueDec 30 2017 10:06:49 T-0500 (Centra l Daylight Time)
[2017-12-30] MEDS: PANTOPRAZOLE 40MG TABLET PO SCH (11:36)
[2017-12-30] MEDS: APIXABAN 2.5 MG TABLET PO SCH ×2 (11:36→21:25)
[2017-12-30] MEDS: METFORMIN HCL 500 MG TAB PO SCH ×2 (11:36→17:00)
[2017-12-30] MEDS: FUROSEMIDE 20 MG TABLET PO SCH (11:36)
[2017-12-30] MEDS: FERROUS SULFATE 325 MG TAB PO SCH (11:36)
[2017-12-30] MEDS: FE SULF/FA/VIT B COMP & C TAB PO SCH (11:36)
[2017-12-30] MEDS: glipiZIDE 5 MG TAB PO SCH ×2 (11:37→16:30)
[2017-12-30] MEDS: ASPIRIN EC 81 MG TAB PO SCH (11:37)
[2017-12-30] MEDS: CLOPIDOGREL 75 MG TABLET PO SCH (11:37)
[2017-12-30] MEDS: CARVEDILOL 6.25 MG TAB PO SCH ×2 (11:37→20:00)
[2017-12-30] MEDS: levETIRAcetam 500 MG TAB PO SCH ×2 (11:39→21:25)
[2017-12-30] MEDS: PROMOD 30 ML DOSE PO SCH ×2 (11:48→21:26)
[2017-12-30] MEDS: GLUCERNA SHAKE 237 ML CAN PO SCH ×2 (11:48→21:26)
--- NOTE | 2017-12-30 14:11 | FAST ---
ENCOUNTER DATE AND TIME: 12/30/2017 08:00 (CDT) NAME IVETTE HODGES DATE OF : 1945 DATE OF ADMISSION: 12/14/2017 15:21 (CDT) PHONE: AGE: 72 N# [id number] GENDER: Female ENCOUNTER PHYSICIAN: Dr. Miki Delgado M.D. 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 EATING: Activity did not occur on this shift EATING - SCORE: 0-UNK GROOMING: Activity did not occur on this shift GROOMING - SCORE: 0-UNK BATHING: Activity did not occur on this shift BATHING - SCORE: 0-UNK DRESSING - UPPER BODY: Activity did not occur on this shift Patient is not dressing in public clothing ARTICLES SCORE Total number of steps: 0 DRESSING - UPPER BODY - SCORE: 0-UNK DRESSING - LOWER BODY: Activity did not occur on this shift Patient is not dressing in public clothing ARTICLES SCORE Total number of steps: 0 DRESSING - LOWER BODY - SCORE: 0-UNK TOILETING: Activity did not occur on this shift TOILETING - SCORE: 0-UNK BLADDER MANAGEMENT: Activity did not occur on this shift BLADDER MANAGEMENT - SCORE: 7-IND BOWEL MANAGEMENT: Activity did not occur on this shift BOWEL MANAGEMENT - SCORE: 7-IND TRANSFERS: BED, CHAIR, WHEELCHAIR: TRANSFERS: BED, CHAIR, WHEELCHAIR - STEP 1: Does the patient require assistance with bed, chair, or wheelchair transfers? Yes. TRANSFERS: BED, CHAIR, WHEELCHAIR - STEP 2: Does the patient require the assistance of a helper? No. Patient only requires an assistive device fo r bed, chair, wheelchair transfers such as a sliding board, grab bar, or brace, OR s/he takes more th an reasonable time, OR there is a safety concern when s/he performs the transfers TRANSFERS: BED, CHAIR, WHEELCHAIR - SCORE: 6-SAYRA TRANSFERS: TOILET: Activity did not occur on this shift TRANSFERS: TOILET - SCORE: 0-UNK TRANSFERS: SHOWER: Activity did not occur on this shift TRANSFERS: SHOWER - SCORE: 0-UNK TRANSFERS: TUB: Activity did not occur on this shift TRANSFERS: TUB - SCORE: 0-UNK LOCOMOTION: WALK: LOCOMOTION: WALK - STEP 1: Does the patient need help to walk 150 feet? Yes. LOCOMOTION: WALK - STEP 2: How much assistance does the patient require to walk a minimum of 150 feet? Only supervision, cuing, or coaxing LOCOMOTION: WALK - SCORE: 5-SUP LOCOMOTION: WHEELCHAIR: LOCOMOTION: WHEELCHAIR - STEP 1: Does the patient need help to go 150 feet in a wheelchair? Yes. LOCOMOTION: WHEELCHAIR - STEP 2: How much assistance does the patient need from the helper? Only incidental help such as around corner s or over thresholds LOCOMOTION: WHEELCHAIR - SCORE: 4-MIN LOCOMOTION: STAIRS: LOCOMOTION: STAIRS - STEP 1: Does the patient need help to go up and down 12 to 14 stairs? Yes. LOCOMOTION: STAIRS - STEP 2: How much assistance does the patient need from the helper to go a minimum of 12 to 14 stairs? Only george pervision, cuing, or coaxing LOCOMOTION: STAIRS - SCORE: 5-SUP COMPREHENSION: COMPREHENSION - SCORE: 0-UNK EXPRESSION EXPRESSION - SCORE: 0-UNK SOCIAL INTERACTION: SOCIAL INTERACTION - SCORE: 0-UNK PROBLEM SOLVING: PROBLEM SOLVING - SCORE: 0-UNK MEMORY: MEMORY - SCORE: 0-UNK SIGNATURE PANEL: The following modified sections: Transfers: Bed, Chair, Wheelchair - Score, Transfers: Toilet - Score , Locomotion: Walk - Score, Locomotion: Wheelchair - Score, Locomotion: Stairs - Score were [electron debbie] signed by Art Odom PTA on TueDec 30 2017 14:10:36 T-0500 (Central Daylight Time)
[2017-12-30] MEDS: ATORVASTATIN 80 MG TAB PO SCH (21:25)
--- NOTE | 2017-12-31 02:55 | FAST ---
NAME IVETTE HODGES DATE OF : 1945 PHONE: AGE: 72 N# [id number] GENDER: Female ENCOUNTER PHYSICIAN: Dr. Miki Delgado M.D. 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
[2017-12-31] MEDS: INSULIN -REGULAR HUMAN 50 UNIT/0.5 ML ML SQ SCH ×4 (07:27→20:22)
[2017-12-31] MEDS: CARVEDILOL 6.25 MG TAB PO SCH ×2 (08:00→19:36)
[2017-12-31] MEDS: FUROSEMIDE 20 MG TABLET PO SCH (08:00)
[2017-12-31] MEDS: GLUCERNA SHAKE 237 ML CAN PO SCH ×2 (08:00→20:01)
[2017-12-31] MEDS: CLOPIDOGREL 75 MG TABLET PO SCH (08:30)
[2017-12-31] MEDS: PANTOPRAZOLE 40MG TABLET PO SCH (08:30)
[2017-12-31] MEDS: FE SULF/FA/VIT B COMP & C TAB PO SCH (08:30)
[2017-12-31] MEDS: glipiZIDE 5 MG TAB PO SCH ×2 (08:30→16:16)
[2017-12-31] MEDS: levETIRAcetam 500 MG TAB PO SCH ×2 (08:30→20:01)
[2017-12-31] MEDS: FERROUS SULFATE 325 MG TAB PO SCH (08:30)
[2017-12-31] MEDS: ASPIRIN EC 81 MG TAB PO SCH (08:30)
[2017-12-31] MEDS: APIXABAN 2.5 MG TABLET PO SCH ×2 (08:30→20:01)
[2017-12-31] MEDS: METFORMIN HCL 500 MG TAB PO SCH ×2 (08:31→16:17)
[2017-12-31] MEDS: PROMOD 30 ML DOSE PO SCH ×2 (08:32→20:01)
--- NOTE | 2017-12-31 10:27 | FAST ---
SHIFT START DATE/TIME: 12/31/2017 07:00 (CDT) SHIFT END DATE/TIME: 12/31/2017 19:00 (CDT) NAME IVETTE HODGES DATE OF : 1945 DATE OF ADMISSION: 12/14/2017 15:21 (CDT) PHONE: AGE: 72 N# [id number] GENDER: Female ENCOUNTER PHYSICIAN: Dr. Miki Delgado M.D. 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 EATING: EATING - STEP 1: Does the patient require assistance when eating? Yes. EATING - STEP 2: Does the patient require the assistance of a helper? No, patient only requires an assistive device, O R s/he takes more than reasonable time to eat, OR there is a safety concern, OR s/he requires modifie d food consistency EATING - SCORE: 6-SAYRA GROOMING: Oral care Patient applied make-up GROOMING - STEP 1: Does the patient require assistance when grooming? Yes. GROOMING - STEP 2: Does the patient require the assistance of a helper? No. The patient only requires an assistive devic e, OR takes more than reasonable time to groom, OR there is a concern for safety as the patient groom s GROOMING - SCORE: 6-SAYRA BATHING: Activity did not occur on this shift BATHING - SCORE: 0-UNK DRESSING - UPPER BODY: Activity did not occur on this shift ARTICLES SCORE Total number of steps: 0 DRESSING - UPPER BODY - SCORE: 0-UNK DRESSING - LOWER BODY: Activity did not occur on this shift ARTICLES SCORE Total number of steps: 0 DRESSING - LOWER BODY - SCORE: 0-UNK TOILETING: TOILETING - STEP 1: Does the patient require assistance with toileting? Yes. TOILETING - STEP 2: Does the patient require the assistance of a helper? Yes. TOILETING - STEP 3: How much assistance does the patient require from the helper? Hands-on assistance from the helper TOILETING - STEP 4: Of the 3 tasks: 1) Adjusting clothing prior to use, 2) Cleansing of perineal area, 3) Adjusting clot willie after use; How many tasks does the patient perform WITHOUT assistance of the helper? Three tasks with steadying assistance from the helper TOILETING - SCORE: 4-MIN BLADDER MANAGEMENT: BLADDER MANAGEMENT - STEP 1: Does the patient control the bladder completely and intentionally without equipment or devices or med ications, and is always continent? Yes. BLADDER MANAGEMENT - SCORE: 7-IND BOWEL MANAGEMENT: BOWEL MANAGEMENT - STEP 1: Does the patient control bowels completely and intentionally without equipment devices or medications AND is always continent? No. BOWEL MANAGEMENT - STEP 2: Does the patient require the assistance of a helper? No, patient requires and manages independently a n assistive device such as a bedpan, bedside commode, absorbent pad, incontinent device, or collectin g device BOWEL MANAGEMENT - SCORE: 6-SAYRA TRANSFERS: BED, CHAIR, WHEELCHAIR: TRANSFERS: BED, CHAIR, WHEELCHAIR - STEP 1: Does the patient require assistance with bed, chair, or wheelchair transfers? Yes. TRANSFERS: BED, CHAIR, WHEELCHAIR - STEP 2: Does the patient require the assistance of a helper? Yes. TRANSFERS: BED, CHAIR, WHEELCHAIR - STEP 3: How much assistance does the patient require from the helper? Steadying/guiding assistance TRANSFERS: BED, CHAIR, WHEELCHAIR - SCORE: 4-MIN TRANSFERS: TOILET: TRANSFERS: TOILET - STEP 1: Does the patient require assistance with toilet transfers? Yes. TRANSFERS: TOILET - STEP 2: Does the patient require the assistance of a helper? Yes. TRANSFERS: TOILET - STEP 3: How much assistance does the patient require from the helper? Patient performs half or more of the tr ansferring tasks TRANSFERS: TOILET - STEP 4: Does the patient need only incidental help such as contact guard or steadying during toilet transfer? Yes. TRANSFERS: TOILET - SCORE: 4-MIN TRANSFERS: SHOWER: Activity did not occur on this shift TRANSFERS: SHOWER - SCORE: 0-UNK TRANSFERS: TUB: Activity did not occur on this shift TRANSFERS: TUB - SCORE: 0-UNK LOCOMOTION: WALK: Activity did not occur on this shift LOCOMOTION: WALK - SCORE: 0-UNK LOCOMOTION: WHEELCHAIR: Activity did not occur on this shift LOCOMOTION: WHEELCHAIR - SCORE: 0-UNK COMPREHENSION: COMPREHENSION - SCORE: 0-UNK EXPRESSION EXPRESSION - SCORE: 0-UNK SOCIAL INTERACTION: SOCIAL INTERACTION - SCORE: 0-UNK PROBLEM SOLVING: PROBLEM SOLVING - SCORE: 0-UNK MEMORY: MEMORY - SCORE: 0-UNK SIGNATURE PANEL: The following modified sections: Eating - Score, Grooming - Score, Bathing - Score, Dressing - Upper Body - Score, Dressing - Lower Body - Score, Toileting - Score, Bladder Management - Score, Bowel Man agement - Score, Transfers: Bed, Chair, Wheelchair - Score, Transfers: Toilet - Score, Transfers: Nette wer - Score, Transfers: Tub - Score, Locomotion: Walk - Score, Locomotion: Wheelchair - Score, Compre hension - Score, Expression - Score, Social Interaction - Score, Problem Solving - Score, Memory - Sc ore were [electronically] signed by Jesus Krueger on Sat Dec 31 2017 10:26:12 T-0500 (Central Daylight Time)
--- NOTE | 2017-12-31 12:51 | FAST ---
ENCOUNTER DATE AND TIME: 12/31/2017 08:00 (CDT) NAME IVETTE HODGES DATE OF : 1945 DATE OF ADMISSION: 12/14/2017 15:21 (CDT) PHONE: AGE: 72 N# [id number] GENDER: Female ENCOUNTER PHYSICIAN: Dr. Miki Delgado M.D. 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 EATING: Activity did not occur on this shift EATING - SCORE: 0-UNK GROOMING: Activity did not occur on this shift GROOMING - SCORE: 0-UNK BATHING: Activity did not occur on this shift BATHING - SCORE: 0-UNK DRESSING - UPPER BODY: Activity did not occur on this shift Patient is not dressing in public clothing ARTICLES SCORE Total number of steps: 0 DRESSING - UPPER BODY - SCORE: 0-UNK DRESSING - LOWER BODY: Activity did not occur on this shift Patient is not dressing in public clothing ARTICLES SCORE Total number of steps: 0 DRESSING - LOWER BODY - SCORE: 0-UNK TOILETING: Activity did not occur on this shift TOILETING - SCORE: 0-UNK BLADDER MANAGEMENT: Activity did not occur on this shift BLADDER MANAGEMENT - SCORE: 7-IND BOWEL MANAGEMENT: Activity did not occur on this shift BOWEL MANAGEMENT - SCORE: 7-IND TRANSFERS: BED, CHAIR, WHEELCHAIR: TRANSFERS: BED, CHAIR, WHEELCHAIR - STEP 1: Does the patient require assistance with bed, chair, or wheelchair transfers? Yes. TRANSFERS: BED, CHAIR, WHEELCHAIR - STEP 2: Does the patient require the assistance of a helper? No. Patient only requires an assistive device fo r bed, chair, wheelchair transfers such as a sliding board, grab bar, or brace, OR s/he takes more th an reasonable time, OR there is a safety concern when s/he performs the transfers TRANSFERS: BED, CHAIR, WHEELCHAIR - SCORE: 6-SAYRA TRANSFERS: TOILET: Activity did not occur on this shift TRANSFERS: TOILET - SCORE: 0-UNK TRANSFERS: SHOWER: Activity did not occur on this shift TRANSFERS: SHOWER - SCORE: 0-UNK TRANSFERS: TUB: Activity did not occur on this shift TRANSFERS: TUB - SCORE: 0-UNK LOCOMOTION: WALK: LOCOMOTION: WALK - STEP 1: Does the patient need help to walk 150 feet? Yes. LOCOMOTION: WALK - STEP 2: How much assistance does the patient require to walk a minimum of 150 feet? Only supervision, cuing, or coaxing LOCOMOTION: WALK - SCORE: 5-SUP LOCOMOTION: WHEELCHAIR: Activity did not occur on this shift LOCOMOTION: WHEELCHAIR - SCORE: 0-UNK LOCOMOTION: STAIRS: LOCOMOTION: STAIRS - STEP 1: Does the patient need help to go up and down 12 to 14 stairs? Yes. LOCOMOTION: STAIRS - STEP 2: How much assistance does the patient need from the helper to go a minimum of 12 to 14 stairs? Only george pervision, cuing, or coaxing LOCOMOTION: STAIRS - SCORE: 5-SUP COMPREHENSION: COMPREHENSION - SCORE: 0-UNK EXPRESSION EXPRESSION - SCORE: 0-UNK SOCIAL INTERACTION: SOCIAL INTERACTION - SCORE: 0-UNK PROBLEM SOLVING: PROBLEM SOLVING - SCORE: 0-UNK MEMORY: MEMORY - SCORE: 0-UNK SIGNATURE PANEL: The following modified sections: Transfers: Bed, Chair, Wheelchair - Score, Transfers: Toilet - Score , Locomotion: Walk - Score, Locomotion: Wheelchair - Score, Locomotion: Stairs - Score were [electron debbie] signed by Art Odom PTA on Sat Dec 31 2017 12:50:20 GMT-0500 (Central Daylight Time)
[2017-12-31] MEDS: ATORVASTATIN 80 MG TAB PO SCH (20:01)
--- NOTE | 2018-01-01 02:25 | FAST ---
SHIFT START DATE/TIME: 12/31/2017 19:00 (CDT) SHIFT END DATE/TIME: 01/01/2018 07:00 (CDT) NAME IVETTE HODGES DATE OF : 1945 DATE OF ADMISSION: 12/14/2017 15:21 (CDT) PHONE: AGE: 72 N# [id number] GENDER: Female ENCOUNTER PHYSICIAN: Dr. Miki Delgado M.D. 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 EATING: Activity did not occur on this shift EATING - SCORE: 0-UNK GROOMING: Activity did not occur on this shift GROOMING - SCORE: 0-UNK BATHING: Activity did not occur on this shift BATHING - SCORE: 0-UNK DRESSING - UPPER BODY: Activity did not occur on this shift ARTICLES SCORE Total number of steps: 0 DRESSING - UPPER BODY - SCORE: 0-UNK DRESSING - LOWER BODY: Activity did not occur on this shift ARTICLES SCORE Total number of steps: 0 DRESSING - LOWER BODY - SCORE: 0-UNK TOILETING: TOILETING - STEP 1: Does the patient require assistance with toileting? Yes. TOILETING - STEP 2: Does the patient require the assistance of a helper? Yes. TOILETING - STEP 3: How much assistance does the patient require from the helper? Only supervision TOILETING - SCORE: 5-SUP BLADDER MANAGEMENT: BLADDER MANAGEMENT - STEP 1: Does the patient control the bladder completely and intentionally without equipment or devices or med ications, and is always continent? Yes. BLADDER MANAGEMENT - SCORE: 7-IND BLADDER MANAGEMENT - FREQUENCY OF ACCIDENTS: BLADDER MANAGEMENT(FA) - STEP 1: How many accidents has the patient had during the current shift? 0 BOWEL MANAGEMENT: BOWEL MANAGEMENT - STEP 1: Does the patient control bowels completely and intentionally without equipment devices or medications AND is always continent? Yes. BOWEL MANAGEMENT - SCORE: 7-IND BOWEL MANAGEMENT - FREQUENCY OF ACCIDENTS: BOWEL MANAGEMENT(FA) - STEP 1: How many accidents has the patient had during the current shift? 0 TRANSFERS: BED, CHAIR, WHEELCHAIR: TRANSFERS: BED, CHAIR, WHEELCHAIR - STEP 1: Does the patient require assistance with bed, chair, or wheelchair transfers? Yes. TRANSFERS: BED, CHAIR, WHEELCHAIR - STEP 2: Does the patient require the assistance of a helper? Yes. TRANSFERS: BED, CHAIR, WHEELCHAIR - STEP 3: How much assistance does the patient require from the helper? Only supervision TRANSFERS: BED, CHAIR, WHEELCHAIR - SCORE: 5-SUP TRANSFERS: TOILET: TRANSFERS: TOILET - STEP 1: Does the patient require assistance with toilet transfers? Yes. TRANSFERS: TOILET - STEP 2: Does the patient require the assistance of a helper? Yes. TRANSFERS: TOILET - STEP 3: How much assistance does the patient require from the helper? Patient performs half or more of the tr ansferring tasks TRANSFERS: TOILET - STEP 4: Does the patient need only incidental help such as contact guard or steadying during toilet transfer? Yes. TRANSFERS: TOILET - SCORE: 4-MIN TRANSFERS: SHOWER: Activity did not occur on this shift TRANSFERS: SHOWER - SCORE: 0-UNK TRANSFERS: TUB: Activity did not occur on this shift TRANSFERS: TUB - SCORE: 0-UNK LOCOMOTION: WALK: Activity did not occur on this shift LOCOMOTION: WALK - SCORE: 0-UNK LOCOMOTION: WHEELCHAIR: Activity did not occur on this shift LOCOMOTION: WHEELCHAIR - SCORE: 0-UNK COMPREHENSION: COMPREHENSION - STEP 1: Does the patient require help to understand complex and abstract ideas (such as current events, finan clement, discharge planning, medical issues, relationships, etc)? Yes. COMPREHENSION - STEP 2: Does the patient require help to understand questions or statements about basic needs or ideas (such as hunger, thirst, sleep, safety, daily schedule, room location, or discomfort) half or more of the t tammy? Yes. COMPREHENSION - STEP 3: Is the patient basically able to understand and respond appropriately and consistently? Yes. COMPREHENSION - SCORE: 2-MAX EXPRESSION EXPRESSION: TYPE: Both EXPRESSION - STEP 1: Does the patient require help expressing complex and abstract ideas (such as current events, finances , discharge planning, medical issues, relationships, etc)? Yes. EXPRESSION - STEP 2: Does the patient require help to express basic necessities or ideas (such as hunger, thirst, sleep, s afety, daily schedule, room location, or discomfort) half or more of the time? Yes. EXPRESSION - STEP 3: Is the patient basically unable to express or does s/he express inappropriately or inconsistently emmanuelle pite prompting? No. EXPRESSION - SCORE: 2-MAX SOCIAL INTERACTION: SOCIAL INTERACTION - STEP 1: Does the patient require a helper to interact with others in social and therapeutic situations? Yes. SOCIAL INTERACTION - STEP 2: Does the patient interact appropriately half or more of the time? Yes. SOCIAL INTERACTION - STEP 3: How often does the patient need help to interact appropriately? Less than 10% of the time SOCIAL INTERACTION - SCORE: 5-SUP PROBLEM SOLVING: PROBLEM SOLVING - STEP 1: Does the patient need help to solve complex problems such as managing a checking account or confronti ng interpersonal problems? Yes. PROBLEM SOLVING - STEP 2: Does the patient solve basic routine problems half or more of the time? Yes. PROBLEM SOLVING - STEP 3: How often does the patient need help to solve basic routine problems? Less than 10% of the time PROBLEM SOLVING - SCORE: 5-SUP MEMORY: MEMORY - STEP 1: Does the patient need help to remember frequently encountered people, daily routines, and executing r equests? Yes. MEMORY - STEP 2: How often does the patient need help to remember frequently encountered people, daily routines, and e xecuting requests? Less than 10% of the time MEMORY - SCORE: 5-SUP SIGNATURE PANEL: The following modified sections: Eating - Score, Grooming - Score, Bathing - Score, Dressing - Upper Body - Score, Dressing - Lower Body - Score, Toileting - Score, Bladder Management - Score, Bowel Man agement - Score, Transfers: Bed, Chair, Wheelchair - Score, Transfers: Toilet - Score, Transfers: Nette wer - Score, Transfers: Tub - Score, Locomotion: Walk - Score, Locomotion: Wheelchair - Score, Compre hension - Score, Expression - Score, Social Interaction - Score, Problem Solving - Score, Memory - Sc ore were [electronically] signed by Gauri Loredo on TueJan 01 2018 02:24:29 GMT-0500 (Central Day light Time)
[2018-01-01] MEDS: INSULIN -REGULAR HUMAN 50 UNIT/0.5 ML ML SQ SCH ×4 (07:30→20:25)
[2018-01-01] MEDS: CLOPIDOGREL 75 MG TABLET PO SCH (07:53)
[2018-01-01] MEDS: FERROUS SULFATE 325 MG TAB PO SCH (07:53)
[2018-01-01] MEDS: levETIRAcetam 500 MG TAB PO SCH ×2 (07:53→20:02)
[2018-01-01] MEDS: PANTOPRAZOLE 40MG TABLET PO SCH (07:53)
[2018-01-01] MEDS: glipiZIDE 5 MG TAB PO SCH ×2 (07:53→16:49)
[2018-01-01] MEDS: APIXABAN 2.5 MG TABLET PO SCH ×2 (07:53→20:02)
[2018-01-01] MEDS: METFORMIN HCL 500 MG TAB PO SCH ×2 (07:53→16:49)
[2018-01-01] MEDS: FE SULF/FA/VIT B COMP & C TAB PO SCH (07:53)
[2018-01-01] MEDS: ASPIRIN EC 81 MG TAB PO SCH (07:54)
[2018-01-01] MEDS: GLUCERNA SHAKE 237 ML CAN PO SCH ×2 (07:54→20:01)
[2018-01-01] MEDS: PROMOD 30 ML DOSE PO SCH ×2 (07:55→20:01)
[2018-01-01] MEDS: FUROSEMIDE 20 MG TABLET PO SCH (07:55)
[2018-01-01] MEDS: CARVEDILOL 6.25 MG TAB PO SCH ×2 (07:57→20:02)
--- NOTE | 2018-01-01 11:18 | FAST ---
SHIFT START DATE/TIME: 01/01/2018 07:00 (CDT) SHIFT END DATE/TIME: 01/01/2018 19:00 (CDT) NAME IVETTE HODGES DATE OF : 1945 DATE OF ADMISSION: 12/14/2017 15:21 (CDT) PHONE: AGE: 72 N# [id number] GENDER: Female ENCOUNTER PHYSICIAN: Dr. Miki Delgado M.D. 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 EATING: EATING - STEP 1: Does the patient require assistance when eating? Yes. EATING - STEP 2: Does the patient require the assistance of a helper? Yes. EATING - STEP 3: Does the patient perform half or more of the eating tasks? Yes. EATING - STEP 4: Does the patient need only supervision, cuing, coaxing OR help to apply an orthosis OR help to cut fo od, open containers, pour liquids, or butter bread? Yes. EATING - SCORE: 5-SUP GROOMING: Comb/brush hair Oral care GROOMING - STEP 1: Does the patient require assistance when grooming? Yes. GROOMING - STEP 2: Does the patient require the assistance of a helper? Yes. GROOMING - STEP 3: How much assistance does the patient require from the helper? Cuing, coaxing, instructions, or encour agement for completion of grooming GROOMING - SCORE: 5-SUP BATHING: Abdomen Buttocks Chest Left arm Left lower leg and foot Left upper leg Perineal area Right arm Right lower leg and foot Right upper leg BATHING - STEP 1: Does the patient require assistance when bathing? Yes. BATHING - STEP 2: Does the patient require the assistance of a helper? Yes. BATHING - STEP 3: How much assistance does the patient require from the helper? Only prior preparation such as putting bathing equipment within reach, turning on water, checking water temperature BATHING - SCORE: 5-SUP BATHING - COMMENTS: Daughter helped DRESSING - UPPER BODY: Bra (three steps) T-shirt/pullover shirt (four steps) ARTICLES SCORE Total number of steps: 7 DRESSING - UPPER BODY - STEP 1: Does the patient require help when dressing above the waist? Yes. DRESSING - UPPER BODY - STEP 2: Does the patient require the assistance of a helper? Yes. DRESSING - UPPER BODY - STEP 3: Does the helper touch the patient while dressing? Yes. DRESSING - UPPER BODY - STEP 4: How many of the total steps does the patient complete on his/her own? 5 DRESSING - UPPER BODY - SCORE: 3-MOD DRESSING - UPPER BODY - COMMENTS: Daughter helped DRESSING - LOWER BODY: Elastic waist pants (three steps) Underwear (three steps) ARTICLES SCORE Total number of steps: 6 DRESSING - LOWER BODY - STEP 1: Does the patient require help when dressing below the waist? Yes. DRESSING - LOWER BODY - STEP 2: Does the patient require the assistance of a helper? Yes. DRESSING - LOWER BODY - STEP 3: Does the helper touch the patient while dressing? Yes. DRESSING - LOWER BODY - STEP 4: How many of the total steps does the patient complete on his/her own? 4 DRESSING - LOWER BODY - SCORE: 3-MOD TOILETING: TOILETING - STEP 1: Does the patient require assistance with toileting? Yes. TOILETING - STEP 2: Does the patient require the assistance of a helper? Yes. TOILETING - STEP 3: How much assistance does the patient require from the helper? Hands-on assistance from the helper TOILETING - STEP 4: Of the 3 tasks: 1) Adjusting clothing prior to use, 2) Cleansing of perineal area, 3) Adjusting clot willie after use; How many tasks does the patient perform WITHOUT assistance of the helper? Three tasks with steadying assistance from the helper TOILETING - SCORE: 4-MIN BLADDER MANAGEMENT: BLADDER MANAGEMENT - STEP 1: Does the patient control the bladder completely and intentionally without equipment or devices or med ications, and is always continent? No. BLADDER MANAGEMENT - STEP 2: Does the patient require the assistance of a helper? No, patient requires and independently uses an a ssistive device, such as a urinal, bedpan, bedside commode, catheter, absorbent pad, or collecting de vice BLADDER MANAGEMENT - SCORE: 6-SAYRA BOWEL MANAGEMENT: Activity did not occur on this shift BOWEL MANAGEMENT - SCORE: 7-IND TRANSFERS: BED, CHAIR, WHEELCHAIR: TRANSFERS: BED, CHAIR, WHEELCHAIR - STEP 1: Does the patient require assistance with bed, chair, or wheelchair transfers? Yes. TRANSFERS: BED, CHAIR, WHEELCHAIR - STEP 2: Does the patient require the assistance of a helper? Yes. TRANSFERS: BED, CHAIR, WHEELCHAIR - STEP 3: How much assistance does the patient require from the helper? Steadying/guiding assistance TRANSFERS: BED, CHAIR, WHEELCHAIR - SCORE: 4-MIN TRANSFERS: TOILET: TRANSFERS: TOILET - STEP 1: Does the patient require assistance with toilet transfers? Yes. TRANSFERS: TOILET - STEP 2: Does the patient require the assistance of a helper? Yes. TRANSFERS: TOILET - STEP 3: How much assistance does the patient require from the helper? Patient performs half or more of the tr ansferring tasks TRANSFERS: TOILET - STEP 4: Does the patient need only incidental help such as contact guard or steadying during toilet transfer? Yes. TRANSFERS: TOILET - SCORE: 4-MIN TRANSFERS: SHOWER: Activity did not occur on this shift TRANSFERS: SHOWER - SCORE: 0-UNK TRANSFERS: TUB: Activity did not occur on this shift TRANSFERS: TUB - SCORE: 0-UNK LOCOMOTION: WALK: Activity did not occur on this shift LOCOMOTION: WALK - SCORE: 0-UNK LOCOMOTION: WHEELCHAIR: Activity did not occur on this shift LOCOMOTION: WHEELCHAIR - SCORE: 0-UNK COMPREHENSION: COMPREHENSION - SCORE: 0-UNK EXPRESSION EXPRESSION - SCORE: 0-UNK SOCIAL INTERACTION: SOCIAL INTERACTION - SCORE: 0-UNK PROBLEM SOLVING: PROBLEM SOLVING - SCORE: 0-UNK MEMORY: MEMORY - SCORE: 0-UNK SIGNATURE PANEL: The following modified sections: Eating - Score, Grooming - Score, Bathing - Score, Bathing - Comment s:, Dressing - Upper Body - Score, Dressing - Upper Body - Comments:, Dressing - Lower Body - Score, Toileting - Score, Bladder Management - Score, Bowel Management - Score, Transfers: Bed, Chair, Wheel chair - Score, Transfers: Toilet - Score, Transfers: Shower - Score, Transfers: Tub - Score, Locomoti on: Walk - Score, Locomotion: Wheelchair - Score, Comprehension - Score, Expression - Score, Social I nteraction - Score, Problem Solving - Score, Memory - Score were [electronically] signed by Jesus fraser on TueJan 01 2018 11:17:17 GMT-0500 (Central Daylight Time)
[2018-01-01] MEDS: ATORVASTATIN 80 MG TAB PO SCH (20:01)
--- NOTE | 2018-01-02 02:01 | FAST ---
SHIFT START DATE/TIME: 01/01/2018 19:00 (CDT) SHIFT END DATE/TIME: 01/02/2018 07:00 (CDT) NAME IVETTE HODGES DATE OF : 1945 DATE OF ADMISSION: 12/14/2017 15:21 (CDT) PHONE: AGE: 72 N# [id number] GENDER: Female ENCOUNTER PHYSICIAN: Dr. Miki Delgado M.D. 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 EATING: Activity did not occur on this shift EATING - SCORE: 0-UNK GROOMING: Activity did not occur on this shift GROOMING - SCORE: 0-UNK BATHING: Activity did not occur on this shift BATHING - SCORE: 0-UNK DRESSING - UPPER BODY: Activity did not occur on this shift ARTICLES SCORE Total number of steps: 0 DRESSING - UPPER BODY - SCORE: 0-UNK DRESSING - LOWER BODY: Activity did not occur on this shift ARTICLES SCORE Total number of steps: 0 DRESSING - LOWER BODY - SCORE: 0-UNK TOILETING: TOILETING - STEP 1: Does the patient require assistance with toileting? Yes. TOILETING - STEP 2: Does the patient require the assistance of a helper? Yes. TOILETING - STEP 3: How much assistance does the patient require from the helper? Only supervision TOILETING - SCORE: 5-SUP BLADDER MANAGEMENT: BLADDER MANAGEMENT - STEP 1: Does the patient control the bladder completely and intentionally without equipment or devices or med ications, and is always continent? Yes. BLADDER MANAGEMENT - SCORE: 7-IND BLADDER MANAGEMENT - FREQUENCY OF ACCIDENTS: BLADDER MANAGEMENT(FA) - STEP 1: How many accidents has the patient had during the current shift? 0 BOWEL MANAGEMENT: BOWEL MANAGEMENT - STEP 1: Does the patient control bowels completely and intentionally without equipment devices or medications AND is always continent? Yes. BOWEL MANAGEMENT - SCORE: 7-IND BOWEL MANAGEMENT - FREQUENCY OF ACCIDENTS: BOWEL MANAGEMENT(FA) - STEP 1: How many accidents has the patient had during the current shift? 0 TRANSFERS: BED, CHAIR, WHEELCHAIR: TRANSFERS: BED, CHAIR, WHEELCHAIR - STEP 1: Does the patient require assistance with bed, chair, or wheelchair transfers? Yes. TRANSFERS: BED, CHAIR, WHEELCHAIR - STEP 2: Does the patient require the assistance of a helper? Yes. TRANSFERS: BED, CHAIR, WHEELCHAIR - STEP 3: How much assistance does the patient require from the helper? Only supervision TRANSFERS: BED, CHAIR, WHEELCHAIR - SCORE: 5-SUP TRANSFERS: TOILET: TRANSFERS: TOILET - STEP 1: Does the patient require assistance with toilet transfers? Yes. TRANSFERS: TOILET - STEP 2: Does the patient require the assistance of a helper? Yes. TRANSFERS: TOILET - STEP 3: How much assistance does the patient require from the helper? Patient performs half or more of the tr ansferring tasks TRANSFERS: TOILET - STEP 4: Does the patient need only incidental help such as contact guard or steadying during toilet transfer? Yes. TRANSFERS: TOILET - SCORE: 4-MIN TRANSFERS: SHOWER: Activity did not occur on this shift TRANSFERS: SHOWER - SCORE: 0-UNK TRANSFERS: TUB: Activity did not occur on this shift TRANSFERS: TUB - SCORE: 0-UNK LOCOMOTION: WALK: Activity did not occur on this shift LOCOMOTION: WALK - SCORE: 0-UNK LOCOMOTION: WHEELCHAIR: Activity did not occur on this shift LOCOMOTION: WHEELCHAIR - SCORE: 0-UNK COMPREHENSION: COMPREHENSION - STEP 1: Does the patient require help to understand complex and abstract ideas (such as current events, finan clement, discharge planning, medical issues, relationships, etc)? Yes. COMPREHENSION - STEP 2: Does the patient require help to understand questions or statements about basic needs or ideas (such as hunger, thirst, sleep, safety, daily schedule, room location, or discomfort) half or more of the t tammy? Yes. COMPREHENSION - STEP 3: Is the patient basically able to understand and respond appropriately and consistently? Yes. COMPREHENSION - SCORE: 2-MAX EXPRESSION EXPRESSION: TYPE: Both EXPRESSION - STEP 1: Does the patient require help expressing complex and abstract ideas (such as current events, finances , discharge planning, medical issues, relationships, etc)? Yes. EXPRESSION - STEP 2: Does the patient require help to express basic necessities or ideas (such as hunger, thirst, sleep, s afety, daily schedule, room location, or discomfort) half or more of the time? Yes. EXPRESSION - STEP 3: Is the patient basically unable to express or does s/he express inappropriately or inconsistently emmanuelle pite prompting? No. EXPRESSION - SCORE: 2-MAX SOCIAL INTERACTION: SOCIAL INTERACTION - STEP 1: Does the patient require a helper to interact with others in social and therapeutic situations? Yes. SOCIAL INTERACTION - STEP 2: Does the patient interact appropriately half or more of the time? Yes. SOCIAL INTERACTION - STEP 3: How often does the patient need help to interact appropriately? Less than 10% of the time SOCIAL INTERACTION - SCORE: 5-SUP PROBLEM SOLVING: PROBLEM SOLVING - STEP 1: Does the patient need help to solve complex problems such as managing a checking account or confronti ng interpersonal problems? Yes. PROBLEM SOLVING - STEP 2: Does the patient solve basic routine problems half or more of the time? Yes. PROBLEM SOLVING - STEP 3: How often does the patient need help to solve basic routine problems? Less than 10% of the time PROBLEM SOLVING - SCORE: 5-SUP MEMORY: MEMORY - STEP 1: Does the patient need help to remember frequently encountered people, daily routines, and executing r equests? No. MEMORY - STEP 2: Does the patient have slight difficulty recognizing frequently encountered people, daily routines, or executing requests without the need for repetition or using self-initiated or environmental cues to remember? No. MEMORY - SCORE: 7-IND SIGNATURE PANEL: The following modified sections: Eating - Score, Grooming - Score, Bathing - Score, Dressing - Upper Body - Score, Dressing - Lower Body - Score, Toileting - Score, Bladder Management - Score, Bowel Man agement - Score, Transfers: Bed, Chair, Wheelchair - Score, Transfers: Toilet - Score, Transfers: Nette wer - Score, Transfers: Tub - Score, Locomotion: Walk - Score, Locomotion: Wheelchair - Score, Compre hension - Score, Expression - Score, Social Interaction - Score, Problem Solving - Score, Memory - Sc ore were [electronically] signed by Gauri Loredo on TueJan 02 2018 02:00:45 GMT-0500 (Central Day light Time)
[2018-01-02] MEDS: INSULIN -REGULAR HUMAN 50 UNIT/0.5 ML ML SQ SCH ×4 (07:30→21:00)
[2018-01-02] MEDS: CARVEDILOL 6.25 MG TAB PO SCH ×2 (08:00→22:16)
[2018-01-02] MEDS: FUROSEMIDE 20 MG TABLET PO SCH (08:00)
[2018-01-02] MEDS: ASPIRIN EC 81 MG TAB PO SCH (08:02)
[2018-01-02] MEDS: glipiZIDE 5 MG TAB PO SCH ×2 (08:02→17:22)
[2018-01-02] MEDS: METFORMIN HCL 500 MG TAB PO SCH ×2 (08:03→17:22)
[2018-01-02] MEDS: levETIRAcetam 500 MG TAB PO SCH ×2 (08:03→22:16)
[2018-01-02] MEDS: CLOPIDOGREL 75 MG TABLET PO SCH (08:03)
[2018-01-02] MEDS: PANTOPRAZOLE 40MG TABLET PO SCH (08:03)
[2018-01-02] MEDS: FE SULF/FA/VIT B COMP & C TAB PO SCH (08:03)
[2018-01-02] MEDS: APIXABAN 2.5 MG TABLET PO SCH ×2 (08:03→22:16)
[2018-01-02] MEDS: FERROUS SULFATE 325 MG TAB PO SCH (08:03)
[2018-01-02] MEDS: GLUCERNA SHAKE 237 ML CAN PO SCH ×2 (08:04→22:16)
[2018-01-02] MEDS: PROMOD 30 ML DOSE PO SCH ×2 (08:04→22:17)
--- NOTE | 2018-01-02 13:48 | FAST ---
SHIFT START DATE/TIME: 01/02/2018 07:00 (CDT) SHIFT END DATE/TIME: 01/02/2018 19:00 (CDT) NAME IVETTE HODGES DATE OF : 1945 DATE OF ADMISSION: 12/14/2017 15:21 (CDT) PHONE: AGE: 72 N# [id number] GENDER: Female ENCOUNTER PHYSICIAN: Dr. Miki Delgado M.D. 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 EATING: EATING - STEP 1: Does the patient require assistance when eating? Yes. EATING - STEP 2: Does the patient require the assistance of a helper? Yes. EATING - STEP 3: Does the patient perform half or more of the eating tasks? Yes. EATING - STEP 4: Does the patient need only supervision, cuing, coaxing OR help to apply an orthosis OR help to cut fo od, open containers, pour liquids, or butter bread? Yes. EATING - SCORE: 5-SUP GROOMING: Activity did not occur on this shift GROOMING - SCORE: 0-UNK BATHING: Activity did not occur on this shift BATHING - SCORE: 0-UNK DRESSING - UPPER BODY: Activity did not occur on this shift ARTICLES SCORE Total number of steps: 0 DRESSING - UPPER BODY - SCORE: 0-UNK DRESSING - LOWER BODY: Activity did not occur on this shift ARTICLES SCORE Total number of steps: 0 DRESSING - LOWER BODY - SCORE: 0-UNK TOILETING: TOILETING - STEP 1: Does the patient require assistance with toileting? Yes. TOILETING - STEP 2: Does the patient require the assistance of a helper? Yes. TOILETING - STEP 3: How much assistance does the patient require from the helper? Only supervision TOILETING - SCORE: 5-SUP BLADDER MANAGEMENT: BLADDER MANAGEMENT - STEP 1: Does the patient control the bladder completely and intentionally without equipment or devices or med ications, and is always continent? No. BLADDER MANAGEMENT - STEP 2: Does the patient require the assistance of a helper? Yes. BLADDER MANAGEMENT - STEP 3: How much assistance does the patient require from the helper? Only supervision, stand-by, cuing, or c oaxing BLADDER MANAGEMENT - SCORE: 5-SUP BLADDER MANAGEMENT - FREQUENCY OF ACCIDENTS: BLADDER MANAGEMENT(FA) - STEP 1: How many accidents has the patient had during the current shift? 0 BOWEL MANAGEMENT: BOWEL MANAGEMENT - STEP 1: Does the patient control bowels completely and intentionally without equipment devices or medications AND is always continent? No. BOWEL MANAGEMENT - STEP 2: Does the patient require the assistance of a helper? No, patient requires medication for control such as stool softeners, suppositories, laxatives, enemas, or OTC medications BOWEL MANAGEMENT - SCORE: 6-SAYRA BOWEL MANAGEMENT - FREQUENCY OF ACCIDENTS: BOWEL MANAGEMENT(FA) - STEP 1: How many accidents has the patient had during the current shift? 0 TRANSFERS: BED, CHAIR, WHEELCHAIR: TRANSFERS: BED, CHAIR, WHEELCHAIR - STEP 1: Does the patient require assistance with bed, chair, or wheelchair transfers? Yes. TRANSFERS: BED, CHAIR, WHEELCHAIR - STEP 2: Does the patient require the assistance of a helper? Yes. TRANSFERS: BED, CHAIR, WHEELCHAIR - STEP 3: How much assistance does the patient require from the helper? Steadying/guiding assistance TRANSFERS: BED, CHAIR, WHEELCHAIR - SCORE: 4-MIN TRANSFERS: TOILET: TRANSFERS: TOILET - STEP 1: Does the patient require assistance with toilet transfers? Yes. TRANSFERS: TOILET - STEP 2: Does the patient require the assistance of a helper? Yes. TRANSFERS: TOILET - STEP 3: How much assistance does the patient require from the helper? Patient performs half or more of the tr ansferring tasks TRANSFERS: TOILET - STEP 4: Does the patient need only incidental help such as contact guard or steadying during toilet transfer? Yes. TRANSFERS: TOILET - SCORE: 4-MIN TRANSFERS: SHOWER: Activity did not occur on this shift TRANSFERS: SHOWER - SCORE: 0-UNK TRANSFERS: TUB: Activity did not occur on this shift TRANSFERS: TUB - SCORE: 0-UNK LOCOMOTION: WALK: Activity did not occur on this shift LOCOMOTION: WALK - SCORE: 0-UNK LOCOMOTION: WHEELCHAIR: Activity did not occur on this shift LOCOMOTION: WHEELCHAIR - SCORE: 0-UNK COMPREHENSION: COMPREHENSION: TYPE: Both COMPREHENSION - STEP 1: Does the patient require help to understand complex and abstract ideas (such as current events, finan clement, discharge planning, medical issues, relationships, etc)? Yes. COMPREHENSION - STEP 2: Does the patient require help to understand questions or statements about basic needs or ideas (such as hunger, thirst, sleep, safety, daily schedule, room location, or discomfort) half or more of the t tammy? No. COMPREHENSION - STEP 3: How often does the patient need help to understand directions and conversation about basic needs? Les s than 10% of the time COMPREHENSION - SCORE: 5-SUP EXPRESSION EXPRESSION - STEP 1: Does the patient require help expressing complex and abstract ideas (such as current events, finances , discharge planning, medical issues, relationships, etc)? Yes. EXPRESSION - STEP 2: Does the patient require help to express basic necessities or ideas (such as hunger, thirst, sleep, s afety, daily schedule, room location, or discomfort) half or more of the time? No. EXPRESSION - STEP 3: How often does the patient need help to express directions and conversation about basic needs? Less t richard 10% of the time EXPRESSION - SCORE: 5-SUP SOCIAL INTERACTION: SOCIAL INTERACTION - STEP 1: Does the patient require a helper to interact with others in social and therapeutic situations? Yes. SOCIAL INTERACTION - STEP 2: Does the patient interact appropriately half or more of the time? Yes. SOCIAL INTERACTION - STEP 3: How often does the patient need help to interact appropriately? Less than 10% of the time SOCIAL INTERACTION - SCORE: 5-SUP PROBLEM SOLVING: PROBLEM SOLVING - STEP 1: Does the patient need help to solve complex problems such as managing a checking account or confronti ng interpersonal problems? Yes. PROBLEM SOLVING - STEP 2: Does the patient solve basic routine problems half or more of the time? Yes. PROBLEM SOLVING - STEP 3: How often does the patient need help to solve basic routine problems? Less than 10% of the time PROBLEM SOLVING - SCORE: 5-SUP MEMORY: MEMORY - STEP 1: Does the patient need help to remember frequently encountered people, daily routines, and executing r equests? Yes. MEMORY - STEP 2: How often does the patient need help to remember frequently encountered people, daily routines, and e xecuting requests? Less than 10% of the time MEMORY - SCORE: 5-SUP SIGNATURE PANEL: The following modified sections: Eating - Score, Grooming - Score, Bathing - Score, Dressing - Upper Body - Score, Dressing - Lower Body - Score, Toileting - Score, Bladder Management - Score, Bowel Man agement - Score, Transfers: Bed, Chair, Wheelchair - Score, Transfers: Toilet - Score, Transfers: Nette wer - Score, Transfers: Tub - Score, Locomotion: Walk - Score, Locomotion: Wheelchair - Score, Compre hension - Score, Expression - Score, Social Interaction - Score, Problem Solving - Score, Memory - Sc ore were [electronically] signed by Mireya Desai C.N.A. on TueJan 02 2018 13:47:49 T-0500 (Cent[place] Daylight Time)
--- NOTE | 2018-01-02 14:54 | FAST ---
ENCOUNTER DATE AND TIME: 01/02/2018 08:00 (CDT) NAME IVETTE HODGES DATE OF : 1945 DATE OF ADMISSION: 12/14/2017 15:21 (CDT) PHONE: AGE: 72 N# [id number] GENDER: Female ENCOUNTER PHYSICIAN: Dr. Miki Delgado M.D. 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 EATING: Activity did not occur on this shift EATING - SCORE: 0-UNK GROOMING: Activity did not occur on this shift GROOMING - SCORE: 0-UNK BATHING: Activity did not occur on this shift BATHING - SCORE: 0-UNK DRESSING - UPPER BODY: Activity did not occur on this shift Patient is not dressing in public clothing ARTICLES SCORE Total number of steps: 0 DRESSING - UPPER BODY - SCORE: 0-UNK DRESSING - LOWER BODY: Activity did not occur on this shift Patient is not dressing in public clothing ARTICLES SCORE Total number of steps: 0 DRESSING - LOWER BODY - SCORE: 0-UNK TOILETING: Activity did not occur on this shift TOILETING - SCORE: 0-UNK BLADDER MANAGEMENT: Activity did not occur on this shift BLADDER MANAGEMENT - SCORE: 7-IND BOWEL MANAGEMENT: Activity did not occur on this shift BOWEL MANAGEMENT - SCORE: 7-IND TRANSFERS: BED, CHAIR, WHEELCHAIR: TRANSFERS: BED, CHAIR, WHEELCHAIR - STEP 1: Does the patient require assistance with bed, chair, or wheelchair transfers? Yes. TRANSFERS: BED, CHAIR, WHEELCHAIR - STEP 2: Does the patient require the assistance of a helper? Yes. TRANSFERS: BED, CHAIR, WHEELCHAIR - STEP 3: How much assistance does the patient require from the helper? Only supervision TRANSFERS: BED, CHAIR, WHEELCHAIR - SCORE: 5-SUP TRANSFERS: TOILET: Activity did not occur on this shift TRANSFERS: TOILET - SCORE: 0-UNK TRANSFERS: SHOWER: Activity did not occur on this shift TRANSFERS: SHOWER - SCORE: 0-UNK TRANSFERS: TUB: Activity did not occur on this shift TRANSFERS: TUB - SCORE: 0-UNK LOCOMOTION: WALK: LOCOMOTION: WALK - STEP 1: Does the patient need help to walk 150 feet? Yes. LOCOMOTION: WALK - STEP 2: How much assistance does the patient require to walk a minimum of 150 feet? Only supervision, cuing, or coaxing LOCOMOTION: WALK - SCORE: 5-SUP LOCOMOTION: WHEELCHAIR: Activity did not occur on this shift LOCOMOTION: WHEELCHAIR - SCORE: 0-UNK LOCOMOTION: STAIRS: Activity did not occur on this shift LOCOMOTION: STAIRS - SCORE: 0-UNK COMPREHENSION: COMPREHENSION - SCORE: 0-UNK EXPRESSION EXPRESSION - SCORE: 0-UNK SOCIAL INTERACTION: SOCIAL INTERACTION - SCORE: 0-UNK PROBLEM SOLVING: PROBLEM SOLVING - SCORE: 0-UNK MEMORY: MEMORY - SCORE: 0-UNK SIGNATURE PANEL: The following modified sections: Transfers: Bed, Chair, Wheelchair - Score, Transfers: Toilet - Score , Locomotion: Walk - Score, Locomotion: Wheelchair - Score, Locomotion: Stairs - Score were [electron debbie] signed by Ara Rogers PTA on TueJan 02 2018 14:53:25 GMT-0500 (Central Daylight Time)
--- NOTE | 2018-01-02 15:21 | FAST ---
ENCOUNTER DATE AND TIME: 01/02/2018 08:00 (CDT) NAME IVETTE HODGES DATE OF : 1945 DATE OF ADMISSION: 12/14/2017 15:21 (CDT) PHONE: AGE: 72 N# [id number] GENDER: Female ENCOUNTER PHYSICIAN: Dr. Miki Delgado M.D. 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 EATING: EATING - STEP 1: Does the patient require assistance when eating? No. EATING - SCORE: 7-IND GROOMING: Comb/brush hair Oral care Wash, rinse, and dry face Wash, rinse, and dry hands GROOMING - STEP 1: Does the patient require assistance when grooming? No. GROOMING - SCORE: 7-IND BATHING: Abdomen Buttocks Chest Left arm Left lower leg and foot Left upper leg Perineal area Right arm Right lower leg and foot Right upper leg BATHING - STEP 1: Does the patient require assistance when bathing? Yes. BATHING - STEP 2: Does the patient require the assistance of a helper? Yes. BATHING - STEP 3: How much assistance does the patient require from the helper? Only supervision, cuing, coaxing, instr uctions, encouragement BATHING - SCORE: 5-SUP DRESSING - UPPER BODY: T-shirt/pullover shirt (four steps) ARTICLES SCORE Total number of steps: 4 DRESSING - UPPER BODY - STEP 1: Does the patient require help when dressing above the waist? Yes. DRESSING - UPPER BODY - STEP 2: Does the patient require the assistance of a helper? Yes. DRESSING - UPPER BODY - STEP 3: Does the helper touch the patient while dressing? No. DRESSING - UPPER BODY - SCORE: 5-SUP DRESSING - LOWER BODY: Elastic waist pants (three steps) Slip-on shoe - Right foot (one step) Sock - Left foot (one step) Sock - Right foot (one step) Underwear (three steps) ARTICLES SCORE Total number of steps: 9 DRESSING - LOWER BODY - STEP 1: Does the patient require help when dressing below the waist? Yes. DRESSING - LOWER BODY - STEP 2: Does the patient require the assistance of a helper? Yes. DRESSING - LOWER BODY - STEP 3: Does the helper touch the patient while dressing? No. DRESSING - LOWER BODY - SCORE: 5-SUP TOILETING: TOILETING - STEP 1: Does the patient require assistance with toileting? Yes. TOILETING - STEP 2: Does the patient require the assistance of a helper? Yes. TOILETING - STEP 3: How much assistance does the patient require from the helper? Only supervision TOILETING - SCORE: 5-SUP BLADDER MANAGEMENT: Activity did not occur on this shift BLADDER MANAGEMENT - SCORE: 7-IND BOWEL MANAGEMENT: Activity did not occur on this shift BOWEL MANAGEMENT - SCORE: 7-IND TRANSFERS: BED, CHAIR, WHEELCHAIR: Activity did not occur on this shift TRANSFERS: BED, CHAIR, WHEELCHAIR - SCORE: 0-UNK TRANSFERS: TOILET: TRANSFERS: TOILET - STEP 1: Does the patient require assistance with toilet transfers? Yes. TRANSFERS: TOILET - STEP 2: Does the patient require the assistance of a helper? Yes. TRANSFERS: TOILET - STEP 3: How much assistance does the patient require from the helper? Only supervision, cuing, coaxing, OR he lp to set out transfer equipment or to lock brakes and/or lift foot rests TRANSFERS: TOILET - SCORE: 5-SUP TRANSFERS: SHOWER: Activity did not occur on this shift TRANSFERS: SHOWER - SCORE: 0-UNK TRANSFERS: TUB: TRANSFERS: TUB - STEP 1: Does the patient require assistance with tub transfers? Yes. TRANSFERS: TUB - STEP 2: Does the patient require the assistance of a helper? Yes. TRANSFERS: TUB - STEP 3: How much assistance does the patient require from the helper? Only supervision, cuing, coaxing, or he lp to set out transfer equipment or to lock brakes and/or lift foot rests TRANSFERS: TUB - SCORE: 5-SUP LOCOMOTION: WALK: Activity did not occur on this shift LOCOMOTION: WALK - SCORE: 0-UNK LOCOMOTION: WHEELCHAIR: Activity did not occur on this shift LOCOMOTION: WHEELCHAIR - SCORE: 0-UNK LOCOMOTION: STAIRS: Activity did not occur on this shift LOCOMOTION: STAIRS - SCORE: 0-UNK COMPREHENSION: COMPREHENSION: TYPE: Both COMPREHENSION - STEP 1: Does the patient require help to understand complex and abstract ideas (such as current events, finan clement, discharge planning, medical issues, relationships, etc)? No. COMPREHENSION - STEP 2: Does the patient need extra time, require an assistive device (such as glasses, hearing aids, or an a ugmentative communication system), OR does s/he have mild difficulty expressing complex and abstract ideas (including mild dysarthria or mild word-finding problems)? Yes. COMPREHENSION - SCORE: 6-SAYRA EXPRESSION EXPRESSION: TYPE: Both EXPRESSION - STEP 1: Does the patient require help expressing complex and abstract ideas (such as current events, finances , discharge planning, medical issues, relationships, etc)? No. EXPRESSION - STEP 2: Does the patient need extra time, require an assistive device (such as augmentive communication syste m or a communication board), OR does s/he have mild difficulty expressing complex and abstract ideas (including mild dysarthria or mild word-find problems)? Yes. EXPRESSION - SCORE: 6-SAYRA SOCIAL INTERACTION: SOCIAL INTERACTION - STEP 1: Does the patient require a helper to interact with others in social and therapeutic situations? No. SOCIAL INTERACTION - STEP 2: Does the patient need extra time in social situations, OR does s/he interact with staff, other patien ts, and family members ONLY in structured environments, OR does s/he require medication for social in teraction? Yes, patient needs extra time SOCIAL INTERACTION - SCORE: 6-SAYRA PROBLEM SOLVING: PROBLEM SOLVING - STEP 1: Does the patient need help to solve complex problems such as managing a checking account or confronti ng interpersonal problems? Yes. PROBLEM SOLVING - STEP 2: Does the patient solve basic routine problems half or more of the time? Yes. PROBLEM SOLVING - STEP 3: How often does the patient need help to solve basic routine problems? 10%-24% of the time PROBLEM SOLVING - SCORE: 4-MIN MEMORY: MEMORY - STEP 1: Does the patient need help to remember frequently encountered people, daily routines, and executing r equests? Yes. MEMORY - STEP 2: How often does the patient need help to remember frequently encountered people, daily routines, and e xecuting requests? 10% - 24% of the time MEMORY - SCORE: 4-MIN SIGNATURE PANEL: The following modified sections: Eating - Score, Grooming - Score, Bathing - Score, Dressing - Upper Body - Score, Dressing - Lower Body - Score, Toileting - Score, Transfers: Bed, Chair, Wheelchair - S core, Transfers: Toilet - Score, Transfers: Shower - Score, Transfers: Tub - Score, Comprehension - S core, Expression - Score, Social Interaction - Score, Problem Solving - Score, Memory - Score were [e lectronically] signed by Meaghan Salomon OT on TueJan 02 2018 15:19:40 T-0500 (Central Daylight T tammy)
--- NOTE | 2018-01-02 17:42 | R.PN ---
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 SUBJECTIVE: Pt denied any Shortness of Breath. Pt denied any depression. Improved left facial movement. She passed her modified barium swallow study for all consistencies. No new complaint. Left arm proximal strength is improving slowly but distal hand movement is showing li ttle improvement. VITAL SIGNS Temperature: 98 F SBP/DBP: 114/60 Pulse: 81 Resp: 14 Ambulated 240' with standby assistance using a right quad cane. Worked well with speech therapist for swallowing and cognitive therapy. Up and down 15 steps with standby assistance using right hand israel ls. MEDICATION ALLERGIES: No Known Drug Allergies (NKDA) ENVIRONMENTAL ALLERGIES: - Substance Allergies None Known - Other Allergies None Known NURSING: - Shower allowing shower - Lab Results blood Sugar Check ACHS - Bladder care per protocol - Skin care per protocol PRECAUTIONS: - Weight Bearing Precaution WBAT left LE ACTIVITIES OOB only with supervision THERAPIES: - Occupational Therapy Evaluate and Treat. Cognitive Retraining. Visual Perceptual Training. - Speech Therapy Memory Strategies. Expressive Language Skills. Speech Intelligibility Training. Cognitive Training. R eceptive Language Skills. - Physical Therapy Evaluate and Treat. PHYSICAL EXAM - Gen Alert and awake Lying in bed No apparent distress Oriented to: person, time, and place - Skin No skin breakdown. Normacephalic - Eyes No abnormalities - ENMT No abnormalities - Neck No abnormalities - CVS RRR - Chest No abnormalities - Abd Soft - GI nondistended Deferred - No abnormalities - Ext No significant edema - MSK 1/5 weakness in left upper and 4/5 weakness in left lower extremity. - Neuro 2/5 weakness in left face, 1/5 left arm and 4/5 left leg. - Psych No abnormalities ASSESSMENT: Pt. is a 72 yo Right-handed female of unknown race.On 12/06/2017 Pt. presented to [facility] sudden onset of left-side weakness.On 12/06/2017 she was admitted to [facility] with diagnos is Cerebral infarction due to unspecified occlusion or stenosis of right middle cerebral artery (I63. 511).Her impairment category is Stroke 01 - Left Body (Right Brain) (01.1).Pre-morbidly, Pt. was ind ependent/mod-I in Sphincter Control, Transfers Control, Communication, Social Cognition, Self-Care, a nd Locomotion; and she had good Sphincter Control.Currently, she has deficits of Endurance, Safety Aw areness, Transfers Control, Communication, Social Cognition, Balance, Self-Care, and Locomotion.Pt. i s now referred to [facility] for acute in-patient rehabilitation in order to m aximize patient's functional independence in activities of daily living, strength, ROM, and mobility. - Rehab Goal Patient has realistic goal of being discharged at assistance level 6-Jonah to reside at Home with Fam remington/Relatives. MDM/PLAN: - Diet Type Continue Regular for Dementia, TBI, Stroke, or others - Diet - Liquid Texture Continue Regular - Physical Therapy Gait dysfunction - to improve, our physical therapists will perform initial evaluation of pt's statu s upon admission and devise an individualized program for Gait Training, and Wheel Chair mobility Inability to transfer - to improve, our physical therapists will perform initial evaluation of pt's status upon admission and devise an individualized program for Bed mobility Need for home safety evaluation - to improve, our physical therapists will perform initial evaluatio n of pt's status upon admission and devise an individualized program for Home Evaluation Need in caregiver upon discharge - to improve, our physical therapists will perform initial evaluati on of pt's status upon admission and devise an individualized program for Caregiver Training New precaution - to improve, our physical therapists will perform initial evaluation of pt's status upon admission and devise an individualized program for Patient precaution education Edema - to improve, our physical therapists will perform initial evaluation of pt's status upon admi ssion and devise an individualized program for Elevation Training, and Lymphedema Therapy Poor balance - to improve, our physical therapists will perform initial evaluation of pt's status up on admission and devise an individualized program for Balance Training Poor endurance - to improve, our physical therapists will perform initial evaluation of pt's status upon admission and devise an individualized program for Endurance Training Weakness - to improve, our physical therapists will perform initial evaluation of pt's status upon a dmission and devise an individualized program for Aquatic Therapy, Neuromuscular Reeducation, and Str engthening Achieving independence - to improve, our physical therapists will perform initial evaluation of pt's status upon admission and devise an individualized program for Community Reintegration Activities - Tube Feed Continue N/A - Lab Results blood Sugar Check ACHS - Bladder care per protocol - Weight Bearing Precaution WBAT left LE - Skin care per protocol - Diet - Solid Texture Continue Regular - Shower allowing shower - Occupational Therapy ADL deficits - to improve, our occupation therapists will perform initial evaluation of pt's status upon admission and devise an individualized program for Bathing, Bed mobility, Community Reintegratio n, Cooking, Dressing, Eating, Fine Motor Skills, Grooming, Homemaking, Kitchen Mobility, Laundry, Pat ient Education, Safety Awareness, Splinting - Positioning, Transfers(Toilet, Tub, Shower), and Wheel Chair Management Cognitive deficits - to improve, our occupation therapists will perform initial evaluation of pt's s tatus upon admission and devise an individualized program for Cognition - orientation Need for career consultant - to improve, our occupation therapists will perform initial evaluation of pt's status upon admission and devise an individualized program for Caregiver Training Weakness - to improve, our occupation therapists will perform initial evaluation of pt's status upon admission and devise an individualized program for Aquatic Therapy, Balance, Endurance, UE ROM, and UE strengthening FUNCTIONAL STATUS: UPDATED AT WEEKLY TEAM CONFERENCE - Bladder Same accident frequency: 7-Ind - No accidents in the past 7 days - Bowel Same accident frequency: 7-Ind - No accidents in the past 7 days - Walking Same score based on distance walked: 1(<=50ft) FUNCTIONAL STATUS: - Self-Care A. Eating Tom B. Grooming modA C. Bathing modA D. Dressing - Upper modA E. Dressing - Lower modA F. Toileting modA - Sphincter Control G: Bladder control Ind H: Bowel control Ind - Transfers Control I. Bed/Chair/Wheelchair modA J. Toilet modA K. Tub/Shower modA - Locomotion L. Walk/Wheelchair (B) Dep M. Stairs ADNO - Communication N. Comprehension (B) Tom O. Expression (B) Tom - Social Cognition P. Social Interaction Tom Q. Problem Solving Tom R. Memory Tom - Endurance Poor - Balance Poor - Safety Awareness Poor CURRENT FUNC. DEFICITS: Endurance, Safety Awareness, Transfers Control, Communication, Social Cognition, Balance, Self-Care, and Locomotion SIGNATURE PANEL: (CDT)
[2018-01-02] MEDS ORDERED: DULOXETINE 30 MG CAP PO SCH (21:00)
[2018-01-02] MEDS: ATORVASTATIN 80 MG TAB PO SCH (22:15)
--- NOTE | 2018-01-03 01:49 | FAST ---
SHIFT START DATE/TIME: 01/02/2018 19:00 (CDT) SHIFT END DATE/TIME: 01/03/2018 07:00 (CDT) NAME IVETTE HODGES DATE OF : 1945 DATE OF ADMISSION: 12/14/2017 15:21 (CDT) PHONE: AGE: 72 N# [id number] GENDER: Female ENCOUNTER PHYSICIAN: Dr. Miki Delgado M.D. 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 EATING: Activity did not occur on this shift EATING - SCORE: 0-UNK GROOMING: Oral care Wash, rinse, and dry face Wash, rinse, and dry hands GROOMING - STEP 1: Does the patient require assistance when grooming? Yes. GROOMING - STEP 2: Does the patient require the assistance of a helper? Yes. GROOMING - STEP 3: How much assistance does the patient require from the helper? Only prior equipment preparation/set up from the helper GROOMING - SCORE: 5-SUP BATHING: Activity did not occur on this shift BATHING - SCORE: 0-UNK DRESSING - UPPER BODY: Patient is not dressing in public clothing ARTICLES SCORE Total number of steps: 0 DRESSING - UPPER BODY - SCORE: 0-UNK DRESSING - LOWER BODY: Patient is not dressing in public clothing ARTICLES SCORE Total number of steps: 0 DRESSING - LOWER BODY - SCORE: 0-UNK TOILETING: TOILETING - STEP 1: Does the patient require assistance with toileting? Yes. TOILETING - STEP 2: Does the patient require the assistance of a helper? Yes. TOILETING - STEP 3: How much assistance does the patient require from the helper? Only supervision TOILETING - SCORE: 5-SUP BLADDER MANAGEMENT: BLADDER MANAGEMENT - STEP 1: Does the patient control the bladder completely and intentionally without equipment or devices or med ications, and is always continent? Yes. BLADDER MANAGEMENT - SCORE: 7-IND BOWEL MANAGEMENT: BOWEL MANAGEMENT - STEP 1: Does the patient control bowels completely and intentionally without equipment devices or medications AND is always continent? Yes. BOWEL MANAGEMENT - SCORE: 7-IND TRANSFERS: BED, CHAIR, WHEELCHAIR: TRANSFERS: BED, CHAIR, WHEELCHAIR - STEP 1: Does the patient require assistance with bed, chair, or wheelchair transfers? Yes. TRANSFERS: BED, CHAIR, WHEELCHAIR - STEP 2: Does the patient require the assistance of a helper? Yes. TRANSFERS: BED, CHAIR, WHEELCHAIR - STEP 3: How much assistance does the patient require from the helper? Steadying/guiding assistance TRANSFERS: BED, CHAIR, WHEELCHAIR - SCORE: 4-MIN TRANSFERS: TOILET: TRANSFERS: TOILET - STEP 1: Does the patient require assistance with toilet transfers? Yes. TRANSFERS: TOILET - STEP 2: Does the patient require the assistance of a helper? Yes. TRANSFERS: TOILET - STEP 3: How much assistance does the patient require from the helper? Only supervision, cuing, coaxing, OR he lp to set out transfer equipment or to lock brakes and/or lift foot rests TRANSFERS: TOILET - SCORE: 5-SUP TRANSFERS: SHOWER: Activity did not occur on this shift TRANSFERS: SHOWER - SCORE: 0-UNK TRANSFERS: TUB: Activity did not occur on this shift TRANSFERS: TUB - SCORE: 0-UNK LOCOMOTION: WALK: Activity did not occur on this shift LOCOMOTION: WALK - SCORE: 0-UNK LOCOMOTION: WHEELCHAIR: Activity did not occur on this shift LOCOMOTION: WHEELCHAIR - SCORE: 0-UNK COMPREHENSION: COMPREHENSION - STEP 1: Does the patient require help to understand complex and abstract ideas (such as current events, finan clement, discharge planning, medical issues, relationships, etc)? Yes. COMPREHENSION - STEP 2: Does the patient require help to understand questions or statements about basic needs or ideas (such as hunger, thirst, sleep, safety, daily schedule, room location, or discomfort) half or more of the t tammy? No. COMPREHENSION - STEP 3: How often does the patient need help to understand directions and conversation about basic needs? 10% - 24% of the time COMPREHENSION - SCORE: 4-MIN EXPRESSION EXPRESSION - STEP 1: Does the patient require help expressing complex and abstract ideas (such as current events, finances , discharge planning, medical issues, relationships, etc)? Yes. EXPRESSION - STEP 2: Does the patient require help to express basic necessities or ideas (such as hunger, thirst, sleep, s afety, daily schedule, room location, or discomfort) half or more of the time? No. EXPRESSION - STEP 3: How often does the patient need help to express directions and conversation about basic needs? 10-24% of the time EXPRESSION - SCORE: 4-MIN SOCIAL INTERACTION: SOCIAL INTERACTION - STEP 1: Does the patient require a helper to interact with others in social and therapeutic situations? No. SOCIAL INTERACTION - STEP 2: Does the patient need extra time in social situations, OR does s/he interact with staff, other patien ts, and family members ONLY in structured environments, OR does s/he require medication for social in teraction? Yes, patient needs extra time SOCIAL INTERACTION - SCORE: 6-SAYRA PROBLEM SOLVING: PROBLEM SOLVING - STEP 1: Does the patient need help to solve complex problems such as managing a checking account or confronti ng interpersonal problems? Yes. PROBLEM SOLVING - STEP 2: Does the patient solve basic routine problems half or more of the time? Yes. PROBLEM SOLVING - STEP 3: How often does the patient need help to solve basic routine problems? 10%-24% of the time PROBLEM SOLVING - SCORE: 4-MIN MEMORY: MEMORY - STEP 1: Does the patient need help to remember frequently encountered people, daily routines, and executing r equests? No. MEMORY - STEP 2: Does the patient have slight difficulty recognizing frequently encountered people, daily routines, or executing requests without the need for repetition or using self-initiated or environmental cues to remember? Yes. MEMORY - SCORE: 6-SAYRA SIGNATURE PANEL: The following modified sections: Eating - Score, Grooming - Score, Dressing - Upper Body - Score, Cheikh ssing - Lower Body - Score, Toileting - Score, Bladder Management - Score, Bowel Management - Score, Transfers: Bed, Chair, Wheelchair - Score, Transfers: Toilet - Score, Transfers: Shower - Score, Mercado sfers: Tub - Score, Locomotion: Walk - Score, Locomotion: Wheelchair - Score, Comprehension - Score, Expression - Score, Social Interaction - Score, Problem Solving - Score, Memory - Score were [electro nically] signed by Tonia Cruz CNA on TueJan 03 2018 01:48:36 GMT-0500 (Central Daylight Time)
[2018-01-03] MEDS ORDERED: ONDANSETRON 4 MG (ODT) TAB PO PRN (06:21)
[2018-01-03] MEDS: PANTOPRAZOLE 40MG TABLET PO SCH (06:57)
[2018-01-03] MEDS: INSULIN -REGULAR HUMAN 50 UNIT/0.5 ML ML SQ SCH ×4 (07:30→21:00)
[2018-01-03] MEDS: GLUCERNA SHAKE 237 ML CAN PO SCH ×2 (08:00→21:10)
[2018-01-03] MEDS: CARVEDILOL 6.25 MG TAB PO SCH ×2 (08:34→20:00)
[2018-01-03] MEDS: levETIRAcetam 500 MG TAB PO SCH ×2 (08:34→21:10)
[2018-01-03] MEDS: CLOPIDOGREL 75 MG TABLET PO SCH (08:35)
[2018-01-03] MEDS: APIXABAN 2.5 MG TABLET PO SCH ×2 (08:35→21:10)
[2018-01-03] MEDS: FERROUS SULFATE 325 MG TAB PO SCH (08:35)
[2018-01-03] MEDS: FE SULF/FA/VIT B COMP & C TAB PO SCH (08:35)
[2018-01-03] MEDS: glipiZIDE 5 MG TAB PO SCH ×2 (08:35→16:58)
[2018-01-03] MEDS: ASPIRIN EC 81 MG TAB PO SCH (08:35)
[2018-01-03] MEDS: METFORMIN HCL 500 MG TAB PO SCH ×2 (08:35→16:58)
[2018-01-03] MEDS: PROMOD 30 ML DOSE PO SCH ×2 (08:36→21:11)
[2018-01-03] MEDS: FUROSEMIDE 20 MG TABLET PO SCH (08:36)
--- NOTE | 2018-01-03 15:06 | FAST ---
SHIFT START DATE/TIME: 01/03/2018 19:00 (CDT) SHIFT END DATE/TIME: 01/04/2018 07:00 (CDT) NAME IVETTE HODGES DATE OF : 1945 DATE OF ADMISSION: 12/14/2017 15:21 (CDT) PHONE: AGE: 72 N# [id number] GENDER: Female ENCOUNTER PHYSICIAN: Dr. Miki Delgado M.D. 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 EATING: EATING - STEP 1: Does the patient require assistance when eating? Yes. EATING - STEP 2: Does the patient require the assistance of a helper? Yes. EATING - STEP 3: Does the patient perform half or more of the eating tasks? Yes. EATING - STEP 4: Does the patient need only supervision, cuing, coaxing OR help to apply an orthosis OR help to cut fo od, open containers, pour liquids, or butter bread? Yes. EATING - SCORE: 5-SUP GROOMING: Activity did not occur on this shift GROOMING - SCORE: 0-UNK BATHING: Activity did not occur on this shift BATHING - SCORE: 0-UNK DRESSING - UPPER BODY: Activity did not occur on this shift ARTICLES SCORE Total number of steps: 0 DRESSING - UPPER BODY - SCORE: 0-UNK DRESSING - LOWER BODY: Activity did not occur on this shift ARTICLES SCORE Total number of steps: 0 DRESSING - LOWER BODY - SCORE: 0-UNK TOILETING: TOILETING - STEP 1: Does the patient require assistance with toileting? Yes. TOILETING - STEP 2: Does the patient require the assistance of a helper? Yes. TOILETING - STEP 3: How much assistance does the patient require from the helper? Only supervision TOILETING - SCORE: 5-SUP BLADDER MANAGEMENT: BLADDER MANAGEMENT - STEP 1: Does the patient control the bladder completely and intentionally without equipment or devices or med ications, and is always continent? No. BLADDER MANAGEMENT - STEP 2: Does the patient require the assistance of a helper? Yes. BLADDER MANAGEMENT - STEP 3: How much assistance does the patient require from the helper? Only supervision, stand-by, cuing, or c oaxing BLADDER MANAGEMENT - SCORE: 5-SUP BLADDER MANAGEMENT - FREQUENCY OF ACCIDENTS: BLADDER MANAGEMENT(FA) - STEP 1: How many accidents has the patient had during the current shift? 0 BOWEL MANAGEMENT: BOWEL MANAGEMENT - STEP 1: Does the patient control bowels completely and intentionally without equipment devices or medications AND is always continent? No. BOWEL MANAGEMENT - STEP 2: Does the patient require the assistance of a helper? Yes. BOWEL MANAGEMENT - STEP 3: How much assistance does the patient require from the helper? Patient requires supervision, stand by, cueing, coaxing, or setup of equipment - placing within reach of patient and emptying device / bedpa nd or BSC bucket - to maintain either satisfactory bowel pattern or managing an external device such as an absorbent pad, colostomy bag / ileostomy bag BOWEL MANAGEMENT - SCORE: 5-SUP BOWEL MANAGEMENT - FREQUENCY OF ACCIDENTS: BOWEL MANAGEMENT(FA) - STEP 1: How many accidents has the patient had during the current shift? 0 TRANSFERS: BED, CHAIR, WHEELCHAIR: TRANSFERS: BED, CHAIR, WHEELCHAIR - STEP 1: Does the patient require assistance with bed, chair, or wheelchair transfers? Yes. TRANSFERS: BED, CHAIR, WHEELCHAIR - STEP 2: Does the patient require the assistance of a helper? Yes. TRANSFERS: BED, CHAIR, WHEELCHAIR - STEP 3: How much assistance does the patient require from the helper? Steadying/guiding assistance TRANSFERS: BED, CHAIR, WHEELCHAIR - SCORE: 4-MIN TRANSFERS: TOILET: TRANSFERS: TOILET - STEP 1: Does the patient require assistance with toilet transfers? Yes. TRANSFERS: TOILET - STEP 2: Does the patient require the assistance of a helper? Yes. TRANSFERS: TOILET - STEP 3: How much assistance does the patient require from the helper? Patient performs half or more of the tr ansferring tasks TRANSFERS: TOILET - STEP 4: Does the patient need only incidental help such as contact guard or steadying during toilet transfer? Yes. TRANSFERS: TOILET - SCORE: 4-MIN TRANSFERS: SHOWER: Activity did not occur on this shift TRANSFERS: SHOWER - SCORE: 0-UNK TRANSFERS: TUB: Activity did not occur on this shift TRANSFERS: TUB - SCORE: 0-UNK LOCOMOTION: WALK: Activity did not occur on this shift LOCOMOTION: WALK - SCORE: 0-UNK LOCOMOTION: WHEELCHAIR: Activity did not occur on this shift LOCOMOTION: WHEELCHAIR - SCORE: 0-UNK COMPREHENSION: COMPREHENSION: TYPE: Both COMPREHENSION - STEP 1: Does the patient require help to understand complex and abstract ideas (such as current events, finan clement, discharge planning, medical issues, relationships, etc)? Yes. COMPREHENSION - STEP 2: Does the patient require help to understand questions or statements about basic needs or ideas (such as hunger, thirst, sleep, safety, daily schedule, room location, or discomfort) half or more of the t tammy? No. COMPREHENSION - STEP 3: How often does the patient need help to understand directions and conversation about basic needs? Les s than 10% of the time COMPREHENSION - SCORE: 5-SUP EXPRESSION EXPRESSION: TYPE: Both EXPRESSION - STEP 1: Does the patient require help expressing complex and abstract ideas (such as current events, finances , discharge planning, medical issues, relationships, etc)? Yes. EXPRESSION - STEP 2: Does the patient require help to express basic necessities or ideas (such as hunger, thirst, sleep, s afety, daily schedule, room location, or discomfort) half or more of the time? No. EXPRESSION - STEP 3: How often does the patient need help to express directions and conversation about basic needs? Less t richard 10% of the time EXPRESSION - SCORE: 5-SUP SOCIAL INTERACTION: SOCIAL INTERACTION - STEP 1: Does the patient require a helper to interact with others in social and therapeutic situations? Yes. SOCIAL INTERACTION - STEP 2: Does the patient interact appropriately half or more of the time? Yes. SOCIAL INTERACTION - STEP 3: How often does the patient need help to interact appropriately? Less than 10% of the time SOCIAL INTERACTION - SCORE: 5-SUP PROBLEM SOLVING: PROBLEM SOLVING - STEP 1: Does the patient need help to solve complex problems such as managing a checking account or confronti ng interpersonal problems? Yes. PROBLEM SOLVING - STEP 2: Does the patient solve basic routine problems half or more of the time? Yes. PROBLEM SOLVING - STEP 3: How often does the patient need help to solve basic routine problems? Less than 10% of the time PROBLEM SOLVING - SCORE: 5-SUP MEMORY: MEMORY - STEP 1: Does the patient need help to remember frequently encountered people, daily routines, and executing r equests? Yes. MEMORY - STEP 2: How often does the patient need help to remember frequently encountered people, daily routines, and e xecuting requests? Less than 10% of the time MEMORY - SCORE: 5-SUP SIGNATURE PANEL: The following modified sections: Eating - Score, Grooming - Score, Bathing - Score, Dressing - Upper Body - Score, Dressing - Lower Body - Score, Toileting - Score, Bladder Management - Score, Bowel Man agement - Score, Transfers: Bed, Chair, Wheelchair - Score, Transfers: Toilet - Score, Transfers: Nette wer - Score, Transfers: Tub - Score, Locomotion: Walk - Score, Locomotion: Wheelchair - Score, Compre hension - Score, Expression - Score, Social Interaction - Score, Problem Solving - Score, Memory - Sc ore were [electronically] signed by Jazz KelleyNPipe on TueJan 03 2018 15:05:07 T-0500 (Centra l Daylight Time)
--- NOTE | 2018-01-03 17:51 | FAST ---
ENCOUNTER DATE AND TIME: 01/03/2018 08:00 (CDT) NAME IVETTE HODGES DATE OF : 1945 DATE OF ADMISSION: 12/14/2017 15:21 (CDT) PHONE: AGE: 72 N# [id number] GENDER: Female ENCOUNTER PHYSICIAN: Dr. Miki Delgado M.D. 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 EATING: Activity did not occur on this shift EATING - SCORE: 0-UNK GROOMING: Activity did not occur on this shift GROOMING - SCORE: 0-UNK BATHING: Activity did not occur on this shift BATHING - SCORE: 0-UNK DRESSING - UPPER BODY: Activity did not occur on this shift Patient is not dressing in public clothing ARTICLES SCORE Total number of steps: 0 DRESSING - UPPER BODY - SCORE: 0-UNK DRESSING - LOWER BODY: Activity did not occur on this shift Patient is not dressing in public clothing ARTICLES SCORE Total number of steps: 0 DRESSING - LOWER BODY - SCORE: 0-UNK TOILETING: Activity did not occur on this shift TOILETING - SCORE: 0-UNK BLADDER MANAGEMENT: Activity did not occur on this shift BLADDER MANAGEMENT - SCORE: 7-IND BOWEL MANAGEMENT: Activity did not occur on this shift BOWEL MANAGEMENT - SCORE: 7-IND TRANSFERS: BED, CHAIR, WHEELCHAIR: Activity did not occur on this shift TRANSFERS: BED, CHAIR, WHEELCHAIR - SCORE: 0-UNK TRANSFERS: TOILET: Activity did not occur on this shift TRANSFERS: TOILET - SCORE: 0-UNK TRANSFERS: SHOWER: Activity did not occur on this shift TRANSFERS: SHOWER - SCORE: 0-UNK TRANSFERS: TUB: Activity did not occur on this shift TRANSFERS: TUB - SCORE: 0-UNK LOCOMOTION: WALK: Activity did not occur on this shift LOCOMOTION: WALK - SCORE: 0-UNK LOCOMOTION: WHEELCHAIR: Activity did not occur on this shift LOCOMOTION: WHEELCHAIR - SCORE: 0-UNK LOCOMOTION: STAIRS: Activity did not occur on this shift LOCOMOTION: STAIRS - SCORE: 0-UNK COMPREHENSION: COMPREHENSION - STEP 1: Does the patient require help to understand complex and abstract ideas (such as current events, finan clement, discharge planning, medical issues, relationships, etc)? Yes. COMPREHENSION - STEP 2: Does the patient require help to understand questions or statements about basic needs or ideas (such as hunger, thirst, sleep, safety, daily schedule, room location, or discomfort) half or more of the t tammy? No. COMPREHENSION - STEP 3: How often does the patient need help to understand directions and conversation about basic needs? 10% - 24% of the time COMPREHENSION - SCORE: 4-MIN EXPRESSION EXPRESSION - STEP 1: Does the patient require help expressing complex and abstract ideas (such as current events, finances , discharge planning, medical issues, relationships, etc)? Yes. EXPRESSION - STEP 2: Does the patient require help to express basic necessities or ideas (such as hunger, thirst, sleep, s afety, daily schedule, room location, or discomfort) half or more of the time? No. EXPRESSION - STEP 3: How often does the patient need help to express directions and conversation about basic needs? Less t richard 10% of the time EXPRESSION - SCORE: 5-SUP SOCIAL INTERACTION: SOCIAL INTERACTION - STEP 1: Does the patient require a helper to interact with others in social and therapeutic situations? Yes. SOCIAL INTERACTION - STEP 2: Does the patient interact appropriately half or more of the time? Yes. SOCIAL INTERACTION - STEP 3: How often does the patient need help to interact appropriately? Less than 10% of the time SOCIAL INTERACTION - SCORE: 5-SUP PROBLEM SOLVING: PROBLEM SOLVING - STEP 1: Does the patient need help to solve complex problems such as managing a checking account or confronti ng interpersonal problems? Yes. PROBLEM SOLVING - STEP 2: Does the patient solve basic routine problems half or more of the time? Yes. PROBLEM SOLVING - STEP 3: How often does the patient need help to solve basic routine problems? 10%-24% of the time PROBLEM SOLVING - SCORE: 4-MIN MEMORY: MEMORY - STEP 1: Does the patient need help to remember frequently encountered people, daily routines, and executing r equests? Yes. MEMORY - STEP 2: How often does the patient need help to remember frequently encountered people, daily routines, and e xecuting requests? Less than 10% of the time MEMORY - SCORE: 5-SUP SIGNATURE PANEL: The following modified sections: Comprehension - Score, Expression - Score, Social Interaction - Scor e, Problem Solving - Score, Memory - Score were [electronically] signed by ST Hector on Henryjonathon correa 2017 17:49:59 GMT-0500 (Central Daylight Time)
--- NOTE | 2018-01-03 18:14 | R.PN ---
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 SUBJECTIVE: Pt denied any Shortness of Breath. Pt denied any depression. Improved left facial movement. She passed her modified barium swallow study for all consistencies. No new complaint. Left arm proximal strength is improving slowly but distal hand movement is showing li ttle improvement. VITAL SIGNS Temperature: 98 F SBP/DBP: 123/69 Pulse: 85 Resp: 14 Ambulated 240' with standby assistance using a right quad cane. Worked well with speech therapist for swallowing and cognitive therapy. Up and down 15 steps with standby assistance using right hand israel ls. MEDICATION ALLERGIES: No Known Drug Allergies (NKDA) ENVIRONMENTAL ALLERGIES: - Substance Allergies None Known - Other Allergies None Known NURSING: - Shower allowing shower - Lab Results blood Sugar Check ACHS - Bladder care per protocol - Skin care per protocol PRECAUTIONS: - Weight Bearing Precaution WBAT left LE ACTIVITIES OOB only with supervision THERAPIES: - Occupational Therapy Evaluate and Treat. Cognitive Retraining. Visual Perceptual Training. - Speech Therapy Memory Strategies. Expressive Language Skills. Speech Intelligibility Training. Cognitive Training. R eceptive Language Skills. - Physical Therapy Evaluate and Treat. PHYSICAL EXAM - Gen Alert and awake Lying in bed No apparent distress Oriented to: person, time, and place - Skin No skin breakdown. Normacephalic - Eyes No abnormalities - ENMT No abnormalities - Neck No abnormalities - CVS RRR - Chest No abnormalities - Abd Soft - GI nondistended Deferred - No abnormalities - Ext No significant edema - MSK 1/5 weakness in left upper and 4/5 weakness in left lower extremity. - Neuro 2/5 weakness in left face, 1/5 left arm and 4/5 left leg. - Psych No abnormalities ASSESSMENT: Pt. is a 72 yo Right-handed female of unknown race.On 12/06/2017 Pt. presented to [facility] sudden onset of left-side weakness.On 12/06/2017 she was admitted to [facility] with diagnos is Cerebral infarction due to unspecified occlusion or stenosis of right middle cerebral artery (I63. 511).Her impairment category is Stroke 01 - Left Body (Right Brain) (01.1).Pre-morbidly, Pt. was ind ependent/mod-I in Sphincter Control, Transfers Control, Communication, Social Cognition, Self-Care, a nd Locomotion; and she had good Sphincter Control.Currently, she has deficits of Endurance, Safety Aw areness, Transfers Control, Communication, Social Cognition, Balance, Self-Care, and Locomotion.Pt. i s now referred to [facility] for acute in-patient rehabilitation in order to m aximize patient's functional independence in activities of daily living, strength, ROM, and mobility. - Rehab Goal Patient has realistic goal of being discharged at assistance level 6-Jonah to reside at Home with Fam remington/Relatives. MDM/PLAN: - Diet Type Continue Regular for Dementia, TBI, Stroke, or others - Diet - Liquid Texture Continue Regular - Physical Therapy Gait dysfunction - to improve, our physical therapists will perform initial evaluation of pt's statu s upon admission and devise an individualized program for Gait Training, and Wheel Chair mobility Inability to transfer - to improve, our physical therapists will perform initial evaluation of pt's status upon admission and devise an individualized program for Bed mobility Need for home safety evaluation - to improve, our physical therapists will perform initial evaluatio n of pt's status upon admission and devise an individualized program for Home Evaluation Need in caregiver upon discharge - to improve, our physical therapists will perform initial evaluati on of pt's status upon admission and devise an individualized program for Caregiver Training New precaution - to improve, our physical therapists will perform initial evaluation of pt's status upon admission and devise an individualized program for Patient precaution education Edema - to improve, our physical therapists will perform initial evaluation of pt's status upon admi ssion and devise an individualized program for Elevation Training, and Lymphedema Therapy Poor balance - to improve, our physical therapists will perform initial evaluation of pt's status up on admission and devise an individualized program for Balance Training Poor endurance - to improve, our physical therapists will perform initial evaluation of pt's status upon admission and devise an individualized program for Endurance Training Weakness - to improve, our physical therapists will perform initial evaluation of pt's status upon a dmission and devise an individualized program for Aquatic Therapy, Neuromuscular Reeducation, and Str engthening Achieving independence - to improve, our physical therapists will perform initial evaluation of pt's status upon admission and devise an individualized program for Community Reintegration Activities - Tube Feed Continue N/A - Lab Results blood Sugar Check ACHS - Bladder care per protocol - Weight Bearing Precaution WBAT left LE - Skin care per protocol - Diet - Solid Texture Continue Regular - Shower allowing shower - Occupational Therapy ADL deficits - to improve, our occupation therapists will perform initial evaluation of pt's status upon admission and devise an individualized program for Bathing, Bed mobility, Community Reintegratio n, Cooking, Dressing, Eating, Fine Motor Skills, Grooming, Homemaking, Kitchen Mobility, Laundry, Pat ient Education, Safety Awareness, Splinting - Positioning, Transfers(Toilet, Tub, Shower), and Wheel Chair Management Cognitive deficits - to improve, our occupation therapists will perform initial evaluation of pt's s tatus upon admission and devise an individualized program for Cognition - orientation 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 - to improve, our occupation therapists will perform initial evaluation of pt's status upon admission and devise an individualized program for Caregiver Training Weakness - to improve, our occupation therapists will perform initial evaluation of pt's status upon admission and devise an individualized program for Aquatic Therapy, Balance, Endurance, UE ROM, and UE strengthening FUNCTIONAL STATUS: UPDATED AT WEEKLY TEAM CONFERENCE - Bladder Same accident frequency: 7-Ind - No accidents in the past 7 days - Bowel Same accident frequency: 7-Ind - No accidents in the past 7 days - Walking Same score based on distance walked: 1(<=50ft) FUNCTIONAL STATUS: - Self-Care A. Eating Tom B. Grooming modA C. Bathing modA D. Dressing - Upper modA E. Dressing - Lower modA F. Toileting modA - Sphincter Control G: Bladder control Ind H: Bowel control Ind - Transfers Control I. Bed/Chair/Wheelchair modA J. Toilet modA K. Tub/Shower modA - Locomotion L. Walk/Wheelchair (B) Dep M. Stairs ADNO - Communication N. Comprehension (B) Tom O. Expression (B) Tom - Social Cognition P. Social Interaction Tom Q. Problem Solving Tom R. Memory Tom - Endurance Poor - Balance Poor - Safety Awareness Poor CURRENT FUNC. DEFICITS: Endurance, Safety Awareness, Transfers Control, Communication, Social Cognition, Balance, Self-Care, and Locomotion SIGNATURE PANEL: (CDT)
[2018-01-03] MEDS: ATORVASTATIN 80 MG TAB PO SCH (21:10)
--- NOTE | 2018-01-04 01:59 | FAST ---
SHIFT START DATE/TIME: 01/04/2018 19:00 (CDT) SHIFT END DATE/TIME: 01/05/2018 07:00 (CDT) NAME IVETTE HODGES DATE OF : 1945 DATE OF ADMISSION: 12/14/2017 15:21 (CDT) PHONE: AGE: 72 N# [id number] GENDER: Female ENCOUNTER PHYSICIAN: Dr. Miki Delgado M.D. 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 EATING: Activity did not occur on this shift EATING - SCORE: 0-UNK GROOMING: Oral care Wash, rinse, and dry face Wash, rinse, and dry hands GROOMING - STEP 1: Does the patient require assistance when grooming? Yes. GROOMING - STEP 2: Does the patient require the assistance of a helper? Yes. GROOMING - STEP 3: How much assistance does the patient require from the helper? Only prior equipment preparation/set up from the helper GROOMING - SCORE: 5-SUP BATHING: Activity did not occur on this shift BATHING - SCORE: 0-UNK DRESSING - UPPER BODY: Patient is not dressing in public clothing ARTICLES SCORE Total number of steps: 0 DRESSING - UPPER BODY - SCORE: 0-UNK DRESSING - LOWER BODY: Patient is not dressing in public clothing ARTICLES SCORE Total number of steps: 0 DRESSING - LOWER BODY - SCORE: 0-UNK TOILETING: TOILETING - STEP 1: Does the patient require assistance with toileting? Yes. TOILETING - STEP 2: Does the patient require the assistance of a helper? Yes. TOILETING - STEP 3: How much assistance does the patient require from the helper? Only supervision TOILETING - SCORE: 5-SUP BLADDER MANAGEMENT: BLADDER MANAGEMENT - STEP 1: Does the patient control the bladder completely and intentionally without equipment or devices or med ications, and is always continent? Yes. BLADDER MANAGEMENT - SCORE: 7-IND BOWEL MANAGEMENT: Activity did not occur on this shift BOWEL MANAGEMENT - SCORE: 7-IND TRANSFERS: BED, CHAIR, WHEELCHAIR: TRANSFERS: BED, CHAIR, WHEELCHAIR - STEP 1: Does the patient require assistance with bed, chair, or wheelchair transfers? Yes. TRANSFERS: BED, CHAIR, WHEELCHAIR - STEP 2: Does the patient require the assistance of a helper? Yes. TRANSFERS: BED, CHAIR, WHEELCHAIR - STEP 3: How much assistance does the patient require from the helper? Steadying/guiding assistance TRANSFERS: BED, CHAIR, WHEELCHAIR - SCORE: 4-MIN TRANSFERS: TOILET: TRANSFERS: TOILET - STEP 1: Does the patient require assistance with toilet transfers? Yes. TRANSFERS: TOILET - STEP 2: Does the patient require the assistance of a helper? Yes. TRANSFERS: TOILET - STEP 3: How much assistance does the patient require from the helper? Only supervision, cuing, coaxing, OR he lp to set out transfer equipment or to lock brakes and/or lift foot rests TRANSFERS: TOILET - SCORE: 5-SUP TRANSFERS: SHOWER: Activity did not occur on this shift TRANSFERS: SHOWER - SCORE: 0-UNK TRANSFERS: TUB: Activity did not occur on this shift TRANSFERS: TUB - SCORE: 0-UNK LOCOMOTION: WALK: Activity did not occur on this shift LOCOMOTION: WALK - SCORE: 0-UNK LOCOMOTION: WHEELCHAIR: Activity did not occur on this shift LOCOMOTION: WHEELCHAIR - SCORE: 0-UNK COMPREHENSION: COMPREHENSION - STEP 1: Does the patient require help to understand complex and abstract ideas (such as current events, finan clement, discharge planning, medical issues, relationships, etc)? Yes. COMPREHENSION - STEP 2: Does the patient require help to understand questions or statements about basic needs or ideas (such as hunger, thirst, sleep, safety, daily schedule, room location, or discomfort) half or more of the t tammy? No. COMPREHENSION - STEP 3: How often does the patient need help to understand directions and conversation about basic needs? Les s than 10% of the time COMPREHENSION - SCORE: 5-SUP EXPRESSION EXPRESSION - STEP 1: Does the patient require help expressing complex and abstract ideas (such as current events, finances , discharge planning, medical issues, relationships, etc)? Yes. EXPRESSION - STEP 2: Does the patient require help to express basic necessities or ideas (such as hunger, thirst, sleep, s afety, daily schedule, room location, or discomfort) half or more of the time? No. EXPRESSION - STEP 3: How often does the patient need help to express directions and conversation about basic needs? Less t richard 10% of the time EXPRESSION - SCORE: 5-SUP SOCIAL INTERACTION: SOCIAL INTERACTION - STEP 1: Does the patient require a helper to interact with others in social and therapeutic situations? No. SOCIAL INTERACTION - STEP 2: Does the patient need extra time in social situations, OR does s/he interact with staff, other patien ts, and family members ONLY in structured environments, OR does s/he require medication for social in teraction? Yes, patient needs extra time SOCIAL INTERACTION - SCORE: 6-SAYRA PROBLEM SOLVING: PROBLEM SOLVING - STEP 1: Does the patient need help to solve complex problems such as managing a checking account or confronti ng interpersonal problems? Yes. PROBLEM SOLVING - STEP 2: Does the patient solve basic routine problems half or more of the time? Yes. PROBLEM SOLVING - STEP 3: How often does the patient need help to solve basic routine problems? 10%-24% of the time PROBLEM SOLVING - SCORE: 4-MIN MEMORY: MEMORY - STEP 1: Does the patient need help to remember frequently encountered people, daily routines, and executing r equests? No. MEMORY - STEP 2: Does the patient have slight difficulty recognizing frequently encountered people, daily routines, or executing requests without the need for repetition or using self-initiated or environmental cues to remember? Yes. MEMORY - SCORE: 6-SAYRA SIGNATURE PANEL: The following modified sections: Eating - Score, Grooming - Score, Dressing - Upper Body - Score, Cheikh ssing - Lower Body - Score, Toileting - Score, Bladder Management - Score, Bowel Management - Score, Transfers: Bed, Chair, Wheelchair - Score, Transfers: Toilet - Score, Transfers: Shower - Score, Mercado sfers: Tub - Score, Locomotion: Walk - Score, Locomotion: Wheelchair - Score, Comprehension - Score, Expression - Score, Social Interaction - Score, Problem Solving - Score, Memory - Score were [electro nically] signed by Tonia Cruz CNA on TueJan 04 2018 01:58:08 GMT-0500 (Central Daylight Time)
[2018-01-04] MEDS: INSULIN -REGULAR HUMAN 50 UNIT/0.5 ML ML SQ SCH ×2 (07:28→11:06)
[2018-01-04] MEDS: PANTOPRAZOLE 40MG TABLET PO SCH (07:33)
[2018-01-04] MEDS: CLOPIDOGREL 75 MG TABLET PO SCH (07:33)
[2018-01-04] MEDS: FERROUS SULFATE 325 MG TAB PO SCH (07:33)
[2018-01-04] MEDS: glipiZIDE 5 MG TAB PO SCH (07:33)
[2018-01-04] MEDS: METFORMIN HCL 500 MG TAB PO SCH (07:33)
[2018-01-04] MEDS: FE SULF/FA/VIT B COMP & C TAB PO SCH (07:33)
[2018-01-04] MEDS: ASPIRIN EC 81 MG TAB PO SCH (07:33)
[2018-01-04] MEDS: levETIRAcetam 500 MG TAB PO SCH (07:34)
[2018-01-04] MEDS: FUROSEMIDE 20 MG TABLET PO SCH (07:34)
[2018-01-04] MEDS: APIXABAN 2.5 MG TABLET PO SCH (07:34)
[2018-01-04] MEDS: GLUCERNA SHAKE 237 ML CAN PO SCH (07:34)
[2018-01-04] MEDS: CARVEDILOL 6.25 MG TAB PO SCH (07:34)
[2018-01-04] MEDS: PROMOD 30 ML DOSE PO SCH (07:35)
[2018-01-04 07:36] VITALS: BP 116/64
[2018-01-04 09:48] VITALS: TEMP 97.9
--- NOTE | 2018-01-05 15:21 | FAST ---
ENCOUNTER DATE AND TIME: 01/03/2018 08:00 (CDT) NAME IVETTE HODGES DATE OF : 1945 DATE OF ADMISSION: 12/14/2017 15:21 (CDT) PHONE: AGE: 72 N# [id number] GENDER: Female ENCOUNTER PHYSICIAN: Dr. Miki Delgado M.D. 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 EATING: Activity did not occur on this shift EATING - SCORE: 0-UNK GROOMING: Activity did not occur on this shift GROOMING - SCORE: 0-UNK BATHING: Activity did not occur on this shift BATHING - SCORE: 0-UNK DRESSING - UPPER BODY: Activity did not occur on this shift Patient is not dressing in public clothing ARTICLES SCORE Total number of steps: 0 DRESSING - UPPER BODY - SCORE: 0-UNK DRESSING - LOWER BODY: Activity did not occur on this shift Patient is not dressing in public clothing ARTICLES SCORE Total number of steps: 0 DRESSING - LOWER BODY - SCORE: 0-UNK TOILETING: Activity did not occur on this shift TOILETING - SCORE: 0-UNK BLADDER MANAGEMENT: Activity did not occur on this shift BLADDER MANAGEMENT - SCORE: 7-IND BOWEL MANAGEMENT: Activity did not occur on this shift BOWEL MANAGEMENT - SCORE: 7-IND TRANSFERS: BED, CHAIR, WHEELCHAIR: TRANSFERS: BED, CHAIR, WHEELCHAIR - STEP 1: Does the patient require assistance with bed, chair, or wheelchair transfers? Yes. TRANSFERS: BED, CHAIR, WHEELCHAIR - STEP 2: Does the patient require the assistance of a helper? No. Patient only requires an assistive device fo r bed, chair, wheelchair transfers such as a sliding board, grab bar, or brace, OR s/he takes more th an reasonable time, OR there is a safety concern when s/he performs the transfers TRANSFERS: BED, CHAIR, WHEELCHAIR - SCORE: 6-SAYRA TRANSFERS: TOILET: Activity did not occur on this shift TRANSFERS: TOILET - SCORE: 0-UNK TRANSFERS: SHOWER: Activity did not occur on this shift TRANSFERS: SHOWER - SCORE: 0-UNK TRANSFERS: TUB: Activity did not occur on this shift TRANSFERS: TUB - SCORE: 0-UNK LOCOMOTION: WALK: LOCOMOTION: WALK - STEP 1: Does the patient need help to walk 150 feet? Yes. LOCOMOTION: WALK - STEP 2: How much assistance does the patient require to walk a minimum of 150 feet? Only supervision, cuing, or coaxing LOCOMOTION: WALK - SCORE: 5-SUP LOCOMOTION: WHEELCHAIR: Activity did not occur on this shift LOCOMOTION: WHEELCHAIR - SCORE: 0-UNK LOCOMOTION: STAIRS: LOCOMOTION: STAIRS - STEP 1: Does the patient need help to go up and down 12 to 14 stairs? Yes. LOCOMOTION: STAIRS - STEP 2: How much assistance does the patient need from the helper to go a minimum of 12 to 14 stairs? Only george pervision, cuing, or coaxing LOCOMOTION: STAIRS - SCORE: 5-SUP COMPREHENSION: COMPREHENSION - SCORE: 0-UNK EXPRESSION EXPRESSION - SCORE: 0-UNK SOCIAL INTERACTION: SOCIAL INTERACTION - SCORE: 0-UNK PROBLEM SOLVING: PROBLEM SOLVING - SCORE: 0-UNK MEMORY: MEMORY - SCORE: 0-UNK SIGNATURE PANEL: The following modified sections: Transfers: Bed, Chair, Wheelchair - Score, Transfers: Toilet - Score , Locomotion: Walk - Score, Locomotion: Wheelchair - Score, Locomotion: Stairs - Score were [electron debbie] signed by Art Odom PTA on TueJan 05 2018 15:20:25 GMT-0500 (Central Daylight Time)
--- NOTE | 2018-01-09 15:31 | FAST ---
ENCOUNTER DATE AND TIME: 01/04/2018 08:00 (CDT) NAME IVETTE HODGES DATE OF : 1945 DATE OF ADMISSION: 12/14/2017 15:21 (CDT) PHONE: AGE: 72 N# [id number] GENDER: Female ENCOUNTER PHYSICIAN: Dr. Miki Delgado M.D. 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 EATING: Activity did not occur on this shift EATING - SCORE: 0-UNK GROOMING: Comb/brush hair Oral care Wash, rinse, and dry face Wash, rinse, and dry hands GROOMING - STEP 1: Does the patient require assistance when grooming? No. GROOMING - SCORE: 7-IND BATHING: Abdomen Buttocks Chest Left arm Left lower leg and foot Left upper leg Perineal area Right arm Right lower leg and foot Right upper leg BATHING - STEP 1: Does the patient require assistance when bathing? Yes. BATHING - STEP 2: Does the patient require the assistance of a helper? Yes. BATHING - STEP 3: How much assistance does the patient require from the helper? Only supervision, cuing, coaxing, instr uctions, encouragement BATHING - SCORE: 5-SUP DRESSING - UPPER BODY: T-shirt/pullover shirt (four steps) ARTICLES SCORE Total number of steps: 4 DRESSING - UPPER BODY - STEP 1: Does the patient require help when dressing above the waist? Yes. DRESSING - UPPER BODY - STEP 2: Does the patient require the assistance of a helper? Yes. DRESSING - UPPER BODY - STEP 3: Does the helper touch the patient while dressing? No. DRESSING - UPPER BODY - SCORE: 5-SUP DRESSING - LOWER BODY: Elastic waist pants (three steps) Slip-on shoe - Right foot (one step) Sock - Left foot (one step) Sock - Right foot (one step) Underwear (three steps) ARTICLES SCORE Total number of steps: 9 DRESSING - LOWER BODY - STEP 1: Does the patient require help when dressing below the waist? Yes. DRESSING - LOWER BODY - STEP 2: Does the patient require the assistance of a helper? Yes. DRESSING - LOWER BODY - STEP 3: Does the helper touch the patient while dressing? No. DRESSING - LOWER BODY - SCORE: 5-SUP TOILETING: TOILETING - STEP 1: Does the patient require assistance with toileting? Yes. TOILETING - STEP 2: Does the patient require the assistance of a helper? Yes. TOILETING - STEP 3: How much assistance does the patient require from the helper? Only supervision TOILETING - SCORE: 5-SUP BLADDER MANAGEMENT: Activity did not occur on this shift BLADDER MANAGEMENT - SCORE: 7-IND BOWEL MANAGEMENT: Activity did not occur on this shift BOWEL MANAGEMENT - SCORE: 7-IND TRANSFERS: BED, CHAIR, WHEELCHAIR: Activity did not occur on this shift TRANSFERS: BED, CHAIR, WHEELCHAIR - SCORE: 0-UNK TRANSFERS: TOILET: TRANSFERS: TOILET - STEP 1: Does the patient require assistance with toilet transfers? Yes. TRANSFERS: TOILET - STEP 2: Does the patient require the assistance of a helper? Yes. TRANSFERS: TOILET - STEP 3: How much assistance does the patient require from the helper? Only supervision, cuing, coaxing, OR he lp to set out transfer equipment or to lock brakes and/or lift foot rests TRANSFERS: TOILET - SCORE: 5-SUP TRANSFERS: SHOWER: Activity did not occur on this shift TRANSFERS: SHOWER - SCORE: 0-UNK TRANSFERS: TUB: TRANSFERS: TUB - STEP 1: Does the patient require assistance with tub transfers? Yes. TRANSFERS: TUB - STEP 2: Does the patient require the assistance of a helper? Yes. TRANSFERS: TUB - STEP 3: How much assistance does the patient require from the helper? Only supervision, cuing, coaxing, or he lp to set out transfer equipment or to lock brakes and/or lift foot rests TRANSFERS: TUB - SCORE: 5-SUP LOCOMOTION: WALK: Activity did not occur on this shift LOCOMOTION: WALK - SCORE: 0-UNK LOCOMOTION: WHEELCHAIR: Activity did not occur on this shift LOCOMOTION: WHEELCHAIR - SCORE: 0-UNK LOCOMOTION: STAIRS: Activity did not occur on this shift LOCOMOTION: STAIRS - SCORE: 0-UNK COMPREHENSION: COMPREHENSION: TYPE: Both COMPREHENSION - STEP 1: Does the patient require help to understand complex and abstract ideas (such as current events, finan clement, discharge planning, medical issues, relationships, etc)? No. COMPREHENSION - STEP 2: Does the patient need extra time, require an assistive device (such as glasses, hearing aids, or an a ugmentative communication system), OR does s/he have mild difficulty expressing complex and abstract ideas (including mild dysarthria or mild word-finding problems)? Yes. COMPREHENSION - SCORE: 6-SAYRA EXPRESSION EXPRESSION: TYPE: Both EXPRESSION - STEP 1: Does the patient require help expressing complex and abstract ideas (such as current events, finances , discharge planning, medical issues, relationships, etc)? No. EXPRESSION - STEP 2: Does the patient need extra time, require an assistive device (such as augmentive communication syste m or a communication board), OR does s/he have mild difficulty expressing complex and abstract ideas (including mild dysarthria or mild word-find problems)? Yes. EXPRESSION - SCORE: 6-SAYRA SOCIAL INTERACTION: SOCIAL INTERACTION - STEP 1: Does the patient require a helper to interact with others in social and therapeutic situations? No. SOCIAL INTERACTION - STEP 2: Does the patient need extra time in social situations, OR does s/he interact with staff, other patien ts, and family members ONLY in structured environments, OR does s/he require medication for social in teraction? Yes, patient needs extra time SOCIAL INTERACTION - SCORE: 6-SAYRA PROBLEM SOLVING: PROBLEM SOLVING - STEP 1: Does the patient need help to solve complex problems such as managing a checking account or confronti ng interpersonal problems? Yes. PROBLEM SOLVING - STEP 2: Does the patient solve basic routine problems half or more of the time? Yes. PROBLEM SOLVING - STEP 3: How often does the patient need help to solve basic routine problems? 10%-24% of the time PROBLEM SOLVING - SCORE: 4-MIN MEMORY: MEMORY - STEP 1: Does the patient need help to remember frequently encountered people, daily routines, and executing r equests? Yes. MEMORY - STEP 2: How often does the patient need help to remember frequently encountered people, daily routines, and e xecuting requests? 10% - 24% of the time MEMORY - SCORE: 4-MIN SIGNATURE PANEL: The following modified sections: Eating - Score, Grooming - Score, Bathing - Score, Dressing - Upper Body - Score, Dressing - Lower Body - Score, Toileting - Score, Transfers: Bed, Chair, Wheelchair - S core, Transfers: Toilet - Score, Transfers: Shower - Score, Transfers: Tub - Score, Comprehension - S core, Expression - Score, Social Interaction - Score, Problem Solving - Score, Memory - Score were [e lectronically] signed by Meaghan Salomon OT on TueJan 09 2018 15:30:03 GMT-0500 ([facility])
--- NOTE | 2018-01-09 16:09 | FAST ---
ENCOUNTER DATE AND TIME: 12/31/2017 08:00 (CDT) NAME IVETTE HODGES DATE OF : 1945 DATE OF ADMISSION: 12/14/2017 15:21 (CDT) PHONE: AGE: 72 N# [id number] GENDER: Female ENCOUNTER PHYSICIAN: Dr. Miki Delgado M.D. 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 EATING: Activity did not occur on this shift EATING - SCORE: 0-UNK GROOMING: Comb/brush hair Wash, rinse, and dry face Wash, rinse, and dry hands GROOMING - STEP 1: Does the patient require assistance when grooming? No. GROOMING - SCORE: 7-IND BATHING: Abdomen Buttocks Chest Left arm Left lower leg and foot Left upper leg Perineal area Right arm Right lower leg and foot Right upper leg BATHING - STEP 1: Does the patient require assistance when bathing? Yes. BATHING - STEP 2: Does the patient require the assistance of a helper? Yes. BATHING - STEP 3: How much assistance does the patient require from the helper? Only supervision, cuing, coaxing, instr uctions, encouragement BATHING - SCORE: 5-SUP DRESSING - UPPER BODY: T-shirt/pullover shirt (four steps) ARTICLES SCORE Total number of steps: 4 DRESSING - UPPER BODY - STEP 1: Does the patient require help when dressing above the waist? Yes. DRESSING - UPPER BODY - STEP 2: Does the patient require the assistance of a helper? Yes. DRESSING - UPPER BODY - STEP 3: Does the helper touch the patient while dressing? No. DRESSING - UPPER BODY - SCORE: 5-SUP DRESSING - LOWER BODY: Elastic waist pants (three steps) Slip-on shoe - Right foot (one step) Sock - Left foot (one step) Sock - Right foot (one step) Underwear (three steps) ARTICLES SCORE Total number of steps: 9 DRESSING - LOWER BODY - STEP 1: Does the patient require help when dressing below the waist? Yes. DRESSING - LOWER BODY - STEP 2: Does the patient require the assistance of a helper? Yes. DRESSING - LOWER BODY - STEP 3: Does the helper touch the patient while dressing? No. DRESSING - LOWER BODY - SCORE: 5-SUP TOILETING: Activity did not occur on this shift TOILETING - SCORE: 0-UNK BLADDER MANAGEMENT: Activity did not occur on this shift BLADDER MANAGEMENT - SCORE: 7-IND BOWEL MANAGEMENT: Activity did not occur on this shift BOWEL MANAGEMENT - SCORE: 7-IND TRANSFERS: BED, CHAIR, WHEELCHAIR: Activity did not occur on this shift TRANSFERS: BED, CHAIR, WHEELCHAIR - SCORE: 0-UNK TRANSFERS: TOILET: Activity did not occur on this shift TRANSFERS: TOILET - SCORE: 0-UNK TRANSFERS: SHOWER: TRANSFERS: SHOWER - STEP 1: Does the patient require assistance with shower transfers? Yes. TRANSFERS: SHOWER - STEP 2: Does the patient require the assistance of a helper? Yes. TRANSFERS: SHOWER - STEP 3: How much assistance does the patient require from the helper? Only supervision, cuing, coaxing, or he lp to set out transfer equipment or to lock brakes and/or lift foot rests TRANSFERS: SHOWER - SCORE: 5-SUP TRANSFERS: TUB: Activity did not occur on this shift TRANSFERS: TUB - SCORE: 0-UNK LOCOMOTION: WALK: Activity did not occur on this shift LOCOMOTION: WALK - SCORE: 0-UNK LOCOMOTION: WHEELCHAIR: Activity did not occur on this shift LOCOMOTION: WHEELCHAIR - SCORE: 0-UNK LOCOMOTION: STAIRS: Activity did not occur on this shift LOCOMOTION: STAIRS - SCORE: 0-UNK COMPREHENSION: COMPREHENSION: TYPE: Both COMPREHENSION - STEP 1: Does the patient require help to understand complex and abstract ideas (such as current events, finan clement, discharge planning, medical issues, relationships, etc)? No. COMPREHENSION - STEP 2: Does the patient need extra time, require an assistive device (such as glasses, hearing aids, or an a ugmentative communication system), OR does s/he have mild difficulty expressing complex and abstract ideas (including mild dysarthria or mild word-finding problems)? Yes. COMPREHENSION - SCORE: 6-SAYRA EXPRESSION EXPRESSION: TYPE: Both EXPRESSION - STEP 1: Does the patient require help expressing complex and abstract ideas (such as current events, finances , discharge planning, medical issues, relationships, etc)? No. EXPRESSION - STEP 2: Does the patient need extra time, require an assistive device (such as augmentive communication syste m or a communication board), OR does s/he have mild difficulty expressing complex and abstract ideas (including mild dysarthria or mild word-find problems)? Yes. EXPRESSION - SCORE: 6-SAYRA SOCIAL INTERACTION: SOCIAL INTERACTION - STEP 1: Does the patient require a helper to interact with others in social and therapeutic situations? No. SOCIAL INTERACTION - STEP 2: Does the patient need extra time in social situations, OR does s/he interact with staff, other patien ts, and family members ONLY in structured environments, OR does s/he require medication for social in teraction? Yes, patient needs extra time SOCIAL INTERACTION - SCORE: 6-SAYRA PROBLEM SOLVING: PROBLEM SOLVING - STEP 1: Does the patient need help to solve complex problems such as managing a checking account or confronti ng interpersonal problems? Yes. PROBLEM SOLVING - STEP 2: Does the patient solve basic routine problems half or more of the time? Yes. PROBLEM SOLVING - STEP 3: How often does the patient need help to solve basic routine problems? 10%-24% of the time PROBLEM SOLVING - SCORE: 4-MIN MEMORY: MEMORY - STEP 1: Does the patient need help to remember frequently encountered people, daily routines, and executing r equests? Yes. MEMORY - STEP 2: How often does the patient need help to remember frequently encountered people, daily routines, and e xecuting requests? 10% - 24% of the time MEMORY - SCORE: 4-MIN SIGNATURE PANEL: The following modified sections: Eating - Score, Grooming - Score, Bathing - Score, Dressing - Upper Body - Score, Dressing - Lower Body - Score, Toileting - Score, Transfers: Bed, Chair, Wheelchair - S core, Transfers: Toilet - Score, Transfers: Tub - Score, Transfers: Shower - Score, Comprehension - S core, Expression - Score, Social Interaction - Score, Problem Solving - Score, Memory - Score were [e lectronically] signed by Meaghan Salomon OT on TueJan 09 2018 16:07:55 GMT-0500 ([facility])
--- NOTE | 2018-01-13 15:42 | R.DS ---
FACILITY [facility] [id number] [id number] NAME IVETTE HODGES AD[address]ESS [address] [address] PHONE DATE OF 1945 AGE 72 N# [id number] GENDER Female DEXTERITY Right-handed MARITAL STATUS RACE Unknown race ENCOUNTER PHYSICIAN Dr. Miki Delgado M.D. REFERRING DOCTOR Jennifer Palencia REFERRING FACILITY [facility] DISCHARGE DIAGNOSIS: - Stroke 01 - Left Body (Right Brain) (01.1) Cerebral infarction due to unspecified occlusion or stenosis of right middle cerebral artery (I63.511 ). DISCHARGE COMORBIDITIES: - N/A hypertension hyperlipemia hyperthyroidism pacemaker diabetes DATE OF ADMISSION 12/14/2017 15:21 (CDT) MEDICATION ALLERGIES: No Known Drug Allergies (NKDA) ENVIRONMENTAL ALLERGIES: - Substance Allergies None Known - Other Allergies None Known NURSING: - Shower allowing shower - Lab Results blood Sugar Check ACHS - Bladder care per protocol - Skin care per protocol PRECAUTIONS: - Weight Bearing Precaution WBAT left LE ACTIVITIES OOB only with supervision THERAPIES: - Occupational Therapy Evaluate and Treat Cognitive Retraining Visual Perceptual Training - Speech Therapy Memory Strategies Expressive Language Skills Speech Intelligibility Training Cognitive Training Receptive Language Skills - Physical Therapy Evaluate and Treat HISTORY OF PRESENT ILLNESS: Pt. is a 72 yo Right-handed female of unknown race.On 12/06/2017 Pt. presented to [facility] sudden onset of left-side weakness.On 12/06/2017 she was admitted to [facility] with diagnos is Cerebral infarction due to unspecified occlusion or stenosis of right middle cerebral artery (I63. 511).Her impairment category is Stroke 01 - Left Body (Right Brain) (01.1).Pre-morbidly, Pt. was ind ependent/mod-I in Sphincter Control; and she had good Sphincter Control.Currently, she has deficits o f Endurance, Safety Awareness, Transfers Control, Communication, Social Cognition, Balance, Self-Care , and Locomotion.Pt. is now referred to [facility] for acute in-patient rehabi litation in order to maximize patient's functional independence in activities of daily living, streng th, ROM, and mobility.- Rehab Goal Patient has realistic goal of being discharged at assistance level 6-Jonah to reside at Home with Fam remington/Relatives. HOSPITAL COURSE: TUBE FEED: On 12/14/2017 Pt was changed to N/A Tube Feed. DIET - LIQUID TEXTURE: On 12/14/2017 Pt was upgraded to Regular Diet - Liquid Texture. DIET - SOLID TEXTURE: On 12/14/2017 Pt was upgraded to Regular Diet - Solid Texture. DIET TYPE: On 12/14/2017 Pt was upgraded to Regular Diet Type. WEIGHT BEARING PRECAUTION: On 12/14/2017 the following precautions were added for the patient: Weight Bearing Precaution - WBAT left LE. On 12/14/2017 the following precautions were added for the patient: Weight Bearing Precaution - WBAT left LE. On 12/15/2017 the following precautions were removed for the patient: Weight Bearing Precaution - WB AT left LE. On 12/19/2017 the following precautions were added for the patient: Weight Bearing Precaution - WBAT left LE. DISCHARGE PHYSICAL EXAM - Gen Alert and awake Lying in bed No apparent distress Oriented to: person, time, and place - Skin No skin breakdown. Normacephalic - Eyes No abnormalities - ENMT No abnormalities - Neck No abnormalities - CVS RRR - Chest No abnormalities - Abd Soft - GI nondistended Deferred - No abnormalities - Ext No significant edema - MSK 1/5 weakness in left upper and 4/5 weakness in left lower extremity. - Neuro 2/5 weakness in left face, 1/5 left arm and 4/5 left leg. - Psych No abnormalities FUNCTIONAL STATUS: - Self-Care A. Eating 4-Tom 5-sup B. Grooming 3-modA 7-Ind C. Bathing 3-modA 5-sup D. Dressing - Upper 3-modA 5-sup E. Dressing - Lower 3-modA 5-sup F. Toileting 3-modA 5-sup - Sphincter Control G: Bladder control 7-Ind 7-Ind H: Bowel control 7-Ind 7-Ind - Transfers Control I. Bed/Chair/Wheelchair 3-modA 6-Jonah J. Toilet 3-modA 6-Jonah K. Tub/Shower 3-modA 6-Jonah - Locomotion L. Walk/Wheelchair (B) 1-Dep 5-sup M. Stairs 0-ADNO 5-sup - Communication N. Comprehension (B) 4-Tom 4-Tom O. Expression (B) 4-Tom 4-Tom - Social Cognition P. Social Interaction 4-Tom 4-Tom Q. Problem Solving 4-Tom 4-Tom R. Memory 4-Tom 4-Tom - Endurance Poor - Balance Poor - Safety Awareness Poor DISCHARGE INSTRUCTIONS: - N/A Eliquis 2.5 mg twice daily. DISCHARGE PLAN, FOLLOW UP CARE PROVISIONS: - Estimated Length of Stay (days) 17. - Consensus on plan Discharge plan has been discussed with primary caregiver. Patient/Family is in agreement with the kailee n. Primary caregiver is in agreement with the plan. - Patient/Family Goals Return home with assistance. - Planned Living Setting Upon Discharge Home, to live with Family/Relatives. SIGNATURE PANEL: (CDT)
== END 2018-01-04 12:55 | disposition home health service (06) | DRG 57 ==
LOC: 5TH 15:21
PROVIDERS: ADMIT Psychiatry & Neurology Neurology with Special Qualifications in Child Neurology; ATTEND Psychiatry & Neurology Neurology with Special Qualifications in Child Neurology
DX: I69.354 Hemiplegia and hemiparesis following cerebral infarction affecting left non-dominant side (principal); S82.62XD Displaced fracture of lateral malleolus of left fibula, subsequent encounter for closed fracture with routine healing
CPT/HCPCS: 36415; 70450; 74230; 80048; 81001; 82040; 82565; 82962; 83735; 84134; 84520; 85025; 87086; 87088; 93005; 97542; J1644; J7030

== ENCOUNTER 2018-02-28 06:20 | Observation (INO) | payer MEDICARE ==
--- OUTSIDE RECORDS SUMMARY | 2018-02-28 06:23 | XMS REPORT | Clinical Summary ---
:1945 Author Organization [facility] Address [address] [place] [address] Phone Care Team Providers Name Role Phone [...] Not on file Implants Implanted Type Area Field Sales Representative Device Expiration Model / Identifier Date Serial / Lot Lead Icd Sprnt [employer] Secur [id number] - [id number] Defibrillators N/A: [employer]:CARD 04/24/2017 [id number] / Implanted: Qty: 1 on 07/16/2016 by Yara Benson MD Heart RHY:DISEASE MGT [id number] / N/A Results Not on fileafter 02/27/2017
--- OUTSIDE RECORDS SUMMARY | 2018-02-28 06:23 | XMS REPORT | Continuity of Care Document ---
[...] Number For Provider Date Date Visit Outpatient [id number] DASHA 08/24 Active [facility] [id number] DASHA 11/02 Active [facility] [id number] DASHA 11/04 Active [facility] [id number] DASHA 12/16 Active [facility] [id number] DASHA 01/12 Active [facility] [id number] DASHA 02/23 Active [facility] [id number] DASHA 03/02 Active [facility] [id number] DASHA 03/30 Active [facility] [place] Procedures Procedure Code Date Perfomer Comments Source
[2018-02-28 06:56] LABS: Absolute Lymphocytes (CBC) 1.7 K/uL (0.7-4.9); Absolute Monocytes 0.8 K/uL (0.1-1.3); Absolute Neutrophil 4.1 K/uL (1.8-8.0); Basophils % 0.9 % (0-1.3); Eosinophils % 3.9 % (0-4.4); Hematocrit 30.4 % (36.0-45.0); MCH 31.2 pg (27.0-35.0); MCV 92.8 fL (80-100); MPV 9.4 fL (7.6-11.3); Monocytes % 11.2 % (3.3-12.3); RBC Red Blood Cell Count 3.28 M/uL (3.86-4.86)
[2018-02-28 06:57] LABS: Protime INR 1.24
[2018-02-28 07:13] LABS: Potassium 3.6 mmol/L (3.5-5.1)
[2018-02-28 07:14] LABS: Troponin (Emerg Dept Use Only) 0.03 ng/mL (0.0-0.045)
[2018-02-28 07:15] LABS: Magnesium 1.2 mg/dL (1.8-2.4)
[2018-02-28] MEDS ORDERED: Magnesium Sulfate 2gm IVPB 2 G/50 ML BAG IV ONE (07:40)
--- NOTE | 2018-02-28 08:03 | RAD REPORT ---
EXAM DESCRIPTION: Emma Single View02/28/2018 7:06 am CLINICAL HISTORY: Hypertension COMPARISON: June 2017 FINDINGS: The lungs appear clear of acute infiltrate. The heart is mildly to moderately enlarged. P acemaker leads are in place. IMPRESSION: No acute abnormality is displayed
--- NOTE | 2018-02-28 08:46 | RAD REPORT ---
EXAM DESCRIPTION: CT - Head Brain Wo Cont - 02/28/2018 6:55 am CLINICAL HISTORY: Confusion/left sided weakness COMPARISON: December 2017 TECHNIQUE: Computed axial tomography of the head was obtained. IV contrast was not requested. Prelim inary report was generated by [employer] and reviewed prior to this dictation All CT scans are performed using dose optimization technique as appropriate and may include automated exposure control or mA/KV adjustment according to patient size. FINDINGS: An intracranial bleed is not seen . The ventricles are normal in caliber. No extra-axial fluid collection is noted. A 10 centimeter low-density area within the right temporal, right frontal and junction of the right o ccipital parietal lobes is consistent with a late subacute infarct. There is extension into the right basal ganglia. An acute infarction is not seen. Fluid within the sinuses/ mastoids is not seen. IMPRESSION: Large late subacute right cerebral infarct. An acute infarct is not seen The exam was discussed with Radha Goyal in emergency room at 8:40 a.m. on 02/28/2018
--- NOTE | 2018-02-28 09:06 | ER ---
Nurse's Notes [facility] Name: Magali Montez Age: 72 yrs Sex: Female : 1945 Arrival Date: 02/28/2018 Time: 06:21 Bed 17 Private MD: Maximilian Putnam Diagnosis: Weakness Presentation: 02/28 06:31 Presenting complaint: Child states: "She says that she is having no energy and that she jd3 feels like she is leaving this world, like she is dying, but she doesn't report any pain or any other symptoms. I'm thinking she is just having anxiety.". Transition of care: patient was not received from another setting of care. Onset of symptoms was February 28, 2018. Risk Assessment: Do you want to hurt yourself or someone else? Patient reports no desire to harm self or others. Initial Sepsis Screen: Does the patient meet any 2 criteria? No. Patient's initial sepsis screen is negative. Does the patient have a suspected source of infection? No. Patient's initial sepsis screen is negative. Care prior to arrival: None. 06:31 Method Of Arrival: Ambulatory jd3 06:31 Acuity: MILAGROS 3 jd3 Historical: - Allergies: 06:45 Vancomycin; jd3 - Home Meds: 06:45 atorvastatin 80 mg oral tab 1 tab once daily [Active]; carvedilol 6.25 mg oral tab 1 jd3 tab 2 times per day [Active]; clopidogrel 75 mg oral tab 1 tab once daily [Active]; ferrous sulfate 325 mg (65 mg iron) Oral tab daily [Active]; furosemide 20 mg oral tab 1 tab once daily [Active]; Glimepiride 5 mg Oral 1 tab twice a day [Active]; levetiracetam 500 mg oral tab 1 tab 2 times per day [Active]; metformin 500 mg Oral tab 1 tab 2 times per day [Active]; tramadol 50 mg Oral tab 1 tab every 4 hours [Active]; - PMHx: 06:45 Diabetes - NIDDM; Hypertension; Myocardial infarction; Anxiety; CVA; jd3 - PSHx: 06:45 quadruple bypass; cardiac defibrilator; jd3 - Immunization history:: Adult Immunizations up to date, Flu vaccine is not up to date. - Social history:: Smoking status: Patient/guardian denies using tobacco. - Ebola Screening: : Patient negative for fever greater than or equal to 101.5 degrees Fahrenheit, and additional compatible Ebola Virus Disease symptoms. Screenin:48 Abuse screen: Denies threats or abuse. Nutritional screening: No deficits noted. jd3 Tuberculosis screening: No symptoms or risk factors identified. Fall Risk IV access (20 points). Ambulatory Aid- Crutches/Cane/Walker (15 pts). Gait- Weak (10 pts.). Mental Status- Oriented to own ability (0 pts). Total Lowery Fall Scale indicates Low Risk Score (25-44 pts). Fall prevention measures have been instituted. Side Rails Up X 2 Placed close to Nursing Station Frequent Obs/Assesments occuring Family Present and informed to notify staff if they need to leave bedside. Assessment: 06:47 General: Appears in no apparent distress. comfortable, Behavior is cooperative, jd3 anxious. Pain: Denies pain. Neuro: Level of Consciousness is awake, alert, obeys commands, Oriented to person, place, time, situation, Appropriate for age. Cardiovascular: Denies chest pain, Capillary refill < 3 seconds Patient's skin is warm and dry. Respiratory: Airway is patent Respiratory effort is even, unlabored, Respiratory pattern is regular, symmetrical, Denies cough, shortness of breath. GI: No signs and/or symptoms were reported involving the gastrointestinal system. : No signs and/or symptoms were reported regarding the genitourinary system. EENT: No signs and/or symptoms were reported regarding the EENT system. Derm: Skin is intact, Skin is dry, Skin is normal, Skin temperature is warm. Musculoskeletal: Circulation, motion, and sensation intact. Range of motion: intact in all extremities. 07:28 Reassessment: Patient appears in no apparent distress at this time. Patient and/or ch family updated on plan of care and expected duration. Pain level reassessed. Patient is alert, oriented x 3, equal unlabored respirations, skin warm/dry/pink. Patient denies pain at this time. Patient states feeling better. Patient states symptoms have improved. 08:20 Reassessment: Patient appears in no apparent distress at this time. Patient and/or ch family updated on plan of care and expected duration. Pain level reassessed. Patient is alert, oriented x 3, equal unlabored respirations, skin warm/dry/pink. Patient states feeling better. Patient states symptoms have improved. 08:59 Reassessment: Patient appears in no apparent distress at this time. pt is sleeping, family verb understanding of wait for admission. 10:00 Reassessment: Patient appears in no apparent distress at this time. No changes from previously documented assessment. Patient and/or family updated on plan of care and expected duration. Pain level reassessed. Patient is alert, oriented x 3, equal unlabored respirations, skin warm/dry/pink. 10:44 Reassessment: Patient appears in no apparent distress at this time. attempting to call report to the floor now. 10:50 Reassessment: Patient appears in no apparent distress at this time. Patient and/or family updated on plan of care and expected duration. Pain level reassessed. report given to Amy. Vital Signs: 06:45 BP 128 / 71; Pulse 86; Resp 18 S; Temp 97.8(O); Pulse Ox 99% on R/A; Weight 57.61 kg jd3 (R); Height 4 ft. 9 in. (144.78 cm) (R); Pain 0/10; 07:28 BP 122 / 61; Pulse 79; Resp 18; Pulse Ox 99% on R/A; Pain 0/10; ch 08:20 BP 121 / 61; Pulse 71; Resp 14; Temp 98.4; Pulse Ox 99% on R/A; Pain 0/10; ch 08:59 BP 122 / 66; Pulse 71; Resp 15; Temp 98.8; Pulse Ox 97% on R/A; Pain 0/10; ch 10:07 BP 125 / 66; Pulse 64; Resp 20; Pulse Ox 99% on R/A; Pain 0/10; ch 06:45 Body Mass Index 27.48 (57.61 kg, 144.78 cm) jd3 Vitals: 07:28 Cardiac Rhythm Assessment Regular Sinus rhythm. NIH Stroke Scale Scores: 08:07 NIHSS Score: 1 kb ED Course: 06:21 Patient arrived in ED. am2 06:21 Maximilian Putnam MD is Private Physician. am2 06:23 Adrián López, EDGARD is Primary Nurse. jd3 06:28 [facility] kb 06:28 Enzo Deshpande MD is Attending Physician. kb 06:35 Triage completed. jd3 06:44 Inserted saline lock: 20 gauge in right antecubital area, using aseptic technique. ea Blood collected. 06:46 Arm band placed on. EKG completed in triage. Results shown to MD. jd3 06:48 Patient has correct armband on for positive identification. Bed in low position. Call jd3 light in reach. Side rails up X2. Adult w/ patient. 06:56 CT Head Brain wo Cont In Process Unspecified. EDMS 07:03 Patient moved to radiology via wheelchair. kw1 07:03 X-ray completed. Patient tolerated procedure well. Patient moved back from radiology. kw 07:04 Primary Nurse role handed off by Adrián López RN ch 07:04 Magaly Becerra, EDGARD is Primary Nurse. ch 07:06 XRAY Chest (1 view) In Process Unspecified. EDMS 07:29 Warm blanket given. Pillow given. graduate assistant on. Pulse ox on. NIBP on. mh5 09:05 Pooja Daugherty MD is Hospitalizing Provider. kb 10:06 Urine Dipstick--Ancillary (enter results) Sent. 10:52 No provider procedures requiring assistance completed. Patient admitted, IV remains in place. Administered Medications: 07:39 Drug: Magnesium Sulfate 2 grams Route: IVPB; Infused Over: 2 hrs; Site: right antecubital; 08:48 Follow up: IV Status: Completed infusion Outcome: 09:05 Decision to Hospitalize by Provider. kb 10:51 Admitted to Med/surg accompanied by [facility], via wheelchair, room 219, with chart, Report called to Amy 10:51 Condition: stable 10:51 Instructed on the need for admit. 10:58 Patient left the ED. NIH Stroke Scale - NIH Stroke Score Date: 02/28/2018 Time: 08:07 Total Score = 1 1a. Level of Consciousness (LOC) - 0(Alert) 1b. Level of Consciousness (LOC) (Year \\T\\ Age) - 0(Both) 1c. LOC Commands (Open \\T\\ Closes Eyes/Research Technologist) - 0(Both) 2. Best Gaze (Lateral Gaze Paresis) - 0(Normal) 3. Visual Field Loss - 0(No visual loss) 4. Facial Palsy - 1(Minor Paralysis) 5a. Left Arm: Motor (10-second hold) - 0(No drift) 5b. Right Arm: Motor (10-second hold) - 0(No drift) 6a. Left Leg: Motor (5-second hold - always test supine) - 0(No drift) 6b. Right Leg: Motor (5-second hold - always test supine) - 0(No drift) 7. Limb Ataxia (finger/nose \\T\\ heel/leo - test with eyes open) - 0(Absent) 8. Sensory Loss (pinprick arms/legs/face) - 0(Normal) 9. Best Language: Aphasia (description/naming/reading) - 0(No aphasia) 10. Dysarthria (speech clarity - read or repeat words) - 0(Normal) 11. Extinction and Inattention (visual/tactile/auditory/spatial/personal) - 0(No abnormality) Initials: kb Signatures: Dispatcher [employer] EDRadha Yao, HOME SERVICE CONSULTANT-C HOME SERVICE CONSULTANT-Ckb Magaly Becerra RN RN ch Whitley, Kimberlee kw Martinez, Maria [facility] Diamante Dominique 2 Penny De Leon RN Adrián Arauz ea, RN RN jd3 Wilhelm, Kimberly kw1 Corrections: (The following items were deleted from the chart) 06:46 06:46 Arm band placed on jd3 jd3
--- NOTE | 2018-02-28 09:06 | EDPHYS ---
Physician Documentation [facility] Name: Magali Montez Age: 72 yrs Sex: Female : 1945 Arrival Date: 02/28/2018 Time: 06:21 Bed 17 Private MD: Maximilian Putnam ED Physician Enzo Deshpande HPI: 02/28 06:37 This 72 yrs old Female presents to ER via Ambulatory with complaints of kb Doesn't Feel Right. 06:37 The patient presents with generalized weakness. Onset: The symptoms/episode kb began/occurred this morning. Context: occurred at home. Modifying factors: The symptoms are alleviated by nothing, the symptoms are aggravated by nothing. Associated signs and symptoms: Pertinent positives: nausea, Pertinent negatives: abdominal pain, agitation, ataxia, blurred vision, chest pain, combativeness, confusion, diaphoresis, focal weakness, head injury, headache, near-syncope, numbness, palpitations, , seizure, shortness of breath, syncope, tingling, vomiting. Severity of symptoms: At their worst the symptoms were mild moderate in the emergency department the symptoms are unchanged. Patient's baseline: Neuro: alert and fully oriented, Motor: left-sided weakness, Ambulation: walks without assistance, Speech: normal, The patient has a previous history of CVA. The patient has not experienced similar symptoms in the past. The patient has not recently seen a physician. Daughter reports pt has been more depressed lately. Wanted to come to the ER this morning because she "has a feeling that she is going to ." Reports weakness (decreased energy), nausea that started Tuesday. Denies pain, shortness of breath or other symptoms. When asked why she felt this way, pt started crying and said she didn't want to talk about it. CVA in December. Daughter reports home health comes to see pt and she is doing PT. Sees Dr Reyes, last saw him on for follow up. Denies any neuro changes.. Historical: - Allergies: 06:45 Vancomycin; jd3 - Home Meds: 06:45 atorvastatin 80 mg oral tab 1 tab once daily [Active]; carvedilol 6.25 mg oral tab 1 jd3 tab 2 times per day [Active]; clopidogrel 75 mg oral tab 1 tab once daily [Active]; ferrous sulfate 325 mg (65 mg iron) Oral tab daily [Active]; furosemide 20 mg oral tab 1 tab once daily [Active]; Glimepiride 5 mg Oral 1 tab twice a day [Active]; levetiracetam 500 mg oral tab 1 tab 2 times per day [Active]; metformin 500 mg Oral tab 1 tab 2 times per day [Active]; tramadol 50 mg Oral tab 1 tab every 4 hours [Active]; - PMHx: 06:45 Diabetes - NIDDM; Hypertension; Myocardial infarction; Anxiety; CVA; jd3 - PSHx: 06:45 quadruple bypass; cardiac defibrilator; jd3 - Immunization history:: Adult Immunizations up to date, Flu vaccine is not up to date. - Social history:: Smoking status: Patient/guardian denies using tobacco. - Ebola Screening: : Patient negative for fever greater than or equal to 101.5 degrees Fahrenheit, and additional compatible Ebola Virus Disease symptoms. ROS: 06:37 Constitutional: Negative for fever, chills, and weight loss, Cardiovascular: Negative kb for chest pain, palpitations, and edema, Respiratory: Negative for shortness of breath, cough, wheezing, and pleuritic chest pain, Abdomen/GI: Negative for abdominal pain, nausea, vomiting, diarrhea, and constipation, Back: Negative for injury and pain, : Negative for injury, bleeding, discharge, and swelling, MS/Extremity: Negative for injury and deformity, Skin: Negative for injury, rash, and discoloration. 06:37 Neuro: Positive for weakness. Exam: 06:37 Constitutional: This is a well developed, well nourished patient who is awake, alert, kb and in no acute distress. Head/Face: Normocephalic, atraumatic. Eyes: Pupils equal round and reactive to light, extra-ocular motions intact. Lids and lashes normal. Conjunctiva and sclera are non-icteric and not injected. Cornea within normal limits. Periorbital areas with no swelling, redness, or edema. ENT: Nares patent. No nasal discharge, no septal abnormalities noted. Tympanic membranes are normal and external auditory canals are clear. Oropharynx with no redness, swelling, or masses, exudates, or evidence of obstruction, uvula midline. Mucous membranes moist. Neck: Trachea midline, no thyromegaly or masses palpated, and no cervical lymphadenopathy. Supple, full range of motion without nuchal rigidity, or vertebral point tenderness. No Meningismus. Chest/axilla: Normal chest wall appearance and motion. Nontender with no deformity. No lesions are appreciated. Cardiovascular: Regular rate and rhythm with a normal S1 and S2. No gallops, murmurs, or rubs. Normal PMI, no JVD. No pulse deficits. Respiratory: Lungs have equal breath sounds bilaterally, clear to auscultation and percussion. No rales, rhonchi or wheezes noted. No increased work of breathing, no retractions or nasal flaring. Abdomen/GI: Soft, non-tender, with normal bowel sounds. No distension or tympany. No guarding or rebound. No evidence of tenderness throughout. Skin: Warm, dry with normal turgor. Normal color with no rashes, no lesions, and no evidence of cellulitis. MS/ Extremity: Pulses equal, no cyanosis. Neurovascular intact. Full, normal range of motion. 07:26 Neuro: Orientation: is normal, Mentation: is normal, able to follow commands, Motor: kb moves all fours, left sided weakness, residual from previous CVA. Vital Signs: 06:45 BP 128 / 71; Pulse 86; Resp 18 S; Temp 97.8(O); Pulse Ox 99% on R/A; Weight 57.61 kg jd3 (R); Height 4 ft. 9 in. (144.78 cm) (R); Pain 0/10; 07:28 BP 122 / 61; Pulse 79; Resp 18; Pulse Ox 99% on R/A; Pain 0/10; ch 08:20 BP 121 / 61; Pulse 71; Resp 14; Temp 98.4; Pulse Ox 99% on R/A; Pain 0/10; ch 08:59 BP 122 / 66; Pulse 71; Resp 15; Temp 98.8; Pulse Ox 97% on R/A; Pain 0/10; ch 10:07 BP 125 / 66; Pulse 64; Resp 20; Pulse Ox 99% on R/A; Pain 0/10; ch 06:45 Body Mass Index 27.48 (57.61 kg, 144.78 cm) jd3 NIH Stroke Scale Scores: 08:07 NIHSS Score: 1 kb MDM: 06:28 Patient medically screened. kb 06:40 Data reviewed: vital signs, nurses notes. Data interpreted: Pulse oximetry: on room air kb is 100 %. Interpretation: normal. 08:09 ED course: minimal asymmetry to smile that family reports is residual from previous kb stroke. Do drift. Pt has no CVA complaints. Family does not report any new deficits or neuro complaints. Decreased energy level (generalized weakness) started on Tuesday. Pt is outside of the treatment window for tPA.. 08:55 Counseling: I had a detailed discussion with the patient and/or guardian regarding: the kb historical points, exam findings, and any diagnostic results supporting the discharge/admit diagnosis, lab results, radiology results, the need for further work-up and treatment in the hospital. Physician consultation: Anthony Reyes MD was contacted at 08:55, regarding consult, patient's condition, and will see patient in inpatient room. 08:55 Physician consultation: Pooja Daugherty MD was called at 08:56. kb 08:56 Physician consultation: Nisha Bejarano MD was called at 08:56. kb 02/28 06:33 Order name: Basic Metabolic Panel; Complete Time: 07:18 kb 02/28 06:33 Order name: CBC with Diff; Complete Time: 06:59 kb 02/28 06:33 Order name: Magnesium; Complete Time: 07:18 kb 02/28 06:33 Order name: NT PRO-BNP; Complete Time: 07:18 kb 02/28 06:33 Order name: PT-INR; Complete Time: 06:59 kb 02/28 06:33 Order name: Troponin (emerg Dept Use Only); Complete Time: 07:18 kb 02/28 06:33 Order name: XRAY Chest (1 view); Complete Time: 08:06 kb 02/28 06:33 Order name: EKG; Complete Time: 06:33 kb 02/28 06:33 Order name: CT Head Brain wo Cont; Complete Time: 08:49 kb 02/28 09:15 Order name: Urine Microscopic Only; Complete Time: 10:14 kb 02/28 09:32 Order name: Urine Dipstick--Ancillary (enter results) bd 02/28 09:57 Order name: Urine Dipstick-Ancillary; Complete Time: 09:58 EDMS 02/28 06:33 Order name: Cardiac monitoring; Complete Time: 06:49 kb 02/28 06:33 Order name: EKG - Nurse/Tech; Complete Time: 06:36 kb 02/28 06:33 Order name: IV Saline Lock; Complete Time: 06:44 kb 02/28 06:33 Order name: Labs collected and sent; Complete Time: 06:47 kb 02/28 06:33 Order name: O2 Per Protocol; Complete Time: 06:49 kb 02/28 06:33 Order name: O2 Sat Monitoring; Complete Time: 06:49 kb 02/28 09:03 Order name: Urine Dipstick-Ancillary (obtain specimen); Complete Time: 10:06 kb Administered Medications: 07:39 Drug: Magnesium Sulfate 2 grams Route: IVPB; Infused Over: 2 hrs; Site: right antecubital; 08:48 Follow up: IV Status: Completed infusion Disposition: 03/01 01:11 Co-signature as Attending Physician, Enzo Deshpande MD. ma2 Disposition: 02/28/18 09:05 Hospitalization ordered by Pooja Daugherty for Observation. Preliminary diagnosis is Weakness. - Bed requested for Telemetry/MedSurg (observation). - Status is Observation. - Condition is Stable. - Problem is new. - Symptoms are unchanged. UTI on Admission? No NIH Stroke Scale - NIH Stroke Score Date: 02/28/2018 Time: 08:07 Total Score = 1 1a. Level of Consciousness (LOC) - 0(Alert) 1b. Level of Consciousness (LOC) (Year \\T\\ Age) - 0(Both) 1c. LOC Commands (Open \\T\\ Closes Eyes/Bridge Carpenter) - 0(Both) 2. Best Gaze (Lateral Gaze Paresis) - 0(Normal) 3. Visual Field Loss - 0(No visual loss) 4. Facial Palsy - 1(Minor Paralysis) 5a. Left Arm: Motor (10-second hold) - 0(No drift) 5b. Right Arm: Motor (10-second hold) - 0(No drift) 6a. Left Leg: Motor (5-second hold - always test supine) - 0(No drift) 6b. Right Leg: Motor (5-second hold - always test supine) - 0(No drift) 7. Limb Ataxia (finger/nose \\T\\ heel/leo - test with eyes open) - 0(Absent) 8. Sensory Loss (pinprick arms/legs/face) - 0(Normal) 9. Best Language: Aphasia (description/naming/reading) - 0(No aphasia) 10. Dysarthria (speech clarity - read or repeat words) - 0(Normal) 11. Extinction and Inattention (visual/tactile/auditory/spatial/personal) - 0(No abnormality) Initials: kb Signatures: Dispatcher [employer] EDMS Radha Goyal, LADLE CAR OPERATOR-C LADLE CAR OPERATOR-Ckb Sonny Tonia Magaly Glass RN RN ch Davies, Jonathon, RN RN jd3 Alzahri, Mohammad, MD MD ma2 Corrections: (The following items were deleted from the chart) 02/28 07:26 06:37 Patient's baseline: Neuro: alert and fully oriented, Motor: no deficits, kb Ambulation: walks without assistance, Speech: normal, The patient has a previous history of CVA, kb 07: 06:37 Constitutional: This is a well developed, well nourished patient who is kb awake, alert, and in no acute distress. Head/Face: Normocephalic, atraumatic. Eyes: Pupils equal round and reactive to light, extra-ocular motions intact. Lids and lashes normal. Conjunctiva and sclera are non-icteric and not injected. Cornea within normal limits. Periorbital areas with no swelling, redness, or edema. ENT: Nares patent. No nasal discharge, no septal abnormalities noted. Tympanic membranes are normal and external auditory canals are clear. Oropharynx with no redness, swelling, or masses, exudates, or evidence of obstruction, uvula midline. Mucous membranes moist. Neck: Trachea midline, no thyromegaly or masses palpated, and no cervical lymphadenopathy. Supple, full range of motion without nuchal rigidity, or vertebral point tenderness. No Meningismus. Chest/axilla: Normal chest wall appearance and motion. Nontender with no deformity. No lesions are appreciated. Cardiovascular: Regular rate and rhythm with a normal S1 and S2. No gallops, murmurs, or rubs. Normal PMI, no JVD. No pulse deficits. Respiratory: Lungs have equal breath sounds bilaterally, clear to auscultation and percussion. No rales, rhonchi or wheezes noted. No increased work of breathing, no retractions or nasal flaring. Abdomen/GI: Soft, non-tender, with normal bowel sounds. No distension or tympany. No guarding or rebound. No evidence of tenderness throughout. Skin: Warm, dry with normal turgor. Normal color with no rashes, no lesions, and no evidence of cellulitis. MS/ Extremity: Pulses equal, no cyanosis. Neurovascular intact. Full, normal range of motion. Neuro: Awake and alert, GCS 15, oriented to person, place, time, and situation. Cranial nerves II-XII grossly intact. Motor strength 5/5 in all extremities. Sensory grossly intact. Cerebellar exam normal. Normal gait. kb 07:28 06:37 Daughter reports pt has been more depressed lately. Wanted to come to the ER this morning because she "has a feeling that she is going to ." Reports weakness, nausea. Denies pain, shortness of breath or other symptoms. When asked why she felt this way, pt started crying and said she didn't want to talk about it. . kb 08:17 06:37 Daughter reports pt has been more depressed lately. Wanted to come to the ER this morning because she "has a feeling that she is going to ." Reports weakness, nausea. Denies pain, shortness of breath or other symptoms. When asked why she felt this way, pt started crying and said she didn't want to talk about it. CVA in December. Daughter reports home health comes to see pt and she is doing PT. Sees Dr Reyes, last saw him on for follow up. Denies any neuro changes . kb 08:18 08:09 ED course: minimal asymmetry to smile that family reports is residual kb from previous stroke. Do drift. Pt has no CVA complaints. Family does not report any new deficits or neuro complaints. . kb 10:39 09:05 Hospitalization Ordered by Pooja Daugherty MD for Observation. Preliminary bd diagnosis is Weakness. Bed requested for Telemetry/MedSurg (observation). Status is Observation. Condition is Stable. Problem is new. Symptoms are unchanged. UTI on Admission? No. kb 10:58 10:39 02/28/2018 09:05 Hospitalization Ordered by Pooja Daugherty MD for ch Observation. Preliminary diagnosis is Weakness. Bed requested for Telemetry/MedSurg (observation). Status is Observation. Condition is Stable. Problem is new. Symptoms are unchanged. UTI on Admission? No. bd
[2018-02-28] MEDS ORDERED: ONDANSETRON 4 MG/2 ML VIAL IV PRN (09:23)
[2018-02-28] MEDS ORDERED: ACETAMINOPHEN 500 MG TAB PO PRN (09:23)
--- NOTE | 2018-02-28 09:24 | EKG ---
Test Date: 2018-02-28 Test Time: 06:35:04 Hand I Thermal Cutter: MAYANK MEASUREMENT RESULTS: Intervals: Rate: 78 AL: 160 QRSD: 118 QT: 378 QTc: 430 Stone: P: 36 AL: 160 QRS: -17 T: 64 INTERPRETIVE STATEMENTS: Normal sinus rhythm Possible Left atrial enlargement Nonspecific intraventricular conduction delay Nonspecific T wave abnormality Abnormal ECG Compared to ECG 12/19/2017 15:32:39 Intraventricular conduction delay now present Left bundle-branch block no longer present T-wave abnormality still present Electronically Signed On 02-28-18 09:23:50 CDT by Rajesh Hernandez
[2018-02-28 09:56] LABS: Urine Blood TRACE (NEG); Urine Glucose NEGATIVE (NEG); Urine Protein NEGATIVE (NEG); Urine Specific Gravity 1.015 (1.005-1.030); Urine pH 5.5 (5.0-7.0)
[2018-02-28 10:09] LABS: Urine Bacteria <20 /HPF (<20); Urine RBC <5 /HPF (NONE SEEN)
[2018-02-28 10:10] LABS: Urine Culture Reflex Order REFLEXED
[2018-02-28 12:31] VITALS: BMI 27.4
[2018-02-28] MEDS ORDERED: TRAMADOL HCL 50 MG TAB PO PRN (13:20)
[2018-02-28] MEDS: NA CHLORIDE 0.9% 1,000 ML IV SCH ×2 (13:23→20:56)
[2018-02-28] MEDS: CEFTRIAXONE/SWI 1gm 1 GM/10 ML SYR IV SCH (13:23)
[2018-02-28] MEDS ORDERED: INFLUENZA VACCINE (for 3y+) 0.5 ML DOSE IMVAC ONE (14:00)
[2018-02-28] MEDS ORDERED: ENOXAPARIN 40 MG/0.4 ML SQ SCH (17:00)
[2018-02-28] MEDS: glipiZIDE 5 MG TAB PO SCH (17:35)
[2018-02-28] MEDS: CARVEDILOL 6.25 MG TAB PO SCH (20:54)
[2018-02-28] MEDS: levETIRAcetam 500 MG TAB PO SCH (20:55)
[2018-02-28] MEDS ORDERED: ATORVASTATIN 80 MG TAB PO SCH (21:00)
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
--- NOTE | 2018-03-01 00:01 | CON ---
Reason: Weakness, prior stroke. History: A 72-year-old lady, known to myself. We had just seen her in the office last week. The patient has a dilated cardiomyopathy, EF 20-25%, had a stroke a few months ago, large right MCA distribution infarct, was not immediately systemically anticoagulated because of the size of the infarct proper. She has actually made a fairly good recovery from the stroke, came to the emergency department today, complained of generalized weakness. Magnesium was 1.2. CT scan of the brain demonstrates field ischemic lesion. Creatinine was 0.9. Given the patient's multiple medical problems, felt to be prudent to at least observe her overnight for any significant changes. The plan as an outpatient had been to repeat the CT and check a creatinine and if there was no evidence of hemorrhage, to convert her over to more aggressive systemic anticoagulation, Eliquis. As her creatinine is stable and the CT does not demonstrate any evidence of hemorrhage or change from prior, we will go ahead and convert her over to Eliquis while she is here and stop her Plavix, aspirin, and Lovenox. The patient also has a history of a seizure that occurred soon after she had the stroke and she is on Keppra for that problem, has not had any further seizure-like activity. Past Medical History: As alluded to. Routine Medications: Aspirin, Lipitor, Coreg, Plavix, iron, glipizide, Keppra, Zofran, and tramadol. Allergies: VANCOMYCIN. Social History: , requires assistance with activities of daily living. Review of Systems: General: Chronically ill. Eyes: Negative. Ears, Nose, and Throat: Negative. Cardiovascular: Cardiomyopathy. Pulmonary: Denies. GI: Denies. : Denies. Musculoskeletal: Left-sided weakness. Neurologic: As noted. Psychiatric: Negative. Endocrine: Diabetes. Hematologic: Negative. Physical Examination: Vital Signs: 97.3, 82, 16, and 138/78. Heart: Sinus rhythm. Neck: No carotid bruits. Lungs: Clear. Abdomen: Soft. Bowel sounds present. Neurologic: She is awake, alert, and oriented. Pupils reactive. Ocular motion full. Moralez full. Decreased left nasolabial fold. The patient has a left hemiparesis, arm greater than leg, 4/5 in the arm, 5- in the leg. Sensation decreased, left versus right. No cortical extinction. Reflexes 1/4 on the right, 2/4 on the left. Toes are bilaterally downgoing. Cerebellar exam demonstrates no ataxia. Pertinent Laboratory Data: Imaging and pertinent labs as noted. EKG was a sinus rhythm. Impression: 1. Generalized weakness, resolved. 2. Prior stroke, etiology cardioembolic from cardiomyopathy. Plan: Stop the aspirin. Stop Plavix. Stop Lovenox. Start Eliquis 5 mg twice daily. Risks, benefits, and side effects reviewed with the patient and family. Continue the Keppra for the seizures, check EEG. Her stroke scale here is 4. Thank you for the consult. We will continue to follow with you. LEVI Voice ID: [id number] Report ID: [id number]
[2018-03-01 05:23] LABS: Absolute Lymphocytes (CBC) 1.7 K/uL (0.7-4.9); Absolute Monocytes 0.8 K/uL (0.1-1.3); Absolute Neutrophil 3.6 K/uL (1.8-8.0); Basophils % 0.8 % (0-1.3); Eosinophils % 3.4 % (0-4.4); Hematocrit 29.1 % (36.0-45.0); Lymphocytes % 26.2 % (15.3-44.8); MCH 31.7 pg (27.0-35.0); MCV 92.1 fL (80-100); MPV 9.8 fL (7.6-11.3); Monocytes % 13.4 % (3.3-12.3); RBC Red Blood Cell Count 3.16 M/uL (3.86-4.86)
[2018-03-01 05:49] LABS: Albumin 3.2 g/dL (3.4-5.0); Bilirubin Total 0.6 mg/dL (0.2-1.0); Magnesium 1.6 mg/dL (1.8-2.4); Phosphorus 3.3 mg/dL (2.5-4.9); Potassium 3.4 mmol/L (3.5-5.1); Protein, Total 6.7 g/dL (6.4-8.2)
[2018-03-01 05:55] LABS: Thyroid Stimulating Hormone 3.86 uIU/mL (0.360-3.740)
[2018-03-01] MEDS: NA CHLORIDE 0.9% 1,000 ML IV SCH ×2 (06:17→08:49)
[2018-03-01] MEDS ORDERED: MAGNESIUM SULFATE 1 gm IVPB 1 GM/100 ML BAG IV ONE (07:49)
[2018-03-01] MEDS ORDERED: POTASSIUM 25 MEQ EFFERV TAB PO ONE (07:53)
[2018-03-01] MEDS: CARVEDILOL 6.25 MG TAB PO SCH (08:47)
[2018-03-01] MEDS: CEFTRIAXONE/SWI 1gm 1 GM/10 ML SYR IV SCH (08:47)
[2018-03-01] MEDS: levETIRAcetam 500 MG TAB PO SCH (08:48)
[2018-03-01] MEDS: glipiZIDE 5 MG TAB PO SCH (08:48)
[2018-03-01] MEDS ORDERED: CLOPIDOGREL 75 MG TABLET PO SCH (09:00)
[2018-03-01] MEDS ORDERED: APIXABAN 5 MG TABLET PO SCH (09:00)
[2018-03-01] MEDS ORDERED: ASPIRIN 81 MG CHEWABLE TABLET PO SCH (09:00)
[2018-03-01] MEDS ORDERED: FERROUS SULFATE 325 MG TAB PO SCH (09:00)
[2018-03-01 09:52] VITALS: O2SAT 97
[2018-03-01 13:43] VITALS: BP 124/72; TEMP 97.9
--- NOTE | 2018-03-02 05:28 | DS ---
Date of Discharge: 03/01/2018 Consultants: Dr. Reyes, Neurology. Discharge Diagnoses: 1.Generalized weakness, resolved. 2.Hypomagnesemia, replaced. 3.Hypokalemia, replaced. 4.Acute cystitis with hematuria. Urine culture currently pending at this time. 5.History of recent stroke with left-sided residual weakness. The stroke was on the right cerebral area. Switched to Eliquis for anticoagulation. 6.Gastroesophageal reflux disease without esophagitis. 7.Hyperlipidemia. 8.Diabetes mellitus type 2, [id number], with hyperglycemia. 9.Essential hypertension, stable. 10.Newly diagnosed hypothyroidism, started on levothyroxine. We will need to repeat TSH in 6-8 week s and to adjust dose. Hospital Course: The patient is a 72-year-old female who comes in with generalized weakness as well as some depressive episode and signs and symptoms of adjustment disorder due to her recent stroke. T he patient's workup essentially was negative, did reveal some low magnesium. She did have an abnorma l UA. Urine culture currently pending. A chest x-ray and head CT did not show anything acute. The CT head showed the previous known subacute right cerebral infarct from December. The patient was seen by Dr. Reyes. EEG was done and her medications were adjusted. She was switched to Eliquis from aspiri n and Plavix, which were discontinued. Her electrolytes were replaced. Her TSH was elevated, which may be a reason for her depression. She was started on Synthroid. The patient was then cleared for discharge. She was doing well. No difficulty ambulating, tolerating her diet. Followup: The patient to follow up with her primary care physician in 2-3 days. Follow up with neur ologist, Dr. Reyes, in 2 weeks. Follow up with Dr. Ferguson, escort car driver, in 4 weeks. Return to ER fo r worsening condition. Diet: Low-sodium, fluid-restricted diet. Activity: Fall precautions. Continue PT and OT at home. Medications: As per medication reconciliation list. Physical Examination: General: Awake, alert, oriented x3. No acute distress. CV: S1, S2. No murmurs. Respiratory: Moving air well bilaterally. Abdomen: Abdomen is soft, nontender, nondistended. Positive bowel sounds. Extremities: No clubbing, cyanosis, edema. Neuro: Left upper extremity weakness. Speech is normal. /TRELL Voice ID: [id number] Report ID: [id number]
[2018-03-02] MEDS ORDERED: LEVOTHYROXINE SOD 0.025 MG TAB PO SCH (06:00)
[2018-03-02] MEDS ORDERED: SERTRALINE HCL 50 MG TAB PO SCH (09:00)
--- NOTE | 2018-03-02 09:53 | EEG ---
CHART: [id number] TEST ID#: [id number] DATE OF STUDY: 03/01/2018 THE EEG WAS RECORDED PORTABLE IN THE PATIENTS ROOM ON A 17 CHANNEL MACHINE. ELECTRODES WERE APPLIED IN THE USUAL MANNER USING THE INTERNATIONAL 10-20 SYSTEM. THE WAKING BACKGROUND RHYTHM IN THIS RECORD CONSISTS OF FAIRLY WELL DEVELOPED AND FAIRLY WELL ORGANIZED WAVES OF 9 HZ., MAXIMAL IN THE POSTERIOR HEAD REGIONS WHICH ATTENUATE NORMALLY WITH EYE OPENING. IN DROWSINESS THE BACKGROUND DROPS TO 8 HZ. THERE ARE NO FOCAL OR LATERALIZING FEATURES. NO EPILEPTIFORM ACTIVITY APPEARS. SLEEP OCCURRED NATURALLY. NORMAL SLEEP PATTERNS ARE PRESENT. HYPERVENTILATION WAS NOT PERFORMED. PHOTIC STIMULATION PRODUCED FAIR DRIVING BILATERALLY. IMPRESSION: NORMAL EEG FOR THE AGE OF THE PATIENT IN [place], DROWSINESS AND SLEEP.
== END 2018-03-01 14:59 | disposition home health service (06) ==
LOC: ER 06:20 → ERHOLD 09:06 → 2ND 10:51
PROVIDERS: ADMIT Family Medicine; ATTEND Family Medicine
DX: N30.01 Acute cystitis with hematuria (principal); R53.1 Weakness; I50.9 Heart failure, unspecified; I11.0 Hypertensive heart disease with heart failure; I69.354 Hemiplegia and hemiparesis following cerebral infarction affecting left non-dominant side; I42.9 Cardiomyopathy, unspecified; E83.42 Hypomagnesemia; E87.6 Hypokalemia; K21.9 Gastro-esophageal reflux disease without esophagitis; E78.5 Hyperlipidemia, unspecified; E11.65 Type 2 diabetes mellitus with hyperglycemia; E03.9 Hypothyroidism, unspecified; F32.9 Major depressive disorder, single episode, unspecified; Z23 Encounter for immunization; Z88.3 Allergy status to other anti-infective agents
CPT/HCPCS: 36415; 70450; 71045; 80048; 80053; 81003; 81015; 82962; 83735; 83880; 84100; 84439; 84443; 84484; 85025; 85610; 87086; 87088; 93005; 94760; 95819; 96365; 97163; 99285; G0378; J0696; J1650; J3475; J7030

== ENCOUNTER 2018-03-04 02:04 | Inpatient (IN) | payer MEDICARE ==
--- OUTSIDE RECORDS SUMMARY | 2018-03-04 02:07 | XMS REPORT | Continuity of Care Document ---
[...] Number For Provider Date Date Visit Outpatient [id number] DASHA 08/24 Active [facility] [id number] DASHA 11/02 Active [facility] [id number] DASHA 11/04 Active [facility] [id number] DASHA 12/16 Active [facility] [id number] DASHA 01/12 Active [facility] [id number] DASHA 02/23 Active [facility] [id number] DASHA 03/02 Active [facility] [id number] DASHA 03/30 Active [facility] Procedures Procedure Code Date Perfomer Comments Source
[2018-03-04 03:03] LABS: Protime INR 1.58
[2018-03-04 03:04] LABS: Absolute Lymphocytes (CBC) 0.8 K/uL (0.7-4.9); Absolute Monocytes 0.7 K/uL (0.1-1.3); Absolute Neutrophil 6.3 K/uL (1.8-8.0); Basophils % 0.8 % (0-1.3); Eosinophils % 1.2 % (0-4.4); Hematocrit 29.3 % (36.0-45.0); MCH 31.6 pg (27.0-35.0); MPV 9.5 fL (7.6-11.3); Monocytes % 8.8 % (3.3-12.3); RBC Red Blood Cell Count 3.15 M/uL (3.86-4.86)
[2018-03-04] MEDS ORDERED: FUROSEMIDE 20 MG/ 2ML VIAL ONE ×2 (03:30→04:55)
[2018-03-04] MEDS ORDERED: CEFTRIAXONE/SWI 1gm 1 GM/10 ML SYR ONE (03:30)
[2018-03-04] MEDS ORDERED: ALBUTEROL 2.5 MG/3 ML NEB SOL ONE (03:30)
[2018-03-04] MEDS ORDERED: METHYLPREDNISOLONE 125 MG INJ ONE (03:30)
[2018-03-04] MEDS ORDERED: FAMOTIDINE 20 MG/2 ML VIAL IV ONE (03:30)
[2018-03-04] MEDS ORDERED: IPRATROPIUM BROM 0.5MG/2.5ML ONE (03:30)
[2018-03-04] MEDS ORDERED: AZITHROMYCIN 500 MG/250 ML BAG ONE (03:31)
[2018-03-04 03:35] LABS: Albumin 3.7 g/dL (3.4-5.0); Bilirubin Direct 0.3 mg/dL (0-0.2); Bilirubin Total 0.7 mg/dL (0.2-1.0); Potassium 4.1 mmol/L (3.5-5.1); Protein, Total 7.8 g/dL (6.4-8.2); Troponin (Emerg Dept Use Only) 0.03 ng/mL (0.0-0.045)
[2018-03-04 03:36] LABS: Magnesium 1.4 mg/dL (1.8-2.4)
--- NOTE | 2018-03-04 04:32 | EDPHYS ---
Physician Documentation [facility] Name: Magali Montez Age: 72 yrs Sex: Female : 1945 Arrival Date: 03/04/2018 Time: 02:06 Bed 8 Private MD: ED Physician David Suazo HPI: 03/04 02:37 This 72 yrs old Female presents to ER via Wheelchair with complaints of Chest cp Tightness. 02:37 Onset: The symptoms/episode began/occurred this morning, at 01:00. cp 02:37 The patient or guardian reports chest pain that is located primarily in the anterior cp chest wall. The pain does not radiate. Associated signs and symptoms: Pertinent positives: cough, shortness of breath, Pertinent negatives: abdominal pain, lower extremity pain, lower extremity swelling. The chest pain is described as tightness. Duration: The patient or guardian reports a single episode, that is still ongoing, and unchanged. Modifying factors: the symptoms are aggravated by lying flat. Historical: - Allergies: 03:06 Vancomycin; aa1 - Home Meds: 03:06 atorvastatin 80 mg Oral tab 1 tab once daily [Active]; carvedilol 6.25 mg Oral tab 1 aa1 tab 2 times per day [Active]; ferrous sulfate 325 mg (65 mg iron) Oral tab daily [Active]; furosemide 10 mg Oral tab 1 tab once daily [Active]; Hemocyte-Plus 106 mg iron- 1 mg oral cap 1 cap once daily [Active]; levetiracetam 500 mg Oral tab 1 tab 2 times per day [Active]; Glimepiride 5 mg Oral 1 tab twice a day [Active]; Keppra 500 mg Oral tab 1 tab 2 times per day [Active]; tramadol 50 mg Oral tab 1 tab every 4 hours [Active]; Eliquis 5 mg oral tab 1 tab 2 times per day [Active]; levothyroxine 25 mcg tab 1 tab once daily [Active]; sertraline 25 mg oral tab 1 tab once daily [Active]; - PMHx: 03:06 Anxiety; CVA; Diabetes - NIDDM; Hypertension; Myocardial infarction; High Cholesterol; aa1 Hypothyroidism; CHF; - PSHx: 03:06 quadruple bypass; defibrillator; ; aa1 - Immunization history:: Flu vaccine is not up to date. - Social history:: Smoking status: Patient/guardian denies using tobacco. - Ebola Screening: : Patient denies exposure to infectious person Patient denies travel to an Ebola-affected area in the 21 days before illness onset. ROS: 02:38 Eyes: Negative for injury, pain, redness, and discharge. cp 02:38 Constitutional: Negative for body aches, chills, fever, poor PO intake. 02:38 Cardiovascular: Positive for chest pain, Negative for edema, palpitations. 02:38 Respiratory: Positive for cough, orthopnea, shortness of breath, at rest. 02:38 Abdomen/GI: Negative for abdominal pain, vomiting, diarrhea, constipation, black/tarry stool, rectal bleeding. 02:38 Skin: Negative for cellulitis, rash. 02:38 Neuro: Negative for altered mental status, dizziness, weakness. 02:38 All other systems are negative. Exam: 02:40 Head/Face: Normocephalic, atraumatic. Eyes: Pupils equal round and reactive to light, cp extra-ocular motions intact. Lids and lashes normal. Conjunctiva and sclera are non-icteric and not injected. Cornea within normal limits. Periorbital areas with no swelling, redness, or edema. ENT: Nares patent. No nasal discharge, no septal abnormalities noted. Tympanic membranes are normal and external auditory canals are clear. Oropharynx with no redness, swelling, or masses, exudates, or evidence of obstruction, uvula midline. Mucous membranes moist. Neck: Trachea midline, no thyromegaly or masses palpated, and no cervical lymphadenopathy. Supple, full range of motion without nuchal rigidity, or vertebral point tenderness. No Meningismus. 02:40 Constitutional: The patient appears in no acute distress, alert, awake, non-diaphoretic, non-toxic, well developed, well nourished. 02:40 Chest/axilla: Inspection: normal, Palpation: is normal, no crepitus, no tenderness. 02:40 Cardiovascular: Rate: normal, Rhythm: regular, Pulses: Pulses are 2+ in right radial artery and left radial artery. JVD: is not appreciated. 02:40 Respiratory: the patient does not display signs of respiratory distress, Respirations: normal, no use of accessory muscles, no retractions, no splinting, no tachypnea, labored breathing, is not present, Breath sounds: decreased breath sounds, are not appreciated, rhonchi, are not appreciated, stridor, is not appreciated, wheezing: that is mild, is heard diffusely. 02:40 Abdomen/GI: Inspection: abdomen appears normal, Bowel sounds: active, all quadrants, Palpation: abdomen is soft and non-tender, in all quadrants. 02:40 Back: pain, is absent, ROM is normal. 02:40 Skin: cellulitis, is not appreciated, no rash present. 02:40 Neuro: Orientation: to person, place \T\ time. Mentation: lucid, able to follow commands. Vital Signs: 02:15 BP 119 / 69; Pulse 97; Resp 20; Temp 98.5; Pulse Ox 98% on R/A; Weight 57.61 kg; Height aa1 4 ft. 9 in. (144.78 cm); Pain 0/10; 03:42 BP 117 / 68; Pulse 95; Resp 22; Pulse Ox 98% ; aa1 05:04 BP 111 / 65; Pulse 88; Resp 14; Pulse Ox 95% on R/A; Pain 0/10; aa1 06:07 BP 110 / 69; Pulse 90; Resp 16; Pulse Ox 95% on R/A; Pain 0/10; aa1 02:15 Body Mass Index 27.48 (57.61 kg, 144.78 cm) aa1 MDM: 02:26 Patient medically screened. cp 02:43 Data reviewed: vital signs, nurses notes, lab test result(s), EKG, radiologic studies, ashish plain films. 03/04 02:29 Order name: Basic Metabolic Panel; Complete Time: 04:27 cp 03/04 02:29 Order name: CBC with Diff; Complete Time: 04:27 cp 03/04 02:29 Order name: LFT's; Complete Time: 04:27 cp 03/04 02:29 Order name: Magnesium; Complete Time: 04:27 cp 03/04 02:29 Order name: NT PRO-BNP; Complete Time: 04:27 03/04 02:29 Order name: PT-INR; Complete Time: 04:27 03/04 02:29 Order name: Troponin (emerg Dept Use Only); Complete Time: 04:27 cp 03/04 02:29 Order name: XRAY Chest (1 view) cp 03/04 02:39 Order name: Type And Screen [facility] 03/04 02:39 Order name: Blood Culture Adult (2) [facility] 03/04 02:39 Order name: Procalcitonin; Complete Time: 04:27 [facility] 03/04 04:34 Order name: Urine Dipstick--Ancillary (enter results) pa 03/04 04:46 Order name: ABO/RH no charge [facility] 03/04 02:29 Order name: EKG; Complete Time: 02:30 cp 03/04 02:29 Order name: Cardiac monitoring; Complete Time: 02:31 cp 03/04 02:29 Order name: EKG - Nurse/Tech; Complete Time: 02:31 cp 03/04 02:29 Order name: IV Saline Lock; Complete Time: 02:32 cp 03/04 02:29 Order name: Labs collected and sent; Complete Time: 02:32 cp 03/04 04:36 Order name: CONS Physician Consult [facility] 03/04 02:29 Order name: O2 Per Protocol; Complete Time: 02:32 cp 03/04 02:29 Order name: O2 Sat Monitoring; Complete Time: 02:32 cp Administered Medications: 03:30 Drug: Albuterol 2.5 mg Route: Inhalation; aa1 03:30 Drug: AtroVENT Aerosol 0.5 mg Route: Inhalation; aa1 03:30 Drug: Albuterol 2.5 mg Route: Inhalation; aa1 03:30 Drug: Lasix 20 mg Route: IVP; Site: right forearm; aa1 04:30 Follow up: Response: No adverse reaction aa1 03:31 Drug: Pepcid 20 mg Route: IVP; Site: right forearm; aa1 04:30 Follow up: Response: No adverse reaction aa1 03:32 Drug: SOLU-Medrol 125 mg Route: IVP; Site: right forearm; aa1 04:30 Follow up: Response: No adverse reaction aa1 03:33 Drug: Zithromax 500 mg Route: IVPB; Infused Over: 1 hrs; Site: right forearm; aa1 04:57 Follow up: IV Status: Completed infusion aa1 03:33 Drug: Rocephin 1 grams Route: IV; Rate: calculated rate; Site: right forearm; aa1 03:40 Follow up: IV Status: Completed infusion aa1 03:40 CANCELLED (Other Intervention Used): Rocephin - (cefTRIAXone) 1 grams IVPB once over 30 aa1 mins; (mix in 50 mL NS) 04:56 Drug: Lasix 20 mg Route: IVP; Site: right forearm; aa1 04:57 Drug: Magnesium Sulfate 1 grams Route: IVPB; Infused Over: 1 hrs; Site: right forearm; aa1 06:04 Follow up: IV Status: Completed infusion aa1 Disposition: 02:42 Co-signature as Attending Physician, David Suazo MD I agree with the assessment and [facility] plan of care. Disposition: 03/04/18 04:32 Hospitalization ordered by Enzo Barriga for Inpatient Admission. Preliminary diagnosis are Dyspnea, Unspecified combined systolic (congestive) and diastolic (congestive) heart failure, Bronchitis, not specified as acute or chronic, Hypomagnesemia. - Bed requested for Telemetry/MedSurg (Inpatient). - Status is Inpatient Admission. aa1 - Condition is Fair. - Problem is new. - Symptoms have improved. UTI on Admission? No Signatures: Dispatcher [employer] EDMI Hodan Dawson RN RN Bozena Fox RN RN aa David Suazo MD MD cha Page, Corey, PA PA cp Corrections: (The following items were deleted from the chart) 03:40 02:41 Rocephin - (cefTRIAXone) 1 grams IVPB once over 30 mins; (mix in 50 mL NS) aa1 ordered. ashish 04:38 04:32 Hospitalization Ordered by Enzo Barriga MD for Inpatient Admission. Preliminary mw diagnosis is Dyspnea; Unspecified combined systolic (congestive) and diastolic (congestive) heart failure; Bronchitis, not specified as acute or chronic; Hypomagnesemia. Bed requested for Telemetry/MedSurg (Inpatient). Status is Inpatient Admission. Condition is Fair. Problem is new. Symptoms have improved. UTI on Admission? No. ashish 06:47 04:38 03/04/2018 04:32 Hospitalization Ordered by Enzo Barriga MD for Inpatient aa1 Admission. Preliminary diagnosis is Dyspnea; Unspecified combined systolic (congestive) and diastolic (congestive) heart failure; Bronchitis, not specified as acute or chronic; Hypomagnesemia. Bed requested for Telemetry/MedSurg (Inpatient). Status is Inpatient Admission. Condition is Fair. Problem is new. Symptoms have improved. UTI on Admission? No. mw
--- NOTE | 2018-03-04 04:32 | ER ---
Nurse's Notes [facility] Name: Magali Montez Age: 72 yrs Sex: Female : 1945 Arrival Date: 03/04/2018 Time: 02:06 Bed 8 Private MD: Diagnosis: Dyspnea;Unspecified combined systolic (congestive) and diastolic (congestive) heart failure;Bronchitis, not specified as acute or chronic;Hypomagnesemia Presentation: 03/04 02:15 Presenting complaint: Patient states: cough since yesterday and began to have chest aa1 tightness and difficulty breathing when laying down since this evening. Denies pain. Denies fever. Transition of care: patient was not received from another setting of care. Onset of symptoms was March 03, 2018. Risk Assessment: Do you want to hurt yourself or someone else? Patient reports no desire to harm self or others. Initial Sepsis Screen: Does the patient meet any 2 criteria? HR > 90 bpm. Does the patient have a suspected source of infection? No. Patient's initial sepsis screen is negative. Care prior to arrival: None. 02:15 Method Of Arrival: Wheelchair aa1 02:15 Acuity: MILAGROS 3 aa1 Historical: - Allergies: 03:06 Vancomycin; aa1 - Home Meds: 03:06 atorvastatin 80 mg Oral tab 1 tab once daily [Active]; carvedilol 6.25 mg Oral tab 1 aa1 tab 2 times per day [Active]; ferrous sulfate 325 mg (65 mg iron) Oral tab daily [Active]; furosemide 10 mg Oral tab 1 tab once daily [Active]; Hemocyte-Plus 106 mg iron- 1 mg oral cap 1 cap once daily [Active]; levetiracetam 500 mg Oral tab 1 tab 2 times per day [Active]; Glimepiride 5 mg Oral 1 tab twice a day [Active]; Keppra 500 mg Oral tab 1 tab 2 times per day [Active]; tramadol 50 mg Oral tab 1 tab every 4 hours [Active]; Eliquis 5 mg oral tab 1 tab 2 times per day [Active]; levothyroxine 25 mcg tab 1 tab once daily [Active]; sertraline 25 mg oral tab 1 tab once daily [Active]; - PMHx: 03:06 Anxiety; CVA; Diabetes - NIDDM; Hypertension; Myocardial infarction; High Cholesterol; aa1 Hypothyroidism; CHF; - PSHx: 03:06 quadruple bypass; defibrillator; ; aa1 - Immunization history:: Flu vaccine is not up to date. - Social history:: Smoking status: Patient/guardian denies using tobacco. - Ebola Screening: : Patient denies exposure to infectious person Patient denies travel to an Ebola-affected area in the 21 days before illness onset. Screenin:18 Abuse screen: Denies threats or abuse. Denies injuries from another. Nutritional aa1 screening: No deficits noted. Tuberculosis screening: No symptoms or risk factors identified. Fall Risk None identified. Assessment: 02:18 General: Appears in no apparent distress. comfortable, Behavior is calm, cooperative, aa1 appropriate for age. Pain: Denies pain. Neuro: Level of Consciousness is awake, alert, obeys commands, Oriented to person, place, time, situation, Moves all extremities. Weakness in left arm(s) r/t hx of CVA. Speech is normal. Cardiovascular: Reports chest tightness when laying down but states it isn't pain, just tight Heart tones S1 S2 present Capillary refill < 3 seconds Clubbing of nail beds is absent Patient's skin is warm and dry. Rhythm is regular. Respiratory: Reports cough that is productive, Airway is patent Respiratory effort is even, unlabored, Respiratory pattern is regular, symmetrical, Breath sounds are clear bilaterally. the patient has mild shortness of breath. GI: No signs and/or symptoms were reported involving the gastrointestinal system. : No signs and/or symptoms were reported regarding the genitourinary system. EENT: No signs and/or symptoms were reported regarding the EENT system. Derm: Skin is intact, is healthy with good turgor, Skin is pink, warm \T\ dry. Musculoskeletal: Circulation, motion, and sensation intact. Capillary refill < 3 seconds. 03:30 Reassessment: Patient appears in no apparent distress at this time. Patient and/or aa1 family updated on plan of care and expected duration. Pain level reassessed. Patient is alert, oriented x 3, equal unlabored respirations, skin warm/dry/pink. Awaiting lab results. 05:17 Reassessment: Patient appears in no apparent distress at this time. Patient and/or aa1 family updated on plan of care and expected duration. Pain level reassessed. Patient is alert, oriented x 3, equal unlabored respirations, skin warm/dry/pink. Bed assignment received, awaiting admission orders from Dr. Barriga. 05:41 Reassessment: Dr. Barriga at bedside with pt \T\ family. aa1 06:07 Reassessment: Patient appears in no apparent distress at this time. Patient and/or aa1 family updated on plan of care and expected duration. Pain level reassessed. Patient is alert, oriented x 3, equal unlabored respirations, skin warm/dry/pink. Attempted to call report, phone rang multiple times and then was hung up. Will continue to attempt to call report. 06:14 Reassessment: Patient appears in no apparent distress at this time. Patient is alert, aa1 oriented x 3, equal unlabored respirations, skin warm/dry/pink. Report given to Elisa Fournier RN. Vital Signs: 02:15 BP 119 / 69; Pulse 97; Resp 20; Temp 98.5; Pulse Ox 98% on R/A; Weight 57.61 kg; Height aa1 4 ft. 9 in. (144.78 cm); Pain 0/10; 03:42 BP 117 / 68; Pulse 95; Resp 22; Pulse Ox 98% ; aa1 05:04 BP 111 / 65; Pulse 88; Resp 14; Pulse Ox 95% on R/A; Pain 0/10; aa1 06:07 BP 110 / 69; Pulse 90; Resp 16; Pulse Ox 95% on R/A; Pain 0/10; aa1 02:15 Body Mass Index 27.48 (57.61 kg, 144.78 cm) aa1 ED Course: 02:06 Patient arrived in ED. am2 02:14 Bozena Fox, RN is Primary Nurse. aa1 02:15 Arm band placed on right wrist. Patient placed in an exam room, on a stretcher. aa1 02:16 Triage completed. aa1 02:18 Patient has correct armband on for positive identification. Bed in low position. Call aa1 light in reach. webfed offset press operator on. Pulse ox on. NIBP on. 02:18 EKG done, by ED staff, reviewed by David Suazo MD. Patient maintains SpO2 saturation aa1 greater than 95% on room air. 02:26 David Walton PA is PHCP. cp 02:26 David Suazo MD is Attending Physician. cp 02:27 Inserted saline lock: 20 gauge in right wrist, using aseptic technique. Blood collected.tl2 02:42 X-ray completed. Portable x-ray completed in exam room. Patient tolerated procedure kw well. 02:43 XRAY Chest (1 view) In Process Unspecified. EDMS 03:40 Notified ED physician of a critical lab result(s). magnesium of 1.4 Dr Gabriele uriarte notified. 04:29 Enzo Barriga MD is Hospitalizing Provider. ashish 05:05 No provider procedures requiring assistance completed. Patient admitted, IV remains in aa1 place. Administered Medications: 03:30 Drug: Albuterol 2.5 mg Route: Inhalation; aa1 03:30 Drug: AtroVENT Aerosol 0.5 mg Route: Inhalation; aa1 03:30 Drug: Albuterol 2.5 mg Route: Inhalation; aa1 03:30 Drug: Lasix 20 mg Route: IVP; Site: right forearm; aa1 04:30 Follow up: Response: No adverse reaction aa1 03:31 Drug: Pepcid 20 mg Route: IVP; Site: right forearm; aa1 04:30 Follow up: Response: No adverse reaction aa1 03:32 Drug: SOLU-Medrol 125 mg Route: IVP; Site: right forearm; aa1 04:30 Follow up: Response: No adverse reaction aa1 03:33 Drug: Zithromax 500 mg Route: IVPB; Infused Over: 1 hrs; Site: right forearm; aa1 04:57 Follow up: IV Status: Completed infusion aa1 03:33 Drug: Rocephin 1 grams Route: IV; Rate: calculated rate; Site: right forearm; aa1 03:40 Follow up: IV Status: Completed infusion aa1 03:40 CANCELLED (Other Intervention Used): Rocephin - (cefTRIAXone) 1 grams IVPB once over 30 aa1 mins; (mix in 50 mL NS) 04:56 Drug: Lasix 20 mg Route: IVP; Site: right forearm; aa1 04:57 Drug: Magnesium Sulfate 1 grams Route: IVPB; Infused Over: 1 hrs; Site: right forearm; aa1 06:04 Follow up: IV Status: Completed infusion aa1 Outcome: 04:32 Decision to Hospitalize by Provider. ashish 06:14 Admitted to Tele accompanied by tech, family with patient, via wheelchair, room 408, aa1 with chart, Report called to Elisa Fournier RN 06:14 Condition: stable 06:14 Instructed on the need for admit, Demonstrated understanding of instructions. 06:47 Patient left the ED. aa1 Signatures: Dispatcher [employer] Bozena Schmitt RN RN aa1 David Suazo MD MD cha Ballard, Brenda, RN RN bb Whitley, Kimberlee kw Page, Corey, PA PA cp Knox, Taylor, RN RN tl2 Diamante Dominique
[2018-03-04] MEDS ORDERED: MAGNESIUM SULFATE 1 gm IVPB 1 GM/100 ML BAG IV ONE ×2 (04:55→21:05)
[2018-03-04 05:24] LABS: Urine Blood TRACE (NEG); Urine Glucose NEGATIVE (NEG); Urine Protein NEGATIVE (NEG); Urine Specific Gravity 1.015 (1.005-1.030); Urine pH 6.5 (5.0-7.0)
[2018-03-04] MEDS ORDERED: ACETAMINOPHEN 500 MG TAB PO PRN (05:54)
[2018-03-04] MEDS ORDERED: ONDANSETRON 4 MG/2 ML VIAL IV PRN (05:54)
[2018-03-04] MEDS ORDERED: MAGNESIUM HYDROXIDE 8% 30 ML PO PRN (05:54)
--- NOTE | 2018-03-04 08:30 | RAD REPORT ---
EXAM DESCRIPTION: RAD - Chest Single View - 03/04/2018 2:45 am CLINICAL HISTORY: Chest tightness, difficulty breathing COMPARISON: February 28 TECHNIQUE: AP portable chest image was obtained 0232 hours . FINDINGS: No peripheral mass or consolidation. Pacemaker/ defibrillator is in place. Cardiomegaly is present increased slightly over the comparison. Vasculature and lung markings have increased slightl y as well. No measurable pleural effusion and no pneumothorax. No gross bony abnormality seen. No acu te aortic findings suspected. IMPRESSION: Mild CHF/volume overload findings are present. Chest findings are slightly worse than Se ptember 25.
--- NOTE | 2018-03-04 08:42 | P.HP ---
Certification for Inpatient Patient admitted to: Inpatient With expected LOS: >2 Midnights Patient will require the following post-hospital care: None Practitioner: I am a practitioner with admitting privileges, knowledge of patient current condition, hospital course, and medical plan of care. Services: Services provided to patient in accordance with Admission requirements found in Title 42 Section 412.3 of the Code of Federal Regulations Patient History Date of Service: 03/04/18 Reason for admission: Acute CHF exacerbation History of Present Illness: Patient is a 72-year-old female who presents to the hospital with difficulty breathing. Patient was with her daughter yesterday and she was not feeling well. She asked her daughter to stay with her, but after putting her mom in bed the daughter felt that her mom was doing okay and she decided to go home. Patient lives with her who continued to monitor her overnight. Around 1 o'clock, she states that her mother was short of breath. When she came to see her her mother she was apparently a little tachypneic. They brought her into the emergency room. Her workup revealed an acute CHF exacerbation. Patient has an ejection fraction of 20%. She has a pacemaker/defibrillator placed. She will be admitted to the hospital for further evaluation. Allergies vancomycin Adverse Reaction (Verified 12/14/17 15:49) Hives/Rash Home Medications: Atorvastatin Calcium [Lipitor] 80 mg PO BEDTIME #30 tab 01/04/18 Carvedilol [Coreg*] 6.25 mg PO BID #60 tab 01/04/18 Ferrous Sulfate [Ferrous Sulfate*] 325 mg PO DAILY #30 tab 01/04/18 Furosemide [Lasix*] 10 mg PO DAILY #30 tab 01/04/18 Iron/FA/Vit B-Com W/C [Hemocyte Plus*] 1 tab PO DAILY WITH BREAKFAST #30 tab 06/23 Metformin HCl [Glucophage*] 500 mg PO BIDWM #60 tab 01/04/18 glipiZIDE [Glucotrol*] 5 mg PO BIDAC #60 tab 01/04/18 levETIRAcetam [Keppra*] 500 mg PO BID #60 tab 01/04/18 traMADol HCL [Ultram*] 50 mg PO Q4H PRN #60 tab 01/04/18 Apixaban [Eliquis] 5 mg PO BID #60 tablet 03/01/18 Ciprofloxacin HCl [Cipro 250 MG Tablet*] 250 mg PO BID #6 tab 03/01/18 Levothyroxine Sodium 25 mcg PO DAILY #30 tablet 03/01/18 Sertraline HCl 25 mg PO DAILY #30 tablet 03/01/18 - Past Medical/Surgical History Diabetic: Yes -: CHF -: HTN -: hypothyroidism -: DM -: stroke -: quadruple bypass because valve stenosis(?) -: defibrillator -: -: 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 moist/pink, EOMI, Sclerae nonicteric Neck: Supple, 2+ carotid pulse no bruit, No LAD, Without JVD or thyroid abnormality Respiratory: Crackles/rales Cardiovascular: Regular rate/rhythm, Normal S1 S2, Systolic murmur Gastrointestinal: Normal bowel sounds, Soft and benign, Non-distended, No tenderness Musculoskeletal: No clubbing, No swelling, No tenderness Integumentary: No rashes Neurological: Normal gait, Normal speech, Normal tone, Sensation intact, Cranial nerves 3-12 intact, Normal affect, Abnormal strength Lymphatics: No axilla or inguinal lymphadenopathy - Studies Laboratory Data (last 24 hrs) 03/04/18 02:30: PT 18.7 H, INR 1.58 03/04/18 02:30: WBC 8.0 D, Hgb 10.0 L, Hct 29.3 L, Plt Count 274 03/04/18 02:30: Sodium 138, Potassium 4.1, BUN 11, Creatinine 0.80, Glucose 172 H, Magnesium 1.4 L*, Total Bilirubin 0.7, AST 24, ALT 25, Alkaline Phosphatase 66 Assessment & Plan - Problems (Diagnosis) (1) Cardiac LV ejection fraction 21-30% Current Visit: Yes Status: Acute (2) Shortness of breath Current Visit: Yes Status: Acute (3) Hypoxia Current Visit: Yes Status: Acute (4) CVA (cerebral vascular accident) Onset Date: 07/07/17 Current Visit: No Status: Acute (5) Cardiomyopathy, dilated Onset Date: 07/07/17 Current Visit: No Status: Acute (6) Memory loss Onset Date: 07/07/17 Current Visit: No Status: Acute (7) Weakness generalized Onset Date: 03/01/18 Current Visit: No Status: Acute - Plan 1. Echocardiogram if it has not been performed in the last 6 months 2. Continue LACEY-inhibitor 3. Continue low-dose Beta joann 4. Cardiology consultation 5. Aggressive diuresis 6. Strict I's and O's 7. Repeat CXR 8. Daily weights 9. Education regarding diet and treatment of congestive heart failure Discharge Plan: Home Plan to discharge in: Greater than 2 days - Advance Directives Does patient have a Living Will: No Does patient have a Durable POA for Healthcare: No - Code Status/Comfort Care Code Status Assessed: Yes Code Status: Full Code Critical Care: No Time Spent Managing PTS Care (In Minutes): 50
[2018-03-04] MEDS ORDERED: ENOXAPARIN 40 MG/0.4 ML SQ SCH (09:00)
[2018-03-04] MEDS: FUROSEMIDE 40 MG/4 ML VIAL IV SCH ×3 (09:00→17:10)
[2018-03-04 09:07] VITALS: BMI 27.4
--- NOTE | 2018-03-04 09:22 | EKG ---
Test Date: 2018-03-04 Test Time: 02:18:02 Senior Net Developer: GISSELL MEASUREMENT RESULTS: Intervals: Rate: 96 MS: 160 QRSD: 114 QT: 342 QTc: 432 Sledge: P: 53 MS: 160 QRS: -16 T: 118 INTERPRETIVE STATEMENTS: Sinus rhythm with occasional premature ventricular complexes Intraventricular conduction delay Nonspecific T wave abnormality Abnormal ECG Compared to ECG 02/28/2018 06:35:04 Ventricular premature complex(es) now present Electronically Signed On 03-04-18 09:22:29 CDT by Micheal Plascencia
[2018-03-04] MEDS ORDERED: TRAMADOL HCL 50 MG TAB PO PRN (10:16)
[2018-03-04] MEDS: LISINOPRIL 10 MG TAB PO SCH (10:50)
[2018-03-04] MEDS: FERROUS SULFATE 325 MG TAB PO SCH (11:00)
[2018-03-04] MEDS: SERTRALINE HCL 50 MG TAB PO SCH (11:01)
[2018-03-04] MEDS: levETIRAcetam 500 MG TAB PO SCH ×2 (11:01→21:52)
[2018-03-04] MEDS: glipiZIDE 5 MG TAB PO SCH ×2 (11:01→17:08)
[2018-03-04] MEDS: CARVEDILOL 6.25 MG TAB PO SCH ×3 (11:02→23:52)
--- NOTE | 2018-03-04 12:59 | CON ---
History Of Present Illness: Ms. Montez has had tightness, heaviness in the chest, shortness of breath for several days. She had become progressively more short of breath. She had gained about 3 pounds quickly. She had marked orthopnea, mild edema. After getting diuresis, she feels much better. She was also started on lisinopril. Ms. Montez is known to have an ejection fraction in the 20s. She nuno s had coronary bypass surgery. Since the bypass surgery, she has had a right hemispheric stroke with left hemiparesis. She is right-handed, but still has some expressive aphasia, nonetheless. When carrie holt had her stroke, her blood pressure was low enough that they could not give her an LACEY inhibitor, so she has been off that since December of this year till now. Dr. Barriga has wisely restarted her LACEY inhib itor and that may be part of the reason why she feels better. She is under the care of Dr. Ferguson and under the care of Dr. Reyes. Outpatient medications have been atorvastatin, carvedilol, iron sulfate, Lasix, glipizide, Keppra, me tformin, tramadol, Eliquis 5 b.i.d., levothyroxine, Cipro, and sertraline. Presently, she is not in atrial fibrillation. She was in sinus rhythm when she came to the ER, but I believe her stroke was believed to have been caused by atrial fibrillation during the time of bypass surgery. She does have a carotid Doppler that shows more than 60% stenosis in the right ICA, but Dr Ernie Ferguson apparently has done another test that indicates that it does not need to be repaired. There has been no repair of the right internal carotid artery. Physical Examination: General: She is 4 feet 9 inches, 127 pounds. HEENT: Shows mild left-sided ptosis, left-sided facial droop. Lungs: Do not reveal crackles or wheeze. Abdomen: Soft. Extremities: 1+ edema. Laboratory Data: The troponin is 0.03. Magnesium 1.4. Recommendation: I think it is very benson for us to restart an LACEY inhibitor, it must be a low dose be cause of her low blood pressure. She is officially a do not resuscitate patient and under the care o f Dr. Ferguson, so as soon as she is diuresed enough to be comfortable and we know she is able to tolera te the lisinopril, she could be discharged back for outpatient care and follow up with Dr. Ferguson. CARRIE/TRELL Voice ID: [id number] Report ID: [id number]
--- NOTE | 2018-03-04 16:02 | P.PN ---
Subjective Date of Service: 03/04/18 Chief Complaint: Acute CHF exacerbation doing better less SOB Physical Examination - Vital Signs Temperature: 98.1 F Blood Pressure: 121/58 Pulse: 80 Respirations: 18 Pulse Ox (%): 95 - Physical Exam General: Alert, In no apparent distress HEENT: Atraumatic, PERRLA, EOMI Neck: Supple, JVD not distended Respiratory: Clear to auscultation bilaterally, Normal air movement Cardiovascular: Regular rate/rhythm, Normal S1 S2 Gastrointestinal: Normal bowel sounds, No tenderness Musculoskeletal: No tenderness Integumentary: No rashes Neurological: Normal speech, Normal tone, Normal affect Lymphatics: No axilla or inguinal lymphadenopathy - Studies Laboratory Data (last 24 hrs) 03/04/18 02:30: PT 18.7 H, INR 1.58 03/04/18 02:30: WBC 8.0 D, Hgb 10.0 L, Hct 29.3 L, Plt Count 274 03/04/18 02:30: Sodium 138, Potassium 4.1, BUN 11, Creatinine 0.80, Glucose 172 H, Magnesium 1.4 L*, Total Bilirubin 0.7, AST 24, ALT 25, Alkaline Phosphatase 66 Medications List Reviewed: Yes Assessment And Plan - Current Problems (Diagnosis) (1) Cardiac LV ejection fraction 21-30% Current Visit: Yes Status: Acute (2) Hypomagnesemia Current Visit: Yes Status: Acute (3) Hypoxia Current Visit: Yes Status: Acute (4) CHF (congestive heart failure) Onset Date: 05/09/14 Current Visit: Yes Status: Acute Qualifiers: Heart failure type: combined systolic and diastolic Heart failure chronicity: acute on chronic Qualified Code(s): I50.43 - Acute on chronic combined systolic (congestive) and diastolic (congestive) heart failure (5) Cardiomyopathy, dilated Onset Date: 07/07/17 Current Visit: No Status: Acute - Plan --Cont diuresis --Add Lisinopril per Dr Plascencia --October DC tomorrow
[2018-03-04] MEDS ORDERED: GLUCAGON 1 MG/VIAL IM PRN (16:23)
[2018-03-04] MEDS ORDERED: D50W 25 GM/50 ML SYRINGE IV PRN (16:23)
[2018-03-04] MEDS: INSULIN -REGULAR HUMAN 50 UNIT/0.5 ML ML SQ SCH ×2 (17:07→23:17)
[2018-03-04 20:54] LABS: Magnesium 1.6 mg/dL (1.8-2.4); Phosphorus 4.2 mg/dL (2.5-4.9)
[2018-03-04] MEDS: ATORVASTATIN 80 MG TAB PO SCH (21:52)
[2018-03-04] MEDS: APIXABAN 5 MG TABLET PO SCH (21:52)
[2018-03-05 06:00] LABS: Absolute Monocytes 1.2 K/uL (0.1-1.3); Absolute Neutrophil 4.9 K/uL (1.8-8.0); Basophils % 0.2 % (0-1.3); Eosinophils % 0.1 % (0-4.4); Hematocrit 26.6 % (36.0-45.0); Lymphocytes % 14.7 % (15.3-44.8); MCV 91.7 fL (80-100); MPV 9.8 fL (7.6-11.3); Monocytes % 16.2 % (3.3-12.3)
[2018-03-05 06:21] LABS: Albumin 3.2 g/dL (3.4-5.0); Bilirubin Total 0.4 mg/dL (0.2-1.0); Phosphorus 4.3 mg/dL (2.5-4.9); Potassium 3.8 mmol/L (3.5-5.1)
[2018-03-05] MEDS: LEVOTHYROXINE SOD 0.025 MG TAB PO SCH (06:43)
[2018-03-05 06:55] LABS: Blood Morphology Comment NOTED (NOT SEEN); Burr Cells 3+; Platelet Estimate ADEQ
[2018-03-05] MEDS ORDERED: POTASSIUM 25 MEQ EFFERV TAB PO ONE (07:30)
[2018-03-05] MEDS: INSULIN -REGULAR HUMAN 50 UNIT/0.5 ML ML SQ SCH ×4 (07:30→20:30)
[2018-03-05] MEDS: FUROSEMIDE 40 MG/4 ML VIAL IV SCH ×2 (09:00→18:01)
[2018-03-05] MEDS: glipiZIDE 5 MG TAB PO SCH ×2 (09:34→18:01)
[2018-03-05] MEDS: levETIRAcetam 500 MG TAB PO SCH ×2 (09:34→20:29)
[2018-03-05] MEDS: FERROUS SULFATE 325 MG TAB PO SCH (09:34)
[2018-03-05] MEDS: SERTRALINE HCL 50 MG TAB PO SCH (09:35)
[2018-03-05] MEDS: APIXABAN 5 MG TABLET PO SCH ×2 (09:37→20:29)
[2018-03-05] MEDS: CARVEDILOL 6.25 MG TAB PO SCH ×2 (10:28→20:29)
[2018-03-05] MEDS: LISINOPRIL 10 MG TAB PO SCH (10:28)
--- NOTE | 2018-03-05 13:42 | P.PN ---
Subjective Date of Service: 03/05/18 Chief Complaint: Acute CHF exacerbation doing better less SOB Physical Examination - Vital Signs Temperature: 97.9 F Blood Pressure: 94/52 Pulse: 69 Respirations: 16 Pulse Ox (%): 95 - Physical Exam General: Alert, In no apparent distress HEENT: Atraumatic, PERRLA, EOMI Neck: Supple, JVD not distended Respiratory: Clear to auscultation bilaterally, Normal air movement Cardiovascular: Regular rate/rhythm, Normal S1 S2 Gastrointestinal: Normal bowel sounds, No tenderness Musculoskeletal: No tenderness Integumentary: No rashes Neurological: Normal speech, Normal tone, Normal affect Lymphatics: No axilla or inguinal lymphadenopathy - Studies Medications List Reviewed: Yes Assessment And Plan - Current Problems (Diagnosis) (1) Cardiac LV ejection fraction 21-30% Current Visit: Yes Status: Acute (2) Hypomagnesemia Current Visit: Yes Status: Acute (3) Hypoxia Current Visit: Yes Status: Acute (4) CHF (congestive heart failure) Onset Date: 05/09/14 Current Visit: Yes Status: Acute Qualifiers: Heart failure type: combined systolic and diastolic Heart failure chronicity: acute on chronic Qualified Code(s): I50.43 - Acute on chronic combined systolic (congestive) and diastolic (congestive) heart failure (5) Cardiomyopathy, dilated Onset Date: 07/07/17 Current Visit: No Status: Acute - Plan --Cont diuresis Lasix IV --On Lisinopril per Dr Plascencia --DC tomorrow
[2018-03-05] MEDS: ATORVASTATIN 80 MG TAB PO SCH (20:28)
[2018-03-06] MEDS: LEVOTHYROXINE SOD 0.025 MG TAB PO SCH (05:57)
[2018-03-06 06:01] LABS: Albumin 3.7 g/dL (3.4-5.0); Bilirubin Total 0.5 mg/dL (0.2-1.0); Potassium 3.8 mmol/L (3.5-5.1); Protein, Total 8.2 g/dL (6.4-8.2)
[2018-03-06] MEDS: INSULIN -REGULAR HUMAN 50 UNIT/0.5 ML ML SQ SCH ×3 (07:30→16:30)
[2018-03-06] MEDS ORDERED: POTASSIUM 25 MEQ EFFERV TAB PO ONE (07:46)
[2018-03-06] MEDS: FERROUS SULFATE 325 MG TAB PO SCH (08:35)
[2018-03-06] MEDS: APIXABAN 5 MG TABLET PO SCH (08:35)
[2018-03-06] MEDS: CARVEDILOL 6.25 MG TAB PO SCH (08:36)
[2018-03-06] MEDS: SERTRALINE HCL 50 MG TAB PO SCH (08:36)
[2018-03-06] MEDS: LISINOPRIL 10 MG TAB PO SCH (08:38)
[2018-03-06] MEDS: glipiZIDE 5 MG TAB PO SCH ×2 (08:38→17:18)
[2018-03-06] MEDS: FUROSEMIDE 40 MG/4 ML VIAL IV SCH (08:38)
[2018-03-06] MEDS: levETIRAcetam 500 MG TAB PO SCH (08:38)
[2018-03-06] MEDS ORDERED: POTASSIUM 25 MEQ EFFERV TAB PO SCH (09:00)
--- NOTE | 2018-03-06 13:02 | ECHO ---
HEIGHT: 4 ft 9 in WEIGHT: 126 lb 4.8 oz DATE OF STUDY: 03/06/[address]: Enzo Barriga MD 2-DIMENSIONAL: YES M.MODE: YES DOPPLER: YES COLOR FLOW: YES TDS: NO PORTABLE: NO DEFINITY: NO BUBBLE STUDY: NO DIAGNOSIS: CONGESTIVE HEART FAILURE CARDIAC HISTORY: CATHERIZATION: NO SURGERY: NO PROSTHETIC VALVE: NO PACEMAKER: YES MEASUREMENTS (cm) DIASTOLIC (NORMALS) SYSTOLIC (NORMALS) IVSd 1.2 (0.6-1.2) LA Diam 3.7 (1.9-4.0) LVEF LESS THAN 20% LVIDd 5.9 (3.5-5.7) LVIDs 5.5 (2.0-3.5) %FS % LVPWd 1.1 (0.6-1.2) Ao Diam 2.2 (2.0-3.7) 2 DIMENSIONAL ASSESSMENT: RIGHT ATRIUM: NORMAL LEFT ATRIUM: DILATED RIGHT VENTRICLE: PACEMAKER CATHETER LEFT VENTRICLE: DILATED TRICUSPID VALVE: NORMAL MITRAL VALVE: NORMAL PULMONIC VALVE: NORMAL AORTIC VALVE: NORMAL PERICARDIAL EFFUSION: NONE AORTIC ROOT: NORMAL LEFT VENTRICULAR WALL MOTION: SEVERE GLOBAL HYPOKINESIS. DOPPLER/COLOR FLOW: MILD MITRAL REGURGITATION. COMMENTS: DILATED LEFT ATRIUM AND LEFT VENTRICLE WITH SEVERELY DEPRESSED LEFT VENTRICULAR EJECTION FRACTION. PACEMAKER IN RIGHT VENTRICLE. MILD MITRAL REGURGITATION. TECHNOLOGIST: CARMINE CORDERO
--- NOTE | 2018-03-06 14:09 | P.DS ---
Admission Date: 03/04/18 Discharge Date: 03/06/18 Primary Care Provider: Dr. Putnam; Cardiology-Dr. Ferguson Disposition: DC HOME/HOME HEALTH CARE Discharge Condition: GOOD Reason for Admission: Acute CHF exacerbation Consultations: Cardiology-Dr. Plascencia Procedures: ECHO: Ejection Fraction less than 20% LEFT VENTRICULAR WALL MOTION: SEVERE GLOBAL HYPOKINESIS. DOPPLER/COLOR FLOW: MILD MITRAL REGURGITATION. COMMENTS: DILATED LEFT ATRIUM AND LEFT VENTRICLE WITH SEVERELY DEPRESSED LEFT VENTRICULAR EJECTION FRACTION. PACEMAKER IN RIGHT VENTRICLE. MILD MITRAL REGURGITATION. Medical Problem List: Chest pain, shortness of breath secondary to acute on chronic systolic congestive heart failure with ejection fraction less than 20% Chronic renal disease, stage IV CAD with history of CABG History CVA with left-sided residual wesley paresis Chronic atrial fibrillation on chronic anti coagulation therapy-Eliquis Carotid arterial disease Anemia of chronic disease with iron deficiency Hyperlipidemia Diabetes mellitus type 2 non-insulin dependent Hypothyroidism Depression with anxiety GERD Hypertension Patient is DNR Brief History of Present Illness: 72-year-old female presented with chest pain and shortness of breath. Patient with multiple medical problems Patient admitted for treatment and further evaluation. Hospital Course: Patient presented with chest pain, shortness of breath secondary to acute on chronic systolic congestive heart failure with ejection fraction less than 20%. Patient was treated during her stay. Patient evaluated by Cardiology. Echocardiogram shows ejection fraction of less than 20%. Medications were adjusted. At discharge she will continue with Lasix 40 mg 1 pill twice daily. She is to continue with a 1500 cc per day fluid restriction and low-salt diet. Patient has been started on low-dose lisinopril 2.5 mg 1 pill once daily. Recommendation is for the patient to follow up with cardiology in 1 week to continue to monitor her care. Education on CHF will be provided. Recommendation to recheck lab-CBC and BMP in 1 week to monitor progress. Prior to discharge home health will be provided for education and monitoring of CHF. Patient has Chronic renal disease, stage IV. This remained stable during the course of her stay. Recommendation is to recheck lab-BMP in 1 week to monitor her progress. Recommendation on no further use of nonsteroidal anti- inflammatories is recommended. Future medications will need to be renally dosed. Recommendation is to establish care with Nephrology to further monitor. Patient with CAD with history of CABG. This has remained stable. This can be followed up by her litigation legal secretary. History CVA with left-sided residual wesley paresis currently on anti seizure medication-Keppra. Patient will continue with Keppra 500 mg 1 pill twice daily. Patient will continue with home health and physical therapy at discharge. Patient has Chronic atrial fibrillation on chronic anti coagulation therapy- Eliquis. Patient will continue with Eliquis 5 mg 1 pill twice daily. Patient will continue with carvedilol 6.25 mg 1 pill twice daily. Patient has hypertension. Patient will continue with carvedilol 6.25 mg 1 pill twice daily. Lisinopril 2.5 mg daily has been added. Recommendation is to maintain blood pressures less 150/80. Further adjustment can be done by her PCP. Medications may need to be held if blood pressure less than 100 systolic. Patient has Carotid arterial disease. This can be further monitored as an outpatient. Patient has Anemia of chronic disease with iron deficiency. Patient will continue with iron supplementation 325 mg 1 pill daily. Recommendation to recheck lab-CBC in 1-2 weeks to monitor progress. Patient has Hyperlipidemia. At discharge she will continue with Lipitor 80 mg 1 pill daily. Patient has Diabetes mellitus type 2 non-insulin dependent. At discharge she will continue with glipizide 5 mg 1 pill twice daily. Metformin has been discontinued due to her chronic renal disease. Recommendation is to maintain blood sugars less 140 fasting and less than 200 after meals. Further adjustment can be done by her PCP. Education on hypoglycemia will be provided. Patient has Hypothyroidism. Patient will continue with Levoxyl 25 mcg daily. Patient has Depression with anxiety. Patient will continue with Zoloft 25 mg 1 pill daily. Patient likely has GERD. Patient will continue with Protonix 40 mg 1 pill once daily at discharge. Advanced directives has been addressed with the patient. Patient is DNR. Vital Signs/Physical Exam: Temp Pulse Resp BP Pulse Ox 98.6 F 70 16 94/58 L 91 03/06/18 12:00 03/06/18 12:00 03/06/18 12:00 03/06/18 12:00 03/06/18 12:00 General: Alert, In no apparent distress, Oriented x3, Cooperative HEENT: Atraumatic Neck: Supple Respiratory: Clear to auscultation bilaterally, Normal air movement Cardiovascular: Normal pulses, Regular rate/rhythm Gastrointestinal: Normal bowel sounds, Soft and benign, Non-distended, No tenderness, No masses, No rebound, No guarding Musculoskeletal: No erythema, No tenderness, No warmth Integumentary: No tenderness/swelling, No erythema, No warmth, No cyanosis Neurological: Normal speech, Normal strength at 5/5 x4 extr, Normal tone, Normal affect Laboratory Data at Discharge: WBC 7.1 K/uL (4.3-10.9) 03/05/18 04:44 Hgb 9.3 g/dL (12.0-15.0) L 03/05/18 04:44 Hct 26.6 % (36.0-45.0) L 03/05/18 04:44 Plt Count 272 K/uL (152-406) 03/05/18 04:44 PT 18.7 SECONDS (9.5-12.5) H 03/04/18 02:30 INR 1.58 03/04/18 02:30 Sodium 138 mmol/L (136-145) 03/06/18 05:08 Potassium 3.8 mmol/L (3.5-5.1) 03/06/18 05:08 BUN 23 mg/dL (7-18) H 03/06/18 05:08 Creatinine 1.20 mg/dL (0.55-1.3) 03/06/18 05:08 Glucose 160 mg/dL (74-106) H 03/06/18 05:08 Phosphorus 4.3 mg/dL (2.5-4.9) 03/05/18 04:44 Magnesium 2.0 mg/dL (1.8-2.4) 03/05/18 04:44 Total Bilirubin 0.5 mg/dL (0.2-1.0) 03/06/18 05:08 AST 26 U/L (15-37) 03/06/18 05:08 ALT 27 U/L (12-78) 03/06/18 05:08 Alkaline Phosphatase 73 U/L (45-117) 03/06/18 05:08 Troponin I 0.02 ng/mL (0.0-0.045) 03/05/18 11:24 Triglycerides 47 mg/dL (<150) 03/05/18 04:44 Cholesterol 85 mg/dL (<200) 03/05/18 04:44 HDL Cholesterol 53 mg/dL (40-60) 03/05/18 04:44 Cholesterol/HDL Ratio 1.60 03/05/18 04:44 Home Medications: Atorvastatin Calcium [Lipitor] 80 mg PO BEDTIME #30 tab 01/04/18 Carvedilol [Coreg*] 6.25 mg PO BID #60 tab 01/04/18 Ferrous Sulfate [Ferrous Sulfate*] 325 mg PO DAILY #30 tab 01/04/18 glipiZIDE [Glucotrol*] 5 mg PO BIDAC #60 tab 01/04/18 levETIRAcetam [Keppra*] 500 mg PO BID #60 tab 01/04/18 Apixaban [Eliquis] 5 mg PO BID #60 tablet 03/01/18 Levothyroxine Sodium 25 mcg PO DAILY #30 tablet 03/01/18 Sertraline HCl 25 mg PO DAILY #30 tablet 03/01/18 Furosemide [Lasix*] 40 mg PO BIDL #60 tab 03/06/18 Lisinopril [Prinivil*] 2.5 mg PO DAILY #30 tab 03/06/18 Pantoprazole [Protonix Tab] 40 mg PO DAILY #30 tab 03/06/18 traMADol HCL [Ultram*] 50 mg PO TID PRN #15 tab 03/06/18 New Medications: Furosemide [Lasix*] 40 mg PO BIDL #60 tab Lisinopril [Prinivil*] 2.5 mg PO DAILY #30 tab Pantoprazole [Protonix Tab] 40 mg PO DAILY #30 tab traMADol HCL [Ultram*] 50 mg PO TID PRN #15 tab PRN Reason: Pain Patient Discharge Instructions: 1. Patient will need to follow up her PCP in 1 week to follow up this hospitalization. 2. Patient presented with chest pain, shortness of breath secondary to acute on chronic systolic congestive heart failure with ejection fraction less than 20%. Patient was treated during her stay. Patient evaluated by Cardiology. Echocardiogram shows ejection fraction of less than 20%. Medications were adjusted. At discharge she will continue with Lasix 40 mg 1 pill twice daily. She is to continue with a 1500 cc per day fluid restriction and low-salt diet. Patient has been started on low-dose lisinopril 2.5 mg 1 pill once daily. Recommendation is for the patient to follow up with cardiology in 1 week to continue to monitor her care. Education on CHF will be provided. Recommendation to recheck lab-CBC and BMP in 1 week to monitor progress. Prior to discharge home health will be provided for education and monitoring of CHF. 3. Patient has Chronic renal disease, stage IV. This remained stable during the course of her stay. Recommendation is to recheck lab-BMP in 1 week to monitor her progress. Recommendation on no further use of nonsteroidal anti-inflammatories is recommended. Future medications will need to be renally dosed. Recommendation is to establish care with Nephrology to further monitor. 4. Patient with CAD with history of CABG. This has remained stable. This can be followed up by her litigation legal secretary. 5. History CVA with left-sided residual wesley paresis currently on anti seizure medication-Keppra. Patient will continue with Keppra 500 mg 1 pill twice daily. Patient will continue with home health and physical therapy at discharge. 6. Patient has Chronic atrial fibrillation on chronic anti coagulation therapy-Eliquis. Patient will continue with Eliquis 5 mg 1 pill twice daily. Patient will continue with carvedilol 6.25 mg 1 pill twice daily. 7. Patient has hypertension. Patient will continue with carvedilol 6.25 mg 1 pill twice daily. Lisinopril 2.5 mg daily has been added. Recommendation is to maintain blood pressures less 150/80. Further adjustment can be done by her PCP. Medications may need to be held if blood pressure less than 100 systolic. 8. Patient has Carotid arterial disease. This can be further monitored as an outpatient. 9. Patient has Anemia of chronic disease with iron deficiency. Patient will continue with iron supplementation 325 mg 1 pill daily. Recommendation to recheck lab-CBC in 1-2 weeks to monitor progress. 10. Patient has Hyperlipidemia. At discharge she will continue with Lipitor 80 mg 1 pill daily. 11. Patient has Diabetes mellitus type 2 non-insulin dependent. At discharge she will continue with glipizide 5 mg 1 pill twice daily. Metformin has been discontinued due to her chronic renal disease. Recommendation is to maintain blood sugars less 140 fasting and less than 200 after meals. Further adjustment can be done by her PCP. Education on hypoglycemia will be provided. 12. Patient has Hypothyroidism. Patient will continue with Levoxyl 25 mcg daily. 13. Patient has Depression with anxiety. Patient will continue with Zoloft 25 mg 1 pill daily. 14. Patient likely has GERD. Patient will continue with Protonix 40 mg 1 pill once daily at discharge. Diet: AHA Activity: Ad laureano Time spent managing pt's care (in minutes): 55
[2018-03-06] MEDS ORDERED: FUROSEMIDE 40 MG TABLET PO SCH (17:00)
[2018-03-06 17:13] VITALS: O2SAT 93
[2018-03-06 18:13] VITALS: BP 100/53; TEMP 98.4
[2018-03-07] MEDS ORDERED: LISINOPRIL 5 MG TAB PO SCH ×2 (09:00)
== END 2018-03-06 17:54 | disposition home health service (06) | DRG 291 ==
LOC: ER 02:04 → ERHOLD 04:33 → 4TH 06:16
PROVIDERS: ADMIT Hospitalist; ATTEND Hospitalist
DX: I13.0 Hypertensive heart and chronic kidney disease with heart failure and stage 1 through stage 4 chronic kidney disease, or unspecified chronic kidney disease (principal); I50.23 Acute on chronic systolic (congestive) heart failure; N18.4 Chronic kidney disease, stage 4 (severe); I69.354 Hemiplegia and hemiparesis following cerebral infarction affecting left non-dominant side; I69.320 Aphasia following cerebral infarction; E83.42 Hypomagnesemia; E11.22 Type 2 diabetes mellitus with diabetic chronic kidney disease; I25.10 Atherosclerotic heart disease of native coronary artery without angina pectoris; Z95.1 Presence of aortocoronary bypass graft; I48.2 Chronic atrial fibrillation; Z79.01 Long term (current) use of anticoagulants; I77.89 Other specified disorders of arteries and arterioles; D63.1 Anemia in chronic kidney disease; E78.5 Hyperlipidemia, unspecified; E03.9 Hypothyroidism, unspecified; F41.8 Other specified anxiety disorders; K21.9 Gastro-esophageal reflux disease without esophagitis; Z66 Do not resuscitate
CPT/HCPCS: 36415; 70450; 71045; 80048; 80053; 80061; 80076; 81003; 81015; 82962; 83735; 83880; 84100; 84145; 84439; 84443; 84484; 85025; 85610; 86850; 86900; 86901; 87040; 87086; 87088; 93005; 93306; 94760; 95819; 96365; 96366; 96367; 96375; 97163; 99285; G0378; J0456; J0696; J1650; J1940; J2930; J3475; J7030

== ENCOUNTER 2018-07-06 09:49 | Emergency (ER) | payer MEDICARE ==
--- OUTSIDE RECORDS SUMMARY | 2018-07-06 09:51 | XMS REPORT | Continuity of Care Document ---
[...] Number For Provider Date Date Visit Outpatient [id number] DASHA 08/24 Active [facility] [id number] DASHA 11/02 [facility] [id number] DASHA 11/04 [facility] [id number] DASHA 12/16 [facility] [id number] [facility]12 [facility] [id number] D[facility]HA 02/23 [facility] [id number] DASHA 03/02 [facility] [id number] DASHA 03/30 Active [facility] [id number] DASHA 06/01 [facility] [id number] DASHA 09/28 Active [facility] Procedures Procedure Code Date Perfomer Comments Source
--- OUTSIDE RECORDS SUMMARY | 2018-07-06 09:51 | XMS REPORT | Clinical Summary ---
:1945 Author Organization [facility] Address [address] [place] [address] Care Team Providers Name Role Phone Maximilian Putnam Marissa Primary Care Provider Allergies Active Allergy Reactions Severity Noted Date Comments Vancomycin Analogues Itching 07/16/2016 Medications Medication Sig Dispensed Refills Start Date End Date Status glipiZIDE (GLUCOTROL) Take 10 mg by mouth 0 Active 5 MG tablet daily . metFORMIN Take 500 mg by 0 Active (GLUCOPHAGE) 500 MG mouth daily with tablet breakfast . omeprazole (PRILOSEC) Take 40 mg by mouth 0 Active 10 MG capsule daily . aspirin 81 MG EC Take 81 mg by mouth 0 Active tablet daily. carvedilol (COREG) Take 12.5 mg by 0 Active 12.5 MG tablet mouth daily. sertraline (ZOLOFT) Take 50 mg by mouth 0 Active 50 MG tablet daily. pravastatin Take 20 mg by mouth 0 Active (PRAVACHOL) 20 MG daily. tablet ramipril (ALTACE) 5 Take 5 mg by mouth 0 Active MG capsule daily. potassium chloride SA Take 20 mEq by 0 Active (K-DUR,KLOR-CON) 20 mouth 2 (two) times MEQ tablet daily. furosemide (LASIX) 40 Take 40 mg by mouth 0 Active MG tablet daily. zolpidem (AMBIEN) 10 Take 10 mg by mouth 0 Active mg tablet every night as needed for Insomnia. traMADol (ULTRAM) 50 Take 1 tablet (50 10 tablet 0 07/17/2016 Active mg tablet mg total) by mouth every 8 (eight) hours as needed for up to 10 doses. Max Daily Amount: 150 mg Active Problems Problem Noted Date Chronic systolic CHF (congestive heart failure) 07/16/2016 Social History Tobacco Use Types Packs/Day Years Used Date Never Smoker Smokeless Tobacco: Never Used Alcohol Use Drinks/Week oz/Week Comments No Sex Assigned at Date Recorded Not on file Job Start Date Occupation Industry Not on file Not on file Not on file Travel History Travel Start Travel End No recent travel history available. Last Filed Vital Signs Not on file Plan of Treatment Not on file Implants Implanted Type Area Paving Rammer Device Shelf Model / Identifier Expiration Serial / Date Lot Lead Icd Sprnt Quatro Secur [id number] - [id number] Defibrillators N/A: [employer]:CARD 04/24/2017 [id number] / Implanted: Qty: 1 on 07/16/2016 by Yara Benson MD Heart RHY:DISEASE MGT [id number] / N/A Results Not on fileafter 07/05/2017 Insurance Payer Benefit Plan / Group Subscriber ID Type Phone Address [employer] - MEDICARE AARP/MEDICARE COMPLETE xxxxxxxxx [facility] CARE Advance Directives For more information, please contact:[address] [phone] Code Status Date Activated Date Inactivated Comments Full Code 07/16/2016 6:02 AM 07/17/2016 2:27 PM This code status was determined by: Patient
[2018-07-06 11:34] LABS: Absolute Lymphocytes (CBC) 1.7 K/uL (0.7-4.9); Absolute Monocytes 0.7 K/uL (0.1-1.3); Absolute Neutrophil 4.1 K/uL (1.8-8.0); Basophils % 0.7 % (0-1.3); Eosinophils % 3.6 % (0-4.4); Lymphocytes % 25.5 % (15.3-44.8); MPV 9.2 fL (7.6-11.3); Monocytes % 10.6 % (3.3-12.3); RBC Red Blood Cell Count 3.51 M/uL (3.86-4.86)
[2018-07-06 11:37] LABS: Protime INR 1.96
[2018-07-06 11:53] LABS: ALT/SGPT 21 U/L (12-78); AST/SGOT 21 U/L (15-37); Albumin 3.6 g/dL (3.4-5.0); Alkaline Phosphatase 111 U/L (45-117); BUN Blood Urea Nitrogen 41 mg/dL (7-18); Bicarbonate 27 mmol/L (21-32); Bilirubin Direct < 0.1 mg/dL (0-0.2); Bilirubin Total 0.3 mg/dL (0.2-1.0); Glucose Level 142 mg/dL (74-106); Magnesium 1.9 mg/dL (1.8-2.4); NT PRO-BNP 2745 pg/mL (<125); Protein, Total 7.6 g/dL (6.4-8.2); Sodium Level 139 mmol/L (136-145); Troponin (Emerg Dept Use Only) 0.02 ng/mL (0.0-0.045)
--- NOTE | 2018-07-06 11:55 | RAD REPORT ---
EXAM DESCRIPTION: CT - Head Brain Wo Cont - 07/06/2018 11:44 am CLINICAL HISTORY: Weakness, fall, head injury, transient alteration of awareness COMPARISON: CT head February 2018 TECHNIQUE: Axial 5 mm thick images of the head were obtained without IV contrast. All CT scans are performed using dose optimization technique as appropriate and may include automated exposure control or mA/KV adjustment according to patient size. FINDINGS: No intracranial hemorrhage, mass, edema or shift of mid-line structures. No acute cortical based infarction. There is no cortical edema or sulcal effacement. There is a large area of encephal omalacia involving a substantial portion of the right-side frontal and parietal lobes. This matches t he stroke findings on the February 2018 exam. Right lateral ventricle has enlarged slightly in propo rtion to the amount of parenchymal volume loss. Dense physiologic calcifications are present in each basal ganglia, stable. Ventricles are in proportion to the amount of volume loss. Patient does have u nderlying mild to moderate atrophy and chronic ischemic change. Mastoid air cells are clear. Patient has significant mucosal thickening throughout the visualized por tion of the right maxillary sinus and in much of the left maxillary sinus. Right nasal opacification is present which could be focal mucosal opacification, mass or polyposis. Patient does have chronic s inusitis change in bilateral antral window. No acute bony findings. IMPRESSION: No hemorrhage, mass, edema or other acute intracranial finding. Significant encephalomalacia in the right frontal lobe showing the expected aging and volume loss fro m the stroke detailed February 2018. Significant chronic paranasal sinus disease as detailed.
--- NOTE | 2018-07-06 12:08 | RAD REPORT ---
EXAM DESCRIPTION: RAD - Chest Single View - 07/06/2018 11:45 am CLINICAL HISTORY: Fatigue, weakness, shortness of breath COMPARISON: February 2018 TECHNIQUE: AP portable chest image was obtained 1129 hours . FINDINGS: No acute lung parenchymal process. Lung markings are less pronounced than seen previously. No significant failure or volume overload. Heart size and vasculature are diminished compared to the February study. Defibrillator remains in place. Trachea is midline. Upper lobe vasculature within n ormal limits. No measurable pleural effusion and no pneumothorax. No acute bony abnormality seen. No acute aortic findings suspected. IMPRESSION: No acute cardiopulmonary process. Heart, vasculature and lung markings are diminished in prominence from comparison.
--- NOTE | 2018-07-06 13:38 | ER ---
Nurse's Notes [facility] Name: Magali Montez Age: 73 yrs Sex: Female : 1945 Arrival Date: 07/06/2018 Time: 09:50 Bed 15 Private MD: Maximilian Putnam Diagnosis: Weakness-Left sided - ongoing Presentation: 07/06 09:54 Presenting complaint: daughter reports that patient has been complaining of increased ss fatigue x 2 days and has noticed that her speech has been becoming more slurred and she is now beginning to drag her L leg a little more. Pt has a history of CVA. Transition of care: patient was not received from another setting of care. Onset of symptoms was July 04, 2018. Risk Assessment: Do you want to hurt yourself or someone else? Patient reports no desire to harm self or others. Initial Sepsis Screen: Does the patient meet any 2 criteria? No. Patient's initial sepsis screen is negative. Does the patient have a suspected source of infection? No. Patient's initial sepsis screen is negative. Care prior to arrival: None. 09:54 Method Of Arrival: Ambulatory ss 09:54 Acuity: MILAGROS 3 ss Stroke Activation: Symptom onset > 6 hours Physician: Stroke Attending; Name: ; Notified At: ; Arrived At: Physician: Chief Stroke Resident; Name: ; Notified At: ; Arrived At: Physician: Stroke Resident; Name: ; Notified At: ; Arrived At: Physician: ED Attending; Name: ; Notified At: ; Arrived At: Physician: ED Resident; Name: ; Notified At: ; Arrived At: Historical: - Allergies: 09:56 Vancomycin; ss - Home Meds: 10:00 atorvastatin 80 mg Oral tab 1 tab once daily [Active]; carvedilol 12.5 mg oral tab 1 rb1 tab 2 times per day [Active]; Eliquis 5 mg Oral tab 1 tab 2 times per day [Active]; ferrous sulfate 325 mg (65 mg iron) Oral tab 325 mg daily [Active]; furosemide 40 mg oral tab 1 tab once daily [Active]; Glimepiride 5 mg Oral 1 tab twice a day [Active]; levetiracetam 250 mg oral tab 1 tabs daily [Active]; levothyroxine 25 mcg tab 1 tab once daily [Active]; sertraline 100 mg oral tab 2 tabs once daily [Active]; lisinopril 5 mg Oral tab 1 tab once daily [Active]; magnesium oxide 400 mg Oral cap 400 mg twice a day [Active]; pantoprazole 40 mg oral TbEC 1 tab once daily [Active]; - PMHx: 09:56 Anxiety; CHF; CVA; Diabetes - NIDDM; High Cholesterol; Hypertension; Hypothyroidism; ss Myocardial infarction; - PSHx: 09:56 quadruple bypass; defibrillator; ; ss 10:00 cataract; rb1 - Immunization history:: Adult Immunizations up to date. - Social history:: Smoking status: Patient/guardian denies using tobacco. - Ebola Screening: : Patient denies exposure to infectious person Patient denies travel to an Ebola-affected area in the 21 days before illness onset. Screenin:00 Abuse screen: Denies threats or abuse. Nutritional screening: No deficits noted. rb1 Tuberculosis screening: No symptoms or risk factors identified. Fall Risk Fall in past 12 months (25 points). Secondary diagnosis (15 points) CVA, No IV (0 pts). Ambulatory Aid- None/Bed Rest/Nurse Assist (0 pts). Gait- Normal/Bed Rest/Wheelchair (0 pts) Mental Status- Oriented to own ability (0 pts). Total Lowery Fall Scale indicates Low Risk Score (25-44 pts). Fall prevention measures have been instituted. Side Rails Up X 2 Placed close to Nursing Station 1:1 attendant Assigned to Pt. Frequent Obs/Assesments occuring Family Present and informed to notify staff if they need to leave bedside As available Patient and Family Educated on Fall Prevention Program and strategies. Assessment: 10:00 General: Appears in no apparent distress. comfortable, Behavior is calm, cooperative, rb1 Denies fever, feeling ill. Pain: Denies pain. Neuro: Level of Consciousness is awake, alert, obeys commands, Oriented to person, place, time, situation, Daughter stated, "She is really jealous and likes to argue with my dad.". Neuro: Reports dizziness, weakness. Cardiovascular: Capillary refill < 3 seconds is brisk in bilateral fingers. Respiratory: Airway is patent Respiratory effort is even, unlabored, Respiratory pattern is regular, symmetrical. GI: Reports nausea. : Parent/caregiver report the patient having Daughter reports that her mother started having incontinence of the bladder yesterday. Daughter stated, "It's like she can't hold it.". Derm: Skin is dry, Skin is normal, Skin temperature is warm. Musculoskeletal:. Injury Description: Bruise sustained to left eye is green, was sustained 2 days ago. 10:00 General: Reports Daughter stated, "She has fallen three times in the last 2 days. Day rb1 before yesterday is when she got the bruise on her left eye.". 11:00 Reassessment: Patient appears in no apparent distress at this time. No changes from rb1 previously documented assessment. Daughter at bedside. 11:27 Reassessment: Pt. went to CT. rb1 12:00 Reassessment: Patient appears in no apparent distress at this time. Patient and/or rb1 family updated on plan of care and expected duration. Pain level reassessed. Patient is alert, oriented x 3, equal unlabored respirations, skin warm/dry/pink. Patient denies pain at this time. 13:00 Reassessment: Patient appears in no apparent distress at this time. Pt. is resting with rb1 eyes closed, respirations even, unlabored. Daughter at bedside. Call light within reach. 13:45 Reassessment: Patient appears in no apparent distress at this time. Patient and/or rb1 family updated on plan of care and expected duration. Pain level reassessed. Patient is alert, oriented x 3, equal unlabored respirations, skin warm/dry/pink. Patient denies pain at this time. Vital Signs: 09:53 BP 92 / 58; Pulse 67; Resp 16; Temp 98.2(TE); Pulse Ox 98% on R/A; Weight 54.43 kg; ss Height 4 ft. 10 in. (147.32 cm); Pain 0/10; 11:28 rb1 12:00 BP 98 / 48; Pulse 60; Resp 17; Pulse Ox 99% on R/A; Pain 0/10; rb1 13:00 BP 105 / 54; Pulse 61; Resp 16; Pulse Ox 98% on R/A; rb1 13:45 BP 102 / 47; Pulse 60; Resp 19; Pulse Ox 99% on R/A; Pain 0/10; rb1 09:53 Body Mass Index 25.08 (54.43 kg, 147.32 cm) 11:[address] rb1 ED Course: 09:50 Patient arrived in ED. as 09:51 Maximilian Putnam MD is Private Physician. as 09:53 Arm band placed on right wrist. ss 09:54 Patient has correct armband on for positive identification. Bed in low position. Call rb1 light in reach. Side rails up X2. quality assurance monitor on. Pulse ox on. NIBP on. Warm blanket given. 09:56 Triage completed. ss 09:59 Ara Mcgregor, RN is Primary Nurse. rb1 10:29 Maninder Escobar MD is Attending Physician. kdr 11:24 EKG done, by electrical technology instructor. reviewed by Maninder Escobar MD. at1 11:24 Initial lab(s) drawn, by ut, sent to lab. Inserted saline lock: 22 gauge in right dh3 forearm, using aseptic technique. Blood collected. 11:[address] via stretcher. ls3 11:44 CT completed. Patient tolerated procedure well. ls3 11:44 X-ray completed. Portable x-ray completed in exam room. Patient tolerated procedure tm4 well. 11:[address] moved back from CT. ls3 11:55 XRAY Chest (1 view) In Process Unspecified. EDMS 11:55 CT Head Brain wo Cont In Process Unspecified. EDMS 13:36 aMximilian Putnam MD is Referral Physician. kdr 13:58 No provider procedures requiring assistance completed. IV discontinued, intact, rb1 bleeding controlled, No redness/swelling at site. Pressure dressing applied. Administered Medications: No medications were administered Outcome: 13:37 Discharge ordered by MD. kdr 13:58 Patient left the ED. rb1 13:58 Discharged to home via wheelchair, with family. rb1 13:58 Condition: stable 13:58 Discharge instructions given to patient, Instructed on discharge instructions, follow up and referral plans. Demonstrated understanding of instructions, follow-up care, Prescriptions given X none Signatures: Dispatcher [employer] EDMS Maninder Escobar MD MD kdr Gabriella Reyna tm4 Liseth Santiago Shelby, RN RN Diamante Posey, roofer vinyl coating EKG Tat1 Ara Mcgregor, RN RN rb1 Hiral Ramírez dh3 Ronnie Dubon ls3
--- NOTE | 2018-07-06 13:39 | EDPHYS ---
Physician Documentation [facility] Name: Magali Montez Age: 73 yrs Sex: Female : 1945 Arrival Date: 07/06/2018 Time: 09:50 Bed 15 Private MD: Maximilian Putnam ED Physician Maninder Escobar HPI: 07/06 11:07 This 73 yrs old Female presents to ER via Ambulatory with complaints of kdr Weakness, Repeated Falls. 11:07 The patient presents to the emergency department with weakness of the left lower kdr extremity, that is mild. Onset: The symptoms/episode began/occurred gradually, 3 day(s) ago. Context: occurred at an unknown location, occurred while the patient was doing normal activity. Associated signs and symptoms: The patient has no apparent associated signs or symptoms. The patient has been falling more frequently in the last three days - has fallen three times and the daughter thinks that she is dragging her left leg more than she was. Daughter states that after her recent stroke, she had recovered her left lower extremity strength but now appears to be more weak on that side. She has had persistent weakness and now some contracture in the right upper extremity. That is unchanged. Daughter also states that her face had become nearly symmetric but now appears more asymmetric. Historical: - Allergies: 09:56 Vancomycin; ss - Home Meds: 10:00 atorvastatin 80 mg Oral tab 1 tab once daily [Active]; carvedilol 12.5 mg oral tab 1 rb1 tab 2 times per day [Active]; Eliquis 5 mg Oral tab 1 tab 2 times per day [Active]; ferrous sulfate 325 mg (65 mg iron) Oral tab 325 mg daily [Active]; furosemide 40 mg oral tab 1 tab once daily [Active]; Glimepiride 5 mg Oral 1 tab twice a day [Active]; levetiracetam 250 mg oral tab 1 tabs daily [Active]; levothyroxine 25 mcg tab 1 tab once daily [Active]; sertraline 100 mg oral tab 2 tabs once daily [Active]; lisinopril 5 mg Oral tab 1 tab once daily [Active]; magnesium oxide 400 mg Oral cap 400 mg twice a day [Active]; pantoprazole 40 mg oral TbEC 1 tab once daily [Active]; - PMHx: 09:56 Anxiety; CHF; CVA; Diabetes - NIDDM; High Cholesterol; Hypertension; Hypothyroidism; ss Myocardial infarction; - PSHx: 09:56 quadruple bypass; defibrillator; ; ss 10:00 cataract; rb1 - Immunization history:: Adult Immunizations up to date. - Social history:: Smoking status: Patient/guardian denies using tobacco. - Ebola Screening: : Patient denies exposure to infectious person Patient denies travel to an Ebola-affected area in the 21 days before illness onset. ROS: 11:07 Constitutional: Negative for fever, chills, and weight loss, Eyes: Negative for injury, kdr pain, redness, and discharge, ENT: Negative for injury, pain, and discharge, Neck: Negative for injury, pain, and swelling, Cardiovascular: Negative for chest pain, palpitations, and edema, Respiratory: Negative for shortness of breath, cough, wheezing, and pleuritic chest pain, Abdomen/GI: Negative for abdominal pain, nausea, vomiting, diarrhea, and constipation, Back: Negative for injury and pain, : Negative for injury, bleeding, discharge, and swelling, MS/Extremity: Negative for injury and deformity, Skin: Negative for injury, rash, and discoloration, Psych: Negative for depression, anxiety, suicide ideation, homicidal ideation, and hallucinations, Allergy/Immunology: Negative for hives, rash, and allergies, Endocrine: Negative for neck swelling, polydipsia, polyuria, polyphagia, and marked weight changes, Hematologic/Lymphatic: Negative for swollen nodes, abnormal bleeding, and unusual bruising. 11:07 Neuro: Positive for gait disturbance, weakness, Negative for altered mental status, dizziness, headache, loss of consciousness, seizure activity, speech changes, syncope, near syncope, tingling, tinnitus, tremor, visual changes. Exam: 11:07 Constitutional: This is a well developed, well nourished patient who is awake, alert, kdr and in no acute distress. Eyes: Pupils equal round and reactive to light, extra-ocular motions intact. Lids and lashes normal. Conjunctiva and sclera are non-icteric and not injected. Cornea within normal limits. Periorbital areas with no swelling, redness, or edema. ENT: Nares patent. No nasal discharge, no septal abnormalities noted. Tympanic membranes are normal and external auditory canals are clear. Oropharynx with no redness, swelling, or masses, exudates, or evidence of obstruction, uvula midline. Mucous membranes moist. Neck: Trachea midline, no thyromegaly or masses palpated, and no cervical lymphadenopathy. Supple, full range of motion without nuchal rigidity, or vertebral point tenderness. No Meningismus. Chest/axilla: Normal chest wall appearance and motion. Nontender with no deformity. No lesions are appreciated. Cardiovascular: Regular rate and rhythm with a normal S1 and S2. No gallops, murmurs, or rubs. Normal PMI, no JVD. No pulse deficits. Respiratory: Lungs have equal breath sounds bilaterally, clear to auscultation and percussion. No rales, rhonchi or wheezes noted. No increased work of breathing, no retractions or nasal flaring. Abdomen/GI: Soft, non-tender, with normal bowel sounds. No distension or tympany. No guarding or rebound. No evidence of tenderness throughout. Back: No spinal tenderness. No costovertebral tenderness. Full range of motion. Skin: Warm, dry with normal turgor. Normal color with no rashes, no lesions, and no evidence of cellulitis. MS/ Extremity: Pulses equal, no cyanosis. Neurovascular intact. Full, normal range of motion. Psych: Awake, alert, with orientation to person, place and time. Behavior, mood, and affect are within normal limits. 11:07 Head/face: Noted is Left lower face weakness. 11:07 Neuro: Orientation: is normal, Mentation: is normal, Cranial nerves: normal except 4,5,7, Left lower facial droop and left upper extremity . Vital Signs: 09:53 BP 92 / 58; Pulse 67; Resp 16; Temp 98.2(TE); Pulse Ox 98% on R/A; Weight 54.43 kg; ss Height 4 ft. 10 in. (147.32 cm); Pain 0/10; 11:28 rb1 12:00 BP 98 / 48; Pulse 60; Resp 17; Pulse Ox 99% on R/A; Pain 0/10; rb1 13:00 BP 105 / 54; Pulse 61; Resp 16; Pulse Ox 98% on R/A; rb1 13:45 BP 102 / 47; Pulse 60; Resp 19; Pulse Ox 99% on R/A; Pain 0/10; rb1 09:53 Body Mass Index 25.08 (54.43 kg, 147.32 cm) ss 11:[address] rb1 MDM: 13:34 ED course: D/w daughter and patient all findings. Gave them the option of admission or kdr d/c. The patient and daughter wanted to be discharged. Spoke of additional evaluation (MRI not possible since she has a pacemaker). They elected to be discharged. Had spoke with Dr. Delgado. He was leaving town today and would not be available for consult should the patient be admitted here.. 13:37 Patient medically screened. kdr 16:40 Data reviewed: vital signs, nurses notes, lab test result(s), radiologic studies. kdr Counseling: I had a detailed discussion with the patient and/or guardian regarding: the historical points, exam findings, and any diagnostic results supporting the discharge/admit diagnosis, lab results, radiology results, the need for outpatient follow up. 07/06 11:05 Order name: Basic Metabolic Panel; Complete Time: 12: [facility] 07/06 11:05 Order name: CBC with Diff; Complete Time: 11: [facility] 07/06 11:05 Order name: LFT's; Complete Time: 12: [facility] 07/06 11:05 Order name: Magnesium; Complete Time: 12: [facility] 07/06 11:05 Order name: NT PRO-BNP; Complete Time: 12: [facility] 07/06 11:05 Order name: PT-INR; Complete Time: 11:53 [facility] 07/06 11:05 Order name: Troponin (emerg Dept Use Only); Complete Time: 12: [facility] 07/06 11:05 Order name: XRAY Chest (1 view); Complete Time: 12: [facility] 07/06 11:05 Order name: EKG; Complete Time: 11: [facility] 07/06 11:05 Order name: Cardiac monitoring; Complete Time: 11: [facility] 07/06 11:05 Order name: EKG - Nurse/Tech; Complete Time: : [facility] 07/06 11:05 Order name: IV Saline Lock; Complete Time: : [facility] 07/06 11:05 Order name: Labs collected and sent; Complete Time: 11: [facility] 07/06 11:05 Order name: CT Head Brain wo Cont; Complete Time: 12: [facility] 07/06 11:05 Order name: O2 Per Protocol; Complete Time: 11:28 kdr 07/06 11:05 Order name: O2 Sat Monitoring; Complete Time: : kdr Administered Medications: No medications were administered Disposition: 07/06/18 13:37 Discharged to Home. Impression: Weakness - Left sided - ongoing. - Condition is Stable. - Discharge Instructions: Weakness, [id number]. - Medication Reconciliation Form, Thank You Letter form. - Follow up: Maximilian Putnam MD; When: 2 - 3 days; Reason: If symptoms return, Further diagnostic work-up, Recheck today's complaints, Continuance of care, Re-evaluation by your physician. - Problem is an ongoing problem. - Symptoms have improved. Signatures: Dispatcher [employer] EDMS Maninder Escobar MD MD kdr Christina Fuentes RN RN ss Ara Mcgregor, EDGARD RN rb1 Corrections: (The following items were deleted from the chart) 13:58 13:37 07/06/2018 13:37 Discharged to Home. Impression: Weakness - Left sided - ongoing. rb1 Condition is Stable. Forms are Medication Reconciliation Form, Thank You Letter, Antibiotic Education, Prescription Opioid Use. Follow up: Maximilian Putnam; When: 2 - 3 days; Reason: If symptoms return, Further diagnostic work-up, Recheck today's complaints, Continuance of care, Re-evaluation by your physician. Problem is an ongoing problem. Symptoms have improved. kdr
[2018-07-06 14:52] VITALS: TEMP 98.2
[2018-07-06 14:55] VITALS: BP 105/54; O2SAT 98
--- NOTE | 2018-07-07 07:02 | EKG ---
Test Date: 2018-07-06 Test Time: 11:11:53 Dynamometer Tester Engine: [place] MEASUREMENT RESULTS: Intervals: Rate: 60 UT: 182 QRSD: 120 QT: 444 QTc: 444 [place]: P: -7 UT: 182 QRS: -9 T: 120 INTERPRETIVE STATEMENTS: Atrial-paced rhythm Intraventricular conduction delay Nonspecific T wave abnormality Abnormal ECG Compared to ECG 03/04/2018 02:18:02 Sinus rhythm no longer present Ventricular premature complex(es) no longer present Electronically Signed On 07-07-18 06:54:24 RANGE SCIENTIST by Micheal Plascencia
== END 2018-07-06 13:58 | disposition home or self-care (01) ==
LOC: ER 09:49
DX: R53.1 Weakness (principal); Z91.81 History of falling; Z88.1 Allergy status to other antibiotic agents; Z79.01 Long term (current) use of anticoagulants; Z86.73 Personal history of transient ischemic attack (TIA), and cerebral infarction without residual deficits
CPT/HCPCS: 36415; 70450; 71045; 80048; 80076; 83735; 83880; 84484; 85025; 85610; 93005; 99285

== ENCOUNTER 2018-12-02 21:42 | Emergency (ER) | payer MEDICARE ==
--- OUTSIDE RECORDS SUMMARY | 2018-12-02 21:45 | XMS REPORT | Clinical Summary ---
:1945 Author Organization [facility] Address [address] [place] [address] Care Team Providers Name Role Phone Maximilian [...] Not on file Implants Implanted Type Area Check And Transfer Beader Device Shelf Model / Identifier Expiration Serial / Date Lot Lead Icd Sprnt Quatro Secur [id number] - [id number] Defibrillators N/A: [employer]:CARD 04/24/2017 [id number] / Implanted: Qty: 1 on 07/16/2016 by Yara Benson MD Heart RHY:DISEASE MGT [id number] / N/A Results Not on fileafter 12/01/2017 Insurance Payer Benefit Plan / Group Subscriber ID Type Phone Address [employer] - MEDICARE AARP/MEDICARE COMPLETE xxxxxxxxx [facility] CARE Advance Directives For more information, please contact:[address] [phone] Code Status Date Activated Date Inactivated Comments Full Code 07/16/2016 6:02 AM 07/17/2016 2:27 PM This code status was determined by: Patient
--- OUTSIDE RECORDS SUMMARY | 2018-12-02 21:45 | XMS REPORT | Continuity of Care Document ---
:1945 Author Organization [facility] Care Team Providers Name Role Phone [employer] [facility] Unavailable Unavailable Problems No Data Provided for This Section Medications No Data Provided for This Section Allergies, Adverse Reactions, Alerts No Known Medication Allergies Immunizations No Data Provided for This Section Results No Data Provided for This Section Pathology Reports No Data Provided for This Section Diagnostic Reports No Data Provided for This Section Consultation Notes No Data Provided for This Section Discharge Summaries No Data Provided for This Section History and Physicals No Data Provided for This Section Vital Signs No Data Provided for This Section Encounters Location Location Encounter Encounter Reason Attending ADM DC Status Source Details Type Number For Provider Date Date Visit Outpatient [id number] [facility] [id number] [facility]02 [facility] [id number] [facility]/04 [facility] [id number] [facility] 12/16 [facility] [id number] [facility] 01/12 [facility] [id number] [facility]/23 [facility] [id number] [facility] 03/02 [facility] [id number] [facility] 03/30 [facility] [id number] [facility] [id number] [facility] [id number] [facility] [id number] [facility] Procedures No Data Provided for This Section Assessment and Plan No Data Provided for This Section Plan of Care No Data Provided for This Section Social History No Data Provided for This Section Family History No Data Provided for This Section Advance Directives No Data Provided for This Section Functional Status No Data Provided for This Section
[2018-12-02 22:52] LABS: Absolute Lymphocytes (CBC) 1.7 K/uL (0.7-4.9); Basophils % 0.9 % (0-1.3); Eosinophils % 2.4 % (0-4.4); Hematocrit 31.9 % (36.0-45.0); Lymphocytes % 19.5 % (15.3-44.8); MPV 9.6 fL (7.6-11.3); Monocytes % 9.5 % (3.3-12.3); RBC Red Blood Cell Count 3.64 M/uL (3.86-4.86)
[2018-12-02] MEDS ORDERED: NA CHLORIDE 0.9% 1,000 ML ONE (22:53)
[2018-12-03 01:14] LABS: Albumin 3.2 g/dL (3.4-5.0); Bilirubin Direct 0.2 mg/dL (0-0.2); Bilirubin Total 0.5 mg/dL (0.2-1.0); Potassium 4.1 mmol/L (3.5-5.1); Protein, Total 7.2 g/dL (6.4-8.2)
[2018-12-03] MEDS ORDERED: CEFOXITIN SODIUM 1 GM/VIAL ONE (01:25)
[2018-12-03] MEDS ORDERED: NA CHLORIDE 0.9% 50 ML IV ONE (01:25)
[2018-12-03] MEDS ORDERED: NA CHLORIDE 0.9% 1,000 ML ONE (01:25)
--- NOTE | 2018-12-03 03:42 | ER ---
Nurse's Notes [facility] Name: Magali Montez Age: 73 yrs Sex: Female : 1945 Arrival Date: 12/02/2018 Time: 21:44 Bed 6 [facility] MD: Diagnosis: Acute appendicitis Presentation: 12/02 21:54 Presenting complaint: Child states: Lower right abd pain since this morning, she also la1 had a fall 2 days ago and hit the back of her head on the concrete, denies LOC. Transition of care: patient was not received from another setting of care. Onset of symptoms was December 02, 2018. Risk Assessment: Do you want to hurt yourself or someone else? Patient reports no desire to harm self or others. Initial Sepsis Screen: Does the patient meet any 2 criteria? No. Patient's initial sepsis screen is negative. Does the patient have a suspected source of infection? No. Patient's initial sepsis screen is negative. Care prior to arrival: None. 21:54 Method Of Arrival: Wheelchair la1 21:54 Acuity: MILAGROS 2 la1 Historical: - Allergies: 21:54 Vancomycin; la1 - PMHx: 21:54 Anxiety; CHF; CVA; Diabetes - NIDDM; High Cholesterol; Hypertension; Hypothyroidism; la1 Myocardial infarction; - Immunization history:: Adult Immunizations up to date. - Social history:: Smoking status: Patient/guardian denies using tobacco. - Ebola Screening: : No symptoms or risks identified at this time. Screenin:17 Abuse screen: Denies threats or abuse. Nutritional screening: No deficits noted. jd3 Tuberculosis screening: No symptoms or risk factors identified. Fall Risk Fall in past 12 months (25 points). IV access (20 points). Ambulatory Aid- None/Bed Rest/Nurse Assist (0 pts). Gait- Normal/Bed Rest/Wheelchair (0 pts) Mental Status- Oriented to own ability (0 pts). Total Lowery Fall Scale indicates High Risk Score (45 or more points). Fall prevention measures have been instituted. Side Rails Up X 2 Placed Close to Nursing Station Frequent Obs/Assessments Occuring Family Present and informed to notify staff if the need to leave the bedside. Assessment: 22:15 General: Appears in no apparent distress. uncomfortable, Behavior is calm, cooperative, jd3 appropriate for age. Pain: Complains of pain in abdomen Quality of pain is described as aching, crampy. Neuro: Level of Consciousness is awake, alert, obeys commands, Oriented to person, place, time, situation. Cardiovascular: Denies chest pain, Capillary refill < 3 seconds Patient's skin is warm and dry. Respiratory: Airway is patent Respiratory effort is even, unlabored, Respiratory pattern is regular, symmetrical, Denies cough, shortness of breath. GI: Abdomen is round non-distended, Bowel sounds present X 4 quads. Abd is soft and non tender X 4 quads. Reports lower abdominal pain, upper abdominal pain, Patient currently denies constipation, diarrhea, nausea, vomiting. : No signs and/or symptoms were reported regarding the genitourinary system. EENT: No signs and/or symptoms were reported regarding the EENT system. Derm: Skin is intact, Skin is dry, Skin is normal, Skin temperature is warm. Musculoskeletal: Circulation, motion, and sensation intact. Range of motion: limited in left arm due to history of stroke. 23:43 Reassessment: Patient appears in no apparent distress at this time. Patient and/or jd3 family updated on plan of care and expected duration. Pain level reassessed. Patient is alert, oriented x 3, equal unlabored respirations, skin warm/dry/pink. awaiting CT scan. 12/03 00:44 Reassessment: Patient appears in no apparent distress at this time. Patient and/or jd3 family updated on plan of care and expected duration. Pain level reassessed. Patient is alert, oriented x 3, equal unlabored respirations, skin warm/dry/pink. awaiting results. Patient states feeling better. 01:29 Reassessment: Patient appears in no apparent distress at this time. Patient and/or jd3 family updated on plan of care and expected duration. Pain level reassessed. Patient is alert, oriented x 3, equal unlabored respirations, skin warm/dry/pink. awaiting disposition. Patient states feeling better. 02:29 Reassessment: Patient appears in no apparent distress at this time. No changes from jd3 previously documented assessment. Patient and/or family updated on plan of care and expected duration. Pain level reassessed. Patient is alert, oriented x 3, equal unlabored respirations, skin warm/dry/pink. 03:29 Reassessment: Patient appears in no apparent distress at this time. Patient and/or jd3 family updated on plan of care and expected duration. Pain level reassessed. Patient is alert, oriented x 3, equal unlabored respirations, skin warm/dry/pink. pt resting in bed with eyes closed, even and unlabored respirations, awaiting accepting doctor's call for doc to doc hand-off. Patient denies pain at this time. 04:32 Reassessment: Patient appears in no apparent distress at this time. Patient and/or jd3 family updated on plan of care and expected duration. Pain level reassessed. Patient is alert, oriented x 3, equal unlabored respirations, skin warm/dry/pink. report given to Magaly RENE at [facility] for pt transfer. Patient denies pain at this time. 05:29 Reassessment: Patient appears in no apparent distress at this time. Patient and/or jd3 family updated on plan of care and expected duration. Pain level reassessed. Patient is alert, oriented x 3, equal unlabored respirations, skin warm/dry/pink. report given to EMS crew. pt reported understanding on need for transfer. Patient denies pain at this time. Vital Signs: 12/02 21:54 BP 89 / 52; Pulse 77; Resp 16; Temp 98.3; Pulse Ox 98% on R/A; Weight 56.25 kg; Height la1 4 ft. 9 in. (144.78 cm); 22:42 BP 96 / 65; Pulse 78; Resp 15 S; Pulse Ox 98% on R/A; jd3 23:43 BP 113 / 70; Pulse 62; Resp 17 S; Pulse Ox 96% on R/A; jd3 12/03 00:43 BP 111 / 71; Pulse 65; Resp 17 S; Pulse Ox 100% on R/A; Pain 1/10; jd3 01:29 BP 109 / 67; Pulse 72; Resp 18 S; Pulse Ox 100% on R/A; jd3 02:29 BP 110 / 64; Pulse 69; Resp 18 S; Pulse Ox 100% on R/A; jd3 03:31 BP 109 / 70; Pulse 61; Resp 15 S; Pulse Ox 99% on R/A; Pain 0/10; jd3 04:35 BP 108 / 64; Pulse 64; Resp 16 S; Pulse Ox 100% on R/A; Pain 0/10; jd3 12/02 21:54 Body Mass Index 26.83 (56.25 kg, 144.78 cm) la1 ED Course: 12/02 21:44 Patient arrived in ED. as 21:54 Arm band placed on right wrist. la1 21:55 Triage completed. la1 21:56 Memo Ryan MD is Attending Physician. gs 22:10 Inserted saline lock: 20 gauge in right forearm, using aseptic technique. Blood jd3 collected. 22:14 Adrián López, RN is Primary Nurse. jd3 22:18 Patient has correct armband on for positive identification. Placed in gown. Bed in low jd3 position. Call light in reach. Side rails up X2. Adult w/ patient. Warm blanket given. 23:44 Radiology exam delayed due to lab results not completed at this time. (BUN/Creatinine). kw1 12/03 00:49 Abdomen In Process Unspecified. EDMS 00:59 CT Head Brain wo Cont In Process Unspecified. EDMS 01:23 No provider procedures requiring assistance completed. lp1 05:28 Patient transferred, IV remains in place. jd3 Administered Medications: 12/02 22:42 Drug: NS 0.9% 1000 ml Route: IV; Rate: 1 bolus; Site: right forearm; jd3 23:40 Follow up: Response: No adverse reaction; IV Status: Completed infusion; IV Intake: jd3 1000ml 12/03 01:15 Drug: NS 0.9% 1000 ml Route: IV; Rate: 125 ml/hr; Site: right forearm; lp1 05:30 Follow up: Response: No adverse reaction; IV Status: Infusion continued upon transfer jd3 01:15 Drug: Mefoxin 1 grams Route: IVPB; Infused Over: 30 mins; Site: right forearm; lp1 01:51 Follow up: Response: No adverse reaction; IV Status: Completed infusion; IV Intake: [id number] Intake: 12/02 23:40 IV: 1000ml; Total: 1000ml. jd3 12/03 01:51 IV: 50ml; Total: 1050ml. jd3 Outcome: 03:42 ER care complete, transfer ordered by . gs 04:35 Condition: stable jd3 04:35 Instructed on the need for transfer, Demonstrated understanding of instructions. 05:28 Transferred by ground EMS to [facility], Transfer form jd3 completed. X-rays sent w/ patient. Note: report given to [place] [facility] crew. 05:31 Patient left the ED. jd3 Signatures: Dispatcher [employer] Liseth Ortiz Laura, RN RN lp1 Tim Shay RN RN la1 Memo Ryan MD MD gs Davies, Jonathon, RN RN jd3 Bianca Mujica Corrections: (The following items were deleted from the chart) 04:35 04:32 Reassessment: Patient appears in no apparent distress at this time. No changes jd3 from previously documented assessment. Patient and/or family updated on plan of care and expected duration. Pain level reassessed. Patient is alert, oriented x 3, equal unlabored respirations, skin warm/dry/pink. Patient denies pain at this time. jd3
--- NOTE | 2018-12-03 03:42 | EDPHYS ---
Physician Documentation [facility] Name: Magali Montez Age: 73 yrs Sex: Female : 1945 Arrival Date: 12/02/2018 Time: 21:44 Bed 6 Private MD: ED Physician Memo Ryan HPI: 12/03 03:42 This 73 yrs old Female presents to ER via Wheelchair with complaints of gs Abdominal Pain. 03:43 The patient presents with abdominal pain. The patient presents with abdominal pain gs right lower quadrant. Onset: The symptoms/episode began/occurred yesterday. The symptoms do not radiate. Associated signs and symptoms: Pertinent positives: nausea. The symptoms are described as sharp. Modifying factors: The symptoms are alleviated by nothing, the symptoms are aggravated by nothing. Severity of pain: At its worst the pain was severe in the emergency department the pain has improved mildly. The patient has not experienced similar symptoms in the past. Historical: - Allergies: 12/02 21:54 Vancomycin; la1 - PMHx: 21:54 Anxiety; CHF; CVA; Diabetes - NIDDM; High Cholesterol; Hypertension; Hypothyroidism; la1 Myocardial infarction; - Immunization history:: Adult Immunizations up to date. - Social history:: Smoking status: Patient/guardian denies using tobacco. - Ebola Screening: : No symptoms or risks identified at this time. ROS: 12/03 03:43 All other systems are negative. gs Exam: 03:43 Head/Face: Normocephalic, atraumatic. Eyes: Pupils equal round and reactive to light, gs extra-ocular motions intact. Lids and lashes normal. Conjunctiva and sclera are non-icteric and not injected. Cornea within normal limits. Periorbital areas with no swelling, redness, or edema. ENT: Nares patent. No nasal discharge, no septal abnormalities noted. Tympanic membranes are normal and external auditory canals are clear. Oropharynx with no redness, swelling, or masses, exudates, or evidence of obstruction, uvula midline. Mucous membranes moist. Neck: Trachea midline, no thyromegaly or masses palpated, and no cervical lymphadenopathy. Supple, full range of motion without nuchal rigidity, or vertebral point tenderness. No Meningismus. Chest/axilla: Normal chest wall appearance and motion. Nontender with no deformity. No lesions are appreciated. Cardiovascular: Regular rate and rhythm with a normal S1 and S2. No gallops, murmurs, or rubs. Normal PMI, no JVD. No pulse deficits. Respiratory: Lungs have equal breath sounds bilaterally, clear to auscultation and percussion. No rales, rhonchi or wheezes noted. No increased work of breathing, no retractions or nasal flaring. Back: No spinal tenderness. No costovertebral tenderness. Full range of motion. Skin: Warm, dry with normal turgor. Normal color with no rashes, no lesions, and no evidence of cellulitis. MS/ Extremity: Pulses equal, no cyanosis. Neurovascular intact. Full, normal range of motion. Neuro: Awake and alert, GCS 15, oriented to person, place, time, and situation. Cranial nerves II-XII grossly intact. Motor strength 5/5 in all extremities. Sensory grossly intact. Cerebellar exam normal. Normal gait. 03:43 Constitutional: The patient appears alert, awake. 03:43 Abdomen/GI: Palpation: moderate abdominal tenderness, in the right lower quadrant. Vital Signs: 12/02 21:54 BP 89 / 52; Pulse 77; Resp 16; Temp 98.3; Pulse Ox 98% on R/A; Weight 56.25 kg; Height la1 4 ft. 9 in. (144.78 cm); 22:42 BP 96 / 65; Pulse 78; Resp 15 S; Pulse Ox 98% on R/A; jd3 23:43 BP 113 / 70; Pulse 62; Resp 17 S; Pulse Ox 96% on R/A; jd3 12/03 00:43 BP 111 / 71; Pulse 65; Resp 17 S; Pulse Ox 100% on R/A; Pain 1/10; jd3 01:29 BP 109 / 67; Pulse 72; Resp 18 S; Pulse Ox 100% on R/A; jd3 02:29 BP 110 / 64; Pulse 69; Resp 18 S; Pulse Ox 100% on R/A; jd3 03:31 BP 109 / 70; Pulse 61; Resp 15 S; Pulse Ox 99% on R/A; Pain 0/10; jd3 04:35 BP 108 / 64; Pulse 64; Resp 16 S; Pulse Ox 100% on R/A; Pain 0/10; jd3 12/02 21:54 Body Mass Index 26.83 (56.25 kg, 144.78 cm) la1 MDM: 12/02 22:31 Patient medically screened. 12/03 03:43 Differential diagnosis: appendicitis, bowel obstruction, pancreatitis, Peptic Ulcer gs Disease. Data reviewed: vital signs, nurses notes, lab test result(s), radiologic studies. Counseling: I had a detailed discussion with the patient and/or guardian regarding: the historical points, exam findings, and any diagnostic results supporting the discharge/admit diagnosis, radiology results, the need to transfer to another facility, for higher level of care, issue with or equipment per dr darnell. Response to treatment: the patient's symptoms have mildly improved after treatment. 12/02 22:34 Order name: Basic Metabolic Panel; Complete Time: 01:17 12/02 22:34 Order name: CBC with Diff; Complete Time: 00:50 12/02 22:34 Order name: Hepatic Function; Complete Time: 01:17 12/02 22:34 Order name: Lipase; Complete Time: 01:17 12/02 22:34 Order name: CT Head Brain wo Cont 12/02 22:34 Order name: IV Saline Lock; Complete Time: 22:36 12/02 22:34 Order name: Labs collected and sent; Complete Time: 22:42 12/03 00:19 Order name: Abdomen EDMS Administered Medications: 12/02 22:42 Drug: NS 0.9% 1000 ml Route: IV; Rate: 1 bolus; Site: right forearm; jd3 23:40 Follow up: Response: No adverse reaction; IV Status: Completed infusion; IV Intake: jd3 1000ml 12/03 01:15 Drug: NS 0.9% 1000 ml Route: IV; Rate: 125 ml/hr; Site: right forearm; lp1 05:30 Follow up: Response: No adverse reaction; IV Status: Infusion continued upon transfer jd3 01:15 Drug: Mefoxin 1 grams Route: IVPB; Infused Over: 30 mins; Site: right forearm; lp1 01:51 Follow up: Response: No adverse reaction; IV Status: Completed infusion; IV Intake: [id number] Disposition: 12/03/18 03:42 Transfer ordered to [facility]. Diagnosis is Acute appendicitis. - Reason for transfer: Higher level of care. - Accepting physician is [facility]. - Condition is Stable. - Problem is new. - Symptoms are unchanged. Signatures: Dispatcher [employer] [facility] Aidee Gilmore, RN RN lp1 Tim Shay RN RN la1 Memo Ryan MD MD gs Davies, Jonathon RN RN jd3 Corrections: (The following items were deleted from the chart) 00:18 12/02 22:35 Abdomen Pelvis W Con+CT.RAD.BRZ ordered. [facility] 12/03 05:31 03:42 12/03/2018 03:42 Transfer ordered to [facility]. Diagnosis is Acute jd3 appendicitis. Reason for transfer: Higher level of care. Accepting physician is [facility]. Condition is Stable. Problem is new. Symptoms are unchanged. gs
--- NOTE | 2018-12-04 11:11 | RAD REPORT ---
EXAM DESCRIPTION: CT HEAD WITHOUT CONTRAST CLINICAL HISTORY: Trauma. COMPARISON: CT head without contrast 08/29/2018. TECHNIQUE: Axial [address] imaging of the brain. Reformatted coronal and sagittal images ob tained. This examination was performed according to our departmental dose optimization program, which include s automated exposure control, adjustment of the mA and/or kV according to patient size and/or use of iterative reconstruction technique. FINDINGS: There is encephalomalacia throughout the right middle cerebral artery distribution due to remote infarction. There is no acute major territorial infarct. No mass or midline shift. There is mo derate fullness of the ventricles and sulci due to cortical volume loss. Asymmetrical dilatation of t he right lateral ventricle due to ex vacuo dilatation. Senescent bilateral basal ganglia calcificatio ns. No intracranial hemorrhage. Mild decreased white matter attenuation due to chronic vascular ische bismark change. The cerebellum and vermis appear normal. Fourth ventricle is midline. No cerebellar tonsillar ectopia . Prepontine cisterns are not effaced. Normal sella contents. Normal appearance of the globes and remaining intraorbital contents. There is significant soft tissue within the imaged maxillary sinuses. There is maxillary sinus wall thickening. Mastoid air cells are clear. Intact skull base. Intact calvarium. Normal scalp soft tissues. IMPRESSION: 1. Old right middle cerebral artery territorial infarction. No intracranial acute findin g. 2. Mild to moderate senescent brain changes. 3. Chronic bilateral maxillary sinus disease. Electronically signed by: Evita Hubbard DO 12/03/2018 1:14 AM CDT Due to temporary technical issues with the PACS/Fluency reporting system, reports are being signed by the in house radiologist as a courtesy to ensure prompt reporting. The interpreting radiologist is f ully responsible for the content of the report.
--- NOTE | 2018-12-04 11:12 | RAD REPORT ---
EXAM DESCRIPTION: CT abdomen pelvis without IV contrast CLINICAL HISTORY: Lower right abdominal pain since this morning, status post fall two days ago TECHNIQUE: Axial CT imaging of the abdomen and pelvis was performed. Sagittal and coronal reconstr ucted images were then performed. The CT study is performed according to ALARA (as low as reasonably achievable) or ALARA/IMAGE GENTLY, with automatic adjustment of mA and/or kV according to patient yin holt. Performed on: 12/03/2018 at 12:32 AM COMPARISON: None. FINDINGS: Lung bases: The lung bases are clear. There is minimal bibasilar atelectasis and/or fibros is. The heart is enlarged. An AICD device is noted extending into the right ventricle. Liver: The liver is normal in size and configuration. No focal hepatic abnormalities are appreciated on this unenhanced scan. Liver attenuation is within normal limits. Spleen: The spleen is normal is size, configuration and attenuation. No focal splenic abnormalities a re appreciated on this unenhanced scan. Gallbladder and bile duct: The gallbladder is well distended and unremarkable. There is no biliary ductal dilatation. Pancreas: The pancreas is grossly normal in size and configuration. Adrenal Glands: The adrenal glands are normal in size and configuration. Kidneys: The kidneys are normal in size and configuration. There is no evidence of hydronephrosis. Th ere is no evidence of nephrolithiasis. No focal renal abnormalities are identified. Stomach: The stomach is grossly normal. There is no definite hiatal hernia. Bowel: The bowel gas pattern is non specific and non obstructive. There is stranding of the mesenteri c fat in the right lower quadrant surrounding the cecum. Appendix: There is mild dilatation of the appendix which measures approximately 7-8 mm in diameter. T here is periappendiceal inflammation and edema. There is no evidence of periappendiceal abscess or ru pture. The appendix is retrocecal in location. Free air: There is no evidence of free air. Free fluid: No definite free fluid is identified. Vasculature: The aorta is normal in caliber and contour. There are mild atherosclerotic calcification s along the abdominal aorta and proximal major branch vessels. The inferior vena cava is grossly unre markable. Lymphadenopathy: No pathologic lymphadenopathy is identified. Bladder: The bladder is well distended and smooth in contour. Reproductive: The uterus is grossly within normal limits. There are calcifications throughout the [place] which are likely vascular in nature. Bones: No acute osseous abnormalities are identified. There are mild to moderate degenerative changes of the visualized thoracolumbar spine. Soft tissues: No focal soft tissue abnormalities are identified. IMPRESSION: 1. CT findings most consistent with acute nonruptured appendicitis. 2. Cardiomegaly. 3. Degenerative changes of the skeletal and vascular structures. These critical findings were discussed with Dr. Ryan on 12/03/2018 at 1:03 AM central time Electronically signed by: Pita Nichols DO 12/03/2018 1:09 AM CDT Due to temporary technical issues with the PACS/Fluency reporting system, reports are being signed by the in house radiologist as a courtesy to ensure prompt reporting. The interpreting radiologist is f ully responsible for the content of the report.
== END 2018-12-03 05:31 | disposition short-term general hospital (02) ==
LOC: ER 21:42
DX: K35.80 Unspecified acute appendicitis (principal); F41.9 Anxiety disorder, unspecified; I11.0 Hypertensive heart disease with heart failure; I50.9 Heart failure, unspecified; E11.9 Type 2 diabetes mellitus without complications; E78.00 Pure hypercholesterolemia, unspecified; E03.9 Hypothyroidism, unspecified; Z86.73 Personal history of transient ischemic attack (TIA), and cerebral infarction without residual deficits; I25.2 Old myocardial infarction; Z88.1 Allergy status to other antibiotic agents
CPT/HCPCS: 96365; 96361; 85025; 80048; 36415; 80076; 83690; 70450; 74176; 99285; J7030 ×2; J0694

== ENCOUNTER 2019-04-14 10:53 | Emergency (ER) | payer MEDICARE ==
[2019-04-14] MEDS ORDERED: METOPROLOL TAR 25 MG TAB ONE (11:18)
[2019-04-14] MEDS ORDERED: NA CHLORIDE 0.9% 500 ML ONE (11:18)
[2019-04-14] MEDS ORDERED: METOPROLOL TARTRATE 5 MG/5 ML INJ IV ONE (11:18)
[2019-04-14] MEDS ORDERED: LORazepam 2 MG/ML VIAL ONE (11:18)
[2019-04-14 11:24] LABS: Absolute Lymphocytes (CBC) 2.1 K/uL (0.7-4.9); Basophils % 1.1 % (0-1.3); Hematocrit 39.4 % (36.0-45.0); MPV 11.2 fL (7.6-11.3); RBC Red Blood Cell Count 4.46 M/uL (3.86-4.86)
[2019-04-14 11:25] LABS: Protime INR 2.9
[2019-04-14 11:48] LABS: Albumin 3.4 g/dL (3.4-5.0); Bilirubin Direct 1.1 mg/dL (0-0.2); Magnesium 1.6 mg/dL (1.8-2.4); Potassium 3.5 mmol/L (3.5-5.1); Protein, Total 7.4 g/dL (6.4-8.2); Troponin (Emerg Dept Use Only) 0.06 ng/mL (0.0-0.045)
[2019-04-14 11:54] LABS: Thyroid Stimulating Hormone 7.31 uIU/mL (0.360-3.740)
[2019-04-14] MEDS ORDERED: levETIRAcetam 1,000 MG in NA CHLORIDE 0.9% 100 ML IV ONE (12:00)
[2019-04-14 12:12] LABS: Blood Morphology Comment NOTED (NOT SEEN); Burr Cells 1+; Platelet Estimate ADEQ; Urine White Blood Cell Casts OK
[2019-04-14] MEDS ORDERED: MAGNESIUM SULFATE 1 gm IVPB 1 GM/100 ML BAG IV ONE (12:20)
--- NOTE | 2019-04-14 12:34 | RAD REPORT ---
EXAM DESCRIPTION: RAD - Chest Single View - 04/14/2019 11:33 am CLINICAL HISTORY: Chest pain COMPARISON: July 06 TECHNIQUE: AP portable chest image was obtained 1129 hours . FINDINGS: No focal consolidation. Perihilar markings are prominent. Central vascular is prominent. M ild cardiomegaly present. Left-sided defibrillator is in place. CABG surgical changes are noted. Trac hea is midline. No measurable pleural effusion and no pneumothorax. No acute bony abnormality seen. N o acute aortic findings suspected. IMPRESSION: Mild CHF/volume overload pattern.
--- NOTE | 2019-04-14 13:03 | RAD REPORT ---
EXAM DESCRIPTION: CT - Head Brain Wo Cont - 04/14/2019 12:51 pm CLINICAL HISTORY: Unresponsive, transient alteration of awareness, stroke-like symptoms COMPARISON: CT head December 02 TECHNIQUE: Axial 5 mm thick images of the head were obtained without IV contrast. All CT scans are performed using dose optimization technique as appropriate and may include automated exposure control or mA/KV adjustment according to patient size. FINDINGS: No intracranial hemorrhage present. Patient has symmetric, dense basal ganglia calcificati ons similar to comparison. Patient has a large area of old infarction in the right middle cerebral ar davonte distribution. This involves much of the mid and posterior aspect of the right frontal lobe, most of the right temporal lobe and portions of the posterolateral occipital lobe. Substantial portion of the parietal lobe involved as well. The majority of the stroke is old and similar to the November study. There is some questionable extension of the CVA along the superior margin. Age is uncertain. No left cerebral cortical edema or sulcal effacement. No midline shift. Patient has underlying atrophy etienne e. No abnormal extra-axial fluid collections. Ventricles are in proportion to the volume loss. Mastoid air cells are clear. Near complete opacification of each maxillary sinus noted. This matches prior imaging. No acute bony findings. IMPRESSION: No intracranial hemorrhage is present. No mass effect, edema or midline shift. Large old right cerebral CVA changes in the right middle cerebral artery distribution. This is simila r to the November study. There is questionable extension of the right cerebral stroke along the superior margin since the November examination. Any extension cannot be characterized as acute to this event.
--- NOTE | 2019-04-14 13:23 | EDPHYS ---
Physician Documentation [facility] Name: Magali Montez Age: 73 yrs Sex: Female : 1945 Arrival Date: 04/14/2019 Time: 10:56 Bed 4 Private MD: ED Physician David Suazo HPI: 04/14 11:09 This 73 yrs old Female presents to ER via EMS with complaints of seizure like ashish activity, a fib and defibrillator discharge. 11:09 The patient presents with a history of irregular heart beat, heart racing. Context: The ashish symptoms occur at rest, during sleep. Onset: The symptoms/episode began/occurred this morning, last night. Duration: The patient or guardian reports multiple episodes, that are intermittent. Modifying factors: The symptoms are aggravated by nothing. The symptoms are alleviated by nothing. hx of cva, a fibm, pm, defib, lost consciousness in route to the er, per ems. Possible causes: CVA or TIA, seizure. Historical: - Allergies: 11:13 Vancomycin; ph - Home Meds: 11:13 carvedilol 6.25 mg oral tab 1 tab 2 times per day [Active]; Eliquis 5 mg Oral tab 1 tab ph 2 times per day [Active]; Glimepiride 5 mg Oral 1 tab twice a day [Active]; sertraline 100 mg Oral tab 1 tab once daily [Active]; lisinopril 2.5 mg oral tab 1 tab once daily [Active]; levothyroxine 50 mcg oral tab 1 tab once daily [Active]; furosemide 40 mg Oral tab 1 tab once daily [Active]; - PMHx: 11:13 Anxiety; CHF; CVA; Diabetes - NIDDM; High Cholesterol; Hypertension; Hypothyroidism; ph Myocardial infarction; - Immunization history:: Adult Immunizations unknown. - Social history:: Smoking status: Patient/guardian denies using tobacco. - Ebola Screening: : No symptoms or risks identified at this time. - Family history:: not pertinent. ROS: 11:09 Constitutional: Negative for fever, chills, and weight loss, Eyes: Negative for injury, ashish pain, redness, and discharge, ENT: Negative for injury, pain, and discharge, Neck: Negative for injury, pain, and swelling, Respiratory: Negative for shortness of breath, cough, wheezing, and pleuritic chest pain, Abdomen/GI: Negative for abdominal pain, nausea, vomiting, diarrhea, and constipation, Back: Negative for injury and pain, : Negative for injury, bleeding, discharge, and swelling, MS/Extremity: Negative for injury and deformity, Skin: Negative for injury, rash, and discoloration, Psych: Negative for depression, anxiety, suicide ideation, homicidal ideation, and hallucinations, Allergy/Immunology: Negative for hives, rash, and allergies, Endocrine: Negative for neck swelling, polydipsia, polyuria, polyphagia, and marked weight changes, Hematologic/Lymphatic: Negative for swollen nodes, abnormal bleeding, and unusual bruising. 11:09 Cardiovascular: Positive for palpitations. 11:09 Neuro: Positive for seizure activity, weakness, of the face, left arm and left leg. Exam: 11:09 Constitutional: This is a well developed, well nourished patient who is awake, alert, ashish and in no acute distress. Head/Face: Normocephalic, atraumatic. Eyes: Pupils equal round and reactive to light, extra-ocular motions intact. Lids and lashes normal. Conjunctiva and sclera are non-icteric and not injected. Cornea within normal limits. Periorbital areas with no swelling, redness, or edema. ENT: Nares patent. No nasal discharge, no septal abnormalities noted. Tympanic membranes are normal and external auditory canals are clear. Oropharynx with no redness, swelling, or masses, exudates, or evidence of obstruction, uvula midline. Mucous membranes moist. Neck: Trachea midline, no thyromegaly or masses palpated, and no cervical lymphadenopathy. Supple, full range of motion without nuchal rigidity, or vertebral point tenderness. No Meningismus. Chest/axilla: Normal chest wall appearance and motion. Nontender with no deformity. No lesions are appreciated. Respiratory: Lungs have equal breath sounds bilaterally, clear to auscultation and percussion. No rales, rhonchi or wheezes noted. No increased work of breathing, no retractions or nasal flaring. Abdomen/GI: Soft, non-tender, with normal bowel sounds. No distension or tympany. No guarding or rebound. No evidence of tenderness throughout. Back: No spinal tenderness. No costovertebral tenderness. Full range of motion. Skin: Warm, dry with normal turgor. Normal color with no rashes, no lesions, and no evidence of cellulitis. MS/ Extremity: Pulses equal, no cyanosis. Neurovascular intact. Full, normal range of motion. Psych: Awake, alert, with orientation to person, place and time. Behavior, mood, and affect are within normal limits. : Cardiovascular: Rate: tachycardic, Rhythm: irregularly irregular, Pulses: Pulses are 4+ in bilateral radial, brachial, femoral, popliteal, posterior tibial and and dorsalis pedis arteries.. Heart sounds: normal, Edema: is not appreciated, JVD: is not appreciated. Vital Signs: 11:04 BP 114 / 79; Pulse 115; Resp 20; Temp 96.8(TE); Pulse Ox 100% on R/A; Weight 55.34 kg; ph Height 4 ft. 10 in. (147.32 cm); 11:45 BP 77 / 52; Pulse 79; Resp 18; Pulse Ox 97% on R/A; ph 12:07 BP 70 / 49; Pulse 71; Resp 12; Pulse Ox 98% on R/A; ph 13:22 BP 88 / 54; Pulse 71; Resp 18; Pulse Ox 100% on R/A; ph 13:43 BP 84 / 54; Pulse 70; Resp 18; Temp 97.2; Pulse Ox 100% on R/A; ph 14:00 BP 99 / 58; Pulse 74; Resp 18; Temp 97.2; Pulse Ox 100% on R/A; ph 11:04 Body Mass Index 25.50 (55.34 kg, 147.32 cm) ph MDM: 11:01 Patient medically screened. [facility] 11:19 Data reviewed: vital signs, nurses notes, lab test result(s), EKG, radiologic studies, [facility] CT scan, plain films. 04/14 11:05 Order name: Basic Metabolic Panel [facility] 04/14 11:05 Order name: CBC with Diff [facility] 04/14 11:05 Order name: LFT's [facility] 04/14 11:05 Order name: Magnesium [facility] 04/14 11:05 Order name: NT PRO-BNP [facility] 04/14 11:05 Order name: PT-INR [facility] 04/14 11:05 Order name: Troponin (emerg Dept Use Only) [facility] 04/14 11:05 Order name: Lipase [facility] 04/14 11:05 Order name: TSH [facility] 04/14 11:25 Order name: CBC with Automated Diff; Complete Time: 12:28 EDNJ 04/14 11:26 Order name: Protime (+INR); Complete Time: 12:04 EDN[facility] 04/14 11:54 Order name: Basic Metabolic Panel; Complete Time: 12:08 EDN[facility] 04/14 11:54 Order name: Liver (Hepatic) Function; Complete Time: 12:08 EDN[facility] 04/14 11:54 Order name: Troponin (Emerg Dept Use Only); Complete Time: 12:09 EDN[facility] 04/14 11:05 Order name: XRAY Chest (1 view) [facility] 04/14 11:05 Order name: CT Head Brain wo Cont [facility] 04/14 11:54 Order name: NT PRO-BNP; Complete Time: 12:09 EDN[facility] 04/14 11:54 Order name: Magnesium; Complete Time: 12:09 EDN[facility] 04/14 11:54 Order name: Lipase; Complete Time: 12:09 EDN[facility] 04/14 11:54 Order name: Thyroid Stimulating Hormone; Complete Time: 12:09 [facility] 04/14 12:08 Order name: T4 Free; Complete Time: 12:09 EDNJ 04/14 12:13 Order name: CBC Smear Scan; Complete Time: 12:28 EDN[facility] 04/14 12:57 Order name: RAD; Complete Time: 13:00 EDN[facility] 04/14 13:23 Order name: CT EDNJ 04/14 11:05 Order name: EKG; Complete Time: 11:06 [facility] 04/14 11:05 Order name: Cardiac monitoring; Complete Time: 11:14 [facility] 04/14 11:05 Order name: EKG - Nurse/Tech; Complete Time: 11:14 [facility] 04/14 11:05 Order name: IV Saline Lock; Complete Time: 11:13 [facility] 04/14 11:05 Order name: Labs collected and sent; Complete Time: 11:13 [facility] 04/14 11:05 Order name: O2 Per Protocol; Complete Time: 11:14 [facility] 04/14 11:05 Order name: O2 Sat Monitoring; Complete Time: 11:14 [facility] 04/14 11:05 Order name: Seizure Precautions; Complete Time: 11:12 [facility] 04/14 12:11 Order name: EKG; Complete Time: 12:12 [facility] 04/14 12:11 Order name: EKG - Nurse/Tech; Complete Time: 12:29 ashish Administered Medications: 11:25 Drug: NS 0.9% 1000 ml Route: IV; Rate: 125 ml/hr; Site: right antecubital; ph 14:25 Follow up: Response: No adverse reaction; IV Status: Infusion continued upon transfer ph 11:25 Drug: Lopressor 2.5 mg Route: IVP; Site: right antecubital; ph 12:00 Follow up: Response: No adverse reaction; Cardiac rhythm changed ph 11:30 Drug: Ativan 1 mg Route: IVP; Site: right antecubital; ph 13:00 Follow up: Response: No adverse reaction; RASS: Light sedation (-2) ph 11:52 Drug: Keppra 1000 mg Route: IV; Rate: per protocol; Site: right forearm; ph 12:15 Follow up: Response: No adverse reaction; IV Status: Completed infusion ph 11:52 Drug: NS 0.9% 500 ml Route: IV; Rate: bolus; Site: right forearm; ph 13:30 Follow up: Response: No adverse reaction; IV Status: Completed infusion; IV Intake: ph 500ml 12:56 Drug: Magnesium Sulfate 1 grams Route: IVPB; Infused Over: 1 hrs; Site: right antecubital; 14:00 Follow up: Response: No adverse reaction; IV Status: Completed infusion ph Disposition: 04/14/19 13:22 Transfer ordered to [facility]. Diagnosis are Atrial fibrillation and flutter, Cardiomegaly, Unspecified combined systolic (congestive) and diastolic (congestive) heart failure, Epilepsy and recurrent seizures, Hypomagnesemia, Type 2 diabetes mellitus, Unspecified kidney failure. - Reason for transfer: Higher level of care. - Accepting physician is Dr. Stpehens. - Condition is Serious. - Problem is new. - Symptoms have improved. Signatures: Dispatcher [employer] David Gardner MD MD cha Hall, Patricia, RN RN ph Beatriz Slater Corrections: (The following items were deleted from the chart) 13:23 13:22 04/14/2019 13:22 Transfer ordered to [facility]. Diagnosis is ashish Atrial fibrillation and flutter; Cardiomegaly; Unspecified combined systolic (congestive) and diastolic (congestive) heart failure; Epilepsy and recurrent seizures; Hypomagnesemia; Type 2 diabetes mellitus. Reason for transfer: Higher level of care. Accepting physician is to [facility]. Condition is Serious. Problem is new. Symptoms have improved. ashish 14:15 13:23 04/14/2019 13:22 Transfer ordered to [facility]. Diagnosis is eb Atrial fibrillation and flutter; Cardiomegaly; Unspecified combined systolic (congestive) and diastolic (congestive) heart failure; Epilepsy and recurrent seizures; Hypomagnesemia; Type 2 diabetes mellitus; Unspecified kidney failure. Reason for transfer: Higher level of care. Accepting physician is to [facility]. Condition is Serious. Problem is new. Symptoms have improved. [facility] 14:33 14:15 04/14/2019 13:22 Transfer ordered to [facility]. Diagnosis is ph Atrial fibrillation and flutter; Cardiomegaly; Unspecified combined systolic (congestive) and diastolic (congestive) heart failure; Epilepsy and recurrent seizures; Hypomagnesemia; Type 2 diabetes mellitus; Unspecified kidney failure. Reason for transfer: Higher level of care. Accepting physician is Dr. Stephens. Condition is Serious. Problem is new. Symptoms have improved. eb
--- NOTE | 2019-04-14 13:23 | ER ---
Nurse's Notes [facility] Name: Magali Montez Age: 73 yrs Sex: Female : 1945 Arrival Date: 04/14/2019 Time: 10:56 Bed 4 Private MD: Diagnosis: Atrial fibrillation and flutter;Cardiomegaly;Unspecified combined systolic (congestive) and diastolic (congestive) heart failure;Epilepsy and recurrent seizures;Hypomagnesemia;Type 2 diabetes mellitus;Unspecified kidney failure Presentation: 04/14 11:01 Presenting complaint: EMS states: Defibrillator fired once last night and once this ph morning, pt became unresponsive on way to ED, awake and alert upon arrival, pt noted to have tremors that began at approx 1030, 20G established to RAC, BGL 188. Transition of care: patient was not received from another setting of care. Onset of symptoms was April 14, 2019. Risk Assessment: Do you want to hurt yourself or someone else? Patient reports no desire to harm self or others. Initial Sepsis Screen: Does the patient meet any 2 criteria? No. Patient's initial sepsis screen is negative. Initial Sepsis Screen: Does the patient meet any 2 criteria? Does the patient have a suspected source of infection? No. Patient's initial sepsis screen is negative. Care prior to arrival: IV initiated. 20 GA, in the right antecubital area, Glucose check: 188. 11:01 Method Of Arrival: EMS: [facility] ph 11:01 Acuity: MILAGROS 1 ph Historical: - Allergies: 11:13 Vancomycin; ph - Home Meds: 11:13 carvedilol 6.25 mg oral tab 1 tab 2 times per day [Active]; Eliquis 5 mg Oral tab 1 tab ph 2 times per day [Active]; Glimepiride 5 mg Oral 1 tab twice a day [Active]; sertraline 100 mg Oral tab 1 tab once daily [Active]; lisinopril 2.5 mg oral tab 1 tab once daily [Active]; levothyroxine 50 mcg oral tab 1 tab once daily [Active]; furosemide 40 mg Oral tab 1 tab once daily [Active]; - PMHx: 11:13 Anxiety; CHF; CVA; Diabetes - NIDDM; High Cholesterol; Hypertension; Hypothyroidism; ph Myocardial infarction; - Immunization history:: Adult Immunizations unknown. - Social history:: Smoking status: Patient/guardian denies using tobacco. - Ebola Screening: : No symptoms or risks identified at this time. - Family history:: not pertinent. Screenin:55 Abuse screen: Denies threats or abuse. Denies injuries from another. Nutritional ph screening: No deficits noted. Tuberculosis screening: No symptoms or risk factors identified. Fall Risk No fall in past 12 months (0 pts). Secondary diagnosis (15 points) CVA, IV access (20 points). Ambulatory Aid- Crutches/Cane/Walker (15 pts). Gait- Weak (10 pts.). Mental Status- Overestimates/Forgets Limitations (15 pts.). Total Lowery Fall Scale indicates High Risk Score (45 or more points). Fall prevention measures have been instituted. Side Rails Up X 2 Placed Close to Nursing Station Frequent Obs/Assessments Occuring Family Present and informed to notify staff if the need to leave the bedside As available patient and family educated on Fall Prevention Program and Strategies. Assessment: 11:00 General: Appears in no apparent distress. uncomfortable, well groomed, Behavior is ph cooperative, quiet, restless. Pain: Denies pain. Neuro: Level of Consciousness is awake, obeys commands, Oriented to person, place, situation, Facial symmetry appears normal, tremors noted, family reports that tremors began at approx 1030. Cardiovascular: Capillary refill < 3 seconds in bilateral fingers Patient's skin is warm and dry. Rhythm is atrial fibrillation with rapid ventricular response. Respiratory: Airway is patent Respiratory effort is even, unlabored, Respiratory pattern is regular, symmetrical. GI: Patient currently denies abdominal pain, nausea. Derm: Skin is intact, Skin is pink, warm \T\ dry. Musculoskeletal: Circulation, motion, and sensation intact. Range of motion: limited in left arm r/t previous stroke. 11:53 Reassessment: Patient appears in no apparent distress at this time. Patient and/or ph family updated on plan of care and expected duration. Pain level reassessed. Pt resting comfortably w/ no tremors noted, heart rate decreased to 76 bpm, BP also noted ti have decreased to 77/52, ERP notified and 500 mL NS bolus ordered, will accompany pt to CT after BP stabalized. 13:00 Reassessment: Patient appears in no apparent distress at this time. Patient and/or ph family updated on plan of care and expected duration. Pain level reassessed. Pt asleep w/ equal and unlabored respirations, BP remains low, ERP aware and at bedside to speak w/ family. 13:50 Reassessment: Patient appears in no apparent distress at this time. No changes from ph previously documented assessment. Patient and/or family updated on plan of care and expected duration. Pain level reassessed. Report called to Aurea Stewart at [facility], awaiting EMS for transport. Vital Signs: 11:04 BP 114 / 79; Pulse 115; Resp 20; Temp 96.8(TE); Pulse Ox 100% on R/A; Weight 55.34 kg; ph Height 4 ft. 10 in. (147.32 cm); 11:45 BP 77 / 52; Pulse 79; Resp 18; Pulse Ox 97% on R/A; ph 12:07 BP 70 / 49; Pulse 71; Resp 12; Pulse Ox 98% on R/A; ph 13:22 BP 88 / 54; Pulse 71; Resp 18; Pulse Ox 100% on R/A; ph 13:43 BP 84 / 54; Pulse 70; Resp 18; Temp 97.2; Pulse Ox 100% on R/A; ph 14:00 BP 99 / 58; Pulse 74; Resp 18; Temp 97.2; Pulse Ox 100% on R/A; ph 11:04 Body Mass Index 25.50 (55.34 kg, 147.32 cm) ph ED Course: 10:56 Patient arrived in ED. iw 11:00 Initial lab(s) drawn, by nj, sent to lab. 3 11:01 Elzbieta Guerra, EDGARD is Primary Nurse. ph 11:01 David Suazo MD is Attending Physician. [facility] 11:04 Triage completed. ph 11:13 Radiology exam delayed due to pt not stable for CT at this time. vm2 11:13 Arm band placed on Patient placed in an exam room, on a stretcher, on surveillance system monitor, ph on pulse oximetry. 11:17 EKG done, by ED staff, reviewed by David Suazo MD. dh3 11:34 X-ray completed. Portable x-ray completed in exam room. Patient tolerated procedure sw well. 11:55 Patient has correct armband on for positive identification. Placed in gown. Bed in low ph position. Call light in reach. Side rails up X2. surveillance system monitor on. Pulse ox on. NIBP on. Door closed. Noise minimized. Warm blanket given. 12:22 EKG done, by ED staff, reviewed by David Suazo MD. 3 13:[address] Suazo with Rubi Casper from the [facility]. 13:28 connected the classification case manager excavation laborer for [facility] Dr. Stephens with Dr. Suazo for eb patient transfer consultation. 13:35 administrative approval given by Rubi Casper/ patient has been accepted to [facility] bed [id number] / Dr. Stephens has accepted the patient transfer/ report to be called to [phone]. 14:33 No provider procedures requiring assistance completed. Patient transferred, IV remains ph in place. Administered Medications: 11:25 Drug: NS 0.9% 1000 ml Route: IV; Rate: 125 ml/hr; Site: right antecubital; ph 14:25 Follow up: Response: No adverse reaction; IV Status: Infusion continued upon transfer ph 11:25 Drug: Lopressor 2.5 mg Route: IVP; Site: right antecubital; ph 12:00 Follow up: Response: No adverse reaction; Cardiac rhythm changed ph 11:30 Drug: Ativan 1 mg Route: IVP; Site: right antecubital; ph 13:00 Follow up: Response: No adverse reaction; RASS: Light sedation (-2) ph 11:52 Drug: Keppra 1000 mg Route: IV; Rate: per protocol; Site: right forearm; ph 12:15 Follow up: Response: No adverse reaction; IV Status: Completed infusion ph 11:52 Drug: NS 0.9% 500 ml Route: IV; Rate: bolus; Site: right forearm; ph 13:30 Follow up: Response: No adverse reaction; IV Status: Completed infusion; IV Intake: ph 500ml 12:56 Drug: Magnesium Sulfate 1 grams Route: IVPB; Infused Over: 1 hrs; Site: right ph antecubital; 14:00 Follow up: Response: No adverse reaction; IV Status: Completed infusion ph Intake: 13:30 IV: 500ml; Total: 500ml. ph Outcome: 13:22 ER care complete, transfer ordered by MD. hinojosa 14:33 Patient left the ED. ph 14:33 Transferred by ground EMS [place]. to [facility], Transfer form ph completed. X-rays sent w/ patient. 14:33 critical 14:33 Instructed on the need for transfer. Signatures: David Suazo MD MD cha Williams, Irene, EDGARD RENE Elzbieta Guerra RN RN Tayo, Annette [facility] Hiral Ramírez [facility] Beatriz Slater
[2019-04-14 14:58] VITALS: O2SAT 100
[2019-04-14 14:59] VITALS: BP 84/54; TEMP 97.2
--- NOTE | 2019-04-15 12:46 | EKG ---
Test Date: 2019-04-14 Test Time: 12:17:15 Senior Dentist: SALVADOR MEASUREMENT RESULTS: Intervals: Rate: 79 TX: 188 QRSD: 126 QT: 456 QTc: 522 Merlin: P: -19 TX: 188 QRS: -40 T: 120 INTERPRETIVE STATEMENTS: Normal sinus rhythm Left axis deviation Nonspecific intraventricular block Cannot rule out Anterior infarct, age undetermined Abnormal ECG Compared to ECG 04/14/2019 11:15:55 Sinus tachycardia no longer present Ventricular premature complex(es) no longer present T-wave abnormality no longer present Possible ischemia no longer present Myocardial infarct finding still present Electronically Signed On 04-15-19 12:44:44 VISE HAND by Rajesh Hernandez
--- NOTE | 2019-04-15 12:47 | EKG ---
Test Date: 2019-04-14 Test Time: 11:15:55 Electrical Maintenance Worker: SAL[place]OR MEASUREMENT RESULTS: Intervals: Rate: 107 NH: 184 QRSD: 130 QT: 384 QTc: 512 Hyrum: P: 9 NH: 184 QRS: -51 T: 107 INTERPRETIVE STATEMENTS: Sinus tachycardia with frequent premature ventricular complexes Left axis deviation Nonspecific intraventricular block Cannot rule out Anterior infarct, age undetermined T wave abnormality, consider lateral ischemia Abnormal ECG Compared to ECG 07/06/2018 11:11:53 Ventricular premature complex(es) now present Left-axis deviation now present Myocardial infarct finding now present Electronically Signed On 04-15-19 12:45:08 ATHLETIC SHOE DESIGNER by Rajesh Hernandez
--- OUTSIDE RECORDS SUMMARY | 2019-04-16 06:16 | XMS REPORT ---
:1945 [facility] Address [address] [place] [address] [address] [place] [address] Care Team Providers Name Role Phone VANESSA MOCSOSO Unavailable Unavailable ALEX GIRALDO Unavailable Unavailable Problems This patient has no known problems. Allergies, Adverse Reactions, Alerts This patient has no known allergies or adverse reactions. Medications This patient has no known medications. Results Test Description Test Time Test Comments Text Results Atomic Results Result Comments MAGNESIUM 2019-04-16 05:07:00 Test Item Value Reference Range Comments MAGNESIUM (BEAKER) (test dfbz=165) 1.7 mg/dL 1.6-2.6 Specimen slightly hemolyzed BASIC METABOLIC [id number] 05:07:00 Test Item Value Reference Range Comments SODIUM (BEAKER) (test 138 meq/L 136-145 rqko=733) POTASSIUM (BEAKER) (test 3.6 meq/L 3.5-5.1 Specimen slightly ubhm=254) hemolyzed CHLORIDE (BEAKER) (test 107 meq/L 98-107 cmjb=934) CO2 (BEAKER) (test 23 meq/L 22-29 zwyd=932) BLOOD UREA NITROGEN 24 mg/dL 7-21 (BEAKER) (test upto=843) CREATININE (BEAKER) (test 1.15 mg/dL 0.57-1.25 Specimen slightly hrkm=891) hemolyzed GLUCOSE RANDOM (BEAKER) 117 mg/dL 70-105 (test trhc=135) CALCIUM (BEAKER) (test 8.7 mg/dL 8.4-10.2 xutx=688) EGFR (BEAKER) (test 46 mL/min/1.73 sq m ESTIMATED GFR IS NOT fnvc=3277) ACCURATE CREATININE CLEARANCE IN PREDICTING GLOMERULAR FILTRATION RATE. ESTIMATED GFR IS NOT APPLICABLE FOR DIALYSIS PATIENTS. PROTHROMBIN TIME/[id number] 04:43:00 Test Item Value Reference Range Comments PROTIME (BEAKER) (test eexp=406) 19.1 seconds 11.9-14.2 INR (BEAKER) (test ujcr=151) 1.7 <=5.9 Effective 11/01/2018: PT Reference Range ChangeNew: 11.9-14.2 Previous: 11.7- 14.7RECOMMENDED COUMADIN/WARFARIN INR THERAPY RANGESSTANDARD DOSE: 2.0-3.0 Includes: PROPHYLAXIS for venous thrombosis, systemic embolization; TREATMENT for venous thrombosis and/or pulmonary embolus.HIGH RISK: Target INR is2.5-3.5 for patients wiht mechanical heart valves.POCT-GLUCOSE [id number] 21:57:00 Test Item Value Reference Range Comments POC-GLUCOSE METER (BEAKER) 178 mg/dL 70-110 : Notified RN/MD: TESTED AT (test hakd=3914) [address], [address]: Tobacco Blender/Legal Receptionist [id number] for Anton Lovell POCT-GLUCOSE [id number] 18:23:00 Test Item Value Reference Range Comments POC-GLUCOSE METER (BEAKER) 245 mg/dL 70-110 : TESTED AT [address] (test ggcl=2151) [facility], [address]: Tobacco Blender/Legal Receptionist [id number] for REZA GONZALEZ POCT-GLUCOSE [id number] 12:13:00 Test Item Value Reference Range Comments POC-GLUCOSE METER (BEAKER) 93 mg/dL 70-110 : TESTED AT [address] (test iyhp=5809) [facility], [address]: Tobacco Blender/Legal Receptionist [id number] for ELLI MAURICIO POCT-GLUCOSE [id number] 08:39:00 Test Item Value Reference Range Comments POC-GLUCOSE METER (BEAKER) 70 mg/dL 70-110 : TESTED AT [address] (test uhqs=1502) [facility], [address]: Tobacco Blender/Legal Receptionist [id number] for IRENE HOOPER PROTHROMBIN TIME/[id number] 02:45:00 Test Item Value Reference Range Comments PROTIME (BEAKER) (test spcy=663) 21.0 seconds 11.9-14.2 INR (BEAKER) (test yuzh=631) 1.9 <=5.9 Effective 11/01/2018: PT Reference Range ChangeNew: 11.9-14.2 Previous: 11.7- 14.7RECOMMENDED COUMADIN/WARFARIN INR THERAPY RANGESSTANDARD DOSE: 2.0-3.0 Includes: PROPHYLAXIS for venous thrombosis, systemic embolization; TREATMENT for venous thrombosis and/or pulmonary embolus.HIGH RISK: Target INR is2.5-3.5 for patients wiht mechanical heart valves.TROPONIN [id number] 02:33:00 Test Item Value Reference Range Comments TROPONIN I (BEAKER) (test beqn=428) 0.09 ng/mL 0.00-0.03 Troponin I (TnI) levels must be interpreted in the context of the presenting symptoms and the clinical findings. Elevated TnI levels indicate myocardial damage, but are not specific for ischemic heart disease. Elevated TnI levels are seen in patients with other cardiac conditions (including myocarditis and congestive heart failure), and slight TnI elevations occur in patients with other conditions, including sepsis, renal failure, acidosis, acute neurological disease, and persistent tachyarrhythmia.[id number] 02:27:00 Test Item Value Reference Range Comments MAGNESIUM (BEAKER) (test 2.2 mg/dL 1.6-2.6 Specimen slightly hemolyzed mfhp=221) BASIC METABOLIC [id number] 02:27:00 Test Item Value Reference Range Comments SODIUM (BEAKER) (test 140 meq/L 136-145 yeax=213) POTASSIUM (BEAKER) (test 4.0 meq/L 3.5-5.1 Specimen slightly eeld=266) hemolyzed CHLORIDE (BEAKER) (test 106 meq/L 98-107 xnuw=517) CO2 (BEAKER) (test 20 meq/L 22-29 mjyw=684) BLOOD UREA NITROGEN 23 mg/dL 7-21 (BEAKER) (test seqn=154) CREATININE (BEAKER) (test 1.27 mg/dL 0.57-1.25 Specimen slightly zbwu=889) hemolyzed GLUCOSE RANDOM (BEAKER) 104 mg/dL 70-105 (test ekgv=396) CALCIUM (BEAKER) (test 9.1 mg/dL 8.4-10.2 mbgb=244) EGFR (BEAKER) (test 41 mL/min/1.73 sq m ESTIMATED GFR IS NOT rtkp=5592) ACCURATE CREATININE CLEARANCE IN PREDICTING GLOMERULAR FILTRATION RATE. ESTIMATED GFR IS NOT APPLICABLE FOR DIALYSIS PATIENTS. Specimen slightly ictericCBC W/PLT COUNT & AUTO [id number] 02:14 :00 Test Item Value Reference Range Comments WHITE BLOOD CELL COUNT (BEAKER) (test cmgz=461) 5.6 K/ L 3.5-10.5 RED BLOOD CELL COUNT (BEAKER) (test ihaz=067) 4.66 M/ L 3.93-5.22 HEMOGLOBIN (BEAKER) (test yrkh=984) 12.9 GM/DL 11.2-15.7 HEMATOCRIT (BEAKER) (test difv=490) 40.8 % 34.1-44.9 MEAN CORPUSCULAR VOLUME (BEAKER) (test nhee=538) 87.6 fL 79.4-94.8 MEAN CORPUSCULAR HEMOGLOBIN (BEAKER) (test 27.7 pg 25.6-32.2 eczz=884) MEAN CORPUSCULAR HEMOGLOBIN CONC (BEAKER) (test 31.6 GM/DL 32.2-35.5 mbad=424) RED CELL DISTRIBUTION WIDTH (BEAKER) (test 20.2 % 11.7-14.4 vjso=617) PLATELET COUNT (BEAKER) (test krxq=991) 199 K/CU MM 150-450 MEAN PLATELET VOLUME (BEAKER) (test jipc=526) 13.5 fL 9.4-12.3 NUCLEATED RED BLOOD CELLS (BEAKER) (test 0 /100 WBC 0-0 qgaa=593) NEUTROPHILS RELATIVE PERCENT (BEAKER) (test 56 % hgmn=531) LYMPHOCYTES RELATIVE PERCENT (BEAKER) (test 29 % wwgd=219) MONOCYTES RELATIVE PERCENT (BEAKER) (test 13 % tskz=599) EOSINOPHILS RELATIVE PERCENT (BEAKER) (test 1 % hyqm=228) BASOPHILS RELATIVE PERCENT (BEAKER) (test 1 % ibon=371) NEUTROPHILS ABSOLUTE COUNT (BEAKER) (test 3.16 K/ L 1.56-6.13 yuvs=534) LYMPHOCYTES ABSOLUTE COUNT (BEAKER) (test 1.61 K/ L 1.18-3.74 gidy=431) MONOCYTES ABSOLUTE COUNT (BEAKER) (test 0.71 K/ L 0.24-0.36 yizt=809) EOSINOPHILS ABSOLUTE COUNT (BEAKER) (test 0.06 K/ L 0.04-0.36 nilm=820) BASOPHILS ABSOLUTE COUNT (BEAKER) (test 0.05 K/ L 0.01-0.08 crlp=627) IMMATURE GRANULOCYTES-RELATIVE PERCENT (BEAKER) 0 % 0-1 (test xyxv=8459) RAD, CHEST, 1 VIEW, NON [id number] 02:12:00Reason for exam:->sobShould this be performed at the bedside?->YesFINAL REPORT RAD , CHEST, 1 VIEW, NON DEPT INDICATION: sob COMPARISON: Plain radiograph the chest dated 07/17/2016. FINDINGS: Portable frontal view of the chest. IMPRESSION: Support Lines: Interval removal of the previously seen right IJ central venous catheter. Unchanged left chest wall pacer device with leads overlying right atrium and right ventricle.Lungs and pleura: No lobar consolidation or large pleural effusion. Minimal bibasilar atelectasis. Coarse interstitial lung markings are unchanged in the interval. No pneumothorax.Heart and mediastinum: Unchanged enlarged cardiac mediastinal silhouette. Postsurgical changes of a median sternotomy.Additional findings: Osseousstructures are grossly unremarkable. Signed: Chivo Hernandez [facility] Verified Date/Time: 04/15/2019 02:12:46 URINALYSIS W/ REFLEX URINE [id number] 00:48:00 Test Item Value Reference Range Comments COLOR (BEAKER) (test veoe=568) Yellow CLARITY (BEAKER) (test lizt=205) Cloudy SPECIFIC GRAVITY UA (BEAKER) (test bptq=521) 1.010 1.001-1.035 PH UA (BEAKER) (test yqwu=271) 7.0 5.0-8.0 PROTEIN UA (BEAKER) (test knwv=589) 20 mg/dL Negative GLUCOSE UA (BEAKER) (test lahl=974) Negative Negative KETONES UA (BEAKER) (test kgfo=061) Negative Negative BILIRUBIN UA (BEAKER) (test ussc=997) Negative Negative BLOOD UA (BEAKER) (test gyfy=572) Moderate Negative NITRITE UA (BEAKER) (test urnx=911) Negative Negative LEUKOCYTE ESTERASE UA (BEAKER) (test xari=810) Large Negative UROBILINOGEN UA (BEAKER) (test sala=735) 3.0 mg/dL 0.2-1.0 RBC UA (BEAKER) (test rzta=101) 4 /HPF WBC UA (BEAKER) (test haru=209) 7 /HPF BACTERIA (BEAKER) (test bbpw=726) Many SQUAMOUS EPITHELIAL (BEAKER) (test qdpu=955) < /HPF HYALINE CASTS (BEAKER) (test ottw=565) 1 /LPF SOURCE(BEAKER) (test siqe=9299) POCT-GLUCOSE [id number] 22:39:00 Test Item Value Reference Range Comments POC-GLUCOSE METER (BEAKER) 122 mg/dL 70-110 : TESTED AT [facility] [address] (test gaeu=6096) [facility], [address]: Tobacco Blender/Legal Receptionist [id number] for Stephenie Moss TSH/FREE T4 IF [id number] 19:21:00 Test Item Value Reference Range Comments THYROID STIMULATING HORMONE (BEAKER) (test 2.47 uIU/mL 0.35-4.94 eenu=834) B-TYPE NATRIURETIC FACTOR (BNP)2019-04-14 19:06:00 Test Item Value Reference Range Comments B-TYPE NATRIURETIC PEPTIDE (BEAKER) (test 3607 pg/mL 0-100 fdkk=118) TROPONIN [id number] 19:06:00 Test Item Value Reference Range Comments TROPONIN I (BEAKER) (test qdkt=520) 0.07 ng/mL 0.00-0.03 Troponin I (TnI) levels must be interpreted in the context of the presenting symptoms and the clinical findings. Elevated TnI levels indicate myocardial damage, but are not specific for ischemic heart disease. Elevated TnI levels are seen in patients with other cardiac conditions (including myocarditis and congestive heart failure), and slight TnI elevations occur in patients with other conditions, including sepsis, renal failure, acidosis, acute neurological disease, and persistent tachyarrhythmia.BASIC METABOLIC [id number] 18:58:00 Test Item Value Reference Range Comments SODIUM (BEAKER) (test 140 meq/L 136-145 fksa=616) POTASSIUM (BEAKER) (test 3.4 meq/L 3.5-5.1 mgmy=330) CHLORIDE (BEAKER) (test 105 meq/L 98-107 lawc=135) CO2 (BEAKER) (test 20 meq/L 22-29 xpww=711) BLOOD UREA NITROGEN 23 mg/dL 7-21 (BEAKER) (test vszj=714) CREATININE (BEAKER) (test 1.16 mg/dL 0.57-1.25 dgil=245) GLUCOSE RANDOM (BEAKER) 151 mg/dL 70-105 (test xcte=175) CALCIUM (BEAKER) (test 9.1 mg/dL 8.4-10.2 ueob=216) EGFR (BEAKER) (test 46 mL/min/1.73 sq m ESTIMATED GFR IS NOT yslf=9509) ACCURATE CREATININE CLEARANCE IN PREDICTING GLOMERULAR FILTRATION RATE. ESTIMATED GFR IS NOT APPLICABLE FOR DIALYSIS PATIENTS. CBC W/PLT COUNT & AUTO [id number] 18:33:00 Test Item Value Reference Range Comments WHITE BLOOD CELL COUNT (BEAKER) (test trme=886) 5.4 K/ L 3.5-10.5 RED BLOOD CELL COUNT (BEAKER) (test exao=708) 4.37 M/ L 3.93-5.22 HEMOGLOBIN (BEAKER) (test dsop=354) 11.9 GM/DL 11.2-15.7 HEMATOCRIT (BEAKER) (test qxec=607) 37.8 % 34.1-44.9 MEAN CORPUSCULAR VOLUME (BEAKER) (test faaj=497) 86.5 fL 79.4-94.8 MEAN CORPUSCULAR HEMOGLOBIN (BEAKER) (test 27.2 pg 25.6-32.2 srrk=912) MEAN CORPUSCULAR HEMOGLOBIN CONC (BEAKER) (test 31.5 GM/DL 32.2-35.5 izsc=033) RED CELL DISTRIBUTION WIDTH (BEAKER) (test 19.9 % 11.7-14.4 xlmm=880) PLATELET COUNT (BEAKER) (test yomx=938) 169 K/CU MM 150-450 MEAN PLATELET VOLUME (BEAKER) (test qjye=900) 12.2 fL 9.4-12.3 NUCLEATED RED BLOOD CELLS (BEAKER) (test 0 /100 WBC 0-0 omiq=223) NEUTROPHILS RELATIVE PERCENT (BEAKER) (test 66 % uhha=817) LYMPHOCYTES RELATIVE PERCENT (BEAKER) (test 24 % jkux=262) MONOCYTES RELATIVE PERCENT (BEAKER) (test 9 % jpus=608) EOSINOPHILS RELATIVE PERCENT (BEAKER) (test 0 % zxos=734) BASOPHILS RELATIVE PERCENT (BEAKER) (test 1 % jchs=469) NEUTROPHILS ABSOLUTE COUNT (BEAKER) (test 3.57 K/ L 1.56-6.13 xpst=236) LYMPHOCYTES ABSOLUTE COUNT (BEAKER) (test 1.31 K/ L 1.18-3.74 xwhe=115) MONOCYTES ABSOLUTE COUNT (BEAKER) (test 0.47 K/ L 0.24-0.36 hjuh=064) EOSINOPHILS ABSOLUTE COUNT (BEAKER) (test 0.02 K/ L 0.04-0.36 ncus=155) BASOPHILS ABSOLUTE COUNT (BEAKER) (test 0.04 K/ L 0.01-0.08 dtyb=629) IMMATURE GRANULOCYTES-RELATIVE PERCENT (BEAKER) 0 % 0-1 (test leae=8179) POCT-GLUCOSE [id number] 18:04:00 Test Item Value Reference Range Comments POC-GLUCOSE METER (BEAKER) 156 mg/dL 70-110 : TESTED AT [facility] [address] (test feyr=0107) [facility], [address]: Tobacco Blender/Legal Receptionist [id number] for BRIAN WOODARD COMPREHENSIVE METABOLIC [id number] 07:39:00 Test Item Value Reference Range Comments TOTAL PROTEIN (BEAKER) 7.3 gm/dL 6.0-8.3 (test azbf=187) ALBUMIN (BEAKER) (test 3.9 g/dL 3.5-5.0 qzdd=7877) ALKALINE PHOSPHATASE 86 U/L 40-150 (BEAKER) (test shlq=113) BILIRUBIN TOTAL (BEAKER) 1.3 mg/dL 0.2-1.2 (test onae=409) SODIUM (BEAKER) (test 136 meq/L 136-145 pfjm=899) POTASSIUM (BEAKER) (test 3.5 meq/L 3.5-5.1 azdb=213) CHLORIDE (BEAKER) (test 106 meq/L 98-107 vuwo=780) CO2 (BEAKER) (test 18 meq/L 22-29 yxje=795) BLOOD UREA NITROGEN 18 mg/dL 7-21 (BEAKER) (test xchz=954) CREATININE (BEAKER) (test 1.01 mg/dL 0.57-1.25 teap=293) GLUCOSE RANDOM (BEAKER) 171 mg/dL 70-105 (test herg=182) CALCIUM (BEAKER) (test 9.0 mg/dL 8.4-10.2 dqxv=774) AST (SGOT) (BEAKER) (test 81 U/L 5-34 lhxv=772) ALT (SGPT) (BEAKER) (test 59 U/L 6-55 hixl=601) EGFR (BEAKER) (test 54 mL/min/1.73 sq m ESTIMATED GFR IS NOT wxxc=4627) ACCURATE CREATININE CLEARANCE IN PREDICTING GLOMERULAR FILTRATION RATE. ESTIMATED GFR IS NOT APPLICABLE FOR DIALYSIS PATIENTS. [id number] 07:22:00 Test Item Value Reference Range Comments PARTIAL THROMBOPLASTIN TIME (BEAKER) (test 34.7 seconds 22.5-36.0 rrnt=611) Within 24 hours, if on CoumadinPROTHROMBIN TIME/[id number] 07:21:00 Test Item Value Reference Range Comments PROTIME (BEAKER) (test qvfo=519) 20.7 seconds 11.9-14.2 INR (BEAKER) (test dcdl=686) 1.9 <=5.9 Effective 11/01/2018: PT Reference Range ChangeNew: 11.9-14.2 Previous: 11.7- 14.7RECOMMENDED COUMADIN/WARFARIN INR THERAPY RANGESSTANDARD DOSE: 2.0-3.0 Includes: PROPHYLAXIS for venous thrombosis, systemic embolization; TREATMENT for venous thrombosis and/or pulmonary embolus.HIGH RISK: Target INR is2.5-3.5 for patients wiht mechanical heart valves.Within 24 hours, if on CoumadinCBC W/ PLT COUNT & AUTO [id number] 07:13:00 Test Item Value Reference Range Comments WHITE BLOOD CELL COUNT (BEAKER) (test gwms=375) 6.5 K/ L 3.5-10.5 RED BLOOD CELL COUNT (BEAKER) (test wvhs=379) 4.25 M/ L 3.93-5.22 HEMOGLOBIN (BEAKER) (test ecre=282) 12.4 GM/DL 11.2-15.7 HEMATOCRIT (BEAKER) (test uqjd=605) 39.3 % 34.1-44.9 MEAN CORPUSCULAR VOLUME (BEAKER) (test mnvv=080) 92.5 fL 79.4-94.8 MEAN CORPUSCULAR HEMOGLOBIN (BEAKER) (test 29.2 pg 25.6-32.2 uycc=375) MEAN CORPUSCULAR HEMOGLOBIN CONC (BEAKER) (test 31.6 GM/DL 32.2-35.5 qltn=632) RED CELL DISTRIBUTION WIDTH (BEAKER) (test 17.0 % 11.7-14.4 vxwg=774) PLATELET COUNT (BEAKER) (test zsvz=456) 223 K/CU MM 150-450 MEAN PLATELET VOLUME (BEAKER) (test kqcu=757) 11.5 fL 9.4-12.3 NUCLEATED RED BLOOD CELLS (BEAKER) (test 0 /100 WBC 0-0 geht=370) NEUTROPHILS RELATIVE PERCENT (BEAKER) (test 68 % dpuv=524) LYMPHOCYTES RELATIVE PERCENT (BEAKER) (test 19 % elyp=206) MONOCYTES RELATIVE PERCENT (BEAKER) (test 12 % mwlh=493) EOSINOPHILS RELATIVE PERCENT (BEAKER) (test 1 % iylx=054) BASOPHILS RELATIVE PERCENT (BEAKER) (test 1 % qwlp=216) NEUTROPHILS ABSOLUTE COUNT (BEAKER) (test 4.42 K/ L 1.56-6.13 fark=761) LYMPHOCYTES ABSOLUTE COUNT (BEAKER) (test 1.25 K/ L 1.18-3.74 eybm=232) MONOCYTES ABSOLUTE COUNT (BEAKER) (test 0.75 K/ L 0.24-0.36 tecg=670) EOSINOPHILS ABSOLUTE COUNT (BEAKER) (test 0.05 K/ L 0.04-0.36 jold=796) BASOPHILS ABSOLUTE COUNT (BEAKER) (test 0.04 K/ L 0.01-0.08 youp=875) IMMATURE GRANULOCYTES-RELATIVE PERCENT (BEAKER) 0 % 0-1 (test tmne=7164)
--- OUTSIDE RECORDS SUMMARY | 2019-04-16 06:17 | XMS REPORT | Summary of Care ---
:1945 Author Organization [facility] Address [address] [place] [address] Care Team Providers Name Role Phone Pcp, Patient Does Not Have A Primary Care Provider Reason for Referral (Routine) Status Reason Specialty Diagnoses / Referred By Referred To Procedures Contact Contact Canceled Patient is Family Medicine Diagnoses Chest pain, unspecified type Matt Castle, Pcp, Patient Established with Procedures Discharge Follow-up: PCP PATIENT DOES NOT HAVE A PCP; 1 Week MD Does Not Have a Specific [address] [place] [address] Provider [facility]. [address] [facility] [address] [place] [address] Phone: [phone] Radiology Services (Routine) Status Reason Specialty Diagnoses / Procedures Referred By Contact Referred To Contact Closed Radiology Diagnoses Chest pain, unspecified type Chest pain, unspecified type Movva, Bob, MBBS Adc Nuclear Procedures NM MYOCARDIUM PERFUSION STRESS AND REST CHG MYOCARDIAL SPECT MULTIPLE STUDIES MYOCARDIUM PERFUSION STRESS AND REST [address] [place] [address] 132 [facility] [place] [address] Radiology Services (Routine) Status Reason Specialty Diagnoses / Procedures Referred By Contact Referred To Contact Closed Radiology Diagnoses Chest pain, unspecified type Chest pain, unspecified type Movva, Bob, MBBS Adc Nuclear Procedures NM MYOCARDIUM PERFUSION STRESS AND REST CHG MYOCARDIAL SPECT MULTIPLE STUDIES MYOCARDIUM PERFUSION STRESS AND REST [address] [place] [address] [place] [address] [place] [address] [place] [address] Radiology Services (STAT) Status Reason Specialty Diagnoses / Referred By Referred To Procedures Contact Contact New Request Diagnostic Diagnoses Chest pain, unspecified type Briceno, Carlton, Radiology Procedures XR CHEST [address] [place] [address]. [address] [place] [address] Radiology Services (STAT) Status Reason Specialty Diagnoses / Referred By Referred To Procedures Contact Contact New Request Diagnostic Diagnoses Chest pain, unspecified type Briceno, Carlton, Radiology Procedures XR CHEST [address] [place] [address] Reason for Visit Reason Comments Chest Pain Auth/Cert Status Reason Specialty Diagnoses / Referred By Referred To Procedures Contact Contact Emergency Medicine [facility] Emergency Dept [address] [place] [address] [place] [address] Encounter Details Date Type Department Care Team Description 01/02/2019 - Emergency ADC Medicine Surgery Carlton Briceno, [address] [place] [address] [phone] Chest pain 01/03/2019 Unit Bob Enrique MBBS [address] [place] [address] [phone] [place] [address] [place] [id number] Allergies Active Allergy Reactions Severity Noted Date Comments Vancomycin Unknown - See comments 12/03/2018 Per EMS documented as of this encounter (statuses as of 01/03/2019) Medications Medication Sig Dispensed Refills Start Date End Date Status apixaban (ELIQUIS Take 5 mg by 0 Active ORAL) mouth. carvedilol Take 12.5 mg 0 Active (COREG) 12.5 mg by mouth 2 tablet (two) times daily with meals. furosemide Take 40 mg by 0 Active (LASIX) 40 mg mouth daily. tablet glipiZIDE 5 mg Take 5 mg by 0 Active tablet mouth daily. lisinopril 10 mg Take 5 mg by 0 Active tablet mouth daily. SERTraline 100 mg Take 100 mg by 0 Active tablet mouth daily. cephALEXin Take 1 capsule 10 capsule 0 12/20/2018 01/02/2019 Discontinued (KEFLEX) 500 mg by mouth 2 capsuleIndication (two) times s: Epigastric daily. pain, Acute cystitis without hematuria documented as of this encounter (statuses as of 01/03/2019) Active Problems Problem Noted Date Chest pain 01/02/2019 Diverticulitis 12/05/2018 Abdominal pain 12/03/2018 documented as of this encounter (statuses as of 01/03/2019) Immunizations Name Administration Dates Next Due Pneumococcal Polysaccharide, PPSV23 (PNEUMOVAX) 01/03/2019 documented as of this encounter Social History Tobacco Use Types Packs/Day Years Used Date Never Assessed Sex Assigned at Date Recorded Not on file Job Start Date Occupation Industry Not on file Not on file Not on file Travel History Travel Start Travel End No recent travel history available. documented as of this encounter Last Filed Vital Signs Vital Sign Reading Time Taken Comments Blood Pressure 147/79 01/03/2019 12:00 PM CDT Pulse 76 01/03/2019 12:00 PM CDT Temperature 36.6 C (97.9 F) 01/03/2019 12:00 PM CDT Respiratory Rate 18 01/03/2019 12:00 PM CDT Oxygen Saturation 99% 01/03/2019 12:00 PM CDT Inhaled Oxygen Concentration - - Weight 55.8 kg (123 lb) 01/02/2019 7:52 AM CDT Height - - Body Mass Index 26.62 12/20/2018 5:01 AM CDT documented in this encounter Discharge Summaries Matt Castle MD - 01/03/2019 2:40 PM CDT Internal Medicine Discharge Summary ADMIT DATE: 01/02/2019 DISCHARGE DATE: 01/03/2019 ATTENDING MD: Matt Castle MD PCP: PATIENT DOES NOT HAVE A PCP FINAL DIAGNOSIS: (the reason, after study, for admitting the patient to the hospital) Chest pain HOSPITAL COURSE: 73 y/o female presented with atypical chest pain, negative trops, stress test showed no ischemia, cleared for discharge by cardiology Dr. Ferguson with outpatient f/u on Tuesday with EP for pacemaker. I advised patient to f/u with PCP about elevated TSH and CKD. Not compliant with synthroid, she willresume. No changes in home medications. Full Code, advance care planning discussed on admission, surrogate decision maker in chart. Spent greater than 35 mins on discharge including chart review, evaluating patient, discussing with patient and/or family, discussing with nursing and/or consultants, discharge summary, reconciling home medications and evaluating labs and imaging. CONSULTING SERVICES: Dr. Ferguson- cardiology PROCEDURES: stress test SIGNIFICANT LAB/X-RAYS: LABS - reviewed pertinent labs as below: CBC BMP PT/INR WBC x10^3 (/CMM) Date Value 05/06/2004 8.6 WBC (10*3/L) Date Value 01/03/2019 5.44 NA Date Value 01/03/2019 141 mmol/L 05/06/2004 141 MMOL/L No results found for: PT RBC x10^6 (/CMM) Date Value 05/06/2004 4.48 RBC (10*6/L) Date Value 01/03/2019 3.98 K Date Value 01/03/2019 3.7 mmol/L 05/06/2004 4.5 MMOL/L INR (no units) Date Value 01/02/2019 1.8 PLT x10^3 (/CMM) Date Value 05/06/2004 353 PLT (10*3/L) Date Value 01/03/2019 189 CALCIUM Date Value 01/03/2019 9.0 mg/dL 05/06/2004 9.3 MG/DL HGB Date Value 01/03/2019 11.5 g/dL (L) 05/06/2004 13.2 G/DL CL Date Value 01/03/2019 109 mmol/L (H) 05/06/2004 104 MMOL/L aPTT HCT (%) Date Value 01/03/2019 36.2 05/06/2004 40.5 BUN Date Value 01/03/2019 24 mg/dL (H) 05/06/2004 12 MG/DL APTT Patient (Seconds) Date Value 01/02/2019 37 CREATININE Date Value 01/03/2019 1.12 mg/dL (H) 05/06/2004 0.82 MG/DL IMAGING - reviewed Hospital Encounter on 01/02/19 XR CHEST 1 VW Narrative HISTORY: Chest pain. TECHNIQUE: Portable AP erect view of the chest is obtained. FINDINGS: No acute pneumonia. No pneumothorax or pleural effusion or pulmonary congestion detected. Mild cardiomegaly with dilated central pulmonary arteries noted without wendy interstitial pulmonary edema. Midline sternotomy sutures from thoracic surgery noted. Note also made of bipolar permanent pacemaker inserted through left subclavian with electrode tips appear to be in good position. CONCLUSIONS: Mild cardiomegaly. Subjective No chest pain Feels better Ok with discharge plan Physical Exam NAD Anicteric sclera, oral mucosa clear Good air entry b/l RRR, nl s1s2 Abd soft NT No significant LE, no calf tenderness AAO, no gross deficits FUNCTIONAL STATUS: ambulate with assistance DISCHARGE CONDITION: fair COGNITIVE STATUS: forgetful DIET: cardiac and diabetic ACTIVITY: as tolerated DISCHARGE MEDICATIONS: Current Discharge Medication List CONTINUE these medications which have NOT CHANGED Details carvedilol (COREG) 12.5 mg Take 12.5 mg by mouth 2 (two) times daily with meals. furosemide (LASIX) 40 mg Take 40 mg by mouth daily. glipiZIDE (GLUCOTROL) 5 mg Take 5 mg by mouth daily. lisinopril (PRINIVIL,ZESTRIL) 5 mg Take 5 mg by mouth daily. SERTraline (ZOLOFT) 100 mg Take 100 mg by mouth daily. apixaban (ELIQUIS ORAL) 5 mg Take 5 mg by mouth. PATIENT EDUCATION PROVIDED: medications DISCHARGE: home health documented in this encounter Discharge Instructions AttachmentsThe following attachments cannot be sent through Care Everywhere.Chest Pain, Noncardiac (Central African)documented in this encounter Progress Notes Chana Chapman LBSW - 01/03/2019 3:43 PM CDTSubjective Patient ID: Magali Montez is a 73 year old female. Care Management Social Functional Assessment Patient Name: Magali Montez Age: [age] year old Sex: female Patient's Previous Admission Date at [facility]: 12/05/2018 Current diagnosis and co-morbidities: chest pain Readmission Questions: Was patient discharged from any acute care hospital within the last 30 days: Yes Were all questions regarding previous illness/diagnosis answered prior to discharge: Yes Did you have any difficulties with your discharge instructions: No Any difficulties after discharge with medications: No Any difficulties after discharge with transportation: No Any difficulties after discharge with physical conditions, support, or other limitations?: No Did patient refuse services that were recommended on the previous admission: No Was patient non-compliant with the previously recommended treatment: No If admitted from the ED did you call your primary MD or place a sick call/ request with your provider?: No Social Functional Assessment: Primary language spoken/preferred: [place] Mental Status: Alert & Oriented to Person,Place & Time Information given by: Child Name and phone number of person giving information: Gia Jackson dtr [phone] Patient's support system: Child;Spouse Name and number of support system: Gia Jackson, dtr [phone] and Cindi Montez, Living Arrangement: Home Address of living arrangement : [address] [place] [address] Persons living in home: Self;Spouse Names & numbers of persons living in home: pt and Barriers to returning home: None Baseline functional status- ambulation: Requires minimal to moderate assistance Functional status-baseline personal care: Requires minimal to moderate assistance Baseline functional status- driving: Dependent Baseline functional status- grocery shopping: Dependent Functional status-baseline housekeeping: Requires minimal to moderate assistance Functional status-baseline meal prep: Requires minimal to moderate assistance Current functional status same as prior: Yes Do you have a PCP?: Yes Name of PCP: Dr. Jersey Dean Home Health Care Agency: No Provider Services: No DME Company: No Equipment: Shower Chair;Bedside Commode;Wheelchair: Manual;Cane Hemodialysis: No Community resources utilized: None Funding Resources: Medicare Replacement Medicare Replacement name and information: AARP Prescription coverage plan: Medicare Part D Pharmacy where meds are filled: Other Other pharmacy: [facility] Anticipated services prior to disharge: Continue Medical Eval Expected mode of discharge transportation: Same as support system Additional Recommendations for DC: Medical clearance Additional info required for discharge planning: Pending medical evaluation Recommended discharge plan: Home SFA Complete: Social Functional Assessment complete: Yes Alcohol Use Screening (AUDIT-C) How often do you have a drink containing alcohol?: Never SCORE: 0 Did patient elect to have resources provided: No Role of Care Management explained. Any issues or concerns with obtaining/affording your medications at home: no. Are you or your support system able to corn picker medications at discharge: yes. Review of Systems Objective Physical Exam Assessment/Plan Home with , no needs to report PHONG Phan Product Management Specialist - Care Management [facility] [phone] [email or web address] documented in this encounter Plan of Treatment Name Type Priority Associated Diagnoses Date/Time NM MYOCARDIUM PERFUSION IMAGING Routine Chest pain, unspecified 01/03/2019 11:34 AM STRESS AND REST type CDT Name Type Priority Associated Diagnoses Order Schedule EKG-12 LEAD ROUTINE HEART STATION Routine TOMORROW AM AT 0600 for 1 Occurrences starting 01/03/2019 until 01/03/2019 NM MYOCARDIUM IMAGING Routine Chest pain, ONCE for 1 PERFUSION STRESS AND unspecified type Occurrences starting REST 01/02/2019 until 01/02/2019 Health Maintenance Due Date Last Done Comments HEPATITIS C (HCV) SCREEN 1945 DTaP,Tdap,and Td Vaccines (1 - Tdap) 06/19/1963 MAMMOGRAM 06/19/1984 COLONOSCOPY 06/19/1994 Zoster Recombinant Vaccine (SHINGRIX) (1 of 2) 06/19/1994 Medicare Wellness Visit 06/19/2009 Osteoporosis Screening 06/19/2009 PNEUMOCOCCAL VACCINES 65+ (1 of 2 - PCV13) 06/19/2009 INFLUENZA VACCINE 02/04/2019 documented as of this encounter Implants Implanted Type Area Manufacturing Business Analyst Device Shelf Model / Identifier Expiration Serial / Date Lot Defibrillator DEFIBRILLATOR documented as of this encounter Procedures Procedure Name Priority Date/Time Associated Comments Diagnosis POCT GLUCOSE Routine 01/03/2019 11:42 Results for this (AUTOMATED) AM CDT procedure are in the results section. POCT GLUCOSE Routine 01/03/2019 7:24 Results for this (AUTOMATED) AM CDT procedure are in the results section. CBC WITH Routine 01/03/2019 3:19 Results for this DIFFERENTIAL AM CDT procedure are in the results section. N-TERMINAL PRO-BNP Add-on 01/03/2019 3:19 Results for this AM CDT procedure are in the results section. GLYCOSYLATED JOSE Add-On 01/03/2019 3:19 Results for this HEMOGLOBIN (A1C) AM CDT procedure are in the results section. CBC WITH DIFF Routine 01/03/2019 3:19 Results for this AM CDT procedure are in the results section. LIPID PANEL JSOE Add-On 01/03/2019 3:19 Results for this (34134)(TOTAL AM CDT procedure are in CHOLESTEROL, the results TRIGLYCERIDES, HDL) section. BASIC METABOLIC Routine 01/03/2019 3:19 Results for this PANEL (NA, K, CL, AM CDT procedure are in CO2, GLUCOSE, BUN, the results CREATININE, CA) section. THYROID STIMULATING JOSE Add-On 01/03/2019 3:19 Results for this HORMONE AM CDT procedure are in the results section. TROPONIN I Routine 01/03/2019 3:19 Results for this AM CDT procedure are in the results section. DISCLOSURE AND Routine 01/03/2019 12:01 CONSENT, MEDICAL AND AM CDT SURGICAL PROCEDURES POCT GLUCOSE Routine 01/02/2019 4:02 Results for this (AUTOMATED) PM CDT procedure are in the results section. TROPONIN I Routine 01/02/2019 12:02 Results for this PM CDT procedure are in the results section. POCT GLUCOSE Routine 01/02/2019 11:59 Results for this (AUTOMATED) AM CDT procedure are in the results section. URINALYSIS STAT 01/02/2019 8:38 Chest pain, Results for this AM CDT unspecified type procedure are in the results section. POCT GLUCOSE(AGE JOSE 01/02/2019 8:32 Chest pain, Results for this 0-30DAYS) AM CDT unspecified type procedure are in the results section. POCT GLUCOSE Routine 01/02/2019 8:31 Results for this (AUTOMATED) AM CDT procedure are in the results section. XR CHEST 1 VW STAT 01/02/2019 8:12 Chest pain, Results for this AM CDT unspecified type procedure are in the results section. CBC WITH STAT 01/02/2019 8:07 Chest pain, Results for this DIFFERENTIAL AM CDT unspecified type procedure are in the results section. ACTIVATED PARTIAL STAT 01/02/2019 8:07 Chest pain, Results for this THRMPLAS SHIV AM CDT unspecified type procedure are in the results section. PROTHROMBIN TIME / STAT 01/02/2019 8:07 Chest pain, Results for this INR AM CDT unspecified type procedure are in the results section. CBC WITH DIFF Routine 01/02/2019 8:07 Chest pain, Results for this AM CDT unspecified type procedure are in the results section. COMP. METABOLIC STAT 01/02/2019 8:07 Chest pain, Results for this PANEL (73188) AM CDT unspecified type procedure are in the results section. TROPONIN I STAT 01/02/2019 8:07 Chest pain, Results for this AM CDT unspecified type procedure are in the results section. LIPASE STAT 01/02/2019 8:07 Chest pain, Results for this AM CDT unspecified type procedure are in the results section. EKG-12 LEAD Routine 01/02/2019 7:59 AM CDT EKG-12 LEAD STAT 01/02/2019 7:57 AM CDT CONSENT/REFUSAL FOR Routine 01/02/2019 7:44 DIAGNOSIS AND AM CDT TREATMENT documented in this encounter Results POCT GLUCOSE (AUTOMATED) (01/03/2019 11:42 AM CDT) POCT GLU 131 (H) 70 - 110 mg/dL [facility] Specimen Blood Performing Organization Address City/[facility] Phone Number [facility] CLIA: [id number], [address] [place] [address] POCT GLUCOSE (AUTOMATED) (01/03/2019 7:24 AM CDT) POCT GLU 129 (H) 70 - 110 mg/dL [facility] Specimen Blood Performing Organization Address [facility] Phone Number [facility] CLIA: [id number], [address] [place] [id number] [address] N-TERMINAL PRO-BNP (01/03/2019 3:19 AM CDT) NT-proBNP 12,200 (H) <=125 pg/mL [facility] Specimen Blood - HAND, RIGHT Narrative Performed At Biotin has been reported to cause a negative [facility] bias, interpret results relative to patient's use of biotin. Performing Organization Address [facility] Phone Number [facility] CLIA: [id number], [address] [place] [address] LIPID PANEL (81985)(TOTAL CHOLESTEROL, TRIGLYCERIDES, HDL) (01/03/2019 3:19 AM CDT) CHOL 167 120 - 200 mg/dL [facility] HDL 36 (L) >50 mg/dL [facility] HDLC RATIO 4.6 (H) <=4.5 [facility] TRIG 87 30 - 170 mg/dL [facility] LDL CHOL 114 <=160 mg/dL [facility] VLDL 17 5 - 60 mg/dL [facility] Specimen Blood - HAND, RIGHT Performing Organization Address [facility] Phone Number [facility] CLIA: [id number], [address] [place] [address] THYROID STIMULATING HORMONE (01/03/2019 3:19 AM CDT) TSH 10.70 (H)Comment: 0.45 - 4.70 [facility] Biotin has been mIU/L [facility] reported to cause a negative bias, interpret results relative to patient's use of biotin. Specimen Blood - HAND, RIGHT Performing Organization Address [facility] Phone Number [facility] CLIA: [id number], [address] [place] [address] GLYCOSYLATED HEMOGLOBIN (A1C) (01/03/2019 3:19 AM CDT) HGB A1C 6.1 (H) 4.0 - 6.0 % NGSP [facility] Specimen Blood - HAND, RIGHT Narrative Performed At %A1C (NGSP) Interpretation (ADA) [facility] 4.8-5.6 Normal or (Non-Diabetic Range) 5.7-6.4 Increased Risk (Pre-Diabetic) >6.5Diabetes Indicated Performing Organization Address [facility] Phone Number [facility] CLIA: [id number], [address] [place] [address] CBC WITH DIFFERENTIAL (01/03/2019 3:19 AM CDT) WBC 5.44 4.30 - 11.10 [facility] 10*3/L [facility] RBC 3.98 3.93 - 5.25 [facility] 10*6/L [facility] HGB 11.5 (L) 11.6 - 15.0 [facility] g/dL [facility] HCT 36.2 35.7 - 45.2 % [facility] MCV 91.0 80.6 - 95.5 fL [facility] MCH 28.9 25.9 - 32.8 pg [facility] MCHC 31.8 31.6 - 35.1 [facility] g/dL [facility] RDW-SD 58.0 (H) 39.0 - 49.9 fL [facility] RDW-CV 17.2 (H) 12.0 - 15.5 % [facility] PLT 189 166 - 358 [facility] 10*3/L [facility] MPV 11.7 9.5 - 12.9 fL [facility] NRBC/100 WBC 0.0 0.0 - 10.0 /100 [facility] WBCs [facility] NRBC x10^3 <0.01 10*3/L [facility] GRAN MAT (NEUT) % 53.8 % [facility] IMM GRAN % 0.20 % [facility] LYMPH % 30.3 % [facility] MONO % 11.0 % [facility] EOS % 4.0 % [facility] BASO % 0.7 % [facility] GRAN MAT x10^3(ANC) 2.92 1.88 - 7.09 [facility] 10*3/uL [facility] IMM GRAN x10^3 <0.03 0.00 - 0.06 [facility] 10*3/uL [facility] LYMPH x10^3 1.65 1.32 - 3.29 [facility] 10*3/uL [facility] MONO x10^3 0.60 0.33 - 0.92 [facility] 10*3/uL [facility] EOS x10^3 0.22 0.03 - 0.39 [facility] 10*3/uL [facility] BASO x10^3 0.04 0.01 - 0.07 [facility] 10*3/uL [facility] Specimen Blood - HAND, RIGHT Performing Organization Address City/State/Zipcode Phone Number [facility] CLIA: [id number], [address] [place] [address] TROPONIN I (01/03/2019 3:19 AM CDT) TROPONIN I 0.014 <=0.034 ng/mL [facility] Specimen Blood - HAND, RIGHT Narrative Performed At Equal or Less than 0.034 ng/ml---Normal [facility] Note: Cardiac troponin begins to rise 3-4 hours after the onset of ischemia. Repeat in 4-6 hours if the sample was drawn within 3-4 hours of the onset of the symptom and found normal. Between 0.035 and 0.120 ng/mL--- Borderline. Questionable myocardial injury or necrosis Note: Serial measurement may be necessary to confirm or exclude the diagnosis of myocardial injury or necrosis; Clinical correlation (symptoms, EKGs, imaging studies, and others) required; Repeat in 4-6 hours if clinically indicated. Equal or Higher than 0.121 ng/mL---Abnormal. Myocardial Injury or Necrosis Likely Biotin has been reported to cause a negative bias, interpret results relative to patient's use of biotin. Performing Organization Address City/State/Zipcode Phone Number [facility] CLIA: [id number], [address] [place] [address] Basic Metabolic Panel (NA, K, CL, CO2, GLUCOSE, BUN, CREATININE, CA) (2018 3:19 AM CDT) NA 141 135 - 145 [facility] mmol/L [facility] K 3.7 3.5 - 5.0 [facility] mmol/L [facility] CL 109 (H) 98 - 108 mmol/L [facility] CO2 TOTAL 22 (L) 23 - 31 mmol/L [facility] AGAP 10 2 - 16 [facility] BUN 24 (H) 7 - 23 mg/dL [facility] GLUCOSE 128 (H) 70 - 110 mg/dL [facility] CREATININE 1.12 (H) 0.50 - 1.04 [facility] mg/dL [facility] CALCIUM 9.0 8.6 - 10.6 [facility] mg/dL [facility] eGFR Calculation 47.6 mL/min/1.73m2 [facility] (Non[facility]ORATORY Chinese) eGFR Calculation 57.6 mL/min/1.73m2 [facility] () [facility] Specimen Blood - HAND, RIGHT Narrative Performed At Association of Glomerular Filtration Rate (GFR) [facility] and Staging of Kidney Disease* + + +- + | GFR (mL/min/1.73 m2)| With Kidney Damage|Without Kidney Damage + + +- + |>90| Stage one| Normal + + +- + |60-89|S tage two| Decreased GFR + + +- + |30-59|S tage three| Stage three + + +- + |15-29|S tage four | Stage four + + +- + |<15 (or dialysis)|Stage five | Stage five + + +- + *Each stage assumes the associated GFR level has been in effect for at least three months.Stages 1 to 5, with or without kidney disease, indicate chronic kidney disease. Notes: Determination of stages one and two (with eGFR >59mL/min/1.73 m2) requires estimation of kidney damage for at least three months as defined by structural or functional abnormalities of the kidney, manifested by either: Pathological abnormalities or Markers of kidney damage (including abnormalities in the composition of the blood or urine or abnormalities in imaging tests). Performing Organization Address City/[facility]/Zipcode Phone Number [facility] CLIA: [id number], [address] POCT GLUCOSE (AUTOMATED) (01/02/2019 4:02 PM CDT) POCT GLU 207 (H) 70 - 110 mg/dL [facility] Specimen Blood Performing Organization Address [facility] Centercode Phone Number [facility] CLIA: [id number], [address] [place] [address] TROPONIN I (01/02/2019 12:02 PM CDT) TROPONIN I 0.013 <=0.034 ng/mL [facility] Specimen Blood - ARM, RIGHT Narrative Performed At Equal or Less than 0.034 ng/ml---Normal [facility] Note: Cardiac troponin begins to rise 3-4 hours after the onset of ischemia. Repeat in 4-6 hours if the sample was drawn within 3-4 hours of the onset of the symptom and found normal. Between 0.035 and 0.120 ng/mL--- Borderline. Questionable myocardial injury or necrosis Note: Serial measurement may be necessary to confirm or exclude the diagnosis of myocardial injury or necrosis; Clinical correlation (symptoms, EKGs, imaging studies, and others) required; Repeat in 4-6 hours if clinically indicated. Equal or Higher than 0.121 ng/mL---Abnormal. Myocardial Injury or Necrosis Likely Biotin has been reported to cause a negative bias, interpret results relative to patient's use of biotin. Performing Organization Address [facility] Phone Number [facility] CLIA: [id number], [address] [place] [address] POCT GLUCOSE (AUTOMATED) (01/02/2019 11:59 AM CDT) POCT GLU 90 70 - 110 mg/dL [facility] Specimen Blood Performing Organization Address [facility] Phone Number [facility] CLIA: [id number], [address] [place] [address] URINALYSIS (01/02/2019 8:38 AM CDT) APPEARANCE Slightly Hazy (A) Clear [facility] COLOR Yellow Yellow [facility] PH 5.5 4.8 - 8.0 [facility] SP GRAVITY >=1.030 1.003 - 1.030 [facility] GLU U QUAL Negative Negative [facility] BLOOD Trace (A) Negative [facility] KETONES Negative Negative [facility] PROTEIN Trace (A) Negative [facility] UROBILIN 1.0 mg/dL 0-1.0 mg/dL [facility] BILIRUBIN Small (A) Negative [facility] NITRITE Negative Negative [facility] LEUK YAS Small (A) Negative [facility] RBC/HPF 5 (H) 0 - 3 HPF [facility] WBC/HPF 20 (H) 0 - 5 HPF [facility] BACTERIA Moderate (A) Negative [facility] MUCOUS Moderate (A) Negative LPF [facility] SQ EPITH 1 HPF [facility] WBC CLUMPS 3 (H) <=1 HPF [facility] TRANS EPI 3 (H) <=1 HPF [facility] NICOLE EPITH 2 HPF [facility] Ictotest Positive [facility] Specimen Urine - URINE, CLEAN CATCH Performing Organization Address [facility] Centercode Phone Number [facility] CLIA: [id number], [address] [place] [address] POCT GLUCOSE(AGE 0-30DAYS) (01/02/2019 8:32 AM CDT) POCT Glu (age 0-30days) 91 40 - 110 mg/dl Specimen Blood - CAPILLARY POCT GLUCOSE (AUTOMATED) (01/02/2019 8:31 AM CDT) POCT GLU 91 70 - 110 mg/dL [facility] Specimen Blood Performing Organization Address [facility] Centercode Phone Number [facility] CLIA: [id number], [address] [place] [address] XR CHEST 1 VW (01/02/2019 8:12 AM CDT) Specimen Narrative Performed At HISTORY: Chest pain. PACS/VR/DOSE TECHNIQUE: Portable AP erect view of the chest is obtained. FINDINGS: No acute pneumonia. No pneumothorax or pleural effusion or pulmonary congestion detected. Mild cardiomegaly with dilated central pulmonary arteries noted without wendy interstitial pulmonary edema. Midline sternotomy sutures from thoracic surgery noted. Note also made of bipolar permanent pacemaker inserted through left subclavian with electrode tips appear to be in good position. CONCLUSIONS: Mild cardiomegaly. Procedure Note [facility], Radiant Results Inft User - 01/02/2019 8:25 AM CDT HISTORY: Chest pain. TECHNIQUE: Portable AP erect view of the chest is obtained. FINDINGS: No acute pneumonia. No pneumothorax or pleural effusion or pulmonary congestion detected. Mild cardiomegaly with dilated central pulmonary arteries noted without wendy interstitial pulmonary edema. Midline sternotomy sutures from thoracic surgery noted. Note also made of bipolar permanent pacemaker inserted through left subclavian with electrode tips appear to be in good position. CONCLUSIONS: Mild cardiomegaly. Performing Organization Address City/State/Zipcode Phone Number PACS/VR/DOSE CBC WITH DIFFERENTIAL (01/02/2019 8:07 AM CDT) WBC 5.36 4.30 - 11.10 [facility] 10*3/L HOSPITAL LABORATORY RBC 4.09 3.93 - 5.25 [facility] 10*6/L [facility]OS[facility]ITAL LAB[facility]ORY HGB 12.0 11.6 - 15.0 [facility] g/dL H[facility] HCT 36.9 35.7 - 45.2 % [facility] MCV 90.2 80.6 - 95.5 fL [facility] MCH 29.3 25.9 - 32.8 pg [facility] MCHC 32.5 31.6 - 35.1 [facility] g/dL [facility] LABOR[facility]ORY RDW-SD 57.2 (H) 39.0 - 49.9 fL [facility] RDW-CV 17.3 (H) 12.0 - 15.5 % [facility] PLT 197 166 - 358 [facility] 10*3/L [facility] MPV 10.9 9.5 - 12.9 fL [facility] NRBC/100 WBC 0.0 0.0 - 10.0 /100 [facility] WBCs [facility] LABOR[facility]ORY NRBC x10^3 <0.01 10*3/L [facility] GRAN MAT (NEUT) % 49.4 % [facility] IMM GRAN % 0.20 % [facility] LYMPH % 33.6 % [facility] MONO % 11.2 % [facility] EOS % 5.0 % [facility] BASO % 0.6 % [facility] GRAN MAT x10^3(ANC) 2.65 1.88 - 7.09 [facility] 10*3/uL [facility] LABORATORY IMM GRAN x10^3 <0.03 0.00 - 0.06 [facility] 10*3/uL HOSPITAL LAB[facility]ATORY LYMPH x10^3 1.80 1.32 - 3.29 [facility] 10*3/uL HOSPITAL LAB[facility]ORY MONO x10^3 0.60 0.33 - 0.92 [facility] 10*3/uL HOSPITAL LAB[facility]ATORY EOS x10^3 0.27 0.03 - 0.39 [facility] 10*3/uL HOSPITAL LAB[facility]ATORY BASO x10^3 0.03 0.01 - 0.07 [facility] 10*3/uL [facility]OR[facility] Specimen Blood - HAND, RIGHT Performing Organization Address City/State/Zipcode Phone Number [facility] CLIA: [id number], [address] [place] [address] LIPASE, SERUM (01/02/2019 8:07 AM CDT) LIPASE 228 (H) 0 - 220 U/L [facility] Specimen Blood - HAND, RIGHT Performing Organization Address City/State/Zipcode Phone Number [facility] CLIA: [id number], [address] [place] [address] COMP. METABOLIC PANEL (86260) (01/02/2019 8:07 AM CDT) NA 144 135 - 145 [facility] mmol/L [facility] K 3.8 3.5 - 5.0 [facility] mmol/L [facility] CL 110 (H) 98 - 108 mmol/L [facility] CO2 TOTAL 22 (L) 23 - 31 mmol/L [facility] AGAP 12 2 - 16 [facility] BUN 23 7 - 23 mg/dL [facility] GLUCOSE 102 70 - 110 mg/dL [facility] CREATININE 1.08 (H) 0.50 - 1.04 [facility] mg/dL [facility] TOTAL BILI 0.6 0.1 - 1.1 mg/dL [facility] CALCIUM 8.8 8.6 - 10.6 [facility] mg/dL [facility] LAB[facility] T PROTEIN 7.7 6.3 - 8.2 g/dL [facility] ALBUMIN 4.2 3.5 - 5.0 g/dL [facility] ALK PHOS 88 34 - 122 U/L [facility] ALT(SGPT) 13 9 - 51 U/L [facility] AST(SGOT) 34 13 - 40 U/L [facility] eGFR Calculation 49.6 mL/min/1.73m2 [facility] (Non[facility] LABORATORY Chinese) eGFR Calculation 60.1 mL/min/1.73m2 [facility] () [facility] Specimen Blood - HAND, RIGHT Narrative Performed At Association of Glomerular Filtration Rate (GFR) [facility] and Staging of Kidney Disease* + + +- + | GFR (mL/min/1.73 m2)| With Kidney Damage|Without Kidney Damage + + +- + |>90| Stage one| Normal + + +- + |60-89|S tage two| Decreased GFR + + +- + |30-59|S tage three| Stage three + + +- + |15-29|S tage four | Stage four + + +- + |<15 (or dialysis)|Stage five | Stage five + + +- + *Each stage assumes the associated GFR level has been in effect for at least three months.Stages 1 to 5, with or without kidney disease, indicate chronic kidney disease. Notes: Determination of stages one and two (with eGFR >59mL/min/1.73 m2) requires estimation of kidney damage for at least three months as defined by structural or functional abnormalities of the kidney, manifested by either: Pathological abnormalities or Markers of kidney damage (including abnormalities in the composition of the blood or urine or abnormalities in imaging tests). Performing Organization Address [facility] Centercode Phone Number [facility] CLIA: [id number], [address] [place], [place] [address] [address] PROTHROMBIN TIME / INR (01/02/2019 8:07 AM CDT) PROTIME PATIENT 20.2 (H) 12.0 - 14.7 [facility] LABORATORY INR 1.8Comment: Normal [facility] INR <1.1; [facility] Therapeutic range LABORATORY 2.0 to 3.0 or 2.5 to 3.5, depending upon the indications. Specimen Blood - HAND, RIGHT Performing Organization Address [facility] Centerco[employer] Phone Number [facility] CLIA: [id number], [address] [place] [address] aPTT (01/02/2019 8:07 AM CDT) [facility] APTT Patient 37 23 - 38 Seconds [facility] Specimen Blood - HAND, RIGHT Narrative Performed At [facility] patient population mean normal value [facility] for aPTT is 30 seconds. Performing Organization Address [facility]/[employer] Phone Number [facility] CLIA: [id number], [address] [place], [place] [address] LAB[address] TROPONIN I (01/02/2019 8:07 AM CDT) [facility] TROPONIN I 0.018 <=0.034 ng/mL [facility] Specimen Blood - HAND, RIGHT Narrative Performed At Equal or Less than 0.034 ng/ml---Normal [facility] Note: Cardiac troponin begins to rise 3-4 hours after the onset of ischemia. Repeat in 4-6 hours if the sample was drawn within 3-4 hours of the onset of the symptom and found normal. Between 0.035 and 0.120 ng/mL--- Borderline. Questionable myocardial injury or necrosis Note: Serial measurement may be necessary to confirm or exclude the diagnosis of myocardial injury or necrosis; Clinical correlation (symptoms, EKGs, imaging studies, and others) required; Repeat in 4-6 hours if clinically indicated. Equal or Higher than 0.121 ng/mL---Abnormal. Myocardial Injury or Necrosis Likely Biotin has been reported to cause a negative bias, interpret results relative to patient's use of biotin. Performing Organization Address City/State/Zipcode Phone Number [facility] CLIA: [id number], [address] [place] [address] [facility] documented in this encounter Visit Diagnoses Diagnosis Chest pain, unspecified type - Primary documented in this encounter Administered Medications Medication Order MAR Action Action Date Dose Rate Site apixaban (ELIQUIS) tablet 5 mg Given 01/03/2019 12:33 PM CDT 5 mg 5 mg, Oral, DAILY, First dose on Tue01/03/19 at 0900, Until Discontinued carvedilol (COREG) tablet 12.5 mg Given 01/03/2019 12:33 PM CDT 12.5 mg 12.5 mg, Oral, BID MEALS, First dose on Tue01/02/19 at 1700, Until Discontinued, Routine Given 01/02/2019 5:50 PM CDT 12.5 mg furosemide (LASIX) tablet 40 mg Given 01/03/2019 12:33 PM CDT 40 mg 40 mg, Oral, DAILY, First dose on Tue01/03/19 at 0900, Until Discontinued, Routine glipiZIDE (GLUCOTROL) tablet 5 mg Given 01/03/2019 12:33 PM CDT 5 mg 5 mg, Oral, DAILY, First dose on Tue01/03/19 at 0900, Until Discontinued, Routine lisinopril (PRINIVIL,ZESTRIL) tablet 5 mg Given 01/03/2019 12:33 PM CDT 5 mg 5 mg, Oral, DAILY, First dose on Tue01/03/19 at 0900, Until Discontinued, Routine SERTraline (ZOLOFT) tablet 100 mg Given 01/03/2019 12:33 PM CDT 100 mg 100 mg, Oral, DAILY, First dose on Tue01/03/19 at 0900, Until Discontinued, Routine Sliding Scale Insulin - Aspart Given 01/02/2019 4:47 PM CDT 2 Units Abdomen-SC (NOVOLOG) + Fsbg Testing Subcutaneous, AC, First dose on Tue01/02/19 at 1630, Until Discontinued, Routine sodium chloride (NS) injection 5 mL 5 mL, Intravenous, PRN, Starting Tue01/02/19 at 0756, Until Discontinued, Routine, IV line flushing Medication Order MAR Action Action Date Dose Rate Site aspirin tablet 325 mg Given 01/02/2019 8:28 AM CDT 325 mg 325 mg, Oral, ONCE, 1 dose, Tue01/02/19 at 0800, STAT pneumococcal vac polyvalent Given 01/03/2019 3:49 PM CDT 0.5 mL Left Deltoid-IM (PNEUMOVAX-23) injection 0.5 mL 0.5 mL, Intramuscular, ONCE, 1 dose, Tue01/03/19 at 1545, Routine Regadenoson (LEXISCAN) injection 0.4 mg Given 01/03/2019 10:00 AM CDT 0.4 mg 0.4 mg, IV Push, ONCE, 1 dose, Tue01/03/19 at 1000, Routine, service member approving Restricted medication: [employer] tc 99m-tetrofosmin (MYOVIEW) Given 01/03/2019 8:00 AM CDT 16.5 millicuries injection 16.5 millicurie 16.5 millicurie, Intravenous, ONCE, 1 dose, Tue01/03/19 at 0815, Routine tc 99m-tetrofosmin (MYOVIEW) Given 01/03/2019 10:00 AM CDT 43.7 millicuries injection 43.7 millicurie 43.7 millicurie, Intravenous, ONCE, 1 dose, Tue01/03/19 at 1015, Routine documented in this encounter Insurance Payer Benefit Plan / Subscriber ID Effective Phone Address Type Group Dates [employer] MEDICARE [id number] 2018-[facility] Medicare Adv HEALTHCARE - COMPLETE nt O MANAGED MEDICARE (Work) [id number] documented as of this encounter"
== END 2019-04-14 14:33 | disposition short-term general hospital (02) ==
LOC: ER 10:53
DX: I48.91 Unspecified atrial fibrillation (principal); I48.92 Unspecified atrial flutter; I50.40 Unspecified combined systolic (congestive) and diastolic (congestive) heart failure; I51.7 Cardiomegaly; G40.802 Other epilepsy, not intractable, without status epilepticus; E83.42 Hypomagnesemia; E11.9 Type 2 diabetes mellitus without complications; N19 Unspecified kidney failure; I10 Essential (primary) hypertension; I25.2 Old myocardial infarction; E03.9 Hypothyroidism, unspecified; Z79.02 Long term (current) use of antithrombotics/antiplatelets; Z88.3 Allergy status to other anti-infective agents; Z95.810 Presence of automatic (implantable) cardiac defibrillator
CPT/HCPCS: 96365; 96367; 96361; 93005 ×2; 85025; 80048; 36415; 83735; 85610; 80076; 84443; 84484; 84439; 83690; 83880; 70450; 71045; 96375; 99291; 99292; J3475; J1953; J7040